=== PATIENT | male | born 1955 | race Caucasian/White ===

== ENCOUNTER → 2017-09-22 14:52 | Outpatient (CLI) | payer MEDICARE, SELFPAY ==
[2017-09-22 18:09] LABS: Absolute Lymphocyte Count 3.58 X10^3/ul (0.83-4.51); Absolute Neutrophil Count 5.3 X10^3/uL (2.0-7.7); Basophil# 0.04 X10^3/uL; Basophil% 0.4 % (0-1); Eosinophil# 0.37 X10^3/uL; Eosinophils% 3.5 % (0-5); Hematocrit 46.2 % (40-54); Hemoglobin 15.1 g/dl (13.0-16.5); Lymphocyte # 3.58 X10^3/ul (4.0); Lymphocyte % 33.6 % (19-41); Mean Corp Hgb Conc 32.7 g/gl (32-36); Mean Corpuscular Hgb 30.8 pg (27.0-32.0); Mean Corpuscular Volume 94.1 fL (80-94); Mean Platelet Vol. 10.4 fl (6.2-12.0); Monocyte# 1.26 X10^3/uL; Monocyte% 11.8 % (0-10); Neutrophil # 5.34 X10^3/uL (2.7-7.7); Neutrophil % 50.1 % (47-70); Platelet Count 277 K/mm3 (150-450); RBC Distribution Width CV 12.7 % (11.6-14.6); RBC Distribution Width SD 43.7 fl (35.1-43.9); Red Blood Count 4.91 M/mm3 (4.6-6.2); White Blood Count 10.7 K/mm3 (4.4-11.0)
[2017-09-22 18:15] LABS: ALB/GLOB Ratio 0.9 RATIO (0.9-2.4); AST(SGOT) 15 U/L (15-37); Alanine Aminotransfer ALT/SGPT 22 U/L (16-61); Albumin, Serum 3.8 g/dL (3.2-5.0); Alkaline Phosphatase 107 U/L (45-117); Anion Gap 9 (5-15); BUN 10 mg/dL (7-18); BUN/Creat Ratio 8.4 RATIO (10-20); Calcium,Total 8.6 mg/dL (8.5-10.1); Chloride 101 mmol/L (98-107); Creatinine, Serum 1.19 mg/dL (0.70-1.30); EST Glomerular Filtration Rate 66 mL/min (>60); Est Glom Filt Rate - Afr Amer 80 mL/min (>60); Globulin 4.2 g/dL (2.2-4.2); Glucose 204 mg/dL (74-106); Potassium 3.8 mmol/L (3.5-5.1); Sodium Level 135 mmol/L (136-145); Thyroid Stim Hormone (TSH) 1.08 uIU/mL (0.358-3.74)
[2017-09-22 18:20] LABS: POSITIVE COUNT NO; POSITIVE DIFFERENTIAL NO; POSITIVE MORPHOLOGY NO
== END ==
PROVIDERS: Family Provider Family Medicine Geriatric Medicine; PCP Family Medicine Geriatric Medicine; Visit Provider Family Medicine Geriatric Medicine
DX: I10 Essential (primary) hypertension (principal); E11.9 Type 2 diabetes mellitus without complications
CPT/HCPCS: 36415; 80053; 84443; 85025

== ENCOUNTER → 2018-03-09 13:28 | Outpatient (CLI) | payer MEDICARE, SELFPAY ==
[2018-03-09 16:30] LABS: Absolute Lymphocyte Count 3.81 X10^3/ul (0.83-4.51); Absolute Neutrophil Count 9.3 X10^3/uL (2.0-7.7); Basophil# 0.05 X10^3/uL; Basophil% 0.3 % (0-1); Eosinophil# 0.21 X10^3/uL; Eosinophils% 1.4 % (0-5); Hematocrit 43.9 % (40-54); Hemoglobin 14.7 g/dl (13.0-16.5); Lymphocyte # 3.81 X10^3/ul (4.0); Lymphocyte % 25.9 % (19-41); Mean Corp Hgb Conc 33.5 g/gl (32-36); Mean Corpuscular Hgb 31.5 pg (27.0-32.0); Mean Platelet Vol. 10.3 fl (6.2-12.0); Monocyte# 1.23 X10^3/uL; Monocyte% 8.4 % (0-10); Neutrophil # 9.33 X10^3/uL (2.7-7.7); Neutrophil % 63.5 % (47-70); Platelet Count 305 K/mm3 (150-450); RBC Distribution Width CV 12.6 % (11.6-14.6); RBC Distribution Width SD 42.5 fl (35.1-43.9); Red Blood Count 4.67 M/mm3 (4.6-6.2); White Blood Count 14.7 K/mm3 (4.4-11.0)
[2018-03-09 16:56] LABS: ALB/GLOB Ratio 0.9 RATIO (0.9-2.4); AST(SGOT) 16 U/L (15-37); Alanine Aminotransfer ALT/SGPT 25 U/L (16-61); Albumin, Serum 3.7 g/dL (3.2-5.0); Alkaline Phosphatase 108 U/L (45-117); Anion Gap 10 (5-15); BUN 11 mg/dL (7-18); BUN/Creat Ratio 8.5 RATIO (10-20); Calcium,Total 8.7 mg/dL (8.5-10.1); Chloride 100 mmol/L (98-107); Creatinine, Serum 1.29 mg/dL (0.70-1.30); EST Glomerular Filtration Rate 60 mL/min (>60); Est Glom Filt Rate - Afr Amer 73 mL/min (>60); Globulin 4.2 g/dL (2.2-4.2); Glucose 110 mg/dL (74-106); PSA,Total - Annual Screen 0.47 ng/mL (0.00-4.00); Potassium 3.9 mmol/L (3.5-5.1); Protein, Total 7.9 g/dL (6.4-8.2); Sodium Level 136 mmol/L (136-145); Thyroid Stim Hormone (TSH) 0.77 uIU/mL (0.358-3.74)
[2018-03-09 17:10] LABS: POSITIVE COUNT NO; POSITIVE DIFFERENTIAL NO; POSITIVE MORPHOLOGY NO
== END ==
PROVIDERS: Family Provider Family Medicine Geriatric Medicine; PCP Family Medicine Geriatric Medicine; Visit Provider Family Medicine Geriatric Medicine
DX: E11.9 Type 2 diabetes mellitus without complications (principal); Z12.5 Encounter for screening for malignant neoplasm of prostate
CPT/HCPCS: 36415; 80053; 84153; 84443; 85025; G0103

== ENCOUNTER → 2018-03-18 08:10 | Outpatient (CLI) | payer MEDICARE, SELFPAY ==
--- NOTE | 2018-03-18 09:40 | RAD_ITS ---
STUDY: X-RAY - LUMBOSACRAL SPINE REASON FOR EXAM: Male, 63 years old. Chronic low back pain. TECHNIQUE: 7 view(s) of the lumbosacral spine were obtained including flexion and extension images. COMPARISON: None FINDINGS: Normal lumbar lordosis. There is no substantial scoliosis. There is normal alignment of the vertebrae. Grossly normal flexion and extension with no subluxations. Normal vertebral bodies and endplates. Normal disc space heights. Normal bilateral sacral ala, sacroiliac joints, and visualized sacrum. There is atherosclerotic calcification of the abdominal aorta without a demonstrated aneurysm. RAD/L/S Spine Comp/w Bending Views IMPRESSION: Unremarkable for age. Electronically Signed: Tray Palmer MD at 19:44 EDT , Service support ,
== END ==
LOC: HPRAD 08:12 → MTRAD 08:32
PROVIDERS: Family Provider Family Medicine Geriatric Medicine; PCP Family Medicine Geriatric Medicine; Referring Provider Family Medicine Geriatric Medicine; Visit Provider Family Medicine Geriatric Medicine
DX: M54.16 Radiculopathy, lumbar region (principal)
CPT/HCPCS: 72114

== ENCOUNTER → 2018-07-16 14:15 | Outpatient (CLI) | payer MEDICARE, SELFPAY ==
[2018-07-16 16:25] LABS: Anion Gap 9 (5-15); BUN 12 mg/dL (7-18); BUN/Creat Ratio 10.1 RATIO (10-20); Calcium,Total 9.1 mg/dL (8.5-10.1); Chloride 103 mmol/L (98-107); Creatinine, Serum 1.19 mg/dL (0.70-1.30); EST Glomerular Filtration Rate 66 mL/min (>60); Est Glom Filt Rate - Afr Amer 80 mL/min (>60); Glucose 124 mg/dL (74-106); Sodium Level 136 mmol/L (136-145)
[2018-07-16 16:27] LABS: Absolute Lymphocyte Count 4.57 X10^3/ul (0.83-4.51); Absolute Neutrophil Count 8.4 X10^3/uL (2.0-7.7); Basophil# 0.06 X10^3/uL; Basophil% 0.4 % (0-1); Eosinophil# 0.27 X10^3/uL; Eosinophils% 1.8 % (0-5); Hematocrit 46.4 % (40-54); Hemoglobin 15.3 g/dl (13.0-16.5); Lymphocyte # 4.57 X10^3/ul (4.0); Lymphocyte % 31.3 % (19-41); Mean Corpuscular Volume 94.1 fL (80-94); Mean Platelet Vol. 10.6 fl (6.2-12.0); Monocyte# 1.24 X10^3/uL; Monocyte% 8.5 % (0-10); Neutrophil # 8.39 X10^3/uL (2.7-7.7); Neutrophil % 57.4 % (47-70); Platelet Count 298 K/mm3 (150-450); RBC Distribution Width CV 12.6 % (11.6-14.6); RBC Distribution Width SD 42.5 fl (35.1-43.9); Red Blood Count 4.93 M/mm3 (4.6-6.2); White Blood Count 14.6 K/mm3 (4.4-11.0)
[2018-07-16 16:32] LABS: POSITIVE COUNT NO; POSITIVE DIFFERENTIAL NO; POSITIVE MORPHOLOGY NO
== END ==
PROVIDERS: Family Provider Family Medicine Geriatric Medicine; PCP Family Medicine Geriatric Medicine; Visit Provider Family Medicine Geriatric Medicine
DX: Z01.818 Encounter for other preprocedural examination (principal)
CPT/HCPCS: 36415; 80048; 85025

== ENCOUNTER → 2018-07-24 06:32 | Outpatient (CLI) | payer MEDICARE, SELFPAY ==
--- NOTE | 2018-07-24 15:17 | STRESSREP_ITS ---
Stress Test Report Pharmacologic myocardial perfusion stress test. 63-year-old lady for preoperative evaluation. Stress protocol: Resting EKG demonstrates normal sinus rhythm with a rate of 74 bpm normal intervals are noted resting blood pressure 128/60 6 m of mercury. 0.4 mg of regadenoson was infused per usual protocol followed by rapid intravenous saline flush injection continuous EKG monitoring was performed. The maximum heart rate attained was 93 bpm which was 58% of maximum predicted heart rate the maximum workload was 1 metabolic equivalent. The patient maintained sinus rhythm throughout the recording. At rest there were no ST or T wave changes noted suggest abnormal flow reserve at peak infusion no ST or T wave changes were noted suggest abnormal flow reserve. Resting blood pressure 128/66 final blood pressure was the same. Myocardial perfusion protocol. 14.6 mCi of technetium 99m sestamibi was injected at rest. 0.4 mg of regadenoson was infused per usual protocol peak infusion 44.1 mCi of technetium 99m sestamibi was injected stress images were obtained stress and rest images were reconstructed and compared in the short ax is vertical long horizontal long axis. Gated images were also obtained Perfusion SPECT analysis: Review of the stress images demonstrate normal uptake of tracer noted in all areas of the myocardium except for the apex with mildly reduced perfusion. This appeared to be present on the stress and rest images to a similar extent. It does not appear to be suggestive of ischemia. Apical thinning is noted. Gated SPECT analysis: The gated ejection fraction is noted to be 78%. Conclusion: Normal pharmacologic myocardial perfusion stress test. Preserved ejection fraction
== END ==
LOC: CVS 06:32
PROVIDERS: Family Provider Family Medicine Geriatric Medicine; PCP Family Medicine Geriatric Medicine; Referring Provider Family Medicine Geriatric Medicine; Visit Provider Family Medicine Geriatric Medicine
DX: Z01.810 Encounter for preprocedural cardiovascular examination (principal); R94.31 Abnormal electrocardiogram [ECG] [EKG]
CPT/HCPCS: 78452; 93017; A9500; A4216; J2785

== ENCOUNTER → 2018-09-23 12:18 | Outpatient (CLI) | payer MEDICARE, SELFPAY ==
[2018-09-23 12:59] LABS: AST(SGOT) 16 U/L (15-37); Alanine Aminotransfer ALT/SGPT 22 U/L (16-61); Albumin, Serum 3.8 g/dL (3.2-5.0); Alkaline Phosphatase 102 U/L (45-117); Anion Gap 7 (5-15); BUN 14 mg/dL (7-18); BUN/Creat Ratio 11.7 RATIO (10-20); Calcium,Total 8.9 mg/dL (8.5-10.1); Chloride 102 mmol/L (98-107); EST Glomerular Filtration Rate 65 mL/min (>60); Est Glom Filt Rate - Afr Amer 79 mL/min (>60); Glucose 185 mg/dL (74-106); Potassium 3.9 mmol/L (3.5-5.1); Protein, Total 7.8 g/dL (6.4-8.2); Sodium Level 136 mmol/L (136-145); Thyroid Stim Hormone (TSH) 0.87 uIU/mL (0.358-3.74)
[2018-09-23 14:42] LABS: Absolute Lymphocyte Count 4.08 X10^3/ul (0.83-4.51); Absolute Neutrophil Count 9.1 X10^3/uL (2.0-7.7); Basophil# 0.06 X10^3/uL; Basophil% 0.4 % (0-1); Eosinophil# 0.23 X10^3/uL; Eosinophils% 1.6 % (0-5); Hematocrit 44.9 % (40-54); Hemoglobin 14.9 g/dl (13.0-16.5); Lymphocyte # 4.08 X10^3/ul (4.0); Lymphocyte % 27.9 % (19-41); Mean Corp Hgb Conc 33.2 g/gl (32-36); Mean Corpuscular Hgb 30.6 pg (27.0-32.0); Mean Corpuscular Volume 92.2 fL (80-94); Monocyte% 7.5 % (0-10); Neutrophil # 9.08 X10^3/uL (2.7-7.7); Neutrophil % 62.2 % (47-70); Platelet Count 302 K/mm3 (150-450); RBC Distribution Width CV 12.6 % (11.6-14.6); RBC Distribution Width SD 42.2 fl (35.1-43.9); Red Blood Count 4.87 M/mm3 (4.6-6.2); White Blood Count 14.6 K/mm3 (4.4-11.0)
[2018-09-23 14:45] LABS: POSITIVE COUNT NO; POSITIVE DIFFERENTIAL NO; POSITIVE MORPHOLOGY NO
== END ==
PROVIDERS: Family Provider Family Medicine Geriatric Medicine; PCP Family Medicine Geriatric Medicine; Visit Provider Family Medicine Geriatric Medicine
DX: E11.9 Type 2 diabetes mellitus without complications (principal); I10 Essential (primary) hypertension
CPT/HCPCS: 36415; 80053; 84443; 85025

== ENCOUNTER → 2018-12-23 08:45 | Outpatient (CLI) | payer MEDICARE, SELFPAY ==
[2018-12-23 11:57] LABS: Absolute Lymphocyte Count 3.08 X10^3/uL (0.83-4.51); Absolute Neutrophil Count 7.4 X10^3/uL (2.0-7.7); Basophil% 0.9 % (0-1); Eosinophil# 0.24 X10^3/uL; Eosinophils% 2.1 % (0-5); Hematocrit 48.1 % (40-54); Hemoglobin 15.9 g/dL (13.0-16.5); Lymphocyte # 3.08 X10^3/ul (4.0); Lymphocyte % 26.3 % (19-41); Mean Corp Hgb Conc 33.1 g/dL (32-36); Mean Corpuscular Hgb 30.9 pg (27.0-32.0); Mean Corpuscular Volume 93.4 fL (80-94); Monocyte# 0.75 X10^3/uL; Monocyte% 6.4 % (0-10); NRBC Flagged by Analyzer 0 % (0-5); Neutrophil % 63.2 % (47-70); Platelet Count 254 K/mm3 (150-450); RBC Distribution Width CV 11.9 % (11.6-14.6); RBC Distribution Width SD 41.1 fl (35.1-43.9); Red Blood Count 5.15 M/mm3 (4.6-6.2); White Blood Count 11.7 K/mm3 (4.4-11.0)
[2018-12-23 12:22] LABS: ALB/GLOB Ratio 0.9 RATIO (0.9-2.4); AST(SGOT) 28 U/L (15-37); Alanine Aminotransfer ALT/SGPT 44 U/L (16-61); Albumin, Serum 3.8 g/dL (3.2-5.0); Alkaline Phosphatase 111 U/L (45-117); Anion Gap 14 (5-15); BUN 19 mg/dL (7-18); BUN/Creat Ratio 12.3 RATIO (10-20); Chloride 94 mmol/L (98-107); Creatinine, Serum 1.54 mg/dL (0.70-1.30); EST Glomerular Filtration Rate 49 mL/min (>60); Est Glom Filt Rate - Afr Amer 59 mL/min (>60); Globulin 4.1 g/dL (2.2-4.2); Glucose 419 mg/dL (74-106); Potassium 4.2 mmol/L (3.5-5.1); Protein, Total 7.9 g/dL (6.4-8.2); Sodium Level 134 mmol/L (136-145); Thyroid Stim Hormone (TSH) 0.91 uIU/mL (0.358-3.74)
[2018-12-23 12:28] LABS: Vitamin D,25 Hydroxy 23.3 ng/mL (29.95-100.01)
== END ==
PROVIDERS: Family Provider Family Medicine Geriatric Medicine; PCP Family Medicine Geriatric Medicine; Visit Provider Family Medicine Geriatric Medicine
DX: E11.9 Type 2 diabetes mellitus without complications (principal); E55.9 Vitamin D deficiency, unspecified; I10 Essential (primary) hypertension
CPT/HCPCS: 36415; 80053; 82306; 84443; 85025

== ENCOUNTER → 2019-03-25 12:16 | Outpatient (CLI) | payer MEDICARE, SELFPAY ==
[2019-03-25 12:44] LABS: Absolute Lymphocyte Count 4.22 X10^3/uL (0.83-4.51); Absolute Neutrophil Count 8.4 X10^3/uL (2.0-7.7); Basophil% 0.7 % (0-1); Eosinophil# 0.32 X10^3/uL; Eosinophils% 2.2 % (0-5); Hematocrit 44.8 % (40-54); Hemoglobin 14.6 g/dL (13.0-16.5); Lymphocyte # 4.22 X10^3/ul (4.0); Lymphocyte % 29.4 % (19-41); Mean Corp Hgb Conc 32.6 g/dL (32-36); Mean Corpuscular Hgb 31.2 pg (27.0-32.0); Mean Corpuscular Volume 95.7 fL (80-94); Mean Platelet Vol. 10.2 fl (6.2-12.0); Monocyte% 8.4 % (0-10); NRBC Flagged by Analyzer 0 % (0-5); Neutrophil % 58.5 % (47-70); Platelet Count 303 K/mm3 (150-450); RBC Distribution Width CV 12.2 % (11.6-14.6); RBC Distribution Width SD 43.1 fl (35.1-43.9); Red Blood Count 4.68 M/mm3 (4.6-6.2); White Blood Count 14.4 K/mm3 (4.4-11.0)
[2019-03-25 13:08] LABS: ALB/GLOB Ratio 0.9 RATIO (0.9-2.4); AST(SGOT) 18 U/L (15-37); Alanine Aminotransfer ALT/SGPT 24 U/L (16-61); Albumin, Serum 3.6 g/dL (3.2-5.0); Alkaline Phosphatase 98 U/L (45-117); Anion Gap 8 (5-15); BUN 13 mg/dL (7-18); BUN/Creat Ratio 10.8 RATIO (10-20); Chloride 101 mmol/L (98-107); EST Glomerular Filtration Rate 65 mL/min (>60); Est Glom Filt Rate - Afr Amer 79 mL/min (>60); Globulin 4.2 g/dL (2.2-4.2); Glucose 161 mg/dL (74-106); PSA,Total - Annual Screen 0.42 ng/mL (0.00-4.00); Potassium 3.9 mmol/L (3.5-5.1); Protein, Total 7.8 g/dL (6.4-8.2); Sodium Level 134 mmol/L (136-145); Thyroid Stim Hormone (TSH) 0.99 uIU/mL (0.358-3.74)
== END ==
PROVIDERS: Family Provider Family Medicine Geriatric Medicine; PCP Family Medicine Geriatric Medicine; Visit Provider Family Medicine Geriatric Medicine
DX: E11.9 Type 2 diabetes mellitus without complications (principal); I10 Essential (primary) hypertension; Z12.5 Encounter for screening for malignant neoplasm of prostate
CPT/HCPCS: 36415; 80053; 84153; 84443; 85025; G0103

== ENCOUNTER → 2019-05-06 11:33 | Outpatient (CLI) | payer MEDICARE, SELFPAY ==
--- NOTE | 2019-05-06 11:36 | RAD_ITS ---
STUDY: X-RAY CHEST REASON FOR EXAM: Male, 64 years old. Cough TECHNIQUE: Frontal and lateral views of the chest. COMPARISON: 11/23/2015 FINDINGS: Bilateral axillary clips. The lungs are clear and expanded. Calcified pleural plaques. Normal size heart. Normal mediastinum and guzman. Normal visualized pulmonary arteries. Normal visualized aortic arch and descending thoracic aorta. Normal visualized thoracic spine. Remote rib trauma on the right. There is no demonstrated abnormality of the visualized soft tissue structures of the upper abdomen. RAD/Chest PA and Lateral IMPRESSION: No acute pulmonary findings. Electronically Signed: Rasta Orellana MD at 16:38 EST Tel , Service support ,
== END ==
LOC: RAD 11:35
PROVIDERS: Family Provider Family Medicine Geriatric Medicine; PCP Family Medicine Geriatric Medicine; Referring Provider Family Medicine Geriatric Medicine; Visit Provider Family Medicine Geriatric Medicine
DX: R06.89 Other abnormalities of breathing (principal); R68.83 Chills (without fever)
CPT/HCPCS: 71046; 87633

== ENCOUNTER → 2019-10-08 11:32 | Outpatient (CLI) | payer MEDICARE, SELFPAY ==
[2019-10-08 12:47] LABS: Absolute Lymphocyte Count 4.14 X10^3/uL (0.83-4.51); Absolute Neutrophil Count 7.9 X10^3/uL (2.0-7.7); Basophil# 0.08 X10^3/uL; Basophil% 0.6 % (0-1); Eosinophil# 0.36 X10^3/uL; Eosinophils% 2.6 % (0-5); Hematocrit 44.7 % (40-54); Hemoglobin 14.4 g/dL (13.0-16.5); Lymphocyte # 4.14 X10^3/ul (4.0); Lymphocyte % 30.2 % (19-41); Mean Corp Hgb Conc 32.2 g/dL (32-36); Mean Corpuscular Hgb 30.6 pg (27.0-32.0); Mean Corpuscular Volume 95.1 fL (80-94); Monocyte# 1.06 X10^3/uL; Monocyte% 7.7 % (0-10); NRBC Flagged by Analyzer 0 % (0-5); Neutrophil # 7.94 X10^3/uL (2.7-7.7); Neutrophil % 58.1 % (47-70); POSITIVE MORPHOLOGY YES; Platelet Count 281 K/mm3 (150-450); RBC Distribution Width CV 12.5 % (11.6-14.6); RBC Distribution Width SD 43.6 fl (35.1-43.9); White Blood Count 13.7 K/mm3 (4.4-11.0)
[2019-10-08 13:01] LABS: Differential Indicated SCAN CRITERIA MET
[2019-10-08 13:23] LABS: ALB/GLOB Ratio 0.8 RATIO (0.9-2.4); AST(SGOT) 15 U/L (15-37); Alanine Aminotransfer ALT/SGPT 23 U/L (16-61); Albumin, Serum 3.4 g/dL (3.2-5.0); Alkaline Phosphatase 106 U/L (45-117); Anion Gap 7 (5-15); BUN 11 mg/dL (7-18); BUN/Creat Ratio 8.3 RATIO (10-20); Calcium,Total 8.7 mg/dL (8.5-10.1); Chloride 103 mmol/L (98-107); Creatinine, Serum 1.33 mg/dL (0.70-1.30); EST Glomerular Filtration Rate 58 mL/min (>60); Est Glom Filt Rate - Afr Amer 70 mL/min (>60); Globulin 4.2 g/dL (2.2-4.2); Glucose 132 mg/dL (74-106); Potassium 3.8 mmol/L (3.5-5.1); Protein, Total 7.6 g/dL (6.4-8.2); Sodium Level 138 mmol/L (136-145); Thyroid Stim Hormone (TSH) 0.79 uIU/mL (0.358-3.74)
[2019-10-08 13:31] LABS: Differential Comment SCANNED; Reactive Lymphocyte 1+
[2019-10-11 11:43] LABS: Pathologist Review Reviewed
== END ==
PROVIDERS: PCP Family Medicine Geriatric Medicine; Visit Provider Family Medicine Geriatric Medicine
DX: E11.9 Type 2 diabetes mellitus without complications (principal); I10 Essential (primary) hypertension
CPT/HCPCS: 36415; 80053; 84443; 85025

== ENCOUNTER → 2020-05-17 11:11 | Outpatient (CLI) | payer MEDICARE, SELFPAY ==
[2020-05-17 12:48] LABS: Absolute Lymphocyte Count 4.16 X10^3/uL (0.83-4.51); Absolute Neutrophil Count 9.3 X10^3/uL (2.0-7.7); Basophil# 0.07 X10^3/uL; Basophil% 0.5 % (0-1); Hematocrit 46.7 % (40-54); Hemoglobin 14.7 g/dL (13.0-16.5); Lymphocyte # 4.16 X10^3/ul (4.0); Lymphocyte % 27.7 % (19-41); Mean Corp Hgb Conc 31.5 g/dL (32-36); Mean Corpuscular Hgb 29.8 pg (27.0-32.0); Mean Corpuscular Volume 94.5 fL (80-94); Mean Platelet Vol. 10.2 fl (6.2-12.0); Monocyte# 1.11 X10^3/uL; Monocyte% 7.4 % (0-10); NRBC Flagged by Analyzer 0 % (0-5); Neutrophil # 9.31 X10^3/uL (2.7-7.7); Neutrophil % 61.9 % (47-70); Platelet Count 295 K/mm3 (150-450); RBC Distribution Width CV 12.7 % (11.6-14.6); RBC Distribution Width SD 43.5 fl (35.1-43.9); Red Blood Count 4.94 M/mm3 (4.6-6.2)
[2020-05-17 13:05] LABS: ALB/GLOB Ratio 0.9 RATIO (0.9-2.4); AST(SGOT) 24 U/L (15-37); Alanine Aminotransfer ALT/SGPT 32 U/L (16-61); Albumin, Serum 3.6 g/dL (3.2-5.0); Alkaline Phosphatase 113 U/L (45-117); Anion Gap 9 (5-15); BUN 8 mg/dL (7-18); Calcium,Total 8.5 mg/dL (8.5-10.1); Chloride 99 mmol/L (98-107); Creatinine, Serum 1.34 mg/dL (0.70-1.30); EST Glomerular Filtration Rate 57 mL/min (>60); Est Glom Filt Rate - Afr Amer 69 mL/min (>60); Globulin 4.1 g/dL (2.2-4.2); Glucose 197 mg/dL (74-106); PSA,Total - Annual Screen 0.35 ng/mL (0.00-4.00); Potassium 3.6 mmol/L (3.5-5.1); Protein, Total 7.7 g/dL (6.4-8.2); Sodium Level 137 mmol/L (136-145); Thyroid Stim Hormone (TSH) 1.01 uIU/mL (0.358-3.74)
[2020-05-17 13:13] LABS: PTHIN 61.3 pg/mL (18.4-80.1)
== END ==
PROVIDERS: PCP Family Medicine Geriatric Medicine; Visit Provider Family Medicine Geriatric Medicine
DX: E11.65 Type 2 diabetes mellitus with hyperglycemia (principal); I10 Essential (primary) hypertension; F52.8 Other sexual dysfunction not due to a substance or known physiological condition; Z12.5 Encounter for screening for malignant neoplasm of prostate
CPT/HCPCS: 36415; 80053; 83970; 84153; 84403; 84443; 85025; G0103

== ENCOUNTER → 2021-03-16 11:20 | Outpatient (CLI) | payer MEDICARE, SELFPAY ==
[2021-03-16 12:44] LABS: Absolute Lymphocyte Count 3.57 X10^3/uL (0.83-4.51); Absolute Neutrophil Count 11.1 X10^3/uL (2.0-7.7); Basophil# 0.09 X10^3/uL; Basophil% 0.6 % (0-1); Eosinophil# 0.36 X10^3/uL; Eosinophils% 2.2 % (0-5); Hematocrit 43.6 % (40-54); Hemoglobin 13.9 g/dL (13.0-16.5); Lymphocyte # 3.57 X10^3/ul (0.83-4.51); Mean Corp Hgb Conc 31.9 g/dL (32-36); Mean Corpuscular Hgb 30.4 pg (27.0-32.0); Mean Corpuscular Volume 95.4 fL (80-94); Mean Platelet Vol. 10.2 fl (6.2-12.0); Monocyte# 0.99 X10^3/uL; Monocyte% 6.1 % (0-10); NRBC Flagged by Analyzer 0 % (0-5); Neutrophil # 11.09 X10^3/uL (2.7-7.7); Neutrophil % 68.2 % (47-70); Platelet Count 306 K/mm3 (150-450); RBC Distribution Width CV 12.5 % (11.6-14.6); Red Blood Count 4.57 M/mm3 (4.6-6.2); White Blood Count 16.2 K/mm3 (4.4-11.0)
[2021-03-16 12:59] LABS: Vitamin D,25 Hydroxy 31.6 ng/mL
[2021-03-16 13:06] LABS: ALB/GLOB Ratio 0.7 RATIO (0.9-2.4); AST(SGOT) 12 U/L (15-37); Alanine Aminotransfer ALT/SGPT 21 U/L (16-61); Albumin, Serum 3.2 g/dL (3.2-5.0); Alkaline Phosphatase 115 U/L (45-117); Anion Gap 5 (5-15); BUN 9 mg/dL (7-18); BUN/Creat Ratio 7.9 RATIO (10-20); Calcium,Total 8.3 mg/dL (8.5-10.1); Chloride 105 mmol/L (98-107); Creatinine, Serum 1.14 mg/dL (0.70-1.30); EST Glomerular Filtration Rate 69 mL/min (>60); Est Glom Filt Rate - Afr Amer 83 mL/min (>60); Globulin 4.3 g/dL (2.2-4.2); Glucose 126 mg/dL (74-106); Potassium 3.9 mmol/L (3.5-5.1); Protein, Total 7.5 g/dL (6.4-8.2); Sodium Level 138 mmol/L (136-145); Thyroid Stim Hormone (TSH) 0.58 uIU/mL (0.358-3.74)
== END ==
PROVIDERS: PCP Family Medicine Geriatric Medicine; Visit Provider Family Medicine Geriatric Medicine
DX: E11.9 Type 2 diabetes mellitus without complications (principal); E55.9 Vitamin D deficiency, unspecified; I10 Essential (primary) hypertension
CPT/HCPCS: 36415; 80053; 82306; 84443; 85025

== ENCOUNTER → 2021-03-19 08:43 | Outpatient (CLI) | payer MEDICARE, SELFPAY | PROVIDERS: PCP Family Medicine Geriatric Medicine; Visit Provider Family Medicine Geriatric Medicine | DX: E11.9 Type 2 diabetes mellitus without complications (principal) | CPT/HCPCS: 36415; 82533 ==

== ENCOUNTER → 2021-03-26 12:32 | Outpatient (CLI) | payer MEDICARE, SELFPAY ==
--- NOTE | 2021-03-26 12:40 | RAD_ITS ---
STUDY: X-RAY CHEST REASON FOR EXAM: Male, 66 years old. COUGH TECHNIQUE: PA and lateral views of the chest. COMPARISON: 05/06/2019. FINDINGS: The lungs are normally expanded with mild interstitial prominence through the lung bases, stable. Otherwise clear lung cobb. There is no demonstrated pleural abnormality. Normal size heart. Normal mediastinum and guzman. Normal visualized pulmonary arteries. Normal visualized aortic arch and descending thoracic aorta. There are diffuse degenerative changes of the visualized thoracic spine. Normal visualized ribs, clavicles, and shoulders. There is no demonstrated abnormality of the visualized soft tissue structures of the upper abdomen. RAD/Chest PA and Lateral IMPRESSION: No acute interval change. Electronically Signed: Carlyn Claros MD at 0:16 EDT , Service support ,
== END ==
LOC: RAD 12:36
PROVIDERS: PCP Family Medicine Geriatric Medicine; Referring Provider Family Medicine Geriatric Medicine; Visit Provider Family Medicine Geriatric Medicine
DX: R05.9 Cough, unspecified (principal)
CPT/HCPCS: 71046

== ENCOUNTER → 2021-04-04 08:32 | Outpatient (CLI) | payer MEDICARE, SELFPAY | PROVIDERS: PCP Family Medicine Geriatric Medicine; Referring Provider Family Medicine Geriatric Medicine; Visit Provider Family Medicine Geriatric Medicine | DX: R06.89 Other abnormalities of breathing (principal) | CPT/HCPCS: 87635; 87804; 87807; C9803; U0005; U0003 ==

== ENCOUNTER 2021-07-16 10:15 | Outpatient (CLI) | payer MEDICARE, SELFPAY ==
[2021-07-16 12:19] LABS: Absolute Lymphocyte Count 3.94 X10^3/uL (0.83-4.51); Absolute Neutrophil Count 8.3 X10^3/uL (2.0-7.7); Basophil% 0.7 % (0-1); Eosinophils% 2.2 % (0-5); Hematocrit 45.2 % (40-54); Hemoglobin 14.5 g/dL (13.0-16.5); Lymphocyte # 3.94 X10^3/ul (0.83-4.51); Lymphocyte % 28.6 % (19-41); Mean Corp Hgb Conc 32.1 g/dL (32-36); Mean Corpuscular Hgb 30.5 pg (27.0-32.0); Mean Corpuscular Volume 95.2 fL (80-94); Mean Platelet Vol. 9.9 fl (6.2-12.0); Monocyte# 1.03 X10^3/uL; Monocyte% 7.5 % (0-10); NRBC Flagged by Analyzer 0 % (0-5); Neutrophil % 60.1 % (47-70); Platelet Count 287 K/mm3 (150-450); RBC Distribution Width CV 12.7 % (11.6-14.6); RBC Distribution Width SD 44.5 fl (35.1-43.9); Red Blood Count 4.75 M/mm3 (4.6-6.2); White Blood Count 13.8 K/mm3 (4.4-11.0)
[2021-07-16 12:52] LABS: ALB/GLOB Ratio 0.8 RATIO (0.9-2.4); AST(SGOT) 16 U/L (15-37); Alanine Aminotransfer ALT/SGPT 22 U/L (16-61); Albumin, Serum 3.2 g/dL (3.2-5.0); Alkaline Phosphatase 100 U/L (45-117); Anion Gap 5 (5-15); BUN 10 mg/dL (7-18); Calcium,Total 8.1 mg/dL (8.5-10.1); Chloride 105 mmol/L (98-107); Creatinine, Serum 1.11 mg/dL (0.70-1.30); EST Glomerular Filtration Rate 71 mL/min (>60); Est Glom Filt Rate - Afr Amer 85 mL/min (>60); Glucose 116 mg/dL (74-106); PSA,Total - Annual Screen 0.37 ng/mL (0.00-4.00); Potassium 3.6 mmol/L (3.5-5.1); Protein, Total 7.2 g/dL (6.4-8.2); Sodium Level 139 mmol/L (136-145); Thyroid Stim Hormone (TSH) 0.68 uIU/mL (0.358-3.74)
[2021-07-16 12:53] LABS: Vitamin D,25 Hydroxy 26.5 ng/mL
== END 2021-07-16 23:59 | disposition home or self-care (01) ==
LOC: POLAB3 10:17
PROVIDERS: PCP Family Medicine Geriatric Medicine; Visit Provider Family Medicine Geriatric Medicine
DX: I10 Essential (primary) hypertension (principal); E55.9 Vitamin D deficiency, unspecified; Z12.5 Encounter for screening for malignant neoplasm of prostate; F52.8 Other sexual dysfunction not due to a substance or known physiological condition
CPT/HCPCS: 36415; 80053; 82306; 84153; 84403; 84443; 85025; G0103

== ENCOUNTER → 2022-01-14 | Outpatient (CLI) | payer MEDICARE, SELFPAY ==
[2022-01-14 12:41] LABS: Absolute Lymphocyte Count 4.34 X10^3/uL (0.83-4.51); Absolute Neutrophil Count 9.5 X10^3/uL (2.0-7.7); Basophil# 0.11 X10^3/uL; Basophil% 0.7 % (0-1); Eosinophil# 0.32 X10^3/uL; Eosinophils% 2.1 % (0-5); Hematocrit 46.5 % (40-54); Hemoglobin 15.2 g/dL (13.0-16.5); Lymphocyte # 4.34 X10^3/ul (0.83-4.51); Lymphocyte % 28.3 % (19-41); Mean Corp Hgb Conc 32.7 g/dL (32-36); Mean Corpuscular Hgb 31.5 pg (27.0-32.0); Mean Corpuscular Volume 96.5 fL (80-94); Mean Platelet Vol. 10.4 fl (6.2-12.0); Monocyte# 1.01 X10^3/uL; Monocyte% 6.6 % (0-10); NRBC Flagged by Analyzer 0 % (0-5); Neutrophil # 9.45 X10^3/uL (2.7-7.7); Neutrophil % 61.5 % (47-70); Platelet Count 272 K/mm3 (150-450); RBC Distribution Width CV 12.4 % (11.6-14.6); RBC Distribution Width SD 43.8 fl (35.1-43.9); Red Blood Count 4.82 M/mm3 (4.6-6.2); White Blood Count 15.4 K/mm3 (4.4-11.0)
[2022-01-14 12:59] LABS: Vitamin D,25 Hydroxy 32.3 ng/mL
[2022-01-14 13:12] LABS: ALB/GLOB Ratio 0.8 RATIO (0.9-2.4); AST(SGOT) 16 U/L (15-37); Alanine Aminotransfer ALT/SGPT 23 U/L (16-61); Albumin, Serum 3.4 g/dL (3.2-5.0); Alkaline Phosphatase 103 U/L (45-117); Anion Gap 10 (5-15); BUN 16 mg/dL (7-18); BUN/Creat Ratio 11.2 RATIO (10-20); Calcium,Total 8.5 mg/dL (8.5-10.1); Chloride 100 mmol/L (98-107); Creatinine, Serum 1.43 mg/dL (0.70-1.30); EST Glomerular Filtration Rate 53 mL/min (>60); Est Glom Filt Rate - Afr Amer 64 mL/min (>60); Globulin 4.2 g/dL (2.2-4.2); Glucose 191 mg/dL (74-106); Potassium 4.3 mmol/L (3.5-5.1); Protein, Total 7.6 g/dL (6.4-8.2); Sodium Level 135 mmol/L (136-145); Thyroid Stim Hormone (TSH) 0.97 uIU/mL (0.358-3.74)
== END | disposition home or self-care (01) ==
LOC: POLAB3 09:31
PROVIDERS: PCP Family Medicine Geriatric Medicine; Referring Provider Family Medicine Geriatric Medicine; Visit Provider Family Medicine Geriatric Medicine
DX: I10 Essential (primary) hypertension (principal); E11.9 Type 2 diabetes mellitus without complications; E55.9 Vitamin D deficiency, unspecified; F52.8 Other sexual dysfunction not due to a substance or known physiological condition
CPT/HCPCS: 36415; 80053; 82306; 84403; 84443; 85025

== ENCOUNTER → 2022-03-28 | Outpatient (CLI) | payer MEDICARE, SELFPAY ==
--- NOTE | 2022-03-28 11:05 | RAD_ITS ---
STUDY: X-RAY CHEST REASON FOR EXAM: Male, 67 years old. COUGH TECHNIQUE: PA and lateral views of the chest. COMPARISON: June 26, 2020 chest x-ray FINDINGS: The lung markings are stable. There are chronic appearing interstitial markings within the lung bases as well as bilateral pleural plaquing. There is postoperative change projected over the right upper chest and the left axilla and upper chest. There is no demonstrated pleural abnormality. Normal size heart. Normal mediastinum and guzman. Normal visualized pulmonary arteries. There is atherosclerotic calcification of the aortic arch with tortuosity. There are diffuse degenerative changes of the visualized thoracic spine. Normal visualized ribs, clavicles, and shoulders. There is no demonstrated abnormality of the visualized soft tissue structures of the upper abdomen. RAD/Chest PA and Lateral IMPRESSION: Stable fibrotic change within the lung bases. Bilateral calcific pleural plaquing of the hemidiaphragms is suggestive of prior asbestos exposure. Electronically Signed: Hawa Hunt MD at 2:13 EDT ,
== END | disposition home or self-care (01) ==
PROVIDERS: PCP Family Medicine Geriatric Medicine; Visit Provider Family Medicine Geriatric Medicine
DX: R68.83 Chills (without fever) (principal)
CPT/HCPCS: 71046; 87426; 87804; 87807; C9803

== ENCOUNTER 2022-03-30 22:12 | Inpatient (IN) | payer MEDICARE, SELFPAY ==
[2022-03-30 22:15] VITALS: BP 111/62; PULSE 112; RESP 18; TEMP 35.6; O2SAT 95; BMI 41.7
--- NOTE | 2022-03-30 22:30 | EKG12_ITS ---
Test Reason : SOB Blood Pressure : / mmHG Vent. Rate : 108 BPM Atrial Rate : 108 BPM P-R Int : 162 ms QRS Dur : 080 ms QT Int : 314 ms P-R-T Axes : 066 -36 060 degrees QTc Int : 420 ms Sinus tachycardia Left axis deviation Low voltage QRS Inferior infarct , age undetermined Abnormal ECG Confirmed by ASAEL DONG, JOHN ([id number]), film and video editor YANNICK RICE ([id number]) on 04/01/2022 12:54:47 PM Referred By: PAVITHRA Confirmed By:JOHN VYAS MD
--- NOTE | 2022-03-30 22:31 | EDS_ITS ---
HPI History of Present Illness Chief Complaint: Shortness of Breath Informant: patient Onset/Context/Timing Onset: Days (8-9 days) Context: Gradual Onset Narrative Narrative: Patient presents secondary to cough and shortness of breath has been ongoing for about the last 8 or 9 days. Patient was seen by his PCP on . Chest x- ray reportedly showed no pneumonia. COVID test was negative. Flu test was positive for influenza A. Patient states that he picked up his cough medicine but the Tamiflu that had been prescribed was never available at the pharmacy. In addition to this he has COPD and his nebulizer reportedly is not working. He does feel that he is wheezing more than normal. He was given several injections while at the doctor's office on including a steroid. His blood sugars have been running in the mid to high 200 range. On arrival he was complaining of bilateral facial paresthesias. His pulse ox was noted to be 75% on room air. Once he was placed on oxygen the facial paresthesias resolved. states that he has had some twitching in both arms today. He has had this occasionally in the past when he becomes ill. [facility] Medical History (Updated 03/30/22 @ 23:[address] Tamika Echeverria MD) Bilateral pulmonary embolism COPD (chronic obstructive pulmonary disease) Depression Diabetes History of DVT of lower extremity Hypertension Sleep apnea Stiff-man syndrome Home Medications Quinapril Hcl [Accupril] 40 mg PO DAILY 12/24/13 [History Last Taken Unknown] albuterol sulfate 90 mcg/actuation aerosol inhaler (Proventil HFA) 6.7 g IH Q4H PRN PRN SHORTNESS OF BREATH 12/24/13 [History Last Taken Unknown] atorvastatin 40 mg tablet 40 mg PO QHS 12/24/13 [History Last Taken Unknown] esomeprazole magnesium 40 mg capsule,delayed release (Nexium) 40 mg PO DAILY 12/24/13 [History Last Taken Unknown] fluticasone 250 mcg-salmeterol 50 mcg/dose blistr powdr for inhalation (Advair Diskus) 1 puff inhalation BID 12/24/13 [History Last Taken Unknown] lidocaine 5 % topical patch 1 patch topical DAILY 12/24/13 [History Last Taken Unknown] ipratropium 0.5 mg-albuterol 3 mg (2.5 mg base)/3 mL nebulization soln 3 ml inhalation Q6H PRN ##1 12/26/13 [Rx Last Taken Unknown] albuterol sulfate 2.5 mg/3 mL (0.083 %) solution for nebulization 2.5 mg (3 mL) inhalation Q2H PRN PRN SHORTNESS OF BREATH ##100 02/05/14 [Rx Last Taken Unknown] tiotropium bromide 18 mcg capsule with inhalation device (Spiriva with HandiHaler) 1 puff inhalation DAILY ##1 02/05/14 [Rx Last Taken Unknown] hydrocodone 7.5 mg-acetaminophen 325 mg tablet 1 ea PO Q6H PRN PRN Pain 10/12/14 [History Last Taken Unknown] rivaroxaban 15 mg tablet (Xarelto) 15 mg PO BID ##42 01/09/15 [Rx Last Taken Unknown] dulaglutide 0.75 mg/0.5 mL subcutaneous pen injector (Trulicity) 0.75 mg subcut QWEEK 03/30/22 [History Last Taken Unknown] insulin NPH isoph U-100 human 100 unit/mL (3 mL) subcutaneous pen 20 unit subcut BID 03/30/22 [History Last Taken Unknown] linagliptin 5 mg tablet (Tradjenta) 5 mg PO DAILY 03/30/22 [History Last Taken Unknown] morphine 15 mg immediate release tablet 15 mg PO BID PRN Pain, Severe 03/30/22 [History Last Taken Unknown] trazodone 50 mg tablet 50 mg PO QHS 03/30/22 [History Last Taken Unknown] Allergy/AdvReac Type Severity Reaction Status Date / Time cilostazol [From Pletal] Allergy Other Verified 03/30/22 22:14 etodolac [From Lodine] Allergy Hives Verified 03/30/22 22:14 nabumetone [From Relafen] Allergy Hives Verified 03/30/22 22:14 naproxen sodium [From Aleve] Allergy Hives Verified 03/30/22 22:14 Penicillins Allergy Hives Verified 03/30/22 22:14 Social History Smoking Status: Current every day smoker tobacco type: cigarettes ROS ROS ED Constitutional Constitutional ED: Denies chills or fever(s) Eyes Eyes: Denies change in vision or discharge from eye(s) ENT ENT ED: Reports other Details: Congestion ; Denies discharge from eye(s), rhinorrhea or sore throat Cardiovascular Cardiovascular: Denies chest pain or palpitations Respiratory/Chest Respiratory/Chest: Reports cough and dyspnea Gastrointestinal Gastrointestinal: Denies abdominal pain, nausea or vomiting Genitourinary Genitourinary ED: Denies dysuria Musculoskeletal Musculoskeletal: Denies back pain or extremity pain Integumentary Denies Abrasions or rash Neurologic Neurologic: Reports paresthesias, weakness and other Details: Bilateral arm twitching ; Denies headache(s) Allergic/Immunologic Allergic/Immunologic ED: Denies lip swelling or urticaria EXAM Physical Exam Const Vital Signs: 03/30/22 22:15 03/30/22 22:39 03/30/22 23:03 Temperature 96.1 F L Temperature Source Temporal Pulse Rate 112 H 111 H Respiratory Rate 18 16 Respiratory Effort Respiratory Pattern Normal Blood Pressure 111/62 Blood Pressure Mean 78 Pulse Ox 95 92 Oxygen Delivery Method Nasal Cannula Oxygen Flow Rate (L/min) 3 3.5 03/30/22 23:05 Temperature Temperature Source Pulse Rate Respiratory Rate Respiratory Effort Labored Respiratory Pattern Blood Pressure Blood Pressure Mean Pulse Ox Oxygen Delivery Method Nasal Cannula Oxygen Flow Rate (L/min) 3.5 Positive well nourished and well developed General Appearance ED: well developed HEENT Reports normocephalic and head/scalp atraumatic Eyes PERRL and EOMs intact bilaterally Neck supple Chest Wall inspection of chest normal and palpation of chest normal Resp normal respiratory effort Resp Narrative: Mild rales bilaterally. Cardio regular rhythm Rate: tachycardic GI normal to inspection, nondistended, normoactive bowel sounds Palpation: soft Extremity normal to inspection Neuro oriented x3 and no sensory deficits noted Neuro Narrative: Intermittent stiffening spasms noted in both arms. Sensorium / Orientation: alert Motor Exam: strength 5/5 throughout Psych mental status grossly normal Skin no rashes or lesions noted MDM MDM MDM Narrative Medical decision making narrative: Sepsis work-up initiated. Patient is currently on 3 to 3-1/2 L nasal cannula. He does not normally wear home oxygen. Lab Data Attestation: I reviewed the patient's lab results. Labs: Laboratory Results - last 24 hr 03/30/22 03/30/22 03/30/22 22:40 22:40 22:40 WBC 12.4 H RBC 4.60 Hgb 14.1 Hct 45.3 MCV 98.5 H MCH 30.7 MCHC 31.1 L RDW Std Deviation 49.1 H RDW Coeff of Vincent 13.5 Plt Count 247 MPV 10.1 Immature Gran % (Auto) 1.000 H Neut % (Auto) 63.0 Lymph % (Auto) 27.4 [place] % (Auto) 7.8 Eos % (Auto) 0.4 Baso % (Auto) 0.4 Absolute Neuts (auto) 7.8 H Absolute Lymphs (auto) 3.39 Nucleated RBC % 0 PT 16.4 H INR 1.4 APTT 30.9 Sodium 138 Potassium 4.3 Chloride 102 Carbon Dioxide 27.0 Anion Gap 9 BUN 18 Creatinine 1.44 H Estim Creat Clear Calc 53.74 Est GFR (MDRD) Af Amer 63 Est GFR (MDRD) Non-Af 52 L BUN/Creatinine Ratio 12.5 Glucose 310 H Calcium 8.3 L Total Bilirubin 0.50 AST 27 ALT 22 Alkaline Phosphatase 88 Total Protein 7.1 Albumin 3.3 Globulin 3.8 Albumin/Globulin Ratio 0.9 Radiography Chest X-Ray - ED: 1 View, Read by ED Physician, Chronic Changes and No Infiltrates Diagnostic Testing: Clinical Impression(s) from Imaging Studies Chest X-Ray 03/30/22 22:51 IMPRESSION: Calcified pleural plaque without acute cardiopulmonary disease. No major interval change. Electronically Signed: Ramirez JonesDO at 23:21 EDT Reading Location ID and State: [address] [place] [address] Tel [phone], Service support , EKG Initial EKG: Attestation: I personally reviewed and interpreted this EKG as follows: Interpretation: Sinus Tachycardia (Sinus tach at 108. No acute ischemia.) Treatment and Re-Evaluation Narrative: Patient is given a DuoNeb treatment. CBC reveals white count of 12.4. Patient was recently given IM steroids. Chemistry studies reveal a BUN of 18 and creatinine 1.44. This is at or only slightly above his baseline. Glucose is 310. LFTs are unremarkable. On repeat evaluation patient still sounds wet with moist cough. He will be given a dose of Mucinex and Solu-Medrol. I will go ahead and give him a dose of doxycycline given his underlying COPD. I do feel that his current illness is secondary to influenza A infection with flare of COPD. I will speak with hospitalist regarding admission. Discharge Plan Triage Chief Complaint: Shortness of Breath ED Provider: Tamika Echeverria Dx/Rx/DC Orders Clinical Impression: Influenza A, COPD exacerbation, Hypoxia Prescriptions: No Action atorvastatin 40 MG tablet 40 mg PO QHS Label Comments: cholesterol lowering fluticasone propion-salmeterol [Advair Diskus] 1 PUFF inhaler 1 puff inhalation BID Label Comments: for breathing problems/copd esomeprazole magnesium [Nexium] 40 MG capsule 40 mg PO DAILY Label Comments: for acid reflux lidocaine 1 PATCH patch 1 patch topical DAILY Label Comments: pain patch- ON 12 HOURS, OFF 12 HOURS albuterol sulfate [Proventil HFA] 6.7 GM HFA aerosol inhaler 6.7 g IH Q4H PRN PRN (Reason: SHORTNESS OF BREATH) Label Comments: for breathing/shortness of breath Quinapril Hcl [Accupril] 40 MG tablet 40 mg PO DAILY Label Comments: for blood pressure ipratropium-albuterol 3 ML solution for nebulization 3 ml inhalation Q6H PRN Qty: 1 0RF Label Comments: for copd/shortness of breath albuterol sulfate 2.5 MG/3 ML solution for nebulization 2.5 mg inhalation Q2H PRN PRN (Reason: SHORTNESS OF BREATH ) Qty: 100 0RF Label Comments: breathing Spiriva with HandiHaler 1 PUFF inhaler 1 puff inhalation DAILY Qty: 1 2RF Label Comments: breathing hydrocodone-acetaminophen 1 EACH tablet 1 ea PO Q6H PRN PRN (Reason: Pain) Xarelto 15 MG tablet 15 mg PO BID Qty: 42 0RF Humulin N Pen 100 unit/mL (3 mL) Insulin Pen 20 unit SUBCUT BID Trulicity 0.75 mg/0.5 mL Pen Injector 0.75 mg SUBCUT QWEEK morphine 15 mg Tablet 15 mg PO BID PRN (Reason: Pain, Severe) trazodone 50 mg Tablet 50 mg PO QHS Tradjenta 5 mg Tablet 5 mg PO DAILY Primary Care Provider: Giancarlo Boyer Chi Referrals: Giancarlo Boyer Chi, MD [Primary Care Provider] - Disposition Disposition: Acute Care [facility]
[2022-03-30 22:39] VITALS: PULSE 111; RESP 16
[2022-03-30] MEDS: Ipratropium/Albuterol Sulfate 3 ML AMPUL.NEB INHALATION (22:39)
[2022-03-30 22:50] LABS: Absolute Lymphocyte Count 3.39 X10^3/uL (0.83-4.51); Absolute Neutrophil Count 7.8 X10^3/uL (2.0-7.7); Basophil# 0.05 X10^3/uL; Basophil% 0.4 % (0-1); Eosinophil# 0.05 X10^3/uL; Eosinophils% 0.4 % (0-5); Hematocrit 45.3 % (40-54); Hemoglobin 14.1 g/dL (13.0-16.5); Lymphocyte # 3.39 X10^3/ul (0.83-4.51); Lymphocyte % 27.4 % (19-41); Mean Corp Hgb Conc 31.1 g/dL (32-36); Mean Corpuscular Hgb 30.7 pg (27.0-32.0); Mean Corpuscular Volume 98.5 fL (80-94); Mean Platelet Vol. 10.1 fl (6.2-12.0); Monocyte# 0.96 X10^3/uL; Monocyte% 7.8 % (0-10); NRBC Flagged by Analyzer 0 % (0-5); Platelet Count 247 K/mm3 (150-450); RBC Distribution Width CV 13.5 % (11.6-14.6); RBC Distribution Width SD 49.1 fl (35.1-43.9); White Blood Count 12.4 K/mm3 (4.4-11.0)
--- NOTE | 2022-03-30 22:51 | RAD_ITS ---
STUDY: X-RAY CHEST REASON FOR EXAM: Male, 67 years old. Cough. Shortness of breath for one week. Patient reports hyperglycemia with tremors and facial numbness beginning at 1500 hours. Patient was 75% on room air. Positive for influenza. TECHNIQUE: Single AP portable view of the chest. COMPARISON: March 28, 2022. FINDINGS: The lungs are clear and expanded. There is calcified pleural plaque along both diaphragmatic margins. Normal size heart. Normal mediastinum and guzman. Normal visualized pulmonary arteries. Normal visualized aortic arch and descending thoracic aorta. There are diffuse degenerative changes of the visualized thoracic spine. There is degenerative osteoarthritis of the bilateral shoulders. There is no demonstrated abnormality of the visualized soft tissue structures of the upper abdomen. RAD/Chest 1 View (Portable) IMPRESSION: Calcified pleural plaque without acute cardiopulmonary disease. No major interval change. Electronically Signed: Ramirez Jones DO at 23:21 EDT ,
[2022-03-30 23:03] VITALS: O2SAT 92
[2022-03-30 23:03] LABS: International Normalized Ratio 1.4; Partial Thromboplast Time 30.9 Seconds (24.1-36.2); Prothrombin Time (Protime)PT. 16.4 SECONDS (11.7-14.9)
[2022-03-30 23:05] VITALS: O2SAT 92
[2022-03-30 23:14] VITALS: BP 117/68; PULSE 105; RESP 16; O2SAT 94
[2022-03-30 23:18] LABS: ALB/GLOB Ratio 0.9 RATIO (0.9-2.4); AST(SGOT) 27 U/L (15-37); Alanine Aminotransfer ALT/SGPT 22 U/L (16-61); Albumin, Serum 3.3 g/dL (3.2-5.0); Alkaline Phosphatase 88 U/L (45-117); Anion Gap 9 (5-15); BUN 18 mg/dL (7-18); BUN/Creat Ratio 12.5 RATIO (10-20); Calcium,Total 8.3 mg/dL (8.5-10.1); Chloride 102 mmol/L (98-107); Creatinine, Serum 1.44 mg/dL (0.70-1.30); EST Glomerular Filtration Rate 52 mL/min (>60); Est Glom Filt Rate - Afr Amer 63 mL/min (>60); Estimated Creatinine Clearance 53.74 ml/min; Globulin 3.8 g/dL (2.2-4.2); Glucose 310 mg/dL (74-106); Potassium 4.3 mmol/L (3.5-5.1); Protein, Total 7.1 g/dL (6.4-8.2); Sodium Level 138 mmol/L (136-145)
[2022-03-30 23:32] LABS: Lactic Acid 2.5 mmol/L (0.4-1.9)
--- NOTE | 2022-03-30 23:44 | PCM.HP.STD ---
[facility] - General General Date of Admission: 03/30/22 Date of Service: 03/30/22 Chief Complaint: Shortness of breath HPI Narrative RUDDY SUTHERLAND, is a 67 M who presented to the emergency department at [facility] on 03/31/2022 with worsening shortness of breath. Patient reported that approximately 8 to 9 days ago he developed shortness of breath admit associated with some general malaise, dry cough, headache, nausea and myalgias. He denies any fever or chills, vomiting, diarrhea with those indicate he feels rundown and has generalized weakness. He has COPD at baseline and is supposed to be on 4 L [id number] per his however the patient only wears his oxygen at night. He was evidently seen by his primary care physician on and patient and report that his chest x-ray was unremarkable and his COVID test was negative however his flu test was positive for influenza A. He was given cough medicine and prescribed Tamiflu however it was never initiated because there was not any available at the pharmacy. He reports that his nebulizer treatments that he typically uses were not available as his nebulizer is not currently working and that he feels more wheezy than he typically does at baseline. He was given IM steroid in the office on as well. Upon arrival he was also complaining of bilateral facial paresthesias that resolved with placement of supplemental oxygen. His oxygen saturation on arrival to triage on room air was 75%. He has had some twitching in his upper extremities which she has had previously when he is ill. Vital signs on arrival demonstrated a temperature of 97.4, heart rate 74, blood pressure 117/68, respiratory rate of 17, and pulse ox was 75% on room air. He was placed on 6 L nasal cannula and his oxygen saturation improved to 93%. At the time of my evaluation he had been weaned to 5 L. As reported above his indicates he is supposed to be on 4 L [id number] however he is not compliant with this at baseline. His CBC shows a mild leukocytosis with a white count of 12.4 with no left shift. Coags are overall unremarkable. History panel shows stable CKD. His blood glucose was 310 and his lactate was 2.5. I suspect this is from his hypoxia on presentation. His liver enzymes are normal and his chest x-ray shows calcific pleural plaques without any acute, cardiopulmonary disease and no interval change. EKG shows normal sinus rhythm without any ST-T wave changes consistent with acute ischemia. In the emergency department he was given Mucinex, doxycycline, DuoNeb, and methylprednisolone and request for admission was made. [facility] Medical History (Reviewed 03/31/22 @ 01:[address] Annie Smith, DO) Bilateral pulmonary embolism Chronic pain COPD (chronic obstructive pulmonary disease) Depression Diabetes GERD (gastroesophageal reflux disease) History of DVT of lower extremity Hyperlipidemia Hypertension Morbid obesity Sleep apnea Stage 3a chronic kidney disease (CKD) Stiff-man syndrome Home Medications Quinapril Hcl [Accupril] 40 mg PO DAILY 12/24/13 [History Last Taken Unknown] albuterol sulfate 90 mcg/actuation aerosol inhaler (Proventil HFA) 6.7 g IH Q4H PRN PRN SHORTNESS OF BREATH 12/24/13 [History Last Taken Unknown] atorvastatin 40 mg tablet 40 mg PO QHS 12/24/13 [History Last Taken Unknown] esomeprazole magnesium 40 mg capsule,delayed release (Nexium) 40 mg PO DAILY 12/24/13 [History Last Taken Unknown] fluticasone 250 mcg-salmeterol 50 mcg/dose blistr powdr for inhalation (Advair Diskus) 1 puff inhalation BID 12/24/13 [History Last Taken Unknown] lidocaine 5 % topical patch 1 patch topical DAILY 12/24/13 [History Last Taken Unknown] ipratropium 0.5 mg-albuterol 3 mg (2.5 mg base)/3 mL nebulization soln 3 ml inhalation Q6H PRN ##1 12/26/13 [Rx Last Taken Unknown] albuterol sulfate 2.5 mg/3 mL (0.083 %) solution for nebulization 2.5 mg (3 mL) inhalation Q2H PRN PRN SHORTNESS OF BREATH ##100 02/05/14 [Rx Last Taken Unknown] tiotropium bromide 18 mcg capsule with inhalation device (Spiriva with HandiHaler) 1 puff inhalation DAILY ##1 02/05/14 [Rx Last Taken Unknown] hydrocodone 7.5 mg-acetaminophen 325 mg tablet 1 ea PO Q6H PRN PRN Pain 10/12/14 [History Last Taken Unknown] rivaroxaban 15 mg tablet (Xarelto) 15 mg PO BID ##42 01/09/15 [Rx Last Taken Unknown] dulaglutide 0.75 mg/0.5 mL subcutaneous pen injector (Trulicity) 0.75 mg subcut QWEEK 03/30/22 [History Last Taken Unknown] insulin NPH isoph U-100 human 100 unit/mL (3 mL) subcutaneous pen 20 unit subcut BID 03/30/22 [History Last Taken Unknown] linagliptin 5 mg tablet (Tradjenta) 5 mg PO DAILY 03/30/22 [History Last Taken Unknown] morphine 15 mg immediate release tablet 15 mg PO BID PRN Pain, Severe 03/30/22 [History Last Taken Unknown] trazodone 50 mg tablet 50 mg PO QHS 03/30/22 [History Last Taken Unknown] Allergy/AdvReac Type Severity Reaction Status Date / Time cilostazol [From Pletal] Allergy Other Verified 03/30/22 22:14 etodolac [From Lodine] Allergy Hives Verified 03/30/22 22:14 nabumetone [From Relafen] Allergy Hives Verified 03/30/22 22:14 naproxen sodium [From Aleve] Allergy Hives Verified 03/30/22 22:14 Penicillins Allergy Hives Verified 03/30/22 22:14 Family History (Updated 03/31/22 @ 01:[address] Annie Smith DO) Other COPD (chronic obstructive pulmonary disease) Hypertension no surgical history Social History (Updated 03/31/22 @ 01:[address] Annie Smith DO) household members: spouse housing: house Smoking Status: Former smoker how long ago did patient quit smoking: Quit 7 years ago alcohol intake: never substance use type: does not use ROS Constitutional Constitutional: Reports fatigue, malaise and weakness; Denies anorexia, change in weight, chills, fever(s), night sweats or other Eyes Eyes: Denies blurry vision, change in eye color, change in vision, discharge from eye(s), double vision, erythema, eye pain, loss of vision or other ENT HEENT: Reports headache(s); Denies abnormal hearing, dysphagia, ear pain, epistaxis, hearing loss, nasal congestion, nasal discharge, post nasal drip, sinus pressure, sore throat or other Cardiovascular Cardiovascular: Reports dyspnea on exertion; Denies chest pain, claudication, edema, lightheadedness, orthopnea, palpitations, paroxysmal nocturnal dyspnea, rapid heart rate, syncope or other Respiratory/Chest Respiratory/Chest: Reports cough, dyspnea, shortness of breath at rest, shortness of breath with exertion and wheezing; Denies excessive phlegm production, hemoptysis, productive cough or other Gastrointestinal Gastrointestinal: Reports nausea; Denies abdominal pain, coffee ground emesis, constipation, diarrhea, dyspepsia, hematemesis, hematochezia, loose stools, melena, vomiting or other Genitourinary Genitourinary: Denies burning urination, difficulty urinating, dysuria, hematuria, nocturia, urinary frequency, urinary hesitancy, urinary incontinence, urinary urgency or other Musculoskeletal Musculoskeletal: Reports back pain, joint pain and myalgias; Denies arthralgias, joint stiffness, joint swelling, neck pain or other Neurologic Neurologic: Reports paresthesias; Denies abnormal gait, abnormal speech, confusion, disequilibrium, dizziness, focal weakness, headache(s), numbness, seizure-like activity, seizures, syncope, tingling, tremor(s) or other Psychiatric Psychiatric: Reports depression; Denies anxiety, homicidal ideation, suicidal ideation or other Endocrine Endocrinology: Denies change in body appearance, cold intolerance, excessive sweating, heat intolerance, polydipsia, polyuria or other Hematologic/Lymphatic Hematologic/Lymphatic: Denies anemia, easy bleeding, easy bruising, lymphadenopathy or other Allergic/Immunologic Allergic/Immunologic: Denies rhinitis, hives, eczemia, asthma or other Vital Signs Vital Signs Vital Signs: 03/30/22 22:15 03/30/22 22:39 03/30/22 23:03 Temperature 96.1 F L Temperature Source Temporal Pulse Rate 112 H 111 H Respiratory Rate 18 16 Respiratory Effort Respiratory Pattern Normal Blood Pressure 111/62 Blood Pressure Mean 78 Pulse Ox 95 92 Oxygen Delivery Method Nasal Cannula Oxygen Flow Rate (L/min) 3 3.5 03/30/22 23:05 Temperature Temperature Source Pulse Rate Respiratory Rate Respiratory Effort Labored Respiratory Pattern Blood Pressure Blood Pressure Mean Pulse Ox Oxygen Delivery Method Nasal Cannula Oxygen Flow Rate (L/min) 3.5 Weight Weight: 135.624 kg Body Mass Index (BMI) 41.7 Physical Exam Const Constitutional Narrative: Morbidly obese upper middle-aged white male who appears much older than stated age, sitting up in bed, at bedside, patient appears ill but nontoxic General Appearance: cooperative HEENT normocephalic, head/scalp atraumatic and moist oral mucous membranes HEENT Narrative: Mallampati 4, no thrush, dentition is poor, moderate hearing loss Eyes PERRL, EOMs intact bilaterally and conjunctivae normal Eyes Narrative: No scleral icterus Neck no lymphadenopathy, supple, no JVD and no carotid bruits Neck Narrative: Neck is short and thick, trachea is midline, no thyroid enlargement Resp normal respiratory effort, no retractions and no use of accessory muscles Resp Narrative: Markedly diminished with scattered end expiratory wheeze, no tachypnea Auscultation: wheezes; Negative for crackles or rhonchi Cardio regular rate, regular rhythm, S1 normal heart sound, S2 normal heart sound, no murmurs, no rub, no gallops, no clicks and no JVD GI normal to inspection, nondistended, normoactive bowel sounds, soft to palpation and non-tender Extremity Extremity Narrative: Bilateral lower extremity chronic stasis changes, skin is dry, no cyanosis or clubbing Skin no rashes or lesions noted, no wounds, skin turgor normal, no jaundice, no petechiae and no mottling Skin Narrative: Dry skin Neuro oriented x3, CN's II-XII intact bilaterally, moves all extremities and no focal motor deficits Neuro Narrative: 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 Result Diagrams: 03/30/22 22:40 03/30/22 22:40 Labs: Laboratory Results - last 24 hr 03/30/22 22:40: WBC 12.4 H, RBC 4.60, Hgb 14.1, Hct 45.3, MCV 98.5 H, MCH 30.7, MCHC 31.1 L, RDW Std Deviation 49.1 H, RDW Coeff of Vincent 13.5, Plt Count 247, MPV 10.1, Immature Gran % (Auto) 1.000 H, Neut % (Auto) 63.0, Lymph % (Auto) 27.4, Craig % (Auto) 7.8, Eos % (Auto) 0.4, Baso % (Auto) 0.4, Absolute Neuts (auto) 7.8 H, Absolute Lymphs (auto) 3.39, Nucleated RBC % 0 03/30/22 22:40: PT 16.4 H, INR 1.4, APTT 30.9 03/30/22 22:40: Sodium 138, Potassium 4.3, Chloride 102, Carbon Dioxide 27.0, Anion Gap 9, BUN 18, Creatinine 1.44 H, Estim Creat Clear Calc 53.74, Est GFR (MDRD) Af Amer 63, Est GFR (MDRD) Non-Af 52 L, BUN/Creatinine Ratio 12.5, Glucose 310 H, Calcium 8.3 L, Total Bilirubin 0.50, AST 27, ALT 22, Alkaline Phosphatase 88, Total Protein 7.1, Albumin 3.3, Globulin 3.8, Albumin/Globulin Ratio 0.9 03/30/22 22:40: Lactic Acid 2.5 H* Radiology Impression Chest X-Ray 03/30/22 22:51 IMPRESSION: Calcified pleural plaque without acute cardiopulmonary disease. No major interval change. Electronically Signed: Ramirez Jones DO at 23:21 EDT Reading Location ID and State: [address] [place] [address] Tel [phone], Service support , Assessment & Plan Assessment/Plan (1) Influenza A: (2) COPD exacerbation: (3) Hypoxia: (4) Lactic acidosis: (5) Hyperglycemia: (6) Leukocytosis: PLAN: Plan Acute hypoxia secondary to influenza A -Sats were 75% on presentation at room on room air however the patient did not have significant tachypnea, tachycardia or elevated blood pressure which would give him the diagnosis of acute hypoxic respiratory failure -Requiring supplemental oxygen [id number] at 4 L - reports he is to be on 4 L at baseline however he only wears this at night with CPAP -Wean O2 as able -Patient has had 9 days of symptoms and therefore out of the window for Tamiflu use -Solu-Medrol 40 every 8 -Aggressive pulmonary toilet -Incentive spirometry -Pep therapy with Acapella -Droplet precautions -Blood cultures are pending -We will try to obtain sputum culture with induction if able however cough has been predominantly dry per patient report -Patient does sound somewhat congested and will give Lasix 40 mg IV push x1 dose -Patient does follow with Dr. Bryant at baseline Influenza A infection -See above Lactic acidosis -Suspect related to hypoxia -Should trend down with initiation of supplemental oxygen -Cycle per protocol -Highly doubt sepsis Hyperglycemia with a history of DM-2 -Likely related to metabolic stressors-been continue home NPH -SSI high-dose -Accu-Cheks -Hold home Tradjenta-hold home Trulicity -May need to uptitrate NPH during hospital course with steroid dosing and acute infection Mild leukocytosis -Doubt bacterial infection -Hold antibiotics -Like related to viral influenza infection/stress response -Repeat CBC in a.m. -May increase with steroid use History of bilateral PE/DVT lower extremity -Continue home Xarelto COPD -Hold inhalers -Pulmonary toilet as above -Restart inhalers at discharge GERD -Continue home PPI Hyperlipidemia -Continue home atorvastatin Chronic pain -Continue home [place] Continue home lidocaine patch -Continue home morphine Hypertension -Continue home JOSE inhibitor Depression -Continue trazodone STEPHANE -CPAP at at bedtime History of stiff man syndrome -No acute issues DVT prophylaxis -Full anticoagulated with Xarelto CODE STATUS -Full code Charges/Coding Visit Charges Inpatient E&M: 98193 Init Hosp L3
[2022-03-31] VITALS (19 sets, daily range): BP systolic 108–157; BP diastolic 57–90; PULSE 52–109; RESP 17–20; TEMP 36.3–37; O2SAT 92–98; BMI 43.8
[2022-03-31] MEDS: MethylPREDNISolone 125 MG/2 ML Vial IV (00:09)
[2022-03-31] MEDS: Doxycycline 100 MG CAPSULE PO (00:09)
[2022-03-31] MEDS: guaiFENesin 1,200 MG Tablet 1200 MG PO ×3 (00:09→23:36)
--- NOTE | 2022-03-31 01:21 | CPS ---
Pt. was asked if he'd like to wear CPAP provided by the [facility], but he politely refused. He states that he doesn't wear one at night routinely.
[2022-03-31 01:35] LABS: Bedside Glucose 278 mg/dL (74-106)
[2022-03-31] MEDS: Furosemide 40 MG/4 ML Vial IV (01:41)
[2022-03-31] MEDS: Insulin Lispro 100 UNIT/ML INSULN.PEN 15 UNIT SC (01:45)
[2022-03-31 02:00] LABS: Color, Urine Yellow (Yellow); Glucose, Dipstick 1000 mg/dl (Normal); Ketone-Dipstick Negative (Negative); Leukocyte Esterase-Dipstick 100 /ul (Negative); Mucous, Urine 0 SEEN /hpf (<or=2+); Nitrite-Dipstick Negative (Negative); Occult Blood-Urine Negative /ul (Negative); Protein-Dipstick Negative (Negative); Red Blood Cells-Urine 0 SEEN /hpf (0-5); Specific Gravity, Urine 1.015 (1.002-1.030); Urine Bilirubin Dipstick Negative (Negative); Urine Clarity Clear (Clear); Urine Urobilinogen Normal (Normal)
[2022-03-31 02:06] LABS: Bacteria RARE /hpf (None Seen); Squamous Epithelial Cells - UA 0-5 SEEN /hpf (0-5); White Blood Cells 10-25 SEEN /hpf (0-5)
[2022-03-31 02:45] LABS: Reflex Lactate? Y
[2022-03-31 03:23] LABS: Absolute Lymphocyte Count 1.91 X10^3/uL (0.83-4.51); Absolute Neutrophil Count 8.7 X10^3/uL (2.0-7.7); Basophil# 0.02 X10^3/uL; Basophil% 0.2 % (0-1); Eosinophil# 0.01 X10^3/uL; Eosinophils% 0.1 % (0-5); Hematocrit 45.5 % (40-54); Hemoglobin 13.7 g/dL (13.0-16.5); Lymphocyte # 1.91 X10^3/ul (0.83-4.51); Lymphocyte % 17.4 % (19-41); Mean Corp Hgb Conc 30.1 g/dL (32-36); Mean Corpuscular Hgb 29.8 pg (27.0-32.0); Mean Corpuscular Volume 99.1 fL (80-94); Mean Platelet Vol. 9.7 fl (6.2-12.0); Monocyte# 0.22 X10^3/uL; NRBC Flagged by Analyzer 0 % (0-5); Neutrophil # 8.69 X10^3/uL (2.7-7.7); Platelet Count 224 K/mm3 (150-450); RBC Distribution Width CV 13.6 % (11.6-14.6); RBC Distribution Width SD 49.7 fl (35.1-43.9); Red Blood Count 4.59 M/mm3 (4.6-6.2)
[2022-03-31 03:42] LABS: ALB/GLOB Ratio 0.7 RATIO (0.9-2.4); AST(SGOT) 21 U/L (15-37); Alanine Aminotransfer ALT/SGPT 20 U/L (16-61); Albumin, Serum 3.2 g/dL (3.2-5.0); Alkaline Phosphatase 88 U/L (45-117); Anion Gap 5 (5-15); BUN 21 mg/dL (7-18); BUN/Creat Ratio 14.6 RATIO (10-20); Calcium,Total 8.3 mg/dL (8.5-10.1); Chloride 98 mmol/L (98-107); Creatinine, Serum 1.44 mg/dL (0.70-1.30); EST Glomerular Filtration Rate 52 mL/min (>60); Est Glom Filt Rate - Afr Amer 63 mL/min (>60); Estimated Creatinine Clearance 50.46 ml/min; Globulin 4.4 g/dL (2.2-4.2); Glucose 256 mg/dL (74-106); Magnesium 2.3 mg/dL (1.6-2.6); Phosphorus 4.9 mg/dL (2.5-4.9); Potassium 4.5 mmol/L (3.5-5.1); Protein, Total 7.6 g/dL (6.4-8.2); Sodium Level 136 mmol/L (136-145)
[2022-03-31 03:46] LABS: Lactic Acid 1.2 mmol/L (0.4-1.9)
[2022-03-31] MEDS: Insulin Lispro 100 UNIT/ML INSULN.PEN SC ×3 (09:19→18:16)
[2022-03-31] MEDS: Insulin NPH Human 100 UNITS/ML PEN 20 UNITS SC ×2 (09:20→18:17)
[2022-03-31] MEDS: Lidocaine 5% Patch 1 PATCH TOPICAL (09:23)
[2022-03-31] MEDS: Glucerna Shake 120 ML LIQUID PO (09:23)
[2022-03-31] MEDS: Lisinopril 40 MG Tablet PO (09:24)
[2022-03-31] MEDS: Pantoprazole Sodium 40 MG Tablet PO (09:24)
[2022-03-31] MEDS: Rivaroxaban 15 MG Tablet PO (09:25)
[2022-03-31 10:01] LABS: Bedside Glucose 230 mg/dL (74-106)
--- NOTE | 2022-03-31 12:48 | PN.HOSP_ITS ---
Subjective Subjective Patient seen and examined. He feels his shortness of breath is improving. He actually tells me he does not know why he is here and his made him come in. He denies any wheezing, fever or chills, nausea, vomiting or diarrhea. Review of systems otherwise negative. Objective Data Objective Data Vital Signs: Vital Signs Temp Pulse Resp BP Pulse Ox O2 Del Method O2 Flow Rate 98 F 79 18 137/90 H 95 Nasal Cannula 6 03/31/22 09:50 03/31/22 12:02 03/31/22 10:30 03/31/22 09:50 03/31/22 09:50 03/31/22 10:30 03/31/22 10:30 FiO2 95 03/31/22 10:30 Oxygen Flow Rate (L/min) 6 Oxygen Delivery Method Nasal Cannula Weight: 296 lb 11.875 oz Body Mass Index (BMI) 43.8 Intake & Output: Intake and Output for Last 24 Hours 03/29/22 03/30/22 03/31/22 23:59 23:59 22:59 Intake Total 400 / 400 Output Total 1025 / 1025 Balance -625 / -625 Lab / Micro Data Result Diagrams: 03/31/22 03:10 03/31/22 03:10 Labs: Laboratory Results - last 24 hr 03/30/22 22:40: WBC 12.4 H, RBC 4.60, Hgb 14.1, Hct 45.3, MCV 98.5 H, MCH 30.7, MCHC 31.1 L, RDW Std Deviation 49.1 H, RDW Coeff of Vincent 13.5, Plt Count 247, MPV 10.1, Immature Gran % (Auto) 1.000 H, Neut % (Auto) 63.0, Lymph % (Auto) 27.4, [place] % (Auto) 7.8, Eos % (Auto) 0.4, Baso % (Auto) 0.4, Absolute Neuts (auto) 7.8 H, Absolute Lymphs (auto) 3.39, Nucleated RBC % 0 03/30/22 22:40: PT 16.4 H, INR 1.4, APTT 30.9 03/30/22 22:40: Sodium 138, Potassium 4.3, Chloride 102, Carbon Dioxide 27.0, Anion Gap 9, BUN 18, Creatinine 1.44 H, Estim Creat Clear Calc 53.74, Est GFR (MDRD) Af Amer 63, Est GFR (MDRD) Non-Af 52 L, BUN/Creatinine Ratio 12.5, Glucose 310 H, Calcium 8.3 L, Total Bilirubin 0.50, AST 27, ALT 22, Alkaline Phosphatase 88, Total Protein 7.1, Albumin 3.3, Globulin 3.8, Albumin/Globulin Ratio 0.9 03/30/22 22:40: Lactic Acid 2.5 H* 03/31/22 01:15 EST: POC Glucose 278 H 03/31/22 01:40 EST: Urine Color Yellow, Urine Clarity Clear, Urine pH 6.0, Ur Specific [place] 1.015, Urine Protein Negative, Urine Glucose (UA) 1000 H, Urine Ketones Negative, Urine Occult Blood Negative, Urine Nitrite Negative, Urine Bilirubin Negative, Urine Urobilinogen Normal, Ur Leukocyte Esterase 100 H, Urine RBC 0 SEEN, Urine WBC 10-25 SEEN, Ur Squamous Epith Cells 0-5 SEEN, Urine Bacteria RARE, Urine Mucus 0 SEEN 03/31/22 03:10: WBC 11.0, RBC 4.59 L, Hgb 13.7, Hct 45.5, MCV 99.1 H, MCH 29.8, MCHC 30.1 L, RDW Std Deviation 49.7 H, RDW Coeff of Vincent 13.6, Plt Count 224, MPV 9.7, Immature Gran % (Auto) 1.300 H, Neut % (Auto) 79.0 H, Lymph % (Auto) 17.4 L , [place] % (Auto) 2.0, Eos % (Auto) 0.1, Baso % (Auto) 0.2, Absolute Neuts (auto) 8.7 H, Absolute Lymphs (auto) 1.91, Nucleated RBC % 0 03/31/22 03:10: Sodium 136, Potassium 4.5, Chloride 98, Carbon Dioxide 33.0 H, Anion Gap 5, BUN 21 H, Creatinine 1.44 H, Estim Creat Clear Calc 50.46, Est GFR (MDRD) Af Amer 63, Est GFR (MDRD) Non-Af 52 L, BUN/Creatinine Ratio 14.6, Glucose 256 H, Calcium 8.3 L, Phosphorus 4.9, Magnesium 2.3, Total Bilirubin 0.50, AST 21, ALT 20, Alkaline Phosphatase 88, Total Protein 7.6, Albumin 3.2, Globulin 4.4 H, Albumin/Globulin Ratio 0.7 L 03/31/22 03:10: Lactic Acid 1.2 03/31/22 09:18: POC Glucose 230 H Radiography Diagnostic Testing: Radiology Impression Chest X-Ray 03/30/22 22:51 IMPRESSION: Calcified pleural plaque without acute cardiopulmonary disease. No major interval change. Electronically Signed: Ramirez Jones DO at 23:21 EDT Reading Location ID and State: [facility] / [place] Tel [phone], Service support , Physical Exam Const alert, oriented x3 and no apparent distress Constitutional Narrative: obese HEENT head/scalp atraumatic, moist oral mucous membranes and oropharynx normal Head and Scalp: normocephalic Mouth: oral and palatal mucosa normal Eyes PERRL, EOMs intact bilaterally and conjunctivae normal Neck no lymphadenopathy and supple Resp Resp Narrative: bilateral rhonchi and wheezing, few crackles. On 6L of oxygen. Cardio regular rate, regular rhythm, S1 normal heart sound, S2 normal heart sound and no murmurs GI normal to inspection, nondistended, normoactive bowel sounds, soft to palpation, non-tender and non-distended Extremity normal to inspection, full ROM and no clubbing, cyanosis or edema Neuro oriented x3, CN's II-XII intact bilaterally, moves all extremities and no focal motor deficits Sensorium / Orientation: awake and alert Motor Exam: strength 5/5 throughout Psych affect normal Assessment & Plan Assessment/Plan (1) Influenza A: (2) COPD exacerbation: (3) Hypoxia: PLAN: Plan #HYpoxia due to influenza infection * Patient has chronic respiratory failure and is usually on 4 L of oxygen at home. He is now on 6 L. * Tested positive for flu about 2 days ago and out of the window for Tamiflu. * On IV Solu-Medrol. Breathing treatments of bronchodilators. Aggressive pulmonary toileting. * Sputum cultures ordered and pending. * #LActic acidosis: was likely due to hypoxia. Improved. Will monitor #Type 2 diabetes mellitus * was hyperglycemic on admission. * on NPH insulin. ISS. 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 On IV solumedrol #GERD: on PPI #Hypertension: on lisinopril #Chronic pain: on norco, morphine and lidocaine patch #Depression: on trazodone. #STEPHANE: on CPAP qhs #History of stiffman syndrome: stable DVT prophylaxis: on xarelto Charges/Coding Visit Charges Inpatient E&M: 70579 Subs Hosp L3
[2022-03-31] MEDS: morphine SR 15 MG Tablet PO ×2 (13:20→23:25)
[2022-03-31] MEDS: 0.9% Saline Lock 10 ML Syringe IV ×2 (13:24→23:38)
[2022-03-31 13:40] LABS: Bedside Glucose 304 mg/dL (74-106)
[2022-03-31 18:40] LABS: Bedside Glucose 297 mg/dL (74-106)
[2022-03-31] MEDS: Atorvastatin Calcium 40 MG Tablet PO (23:37)
[2022-03-31] MEDS: traZODone 50 MG Tablet PO (23:37)
--- NOTE | 2022-03-31 23:53 | NURSING ---
No insulin due, pt checked his blood sugar using his tap device, bg was 189.
[2022-04-01] VITALS (16 sets, daily range): BP systolic 146–155; BP diastolic 59–80; PULSE 41–90; RESP 12–20; TEMP 36.6–36.7; O2SAT 92–96
--- NOTE | 2022-04-01 00:08 | PHA.PHARE_ITS ---
Consult Pharmacy has been consulted to manage selected antiobiotic: Vancomycin Type of Consult: New start Labs: Sodium 136 mmol/L (136-145) 03/31/22 03:10 Potassium 4.5 mmol/L (3.5-5.1) 03/31/22 03:10 Chloride 98 mmol/L (98-107) 03/31/22 03:10 Carbon Dioxide 33.0 mmol/L (21.0-32.0) H 03/31/22 03:10 Anion Gap 5 (5-15) 03/31/22 03:10 BUN 21 mg/dL (7-18) H 03/31/22 03:10 Creatinine 1.44 mg/dL (0.70-1.30) H 03/31/22 03:10 Est GFR (MDRD) Af Amer 63 mL/min (>60) 03/31/22 03:10 Est GFR (MDRD) Non-Af 52 mL/min (>60) L 03/31/22 03:10 BUN/Creatinine Ratio 14.6 RATIO (10-20) 03/31/22 03:10 Glucose 256 mg/dL (74-106) H 03/31/22 03:10 Microbiology: Microbiology 03/30/22 22:40 Blood Culture (Wb) - Anticubital Left Blood Culture - Preliminary Weight used for dosin.6 kg Estimated Creatinine Clearance: 68.5 Goal Trough: 15-20 mcg/mL Pharmacy Plan for Drug Dosing: Pharmacy Service will continue to monitor and adjust dosing as required. Medications Vancomycin HCl 2,000 mg/ (Sodium Chloride) 540 mls @ 250 mls/hr IV X1 ONE Stop: 04/01/22 00:39 Last Admin: 03/31/22 23:35 Dose: 250 mls/hr Vancomycin HCl 1,500 mg/ (Sodium Chloride) 530 mls @ 250 mls/hr IV Q12H [facility] Follow-Up Labs: Trough Vancomycin Labs to be done on [date and time ordered]: 04/02 @ 1100
--- NOTE | 2022-04-01 04:13 | NURSING ---
Patient's heart rate and spo2 keeps dropping while he is sleeping, Notified hospitalist, she discussed this with him, He refused a cpap on admission. He was woken up and explained what is happening while he sleeps and he does not want a cpap. He was told to let us know if the changes his mind.
[2022-04-01] MEDS: 0.9% Saline Lock 10 ML Syringe IV ×2 (05:25→14:12)
[2022-04-01 06:01] LABS: Absolute Lymphocyte Count 2.76 X10^3/uL (0.83-4.51); Absolute Neutrophil Count 11.5 X10^3/uL (2.0-7.7); Basophil# 0.03 X10^3/uL; Basophil% 0.2 % (0-1); Hematocrit 43.9 % (40-54); Hemoglobin 13.7 g/dL (13.0-16.5); Lymphocyte # 2.76 X10^3/ul (0.83-4.51); Lymphocyte % 18.4 % (19-41); Mean Corp Hgb Conc 31.2 g/dL (32-36); Mean Corpuscular Hgb 30.1 pg (27.0-32.0); Mean Corpuscular Volume 96.5 fL (80-94); Monocyte# 0.56 X10^3/uL; Monocyte% 3.7 % (0-10); NRBC Flagged by Analyzer 0 % (0-5); Neutrophil # 11.52 X10^3/uL (2.7-7.7); Neutrophil % 76.8 % (47-70); Platelet Count 224 K/mm3 (150-450); RBC Distribution Width SD 46.4 fl (35.1-43.9); Red Blood Count 4.55 M/mm3 (4.6-6.2)
[2022-04-01 06:31] LABS: Anion Gap 7 (5-15); BUN 32 mg/dL (7-18); BUN/Creat Ratio 33.2 RATIO (10-20); Calcium,Total 8.5 mg/dL (8.5-10.1); Chloride 99 mmol/L (98-107); Creatinine, Serum 0.96 mg/dL (0.70-1.30); EST Glomerular Filtration Rate 83 mL/min (>60); Est Glom Filt Rate - Afr Amer 100 mL/min (>60); Estimated Creatinine Clearance 75.69 ml/min; Glucose 181 mg/dL (74-106); Potassium 4.3 mmol/L (3.5-5.1); Sodium Level 139 mmol/L (136-145)
[2022-04-01] MEDS: Insulin Lispro 100 UNIT/ML INSULN.PEN SC ×3 (07:41→16:48)
[2022-04-01] MEDS: Insulin NPH Human 100 UNITS/ML PEN 20 UNITS SC ×2 (07:42→16:51)
[2022-04-01 08:25] LABS: Bedside Glucose 179 mg/dL (74-106)
--- NOTE | 2022-04-01 10:30 | PN.HOSP_ITS ---
Subjective Subjective Patient seen and examined. He required BIPAP overnight due to shortness of breath. He says he does feel better today. his oxygen requirements are up to 6.5L today. Objective Data Objective Data Vital Signs: Vital Signs Temp Pulse Resp BP Pulse Ox O2 Del Method O2 Flow Rate 97.8 F 88 18 154/80 H 92 Nasal Cannula 6.5 04/01/22 07:50 04/01/22 08:26 04/01/22 09:15 04/01/22 07:50 04/01/22 09:15 04/01/22 09:15 04/01/22 09:15 FiO2 50 04/01/22 08:26 Oxygen Flow Rate (L/min) 6.5 Oxygen Delivery Method Nasal Cannula Weight: 296 lb 11.875 oz Body Mass Index (BMI) 43.8 Intake & Output: Intake and Output for Last 24 Hours 03/31/22 03/31/22 04/01/22 00:59 23:59 23:59 Intake Total 540 / 540 Output Total 550 / 550 Balance - Lab / Micro Data Result Diagrams: 04/01/22 05:21 04/01/22 05:21 Labs: Laboratory Results - last 24 hr 03/31/22 01:40 EST: Urine Color Yellow, Urine Clarity Clear, Urine pH 6.0, Ur Specific [place] 1.015, Urine Protein Negative, Urine Glucose (UA) 1000 H, Urine Ketones Negative, Urine Occult Blood Negative, Urine Nitrite Negative, Urine Bilirubin Negative, Urine Urobilinogen Normal, Ur Leukocyte Esterase 100 H, Urine RBC 0 SEEN, Urine WBC 10-25 SEEN, Ur Squamous Epith Cells 0-5 SEEN, Urine Bacteria RARE, Urine Mucus 0 SEEN 03/31/22 12:25: POC Glucose 304 H 03/31/22 18:09: POC Glucose 297 H 04/01/22 05:21: WBC 15.0 H, RBC 4.55 L, Hgb 13.7, Hct 43.9, MCV 96.5 H, MCH 30.1, MCHC 31.2 L, RDW Std Deviation 46.4 H, RDW Coeff of Vincent 13.0, Plt Count 224, MPV 10.0, Immature Gran % (Auto) 0.900, Neut % (Auto) 76.8 H, Lymph % (Au to) 18.4 L, [place] % (Auto) 3.7, Eos % (Auto) 0.0, Baso % (Auto) 0.2, Absolute Neuts (auto) 11.5 H, Absolute Lymphs (auto) 2.76, Nucleated RBC % 0 04/01/22 05:21: Sodium 139, Potassium 4.3, Chloride 99, Carbon Dioxide 33.0 H, Anion Gap 7, BUN 32 H, Creatinine 0.96, Estim Creat Clear Calc 75.69, Est GFR (MDRD) Af Amer 100, Est GFR (MDRD) Non-Af 83, BUN/Creatinine Ratio 33.2 H, Glucose 181 H, Calcium 8.5 04/01/22 07:35: POC Glucose 179 H Micro: Microbiology 03/31/22 01:40 EST Urine, Clean Catch Urine Culture - Final Gram negative timothy 03/30/22 22:40 Blood Culture (Wb) - Anticubital Left Blood Culture - Preliminary Coag Negative Staph Physical Exam Const alert, oriented x3 and no apparent distress Constitutional Narrative: obese General Appearance: cooperative HEENT normocephalic, head/scalp atraumatic, moist oral mucous membranes and oropharynx normal Head and Scalp: normocephalic Mouth: oral and palatal mucosa normal Eyes PERRL, EOMs intact bilaterally and conjunctivae normal Neck no lymphadenopathy, supple, no JVD and no carotid bruits Resp normal respiratory effort, no retractions and no use of accessory muscles Resp Narrative: bilateral rhonchi and wheezing has improved. On 6.5L of oxygen. Auscultation: Negative for crackles or rhonchi Cardio regular rate, regular rhythm, S1 normal heart sound, S2 normal heart sound, no murmurs, no rub, no gallops, no clicks and no JVD GI normal to inspection, nondistended, normoactive bowel sounds, soft to palpation, non-tender and non-distended Extremity normal to inspection, full ROM and no clubbing, cyanosis or edema Extremity Narrative: Bilateral lower extremity chronic stasis changes, skin is dry, no cyanosis or clubbing Skin no rashes or lesions noted, no wounds, skin turgor normal, no jaundice, no petechiae and no mottling Neuro oriented x3, CN's II-XII intact bilaterally, moves all extremities and no focal motor deficits Sensorium / Orientation: awake and alert Speech: speech normal Motor Exam: strength 5/5 throughout Psych affect normal Assessment & Plan Assessment/Plan (1) Influenza A: (2) COPD exacerbation: (3) Hypoxia: PLAN: Plan #Acute on chronic hypoxic respiratory failure due to influenza infection * Patient has chronic respiratory failure and is usually on 4 L of oxygen at home. He is now on 6.5 L. * Tested positive for flu and was out of the window for Tamiflu. * On IV Solu-Medrol. Breathing treatments of bronchodilators. Aggressive pulmonary toileting. * Sputum cultures ordered and pending. * blood culture growing coagulase negative Staph * #LActic acidosis: was likely due to hypoxia. Improved. Will monitor #Type 2 diabetes mellitus * was hyperglycemic on admission. * on NPH insulin. ISS. 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 On IV solumedrol #GERD: on PPI #Hypertension: on lisinopril #Bacteriuria * urine culture growing gram negative rods ([id number]) * . Asymptomatic. * await speciation. * #Chronic pain: on norco, morphine and lidocaine patch #Depression: on trazodone. #STEPHANE: on CPAP qhs #History of stiffman syndrome: stable DVT prophylaxis: on xarelto Charges/Coding Visit Charges Inpatient E&M: 10660 Subs Hosp L2
[2022-04-01] MEDS: morphine SR 15 MG Tablet PO ×2 (11:06→22:35)
[2022-04-01] MEDS: Glucerna Shake 120 ML LIQUID PO ×3 (11:07→18:28)
[2022-04-01] MEDS: Lidocaine 5% Patch 1 PATCH TOPICAL (11:08)
[2022-04-01] MEDS: guaiFENesin 1,200 MG Tablet 1200 MG PO ×2 (11:08→22:35)
[2022-04-01] MEDS: Pantoprazole Sodium 40 MG Tablet PO (11:09)
[2022-04-01] MEDS: Lisinopril 40 MG Tablet PO (11:09)
[2022-04-01] MEDS: Rivaroxaban 15 MG Tablet PO ×2 (11:09→22:35)
[2022-04-01 11:40] LABS: Bedside Glucose 366 mg/dL (74-106)
--- NOTE | 2022-04-01 13:50 | CASEMGMT ---
CHAKA ENRIQUEZ Assessment: Face to Face with pt for initial transition planning/care coordination assessment. CHAKA ENRIQUEZ introduced self and role at [facility], pt voices understanding and consents to assessment. Pt is A/O x4 and answers all questions appropriately at this time. Pt lying in bed with oxygen on in no distress. Care providers, pharmacy, and demographics verified/updated. Admitting Dx: acute hypoxic resp failure PCP:Merlin Specialists:Manny pulcandace; Jamil cardio Preferred Pharmacy: [facility] Insurance: [facility] Prescription Benefit: yes LW/HPOA: Pt has a LW/DPOA on file at [facility]. DPOA is his Stefania Phelps. LNOK: Stefania Phelps, ; Nichole Phelps, dil Living Arrangements: Pt lives with in a single story house with a ramp to enter. Pt reports he is I in ADL's and denies concerns at home. Transportation: Pt drives self and denies concerns with transportation. DME/HHC/SNF: Pt reports he has oxygen through [facility] at 4L at , will call to confirm. Pt does not have a portable tank. Pt does have a pox at home. Pt has Zoe 2 and states he checks his blood sugars 5-10x/day. Pt denies hx of HHC or SNF stays. Pt states no concerns with going home at time of dc. Pt has no interest in any [facility] for disease education or therapy, declines need for outpt therapy. Discussed palliative care with patient and he is not interested in this service either. Pt states no further concerns/needs. CM to follow. Advised pt to ask CM if any further question/concerns/needs arise, voices understanding. Pt Goal: Home Plan: Home, follow for change in oxygen orders.
--- NOTE | 2022-04-01 14:08 | CASEMGMT ---
Tc to Garret. Per Garret, Pt is on 3L oxygen at night.
--- NOTE | 2022-04-01 14:41 | CASEMGMT ---
Pt screened with [facility] Palliative Care Screening Tool, pt met criteria but is not interested in the service.
[2022-04-01 17:16] LABS: Bedside Glucose 329 mg/dL (74-106)
[2022-04-01] MEDS: traZODone 50 MG Tablet PO (22:35)
[2022-04-01] MEDS: Atorvastatin Calcium 40 MG Tablet PO (22:35)
[2022-04-01 23:10] LABS: Bedside Glucose 246 mg/dL (74-106)
[2022-04-02] VITALS (12 sets, daily range): BP systolic 130–156; BP diastolic 65–69; PULSE 46–78; RESP 18; TEMP 36.6–37.2; O2SAT 86–97
--- NOTE | 2022-04-02 02:20 | CPS ---
Pt refused BIPAP
[2022-04-02 06:10] LABS: Absolute Lymphocyte Count 2.97 X10^3/uL (0.83-4.51); Absolute Neutrophil Count 13.6 X10^3/uL (2.0-7.7); Basophil# 0.04 X10^3/uL; Basophil% 0.2 % (0-1); Hematocrit 43.8 % (40-54); Hemoglobin 13.7 g/dL (13.0-16.5); Lymphocyte # 2.97 X10^3/ul (0.83-4.51); Mean Corp Hgb Conc 31.3 g/dL (32-36); Mean Corpuscular Hgb 29.9 pg (27.0-32.0); Mean Corpuscular Volume 95.6 fL (80-94); Mean Platelet Vol. 10.3 fl (6.2-12.0); Monocyte# 0.68 X10^3/uL; Monocyte% 3.9 % (0-10); NRBC Flagged by Analyzer 0 % (0-5); Neutrophil # 13.56 X10^3/uL (2.7-7.7); Neutrophil % 77.6 % (47-70); Platelet Count 212 K/mm3 (150-450); RBC Distribution Width CV 12.7 % (11.6-14.6); RBC Distribution Width SD 44.6 fl (35.1-43.9); Red Blood Count 4.58 M/mm3 (4.6-6.2); White Blood Count 17.5 K/mm3 (4.4-11.0)
[2022-04-02 07:07] LABS: Anion Gap 4 (5-15); BUN 27 mg/dL (7-18); BUN/Creat Ratio 37.6 RATIO (10-20); Calcium,Total 7.9 mg/dL (8.5-10.1); Chloride 103 mmol/L (98-107); Creatinine, Serum 0.72 mg/dL (0.70-1.30); EST Glomerular Filtration Rate 116 mL/min (>60); Est Glom Filt Rate - Afr Amer 141 mL/min (>60); Estimated Creatinine Clearance 72.66 ml/min; Glucose 222 mg/dL (74-106); Potassium 5.6 mmol/L (3.5-5.1); Sodium Level 139 mmol/L (136-145)
[2022-04-02] MEDS: Insulin Lispro 100 UNIT/ML INSULN.PEN SC ×2 (08:11→12:10)
[2022-04-02] MEDS: Insulin NPH Human 100 UNITS/ML PEN 20 UNITS SC (08:12)
[2022-04-02] MEDS: Sodium Polystyrene Sulfonate 15 GM/60 ML UDC 30 GM PO (08:13)
[2022-04-02] MEDS: Glucerna Shake 120 ML LIQUID PO (10:04)
[2022-04-02] MEDS: Lidocaine 5% Patch 1 PATCH TOPICAL (10:04)
[2022-04-02] MEDS: morphine SR 15 MG Tablet PO (10:04)
[2022-04-02] MEDS: Rivaroxaban 15 MG Tablet PO (10:05)
[2022-04-02] MEDS: guaiFENesin 1,200 MG Tablet 1200 MG PO (10:07)
[2022-04-02] MEDS: Pantoprazole Sodium 40 MG Tablet PO (10:07)
--- NOTE | 2022-04-02 10:25 | CON.PCM.ID_ITS ---
Assessment & Plan Assessment/Plan (1) Influenza A: PLAN: Much improved, back on baseline 4L o2. Single bcx with CoNS consistent with contamination. Ucx with only 1-10k GNR. No need for abx, ok for home today. Will follow as needed, thank you, d/w Dr. Redding (2) COPD exacerbation: HPI Consult Data Date of Consult: 04/02/22 HPI Narrative Reason for Consultation: (+) bcx HPI Narrative: RUDDY SUTHERLAND, is a 67 M with copd, on 4L home O2, presented 03/30 with about a week of cough, SOB, aches, headache, nausea. No sputum. Saw PCP, covid neg but flu (+). Never picked up tamiflu from pharmacy. Sx worsened, came to ED, found to be hypoxic. Given dose of doxy, iv steroids. Now feeling much better. IV vanc started due to single (+) bcx. Denies any dysuria or urinary changes. Full ROS performed and neg except as noted above. COUNT INCLUDES [facility] Medical History Bilateral pulmonary embolism Chronic pain COPD (chronic obstructive pulmonary disease) Depression Diabetes GERD (gastroesophageal reflux disease) History of DVT of lower extremity Hyperlipidemia Hypertension Morbid obesity Sleep apnea Stage 3a chronic kidney disease (CKD) Stiff-man syndrome Home Medications Quinapril Hcl [Accupril] 40 mg PO DAILY Check with primary doctor 12/24/13 [History Last Taken 03/30/22 08:00] albuterol sulfate 90 mcg/actuation aerosol inhaler (Proventil HFA) 6.7 g IH Q4H PRN PRN SHORTNESS OF BREATH 12/24/13 [History Last Taken Unknown] atorvastatin 40 mg tablet 40 mg PO QHS Check with primary doctor 12/24/13 [His tory Last Taken 03/30/22 22:00] esomeprazole magnesium 40 mg capsule,delayed release (Nexium) 40 mg PO DAILY Check with primary doctor 12/24/13 [History Last Taken 03/30/22 08:00] fluticasone 250 mcg-salmeterol 50 mcg/dose blistr powdr for inhalation (Advair Diskus) 1 puff inhalation BID Check with primary doctor 12/24/13 [History Last Taken 03/30/22 22:00] lidocaine 5 % topical patch 1 patch topical DAILY Check with primary doctor 12/24/13 [History Last Taken 03/30/22 10:00] ipratropium 0.5 mg-albuterol 3 mg (2.5 mg base)/3 mL nebulization soln 3 ml inhalation Q6H PRN ##1 12/26/13 [Rx Last Taken Unknown] albuterol sulfate 2.5 mg/3 mL (0.083 %) solution for nebulization 2.5 mg (3 mL) inhalation Q2H PRN PRN SHORTNESS OF BREATH ##100 02/05/14 [Rx Last Taken Unknown] tiotropium bromide 18 mcg capsule with inhalation device (Spiriva with HandiHaler) 1 puff inhalation DAILY ##1 02/05/14 [Rx Last Taken 03/30/22 08:00] hydrocodone 7.5 mg-acetaminophen 325 mg tablet 1 ea PO Q6H PRN PRN Pain 10/12/14 [History Last Taken Unknown] dulaglutide 0.75 mg/0.5 mL subcutaneous pen injector (Trulicity) 0.75 mg subcut QWEEK Check with primary doctor 03/30/22 [History Last Taken Unknown] insulin NPH isoph U-100 human 100 unit/mL (3 mL) subcutaneous pen 20 unit subcut BID Check with primary doctor 03/30/22 [History Last Taken 03/30/22 22:00] linagliptin 5 mg tablet (Tradjenta) 5 mg PO DAILY Check with primary doctor 03/30/22 [History Last Taken 03/30/22 08:00] morphine 15 mg immediate release tablet 15 mg PO BID pain 03/30/22 [History Last Taken 03/30/22 22:00] trazodone 50 mg tablet 50 mg PO QHS Check with primary doctor 03/30/22 [History Last Taken 03/30/22 22:00] rivaroxaban 15 mg tablet 15 mg PO DAILY Check with primary doctor 03/31/22 [History Last Taken 03/30/22 08:00] Allergy/AdvReac Type Severity Reaction Status Date / Time cilostazol [From Pletal] Allergy Other Verified 03/31/22 01:23 EDT etodolac [From Lodine] Allergy Hives Verified 03/31/22 01:23 EDT nabumetone [From Relafen] Allergy Hives Verified 03/31/22 01:23 EDT naproxen sodium [From Aleve] Allergy Hives Verified 03/31/22 01:23 EDT Penicillins Allergy Hives Verified 03/31/22 01:23 EDT Family History (Updated 03/31/22 @ 01:[address] Annie Smith DO) Other COPD (chronic obstructive pulmonary disease) Hypertension Surgical History no surgical history Social History (Updated 03/31/22 @ 01:[address] Annie Smith DO) household members: spouse housing: house Smoking Status: Former smoker how long ago did patient quit smoking: Quit 7 years ago alcohol intake: never substance use type: does not use Physical Exam Const alert, oriented x3 and no apparent distress General Appearance: cooperative HEENT normocephalic and head/scalp atraumatic Eyes PERRL and EOMs intact bilaterally Neck supple and No nodes Resp normal air movement Auscultation: wheezes Cardio regular rate and regular rhythm GI soft to palpation, non-tender and non-distended Extremity General Extremity: edema Skin no rashes or lesions noted Neuro CN's II-XII intact bilaterally Lab / Micro Data Attestation: I reviewed the patient's lab results. Result Diagrams: 04/02/22 05:42 04/02/22 05:42 Labs: Laboratory Results - last 24 hr 04/01/22 11:12: POC Glucose 366 H 04/01/22 16:47: POC Glucose 329 H 04/01/22 22:50: POC Glucose 246 H 04/02/22 05:42: WBC 17.5 H, RBC 4.58 L, Hgb 13.7, Hct 43.8, MCV 95.6 H, MCH 29.9, MCHC 31.3 L, RDW Std Deviation 44.6 H, RDW Coeff of Vincent 12.7, Plt Count 212, MPV 10.3, Immature Gran % (Auto) 1.300 H, Neut % (Auto) 77.6 H, Lymph % (Auto) 17.0 L, [place] % (Auto) 3.9, Eos % (Auto) 0.0, Baso % (Auto) 0.2, Absolute Neuts (auto) 13.6 H, Absolute Lymphs (auto) 2.97, Nucleated RBC % 0 04/02/22 05:42: Sodium 139, Potassium 5.6 H, Chloride 103, Carbon Dioxide 32.0, Anion Gap 4 L, BUN 27 H, Creatinine 0.72, Estim Creat Clear Calc 72.66, Est GFR (MDRD) Af Amer 141, Est GFR (MDRD) Non-Af 116, BUN/Creatinine Ratio 37.6 H, Glucose 222 H, Calcium 7.9 L Micro: Microbiology 03/30/22 22:40 Blood Culture (Wb) - Anticubital Left Blood Culture - Preliminary Coag Negative Staph 03/30/22 22:40 Blood Culture (Wb) - Anticubital Right Blood Culture - Preliminary 04/01/22 14:48 Sputum, Expectorated/Coughed Gram Stain - Final 03/31/22 01:40 EST Urine, Clean Catch Urine Culture - Final Gram negative timothy
[2022-04-02 12:40] LABS: Bedside Glucose 318 mg/dL (74-106)
[2022-04-02 12:40] LABS: Bedside Glucose 231 mg/dL (74-106)
[2022-04-02 13:12] LABS: Potassium 4.2 mmol/L (3.5-5.1)
--- NOTE | 2022-04-02 13:38 | DS.PCM_ITS ---
Providers Date of Admission: 03/30/22 Date of Discharge: 04/02/22 Primary Care Physician: Dr. Giancarlo Boyer MD Consultations 04/02/22 10:31 Consult: Infectious Disease Routine Consulting Provider: Victor Manuel Bryan Reason for Consult: bacteremia EMERGENT Consult: No Notified: Yes Date Notified: 04/02/22 Time Notified: 10:31 Method of Notification: Verbal Reason For Visit: ACUTE HYPOXIC RESPIRATORY FAILURE SECONDARY TO Diagnosis Discharge Diagnosis (1) Influenza A: Status: Acute Code(s): J10.1 - Influenza due to other identified influenza virus with other respiratory manifestations (2) COPD exacerbation: Status: Chronic Code(s): J44.1 - Chronic obstructive pulmonary disease with (acute) exacerbation (3) Hypoxia: Status: Acute Code(s): R09.02 - Hypoxemia Plan #Acute on chronic hypoxic respiratory failure due to influenza infection * Patient has chronic respiratory failure and is usually on 4 L of oxygen at home. He is now on 6.5 L. * Tested positive for flu and was out of the window for Tamiflu. * On IV Solu-Medrol. Breathing treatments of bronchodilators. Aggressive pulmonary toileting. * Sputum cultures ordered and pending. * blood culture growing coagulase negative Staph * #LActic acidosis: was likely due to hypoxia. Improved. Will monitor #Type 2 diabetes mellitus * was hyperglycemic on admission. * on NPH insulin. ISS. 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 On IV solumedrol #GERD: on PPI #Hypertension: on lisinopril #Bacteriuria * urine culture growing gram negative rods ([id number]) * . Asymptomatic. * await speciation. * #Chronic pain: on norco, morphine and lidocaine patch #Depression: on trazodone. #STEPHANE: on CPAP qhs #History of stiffman syndrome: stable DVT prophylaxis: on xarelto Medications at Discharge Home Medications Quinapril Hcl [Accupril] 40 mg PO DAILY Check with primary doctor 12/24/13 albuterol sulfate 90 mcg/actuation aerosol inhaler (Proventil HFA) 6.7 g IH Q4H PRN PRN SHORTNESS OF BREATH 12/24/13 atorvastatin 40 mg tablet 40 mg PO QHS Check with primary doctor 12/24/13 esomeprazole magnesium 40 mg capsule,delayed release (Nexium) 40 mg PO DAILY Check with primary doctor 12/24/13 fluticasone 250 mcg-salmeterol 50 mcg/dose blistr powdr for inhalation (Advair Diskus) 1 puff inhalation BID Check with primary doctor 12/24/13 lidocaine 5 % topical patch 1 patch topical DAILY Check with primary doctor 12/24/13 ipratropium 0.5 mg-albuterol 3 mg (2.5 mg base)/3 mL nebulization soln 3 ml inhalation Q6H PRN ##1 12/26/13 albuterol sulfate 2.5 mg/3 mL (0.083 %) solution for nebulization 2.5 mg (3 mL) inhalation Q2H PRN PRN SHORTNESS OF BREATH ##100 02/05/14 tiotropium bromide 18 mcg capsule with inhalation device (Spiriva with HandiHaler) 1 puff inhalation DAILY ##1 02/05/14 hydrocodone 7.5 mg-acetaminophen 325 mg tablet 1 ea PO Q6H PRN PRN Pain 10/12/14 dulaglutide 0.75 mg/0.5 mL subcutaneous pen injector (Trulicity) 0.75 mg subcut QWEEK Check with primary doctor 03/30/22 insulin NPH isoph U-100 human 100 unit/mL (3 mL) subcutaneous pen 20 unit subcut BID Check with primary doctor 03/30/22 linagliptin 5 mg tablet (Tradjenta) 5 mg PO DAILY Check with primary doctor 03/30/22 morphine 15 mg immediate release tablet 15 mg PO BID pain 03/30/22 trazodone 50 mg tablet 50 mg PO QHS Check with primary doctor 03/30/22 rivaroxaban 15 mg tablet 15 mg PO DAILY Check with primary doctor 03/31/22 methylprednisolone 4 mg tablets in a dose pack (Medrol (Kris)) 4 mg PO DAILY #21 tabs 04/02/22 Hospital Course Operations None Procedures None Summary of Care Provided Minutes Spent on Discharge: 45 Hospital Course: Patient is a 67 y/o male with a PMH as outlined who was was admitted via the ED on 03/30/2022 with a complaint of shortness of breath which started about 8 to 9 days prior to admission with generalized malaise and cough as well as headache and myalgia and nausea. Patient was on 4 L of oxygen at home [id number] though he was usually only wearing it at night. He had been seen by his primary care doctor a few days prior to admission and tested positive for flu. He was prescribed Tamiflu but did not started as it was apparently not available at the pharmacy. He was given IM steroids and has PCPs office but his symptoms persisted so he came into the ED. He was saturating at 75% on room air at the time he came in. He was admitted and managed for acute on chronic hypoxic respiratory failure due to COPD exacerbation and influenza. He was out of the w indow for Tamiflu. He was therefore started on IV Solu-Medrol and breathing treatments of bronchodilators. His shortness of breath gradually improved and he felt better. Blood cultures have been obtained at time of admission and blood cultures came back positive for coagulase-negative staph in 1 out of 2 samples. ID reviewed patient and didnt think he needed any antibiotics. Patient remained stable and shortness of breath improved. He was counseled to be compliant with his oxygen at home. He remained stable and was discharged home on 04/02/2022. Plan of care was discussed with his daughter in law Varela who concurred with the plan of care. He remained stable and was discharged home on 04/02/2022. HE was discharged on medrol dose pack. 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 Patient seen and examined prior to discharge. He felt much better today and had no active complaints. Review of systems was otherwise negative. Labs and vitals reviewed. Home med reviewed and reconciled. Physical Exam Const alert, oriented x3 and no apparent distress Constitutional Narrative: obese General Appearance: cooperative and comfortable Orientation / Consciousness: awake Exam Limitations: no limitations HEENT normocephalic, head/scalp atraumatic, moist oral mucous membranes and oropharynx normal Mouth: oral and palatal mucosa normal Eyes PERRL, EOMs intact bilaterally and conjunctivae normal Neck no lymphadenopathy, supple, no JVD and no carotid bruits Resp normal respiratory effort, no retractions and no use of accessory muscles Resp Narrative: bilateral rhonchi and wheezing has improved. On 2L of oxygen. Auscultation: wheezes; Negative for crackles or rhonchi Cardio regular rate, regular rhythm, S1 normal heart sound, S2 normal heart sound, no murmurs, no rub, no gallops, no clicks and no JVD GI normal to inspection, nondistended, normoactive bowel sounds, soft to palpation, non-tender and non-distended Extremity normal to inspection, full ROM and no clubbing, cyanosis or edema Skin no rashes or lesions noted, no wounds, skin turgor normal, no jaundice, no petechiae and no mottling Skin Narrative: Dry skin Neuro oriented x3, CN's II-XII intact bilaterally, moves all extremities and no focal motor deficits Sensorium / Orientation: awake and alert Speech: speech normal Motor Exam: strength 5/5 throughout Psych affect normal Weight / BMI Weight Weight: 296 lb 11.875 oz Body Mass Index (BMI) 43.8 ABG / Lab / Microbiology Data Result Diagrams: 04/02/22 05:42 04/02/22 12:50 Laboratory: Laboratory Results - last 24 hr 04/01/22 16:47: POC Glucose 329 H 04/01/22 22:50: POC Glucose 246 H 04/02/22 05:42: WBC 17.5 H, RBC 4.58 L, Hgb 13.7, Hct 43.8, MCV 95.6 H, MCH 29.9, MCHC 31.3 L, RDW Std Deviation 44.6 H, RDW Coeff of Vincent 12.7, Plt Count 212, MPV 10.3, Immature Gran % (Auto) 1.300 H, Neut % (Auto) 77.6 H, Lymph % (Auto) 17.0 L, Starr % (Auto) 3.9, Eos % (Auto) 0.0, Baso % (Auto) 0.2, Absolute Neuts (auto) 13.6 H, Absolute Lymphs (auto) 2.97, Nucleated RBC % 0 04/02/22 05:42: Sodium 139, Potassium 5.6 H, Chloride 103, Carbon Dioxide 32.0, Anion Gap 4 L, BUN 27 H, Creatinine 0.72, Estim Creat Clear Calc 72.66, Est GFR (MDRD) Af Amer 141, Est GFR (MDRD) Non-Af 116, BUN/Creatinine Ratio 37.6 H, Glucose 222 H, Calcium 7.9 L 04/02/22 08:09: POC Glucose 231 H 04/02/22 12:08: POC Glucose 318 H 04/02/22 12:50: Potassium 4.2 Microbiology: Microbiology 04/01/22 14:48 Sputum, Expectorated/Coughed Gram Stain - Final 04/01/22 14:48 Sputum, Expectorated/Coughed Respiratory Culture - Preliminary Appears to be normal respiratory roby. Further studies to follow. 03/30/22 22:40 Blood Culture (Wb) - Anticubital Right Bacteria Detection (PCR) - Final Coag Negative Staph 03/30/22 22:40 Blood Culture (Wb) - Anticubital Right Blood Culture - Preliminary 03/30/22 22:40 Blood Culture (Wb) - Anticubital Left Blood Culture - Preliminary Coag Negative Staph 03/31/22 01:40 EST Urine, Clean Catch Urine Culture - Final Gram negative timothy D/C Instructions Discharge Diet: Low fat / Low cholesterol Weight Bearing Status: Weight bearing as tolerated Call your doctor if you observe: Fever of 101 or Higher, Shortness of breath, Dizziness, Swelling in the ankles, Chest pain and Increased palpitations (irregular heartbeat) Meaningful Use Info Meaningful Use Diagnoses (Choose all that apply): None applicable Discharge Plan Admission Admit Date/Time: 03/30/22 23:35 Primary Reason for Your Visit: acute COPD exacerbation, influenza infection Attending Provider: Amberly Redding Primary Care Provider: Giancarlo Boyer Chi Consulting Providers: Annie Smith ; Victor Manuel Bryan Instructions Patient Instructions: COPD: Coping with Fatigue, COPD Quit Smoking, ED Influenza (Adult) Discharge Orders/Prescriptions Prescriptions: New methylprednisolone [Medrol (Kris)] 4 mg tablets,dose pack 4 mg PO DAILY Qty: 21 0RF Continued atorvastatin 40 MG tablet 40 mg PO QHS Label Comments: cholesterol lowering fluticasone propion-salmeterol [Advair Diskus] 1 PUFF inhaler 1 puff inhalation BID Label Comments: for breathing problems/copd esomeprazole magnesium [Nexium] 40 MG capsule 40 mg PO DAILY Label Comments: for acid reflux lidocaine 1 PATCH patch 1 patch topical DAILY Label Comments: pain patch- ON 12 HOURS, OFF 12 HOURS albuterol sulfate [Proventil HFA] 6.7 GM HFA aerosol inhaler 6.7 g IH Q4H PRN PRN (Reason: SHORTNESS OF BREATH) Label Comments: for breathing/shortness of breath Quinapril Hcl [Accupril] 40 MG tablet 40 mg PO DAILY Label Comments: for blood pressure ipratropium-albuterol 3 ML solution for nebulization 3 ml inhalation Q6H PRN Qty: 1 0RF Label Comments: for copd/shortness of breath albuterol sulfate 2.5 MG/3 ML solution for nebulization 2.5 mg inhalation Q2H PRN PRN (Reason: SHORTNESS OF BREATH ) Qty: 100 0RF Label Comments: breathing Spiriva with HandiHaler 1 PUFF inhaler 1 puff inhalation DAILY Qty: 1 2RF Label Comments: breathing hydrocodone-acetaminophen 1 EACH tablet 1 ea PO Q6H PRN PRN (Reason: Pain) insulin NPH isoph U-100 human 100 unit/mL (3 mL) Insulin Pen 20 unit SUBCUT BID Trulicity 0.75 mg/0.5 mL Pen Injector 0.75 mg SUBCUT QWEEK morphine 15 mg Tablet 15 mg PO BID Rx Instructions: Extended release trazodone 50 mg Tablet 50 mg PO QHS Tradjenta 5 mg Tablet 5 mg PO DAILY rivaroxaban 15 mg Tablet 15 mg PO DAILY Rx Instructions: must administer with evening meal Referrals / Follow Up: Dimitri Bryant MD [Med Staff - Active Staff] - Within 2 Weeks Giancarlo Boyer Chi, MD [Primary Care Provider] - Within 2 Weeks Disposition Disposition (needs filled in before D/C Order can be placed): Home, Self Care Charges/Coding Visit Charges Inpatient E&M: 48078 Disch Hosp
--- NOTE | 2022-04-02 14:06 | SLEEP ---
Worked with patient at bedside on BIPAP mask tolerance. Feels claustrophobic and panics with Full Face Mask. Was able to comfortably fit patient with Nasal N30 Small mask which he wore for 30 minutes on 18/14 cm with 4 lpm supplemental oxygen nasal cannula. Tolerated so well he fell asleep with BIPAP & O2 on sitting upright in chair. Verbalized that he felt he could tolerate that mask and was agreeable to BIPAP set up and compliance at home. I will follow up with patient's providers for outpatient DME set up coordination. May benefit from outpatient retitration study as I witnessed the patient have apnea with BIPAP + O2 on with desaturation to 89% while upright. Patient states that he is going to follow up with [facility] as directed within the next two weeks.
--- NOTE | 2022-04-02 14:22 | CASEMGMT ---
Addendum entered by Kae Blue 04/02/22 14:46: Provided pt with [facility] pamphlet as well as dil office phone number. Pt denies furthe needs and is aware that a portable tank will be brought to his room for dc. Pt nurse updated as well. Addendum entered by Kae Blue 04/02/22 14:37: TC to [facility], spoke with [employer] who is aware pt needs portable tank for dc. She states this will be delivered. She is also aware of updated rx sent via [employer]. Original Note: Received tc from rafael Varela who states that pt declined palliative care and is requesting further information on this. Explained palliative services, will provide phone number on dc instructions. She states currently pt does not want any healthcare providers in the home but this may change. Aware pt may benefit from HHC as well but pt declined. She is aware this can be ordered after pt is dc'd should pt change his mind. RN CM into pt room, discussed palliative care services and HHC again. Pt states he does not want anyone in his home. Discussed oxygen testing with patient and that portable tank will be delivered to room for dc. Pt verbalizes understanding. Faxed referral to [facility] via [employer].
[2022-04-02] MEDS: 0.9% Saline Lock 10 ML Syringe IV (14:48)
--- NOTE | 2022-04-02 15:19 | PHA.DC.MC ---
Pharmacy Service has performed discharge medication reconciliation and counseling for this patient. 1. MEDROL DOSE PACK The patient's discharge medication list was reviewed for discrepancies and discrepancies were resolved. Home Medications Quinapril Hcl [Accupril] 40 mg PO DAILY Check with primary doctor 12/24/13 albuterol sulfate 90 mcg/actuation aerosol inhaler (Proventil HFA) 6.7 g IH Q4H PRN PRN SHORTNESS OF BREATH 12/24/13 atorvastatin 40 mg tablet 40 mg PO QHS Check with primary doctor 12/24/13 esomeprazole magnesium 40 mg capsule,delayed release (Nexium) 40 mg PO DAILY Check with primary doctor 12/24/13 fluticasone 250 mcg-salmeterol 50 mcg/dose blistr powdr for inhalation (Advair Diskus) 1 puff inhalation BID Check with primary doctor 12/24/13 lidocaine 5 % topical patch 1 patch topical DAILY Check with primary doctor 12/24/13 ipratropium 0.5 mg-albuterol 3 mg (2.5 mg base)/3 mL nebulization soln 3 ml inhalation Q6H PRN ##1 12/26/13 albuterol sulfate 2.5 mg/3 mL (0.083 %) solution for nebulization 2.5 mg (3 mL) inhalation Q2H PRN PRN SHORTNESS OF BREATH ##100 02/05/14 tiotropium bromide 18 mcg capsule with inhalation device (Spiriva with HandiHaler) 1 puff inhalation DAILY ##1 02/05/14 hydrocodone 7.5 mg-acetaminophen 325 mg tablet 1 ea PO Q6H PRN PRN Pain 10/12/14 dulaglutide 0.75 mg/0.5 mL subcutaneous pen injector (Trulicity) 0.75 mg subcut QWEEK Check with primary doctor 03/30/22 insulin NPH isoph U-100 human 100 unit/mL (3 mL) subcutaneous pen 20 unit subcut BID Check with primary doctor 03/30/22 linagliptin 5 mg tablet (Tradjenta) 5 mg PO DAILY Check with primary doctor 03/30/22 morphine 15 mg immediate release tablet 15 mg PO BID pain 03/30/22 trazodone 50 mg tablet 50 mg PO QHS Check with primary doctor 03/30/22 rivaroxaban 15 mg tablet 15 mg PO DAILY Check with primary doctor 03/31/22 methylprednisolone 4 mg tablets in a dose pack (Medrol (Kris)) 4 mg PO DAILY #21 tabs 04/02/22 The patient was counseled on the following discharge medications and changes in medications for homegoing were reviewed. The Reason for Use, instructions for use, and potential side effects were reviewed for all new medications. The patient's questions regarding all of their medications were answered. The patient was able to verbally demonstrate an understanding of their discharge medications. Patient counseled by pharmacy technician per diemDonita.
== END 2022-04-02 17:25 | disposition home or self-care (01) | DRG 193 ==
LOC: ED 23:27 → MS3 23:49
PROVIDERS: Admitting Provider Internal Medicine; Emergency Provider Emergency Medicine; PCP Family Medicine Geriatric Medicine; Visit Provider Student in an Organized Health Care Education/Training Program
DX: J10.1 Influenza due to other identified influenza virus with other respiratory manifestations (principal); J96.21 Acute and chronic respiratory failure with hypoxia; E87.20 Acidosis, unspecified; J44.1 Chronic obstructive pulmonary disease with (acute) exacerbation; J44.0 Chronic obstructive pulmonary disease with (acute) lower respiratory infection; E11.22 Type 2 diabetes mellitus with diabetic chronic kidney disease; N18.31 Chronic kidney disease, stage 3a; E11.65 Type 2 diabetes mellitus with hyperglycemia; E78.5 Hyperlipidemia, unspecified; G47.33 Obstructive sleep apnea (adult) (pediatric); K21.9 Gastro-esophageal reflux disease without esophagitis; I12.9 Hypertensive chronic kidney disease with stage 1 through stage 4 chronic kidney disease, or unspecified chronic kidney disease; Z20.822 Contact with and (suspected) exposure to COVID-19; G89.29 Other chronic pain; Z79.51 Long term (current) use of inhaled steroids; Z87.891 Personal history of nicotine dependence; Z79.84 Long term (current) use of oral hypoglycemic drugs; Z79.01 Long term (current) use of anticoagulants; R82.71 Bacteriuria; Z86.718 Personal history of other venous thrombosis and embolism; F32.A Depression, unspecified
CPT/HCPCS: 36415; 71045; 71046; 80048; 80053; 81001; 82962; 83605; 83735; 84100; 84132; 85025; 85610; 85730; 87040; 87070; 87077; 87086; 87088; 87149; 87186; 87205; 87426; 87804; 87807; 93005; 94002; 94640; 94667; 94668; 94762; 97802; 99251; 99285; 99406; C9803; J7040; A4216; G0463; J1940

== ENCOUNTER → 2022-05-01 | Outpatient (CLI) | payer MEDICARE, SELFPAY | END | disposition home or self-care (01) | LOC: SL 12:57 | PROVIDERS: PCP Family Medicine Geriatric Medicine; Visit Provider Nurse Practitioner Acute Care | DX: G47.33 Obstructive sleep apnea (adult) (pediatric) (principal) ==

== ENCOUNTER → 2022-06-10 | Outpatient (CLI) | payer MEDICARE, SELFPAY ==
--- NOTE | 2022-06-10 07:17 | CT_ITS ---
EXAM: CT CHEST, LUNG CANCER SCREENING WITHOUT INTRAVENOUS CONTRAST CLINICAL INDICATION: Screening TECHNIQUE: Helically acquired images were obtained of the chest without intravenous contrast using low dose (LDCT) lung cancer screening protocol. This CT exam was performed using one or more of the following dose reduction techniques: automated exposure control, adjustment of the mA and/or kV according to patient size, and/or use of iterative reconstruction technique. This report was created using [employer] report generation technology. COMPARISON: CT Lung Cancer Screening dated 06/07/2015 and 02/28/2015 FINDINGS: LUNGS AND PLEURAL SPACES: Calcific pleural plaquing again noted along the hemidiaphragm bilaterally. Central bronchi are normal. No pneumothorax. No evidence of a lung mass or nodule is stable linear scarring within the right upper lobe. HEART: b0 ul0 i Moderate coronary artery calcification.i0 ul0 b Heart size is normal. No pericardial effusion. MEDIASTINUM: Normal. No mediastinal or hilar adenopathy. Esophagus is unremarkable. No hiatal hernia. THYROID: Normal. No thyroid lesions. BONES/JOINTS: Normal. No suspicious lytic or blastic abnormality. VASCULATURE: See above. LYMPH NODES: Normal. No enlarged lymph nodes. CT/Low Dose CT Lung Screening IMPRESSION: 1. No acute cardiopulmonary abnormality. 2. No evidence of lung mass or pulmonary nodule. 3. ACR Lung CT Screening Reporting T Data System (Lung-RADS) score: 1 - Recommend continued annual screening with low-dose CT (LDCT) in 12 months. Electronically Signed: Ronald Lindsay MD at 8:07 EST Reading Location ID and State: [address] [place] [address] Tel , Service support ,
--- NOTE | 2022-06-10 10:16 | PFTCOMP ---
COMPLETE PULMONARY FUNCTION TEST INTERPRETATION Brief HPI: Patient is a 67-year-old male, currently under the care of myself, who presents to [facility] for complete pulmonary function tests secondary to diagnosis of COPD. Respiratory therapist reports good effort and reproducible results. Interpretation: Forced expiration spirometry shows a moderately severe large airways obstructive ventilatory defect with an FEV1 of 55% predicted. There is no significant bronchodilator response by strict ATS criteria. Spirograms are of good quality and plateau slowly, indicating slowly emptying areas of the lungs. The respiratory flow volume loop shows decreased expiratory flow rates at all lung volumes consistent with airway obstruction. Lung volumes by body plethysmography show a normal total lung capacity at 6.04 L, 95% predicted. FRC and RV are elevated out of proportion. Lung volume measurements are consistent with air-trapping. Diffusion capacity by carbon monoxide is normal at 102% predicted. The airway resistance is normal. Compared to previous pulmonary function tests from 02/23/2015, there is been a significant reduction in FVC and FEV1 by 30% and 22% respectively. Impression: Irreversible moderately severe large airways obstructive ventilatory defect resulting in air trapping and worsening compared to 2015.
== END | disposition home or self-care (01) ==
PROVIDERS: PCP Internal Medicine; Visit Provider Internal Medicine Critical Care Medicine
DX: Z12.2 Encounter for screening for malignant neoplasm of respiratory organs (principal); J44.9 Chronic obstructive pulmonary disease, unspecified; F17.210 Nicotine dependence, cigarettes, uncomplicated
CPT/HCPCS: 71271; 94060; 94726; 94729

== ENCOUNTER → 2022-06-13 | Outpatient (CLI) | payer MEDICARE, SELFPAY ==
[2022-06-13 11:35] VITALS: PULSE 111; PULSE 123; PULSE 127; PULSE 130; PULSE 131; PULSE 137; PULSE 89; PULSE 99; O2SAT 91; O2SAT 92; O2SAT 93; O2SAT 95
--- NOTE | 2022-06-14 05:51 | WT_ITS ---
PSN 6 Minute Walk Test 6 Minute Walk Test 6 Minute Walk Test: 6 Minute Walk Test PSN:6-Minute Walk Test Start: 06/13/22 11:35 Freq: Status: Active Protocol: [id number] Document 06/13/22 11:35 [facility] (Rec: 06/13/22 11:38 [facility] [id number]) 6 Minute Walk Test Date Performed 06/13/22 Time Performed 11:15 Height 5 ft 9 in Weight: 136.531 kg Weight in Pounds 301.[address]: Dr Bryant Assistive device used: None Pre-test Oxygen Delivery Method Room Air Pulse Ox (%) 91 Pulse Rate (60-100 beats/min) 89 Dyspnea Hernandez Scale (0-10) 0 Exertion Hernandez Scale (6-20) 6 1st minute Oxygen Delivery Method Room Air Pulse Ox (%) 91 Pulse Rate (60-100 beats/min) 111 H 2nd minute Oxygen Delivery Method Room Air Pulse Ox (%) 91 Pulse Rate (60-100 beats/min) 123 H 3rd minute Oxygen Delivery Method Room Air Pulse Ox (%) 93 Pulse Rate (60-100 beats/min) 127 H 4th minute Oxygen Delivery Method Room Air Pulse Ox (%) 92 Pulse Rate (60-100 beats/min) 130 H 5th minute Oxygen Delivery Method Room Air Pulse Ox (%) 93 Pulse Rate (60-100 beats/min) 131 H 6th minute Oxygen Delivery Method Room Air Pulse Ox (%) 93 Pulse Rate (60-100 beats/min) 137 H Dyspnea Hernandez Scale (0-10) 3 Exertion Hernandez Scale (6-20) 16 Reported Symptoms Increased Work of Breathing Post-test Oxygen Delivery Method Room Air Pulse Ox (%) 95 Pulse Rate (60-100 beats/min) 99 Full Laps Walked 12 Partial Lap, Number of Tiles Walked 14 Total Distance Walked (ft) 722 Interpretation Interpretation: The patient was noted to have a decreased baseline saturation of 91%, but saturations improved with ambulation. Patient did have significant tachycardia with a peak heart rate of 137 bpm. In total, the patient traveled 722 feet over the course of 6 minutes on room air with no assistive devices or breaks. These findings are consistent with a cardiovascular limitation to exercise tolerance. Recommendations Recommendations: No supplemental oxygen is indicated at this time. However, patient will need to be followed closely given level of baseline desaturation.
== END | disposition home or self-care (01) ==
LOC: PSN 10:58
PROVIDERS: PCP Internal Medicine; Referring Provider Internal Medicine Critical Care Medicine; Visit Provider Internal Medicine Critical Care Medicine
DX: J44.9 Chronic obstructive pulmonary disease, unspecified (principal)
CPT/HCPCS: 94060; 94618; 94726; 94729

== ENCOUNTER → 2022-07-01 | Outpatient (CLI) | payer MEDICARE, SELFPAY | END | disposition home or self-care (01) | LOC: SL 20:03 | PROVIDERS: PCP Internal Medicine; Referring Provider Nurse Practitioner Acute Care; Visit Provider Nurse Practitioner Acute Care | DX: G47.33 Obstructive sleep apnea (adult) (pediatric) (principal) | CPT/HCPCS: 95811 ==

== ENCOUNTER → 2022-09-12 | Outpatient (CLI) | payer MEDICARE, SELFPAY ==
[2022-09-12 11:36] LABS: PSA,Total - Annual Screen 0.46 ng/mL (0.00-4.00)
== END | disposition home or self-care (01) ==
LOC: LAB 10:46
PROVIDERS: PCP Internal Medicine; Referring Provider Urology; Visit Provider Urology
DX: Z12.5 Encounter for screening for malignant neoplasm of prostate (principal)
CPT/HCPCS: 36415; 84153; G0103

== ENCOUNTER 2022-09-27 09:24 | Day surgery (SDC) | payer MEDICARE, SELFPAY ==
[2022-09-26 07:39] VITALS: BMI 45.0
[2022-09-27 09:37] LABS: Absolute Lymphocyte Count 4.39 X10^3/uL (0.83-4.51); Absolute Neutrophil Count 10.5 X10^3/uL (2.0-7.7); Basophil# 0.09 X10^3/uL; Basophil% 0.6 % (0-1); Eosinophil# 0.17 X10^3/uL; Hemoglobin 14.2 g/dL (13.0-16.5); Lymphocyte # 4.39 X10^3/ul (0.83-4.51); Lymphocyte % 27.1 % (19-41); Mean Corp Hgb Conc 31.6 g/dL (32-36); Mean Corpuscular Hgb 30.2 pg (27.0-32.0); Mean Corpuscular Volume 95.7 fL (80-94); Mean Platelet Vol. 9.4 fl (6.2-12.0); Monocyte# 0.97 X10^3/uL; NRBC Flagged by Analyzer 0 % (0-5); Neutrophil # 10.45 X10^3/uL (2.7-7.7); Neutrophil % 64.4 % (47-70); Platelet Count 262 K/mm3 (150-450); RBC Distribution Width SD 45.9 fl (35.1-43.9); White Blood Count 16.2 K/mm3 (4.4-11.0)
[2022-09-27 10:02] LABS: Anion Gap 11 (5-15); BUN 13 mg/dL (7-18); Calcium,Total 8.7 mg/dL (8.5-10.1); Chloride 103 mmol/L (98-107); Creatinine, Serum 1.45 mg/dL (0.70-1.30); EST Glomerular Filtration Rate 52 mL/min (>60); Est Glom Filt Rate - Afr Amer 63 mL/min (>60); Estimated Creatinine Clearance 50.11 ml/min; Glucose 140 mg/dL (74-106); Potassium 3.4 mmol/L (3.5-5.1); Sodium Level 141 mmol/L (136-145); Thyroid Stim Hormone (TSH) 0.75 uIU/mL (0.358-3.74)
[2022-09-27 11:01] LABS: Bedside Glucose 127 mg/dL (74-106)
[2022-09-27 12:40] LABS: Blood Gas Specimen Type VEN; VBG BASE EXCESS -2 mmol/L (-1.0-3.5); VBG Bicarbonate 23 mmol/L (22-26); VBG PO2 44 mmHg (25-40); VBG SO2 78 % (50-70); VBG TCO2 25 mmol/L (23-33); VBG pCO2 39.9 mmHg (41-51); VBG pH 7.37 (7.32-7.42)
[2022-09-27 12:45] LABS: Base Excess 2 mmol/L (-2 to +2); Bicarbonate 27.2 mmol/L (22-26); Blood Gas Specimen Type ART; PO2 68 mmHG (75-100); SO2 93 % (95-99); Total Carbon Dioxide 29 mmol/L; pCO2 46.3 mmHg (35-45); pH 7.38 (7.35-7.45)
--- NOTE | 2022-09-27 12:53 | CL.D_ITS ---
Patient Name: RUDDY SUTHERLAND Study Date: 09/27/2022 Performing: Art Negron MD Ht: 69 inches 175.26 cm : 1955 Wt: 305.01 lbs 138.35 kg Age: 67 Gender: male BSA: 2.47 PROCEDURE(S) PERFORMED [id number])RHC/LHC/COR/LV CLINICAL PROFILE AND INDICATIONS Indications: Suspected CAD Heart Failure: None Stress/Imaging Stress/Image Study Performed: No CAD Presentations: Symptom unlikely to be ischemic. CONCLUSIONS Normal coronary arteries Normal LV size, wall motion,and systolic function Mildly elevated right heart pressures RECOMMENDATIONS Medical therapy Stable for bariatric surgery DESCRIPTION OF PROCEDURE The patient arrived to the procedure lab. The risks and benefits of the procedure as well as a full description of our services here and current unavailability of surgical backup were fully explained to the patient and/or their significant other prior to the catheterization. The Timeout was completed, verifying the correct patient and procedure. The patient's procedural site was prepped and draped in the usual fashion. Local anesthetic was given subcutaneously to right radial region with Lidocaine 2%. Local anesthetic was given subcutaneously to right groin region with Lidocaine 2%. Using a modified Seldinger technique, arterial access was obtained via the right radial artery, a 6Fr sheath was inserted. Venous access was obtained via the right femoral vein, a 7Fr sheath was inserted. Right Coronary Artery selective angiography was then performed in multiple views using a 5 Fr. 4.0 [place] catheter. Left Coronary Artery selective angiography was performed in multiple views using a 5 Fr. 4.0 [place] catheter. Left Ventriculography was performed in BEAULIEU projection using a 5 Fr. Pigtail catheter. LV to AO pullback pressures were then recorded. A 7Fr thermal dilution catheter was inserted and right heart pressures were recorded, it was then advanced to PA position for cardiac outputs. Thermal dilution cardiac outputs were then recorded. O2 saturations were then obtained. The Thermal dilution catheter was then removed.The arterial sheath was pulled and a TR Band was applied for hemostasis CORONARY ANGIOGRAPHY DOMINANCE: Right Dominant LEFT HEART ASSESSMENT Left Ventricular Ejection Fraction: by LV Gram 60 % Normal Left Ventricular systolic function RIGHT HEART ASSESSMENT Thermal CO: 7.09 Thermal CI: 2.87 [place] CO: 11.35 [place] CI: 4.59 PW: 21 PA: 43/22 30 RV: 45/14 25 RA: 20 Right Heart pressures - elevated LEFT MAIN: No significant disease noted LEFT ANTERIOR DESCENDING ARTERY: Mild luminal irregularities CIRCUMFLEX ARTERY: Mild luminal irregularities RIGHT CORONARY ARTERY: No significant disease noted COMPLICATIONS No Complications PROCEDURE MEDICATIONS Versed 1 mg IV Fentanyl 50 mcg IV Versed 1 mg IV Aspirin (325mg) 1 Tabs PO @ 09/27/2022 10:41:51 Heparin given IA 09/27/2022 12:15:58 Potassium Chloride 40 mEq PO 09/27/2022 11:19:44 Verapamil 2.5mg, Ntg 200mcgs, 2000 units of Heparin given IA 09/27/2022 12:15:58 SUMMARY OF HEMODYNAMIC DATA Time AIR REST ECG 10:38:22 AO 109/14 (54) SA 12:16:21 LV 105/11, 16 12:24:00 LV 102/11, 17 12:24:21 LV 114/13, 25 12:25:17 LV 114/12, 23 12:25:25 LVp 112/10, 24 12:25:28 RA (20) SV 12:28:47 RV 45/14, 25 12:29:52 PW (21) PV 12:30:42 PA 43/22 (30) PA 12:31:02 RA (19) 12:35:41 Type SV CO (l/m) CI (l/m/ HR Time AIR REST Thermal 118.20 7.09 2.87 60 10:38:22 [place] 189.10 11.35 4.59 60 10:38:22 Label % O2 Pres/Loc Time AIR REST AO 93 PV 12:47:02 PA 69 PA 12:47:10 RA 78 SV 12:47:17 Signed By Art Negron MD On 09/27/2022 12:52:42 Signed By Art Negron MD On 09/27/2022 12:52:23 Art Negron MD
[2022-09-27 16:01] LABS: Blood Gas Specimen Type VEN; VBG BASE EXCESS 3 mmol/L (-1.0-3.5); VBG Bicarbonate 28 mmol/L (22-26); VBG PO2 37 mmHg (25-40); VBG SO2 69 % (50-70); VBG TCO2 29 mmol/L (23-33); VBG pCO2 47.2 mmHg (41-51); VBG pH 7.38 (7.32-7.42)
== END 2022-09-27 15:00 | disposition home or self-care (01) ==
PROVIDERS: PCP Internal Medicine; Referring Provider Internal Medicine Cardiovascular Disease; Visit Provider Internal Medicine Cardiovascular Disease
DX: R06.00 Dyspnea, unspecified (principal); J44.9 Chronic obstructive pulmonary disease, unspecified; R06.02 Shortness of breath; I10 Essential (primary) hypertension; Z87.891 Personal history of nicotine dependence; E78.5 Hyperlipidemia, unspecified; G47.33 Obstructive sleep apnea (adult) (pediatric); Z86.718 Personal history of other venous thrombosis and embolism; Z82.49 Family history of ischemic heart disease and other diseases of the circulatory system; R60.9 Edema, unspecified; R00.0 Tachycardia, unspecified; I35.0 Nonrheumatic aortic (valve) stenosis
CPT/HCPCS: 36415; 80048; 82803; 82962; 84443; 85025; 93306; 93460; 99152; 99153; J7040; Q9957; Q9967; A4216; C1751; C1769; C1894; C8929

== ENCOUNTER → 2022-09-27 | Outpatient (CLI) | payer MEDICARE, SELFPAY ==
--- NOTE | 2022-09-27 09:34 | ECHOCS_ITS ---
Reason For Study: STEPHANE Procedure This was a 2D Doppler, Color Flow transthoracic echocardiogram. The study was technically difficult. Contrast injection was performed. Exam performed in department. Left Ventricle Normal LV size. Left ventricular systolic function is normal. The estimated ejection fraction is 60 %. No regional wall motion abnormalities noted. Right Ventricle Normal RV size. Normal systolic function. Atria Normal left atrium. Normal right atrium. Mitral Valve Normal mitral valve. Tricuspid Valve Normal tricuspid valve. Mild (1+) tricuspid valve insufficiency. Pulmonary artery systolic pressure is 39 mmHg. Pulmonic Valve Normal pulmonic valve. Great Vessels Normal aortic root. The pulmonary artery is normal size. Normal inferior vena cava. Pericardium/Pleural No pericardial effusion. Medication 22 gauge I.V. with prn adaptor inserted into left arm. Diluted definity 6.5ml given slow IV push to enhance endocardial definition. MMode/2D Measurements & Calculations Ao root diam: 3.4 cm LAV(MOD-sp4): 37.1 ml LVAd ap4: 35.0 cm2 LVLd ap4: 9.3 cm EDV(MOD-sp4): 106.5 ml EDV(sp4-el): 112.1 ml LVAs ap4: 19.0 cm2 LVLs ap4: 7.7 cm ESV(MOD-sp4): 37.4 ml ESV(sp4-el): 39.7 ml EF(MOD-sp4): 64.9 % EF(sp4-el): 64.6 % SV(MOD-sp4): 69.1 ml SV(sp4-el): 72.5 ml LA A4 area: 15.6 cm2 LA dimension(2D): 4.3 cm RA A4 area: 15.2 cm2 Time Measurements MV dec time: 0.24 sec Doppler Measurements & Calculations MV E max steven: 80.8 cm/sec Lat Peak E' Steven: 10.5 cm/sec Med Peak E' Steven: 8.9 cm/sec MV A max steven: 74.4 cm/sec E/E' lat: 7.7 E/E' med: 9.0 MV E/A: 1.1 MV V2 max: 106.8 cm/sec MV dec slope: 342.9 cm/sec2 Ao V2 max: 147.9 cm/sec MV max P.6 mmHg Ao max P.8 mmHg MV V2 mean: 70.6 cm/sec Ao V2 mean: 100.5 cm/sec MV mean P.2 mmHg Ao mean P.7 mmHg MV V2 VTI: 40.2 cm Ao V2 VTI: 30.7 cm AV (velocity ratio): 0.87 LV V1 max: 115.9 cm/sec PA V2 max: 129.8 cm/sec TR max steven: 279.0 cm/sec LV V1 max P.4 mmHg PA V2 mean: 82.1 cm/sec TR max P.1 mmHg LV V1 mean P.1 mmHg LV V1 mean: 80.8 cm/sec LV V1 VTI: 26.8 cm ECHO/Echo Complete W/ Contrast Interpretation Summary Normal LV size. Left ventricular systolic function is normal. The estimated ejection fraction is 60 %. Pulmonary artery systolic pressure is 39 mmHg. Contrast injection was performed. Ordering Physician: Art Negron Referring Physician: Art Negron Performed By: Reva Woods RCS
== END | disposition home or self-care (01) ==
PROVIDERS: PCP Internal Medicine; Referring Provider Internal Medicine Cardiovascular Disease; Visit Provider Internal Medicine Cardiovascular Disease
DX: G47.33 Obstructive sleep apnea (adult) (pediatric) (principal)
CPT/HCPCS: 93306; Q9957; A4216; C8929

== ENCOUNTER → 2022-10-10 | Outpatient (CLI) | payer MEDICARE, SELFPAY ==
[2022-10-10 12:10] LABS: Absolute Lymphocyte Count 3.76 X10^3/uL (0.83-4.51); Absolute Neutrophil Count 8.4 X10^3/uL (2.0-7.7); Basophil# 0.09 X10^3/uL; Basophil% 0.7 % (0-1); Eosinophil# 0.32 X10^3/uL; Eosinophils% 2.3 % (0-5); Hematocrit 44.8 % (40-54); Hemoglobin 13.8 g/dL (13.0-16.5); Lymphocyte # 3.76 X10^3/ul (0.83-4.51); Lymphocyte % 27.4 % (19-41); Mean Corp Hgb Conc 30.8 g/dL (32-36); Mean Corpuscular Hgb 30.1 pg (27.0-32.0); Mean Corpuscular Volume 97.8 fL (80-94); Mean Platelet Vol. 10.7 fl (6.2-12.0); Monocyte# 0.91 X10^3/uL; Monocyte% 6.6 % (0-10); NRBC Flagged by Analyzer 0 % (0-5); Neutrophil # 8.43 X10^3/uL (2.7-7.7); Neutrophil % 61.5 % (47-70); Platelet Count 209 K/mm3 (150-450); RBC Distribution Width CV 12.9 % (11.6-14.6); RBC Distribution Width SD 46.1 fl (35.1-43.9); Red Blood Count 4.58 M/mm3 (4.6-6.2); White Blood Count 13.7 K/mm3 (4.4-11.0)
[2022-10-10 13:15] LABS: AST(SGOT) 15 U/L (15-37); Alanine Aminotransfer ALT/SGPT 16 U/L (16-61); Albumin, Serum 3.3 g/dL (3.2-5.0); Alkaline Phosphatase 99 U/L (45-117); Anion Gap 9 (5-15); BUN 14 mg/dL (7-18); BUN/Creat Ratio 10.3 RATIO (10-20); Calcium,Total 8.4 mg/dL (8.5-10.1); Chloride 107 mmol/L (98-107); Cholesterol 107 mg/dL (200); Creatinine, Serum 1.36 mg/dL (0.70-1.30); EST Glomerular Filtration Rate 56 mL/min (>60); Est Glom Filt Rate - Afr Amer 67 mL/min (>60); Globulin 3.2 g/dL (2.2-4.2); Glucose 124 mg/dL (74-106); High Density Lipoprotein 28 mg/dL; Potassium 4.1 mmol/L (3.5-5.1); Protein, Total 6.5 g/dL (6.4-8.2); Sodium Level 143 mmol/L (136-145); Triglycerides 129 mg/dL; Very Low Density Lipoprotein 26 mg/dL (5-40)
== END | disposition home or self-care (01) ==
LOC: BIMLAB 10:25
PROVIDERS: PCP Internal Medicine; Referring Provider Internal Medicine; Visit Provider Internal Medicine
DX: G47.33 Obstructive sleep apnea (adult) (pediatric) (principal); E11.9 Type 2 diabetes mellitus without complications; I10 Essential (primary) hypertension
CPT/HCPCS: 36415; 80053; 80061; 85025

== ENCOUNTER 2023-04-07 02:50 | Emergency (ER) | payer MEDICARE, SELFPAY ==
[2023-04-07 02:50] VITALS: BP 176/80; PULSE 114; RESP 16; TEMP 36.2; O2SAT 93; BMI 43.4
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
--- NOTE | 2023-04-07 03:24 | CT_ITS ---
EXAM: CT HEAD WITHOUT INTRAVENOUS CONTRAST CLINICAL INDICATION: Head injury TECHNIQUE: Multiple axial images were obtained of the head without intravenous contrast. This CT exam was performed using one or more of the following dose reduction techniques: automated exposure control, adjustment of the mA and/or kV according to patient size, and/or use of iterative reconstruction technique. RADIATION DOSE: Total DLP: 863.60 mGy-cm. COMPARISON: Previous cranial CT of 10/19/2013. FINDINGS: BRAIN AND EXTRA-AXIAL SPACES: Very mild age-related atrophy again noted with prominence of the cortical sulci, sylvian fissures and ventricles. Mild patchy chronic small vessel ischemic changes are again noted within the deep white matter tracts. There is a stable lobulated focus of encephalomalacia within the right parietal lobe, extending through the cortex into the subcortical white matter. No intra- or extra-axial hemorrhage. No intracranial mass or mass effect. Posterior fossa structures are unremarkable. Basal cisterns are patent. BONES/JOINTS: Unremarkable. No discrete lytic or blastic abnormalities. No linear or depressed skull fracture. SOFT TISSUES: Unremarkable. No scalp hematoma. VASCULATURE: Atherosclerotic vascular calcification is present. The middle cerebral arteries are not hyperdense. SINUSES: Unremarkable as visualized. Clear. MASTOID AIR CELLS: Unremarkable. Clear. ORBITS: Previous cataract surgery. CT/Brain/Head without Contrast IMPRESSION: No significant interval change. No skull fracture or acute intracranial hemorrhage. Electronically Signed: Gómez Mccann MD at 4:05 EST ,
--- NOTE | 2023-04-07 03:25 | RAD_ITS ---
EXAM: XR CHEST, 2 VIEWS CLINICAL INDICATION: Trauma TECHNIQUE: Frontal and lateral views of the chest. COMPARISON: Previous chest radiographs of 03/30/2022 and 03/28/2022. FINDINGS: LUNGS AND PLEURAL SPACES: Calcified pleural plaques are again noted along both hemidiaphragms. Chronic noncalcified pleural thickening along the lateral aspect of both lungs. Lungs are mildly hyperinflated with flattening of the hemidiaphragms due to pulmonary emphysema. No consolidation or edema. No pneumothorax. No effusion. HEART: Normal heart size. Pruning of the peripheral pulmonary vascular markings due to pulmonary emphysema. MEDIASTINUM: Calcific aortic knob. No mediastinal widening. Trachea is midline. BONES/JOINTS: Mildly accentuated thoracic kyphosis. Midthoracic degenerative spurring. Old fracture of the lateral right 10th rib. No displaced sternal fracture identified on the lateral view of the chest. SOFT TISSUES: Surgical clips projected over the left axilla and over both lung apices. RAD/Chest PA and Lateral IMPRESSION: No significant interval change or acute process. Chronic findings as noted above including calcified pleural plaques, suggesting previous asbestos exposure Electronically Signed: Gómez Mccann MD at 3:56 EST ,
[2023-04-07 03:41] LABS: Absolute Lymphocyte Count 4.15 X10^3/uL (0.83-4.51); Absolute Neutrophil Count 9.5 X10^3/uL (2.0-7.7); Basophil% 0.7 % (0-1); Eosinophil# 0.13 X10^3/uL; Eosinophils% 0.9 % (0-5); Hematocrit 41.4 % (40-54); Hemoglobin 12.8 g/dL (13.0-16.5); Lymphocyte # 4.15 X10^3/ul (0.83-4.51); Lymphocyte % 27.9 % (19-41); Mean Corp Hgb Conc 30.9 g/dL (32-36); Mean Corpuscular Hgb 30.3 pg (27.0-32.0); Mean Corpuscular Volume 97.9 fL (80-94); Mean Platelet Vol. 9.2 fl (6.2-12.0); Monocyte# 0.97 X10^3/uL; Monocyte% 6.5 % (0-10); NRBC Flagged by Analyzer 0 % (0-5); Neutrophil # 9.45 X10^3/uL (2.7-7.7); Neutrophil % 63.3 % (47-70); Platelet Count 273 K/mm3 (150-450); RBC Distribution Width CV 14.3 % (11.6-14.6); RBC Distribution Width SD 51.5 fl (35.1-43.9); Red Blood Count 4.23 M/mm3 (4.6-6.2); White Blood Count 14.9 K/mm3 (4.4-11.0)
[2023-04-07 03:59] LABS: Anion Gap 5 (5-15); BUN 9 mg/dL (7-18); Calcium,Total 8.4 mg/dL (8.5-10.1); Chloride 104 mmol/L (98-107); Creatinine, Serum 1.12 mg/dL (0.70-1.30); EST Glomerular Filtration Rate 70 mL/min (>60); Est Glom Filt Rate - Afr Amer 84 mL/min (>60); Glucose 98 mg/dL (74-106); Potassium 4.2 mmol/L (3.5-5.1); Sodium Level 140 mmol/L (136-145)
[2023-04-07] MEDS: HYDROcodone Bitartrate/Apap 5/325 Tablet PO (04:29)
[2023-04-07 04:30] VITALS: BP 126/78; PULSE 93; RESP 20; O2SAT 92
== END 2023-04-07 04:36 | disposition home or self-care (01) ==
LOC: ED 03:11
PROVIDERS: Emergency Provider Emergency Medicine; PCP Internal Medicine; Visit Provider Emergency Medicine
DX: S20.20XA Contusion of thorax, unspecified, initial encounter (principal); J44.9 Chronic obstructive pulmonary disease, unspecified; E11.22 Type 2 diabetes mellitus with diabetic chronic kidney disease; Z79.4 Long term (current) use of insulin; N18.31 Chronic kidney disease, stage 3a; Z87.891 Personal history of nicotine dependence; V49.49XA Driver injured in collision with other motor vehicles in traffic accident, initial encounter; W22.11XA Striking against or struck by driver side automobile airbag, initial encounter; Y92.488 Other paved roadways as the place of occurrence of the external cause; E78.5 Hyperlipidemia, unspecified; Z85.828 Personal history of other malignant neoplasm of skin; Z86.73 Personal history of transient ischemic attack (TIA), and cerebral infarction without residual deficits; I12.9 Hypertensive chronic kidney disease with stage 1 through stage 4 chronic kidney disease, or unspecified chronic kidney disease; Z79.899 Other long term (current) drug therapy; K21.9 Gastro-esophageal reflux disease without esophagitis; Z79.01 Long term (current) use of anticoagulants; Z86.718 Personal history of other venous thrombosis and embolism; Z79.85 Long-term (current) use of injectable non-insulin antidiabetic drugs
CPT/HCPCS: 70450; 71046; 80048; 85025; 99282; A4216

== ENCOUNTER 2023-07-09 12:45 | Inpatient (IN) | payer MEDICARE, SELFPAY ==
[2023-07-09 13:27] VITALS: BP 155/59; PULSE 72; RESP 16; TEMP 36.5; O2SAT 94
--- NOTE | 2023-07-09 15:04 | WOUNDNOTE ---
wound photo: left foot
--- NOTE | 2023-07-09 15:07 | WOUNDNOTE ---
wound photo: left foot
[2023-07-09] MEDS: Tamsulosin HCl 0.4 MG Capsule 0.400000000000000022 MG PO (17:02)
[2023-07-09] MEDS: Rivaroxaban 15 MG Tablet PO (17:02)
[2023-07-09] MEDS: Insulin U-500 UNITS/ML PEN 55 UNITS SC (17:03)
[2023-07-09 17:25] LABS: Bedside Glucose 178 mg/dL (74-106)
--- NOTE | 2023-07-09 20:26 | HP.PCM_ITS ---
[facility] - General General Date of Admission: 07/09/23 Date of Service: 07/09/23 Chief Complaint: Here for rehabilitation, wound care, intravenous antibiotics. HPI Narrative RUDDY SUTHERLAND, is a 68 Male who presents with followin07/01/2023 Admit to [facility]. Patient is diabetic, 2 weeks prior, noted left foot drainage. Left great toe swollen for 2 weeks, very little pain. No fever or chills. His dog bit his left great toe. He presented to [place] [facility]. Left foot swollen to ankle, red streaks spreading thru left leg. WBC 24,000. IV ATB's started and admitted to hospital. Hospitalized for left great toe diabetic gangrene, cellulitis left viktor, osteomyelitis left great toe. IV ATB's continued, Podiatry consulted. Dr. Abraham recommended left great toe amputation. 07/02/2023 Dr. Abraham performed left hallux amputation with wound VAC application. IV ATB's continued. 07/05/2023 Increasing left foot pain. Pain medications adjusted with good results. Continue IV ATB's, add Lantus at nighttime for improved glucose control. Stop IV fluids, Stop Clindamycin. 07/06/2023 Increased pain in bilateral lower extremities due to diabetic polyneuropathy. Gabapentin 300mg twice daily added. 07/07/2023 Dr. Abraham performed incision and drainage right foot for open wound with abscess right foot. 07/09/2023 Admit to TCU with debility, here for rehabilitation, wound care, IV antibiotics. [facility] Medical History (Updated 07/09/23 @ 20:[address] Giancarlo Boyer MD) Allergies Arthritis Asthma Back problem Bilateral pulmonary embolism Bleeding disorder Bronchitis Carpal tunnel syndrome Cataracts, bilateral Chronic pain COPD (chronic obstructive pulmonary disease) Depression Diabetes Emphysema lung Essential hypertension Gastrointestinal problem GERD (gastroesophageal reflux disease) History of DVT of lower extremity Hx of blood clots Hyperlipidemia Hypoxia Leukocytosis Morbid obesity Neuropathy Pneumonia Skin cancer Sleep apnea Smokes with greater than 40 pack year history Stage 3a chronic kidney disease (CKD) Stiff-man syndrome Stroke Thoracic outlet syndrome UTI (urinary tract infection) Vascular disease Vision problems Home Medications lidocaine 5 % topical patch 1 patch topical DAILY Check with primary doctor 12/24/13 [History Last Taken 03/30/22 10:00] ipratropium 0.5 mg-albuterol 3 mg (2.5 mg base)/3 mL nebulization soln 3 ml inhalation Q6H PRN ##1 12/26/13 [Rx Last Taken Unknown] albuterol sulfate 2.5 mg/3 mL (0.083 %) solution for nebulization 2.5 mg (3 mL) inhalation Q2H PRN PRN SHORTNESS OF BREATH ##100 02/05/14 [Rx Last Taken Unknown] hydrocodone 7.5 mg-acetaminophen 325 mg tablet 1 ea PO Q4H PRN Pain 10/12/14 [History Last Taken Unknown] morphine 15 mg immediate release tablet 15 mg PO BID pain 03/30/22 [History Last Taken 03/30/22 22:00] amitriptyline 50 mg tablet 50 mg PO QHS 06/11/22 [History Last Taken Unknown] oxybutynin chloride 10 mg tablet,extended release 24 hr 10 mg PO DAILY 06/11/22 [History Last Taken Unknown] zonisamide 100 mg capsule 200 mg PO DAILY 06/11/22 [History Last Taken Unknown] triamcinolone acetonide 0.1 % topical cream 1 applic topical BID 07/26/22 [History Last Taken Unknown] furosemide 40 mg tablet 40 mg PO DAILY 08/08/22 [History Last Taken Unknown] umeclidinium 62.5 mcg-vilanterol 25 mcg/actuation powdr for inhalation (Anoro Ellipta) 1 inh inhalation DAILY #3 ea 08/12/22 [Rx Last Taken Unknown] trazodone 150 mg tablet 300 mg PO DAILY 09/12/22 [History Last Taken Unknown] empagliflozin 25 mg tablet (Jardiance) 25 mg PO DAILY Diabetes #90 tabs 02/06/23 [Rx Last Taken Unknown] insulin regular hum U-500 conc 500 unit/mL(3 mL) subcut pen See Rx Instructions subcut BID Diabetes #40 mL 02/17/23 [Rx Last Taken Unknown] saxagliptin 2.5 mg tablet (Onglyza) 2.5 mg PO DAILY #90 tabs 04/01/23 [Rx Last Taken Unknown] pen needle, diabetic 32 gauge x 5/32 (BD Ultra-Fine Ava Pen Needle) 1 ea miscellaneous .3 times daily #100 ea 04/02/23 [Rx Last Taken Unknown] rivaroxaban 15 mg tablet 15 mg PO DAILY Blood Thinner #90 tabs 05/12/23 [Rx Last Taken Unknown] tirzepatide 7.5 mg/0.5 mL subcutaneous pen injector (Mounjaro) 7.5 mg (0.5 mL) subcut QWEEK Diabetes #2 mL 06/10/23 [Rx Last Taken Unknown] benazepril 40 mg tablet 40 mg PO DAILY BP #90 tabs 06/16/23 [Rx Last Taken Unknown] atorvastatin 40 mg tablet 80 mg (2 x 40 mg) PO QHS Check with primary doctor #90 tabs 06/18/23 [Rx Last Taken Unknown] omeprazole 40 mg capsule,delayed release 40 mg PO DAILY GERD #90 caps 07/07/23 [Rx Last Taken Unknown] ertapenem 1 gram intravenous solution 1 g IV DAILY Antibiotic 07/09/23 [History Last Taken Unknown] levofloxacin 500 mg tablet 500 mg PO DAILY Antibiotic 07/09/23 [History Last Taken Unknown] tamsulosin 0.4 mg capsule 0.4 mg PO Q24H Urinary Retention 07/09/23 [History Last Taken Unknown] Allergy/AdvReac Type Severity Reaction Status Date / Time cilostazol [From Pletal] Allergy Other Verified 02/06/23 10:24 etodolac [From Lodine] Allergy Hives Verified 02/06/23 10:24 nabumetone [From Relafen] Allergy Hives Verified 02/06/23 10:24 naproxen sodium [From Aleve] Allergy Hives Verified 02/06/23 10:24 Penicillins Allergy Hives Verified 02/06/23 10:24 Family History Brother Alcoholism Diabetes Father Alcoholism Hypertension Mother Arthritis Diabetes Hypertension Breast cancer Grandfather Colon cancer Grandfather Prostate cancer Other COPD (chronic obstructive pulmonary disease) Surgical History (Updated 07/09/23 @ 20:[address] 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 Smoking Status: Former smoker quit date: 07/25/15 pack-years: 80 Electronic Cigarette Use: not used how long ago did patient quit smoking: Quit 7 years ago alcohol intake: never substance use type: does not use do you feel safe at home: Yes ROS Constitutional Constitutional: Denies chills, fever(s) or weight gain ENT HEENT: Denies headache(s), nasal congestion or nasal discharge Cardiovascular Cardiovascular: Denies chest pain or palpitations Respiratory/Chest Respiratory/Chest: Denies cough, excessive phlegm production or shortness of breath with exertion Gastrointestinal Gastrointestinal: Denies abdominal pain, nausea or vomiting Genitourinary Genitourinary: Denies dysuria Musculoskeletal Musculoskeletal: Denies joint pain or joint swelling Integumentary Integumentary: Denies rash or wounds Neurologic Neurologic: Denies focal weakness, numbness or tingling Psychiatric Psychiatric: Denies anxiety, auditory hallucinations, depression, homicidal coby ation or suicidal ideation Vital Signs Vital Signs Vital Signs: 07/09/23 13:27 07/09/23 15:31 Temperature 97.7 F L Temperature Source Oral Pulse Rate 72 Pulse Rhythm Regular Pulse Strength Weak (1+) Respiratory Rate 16 Respiratory Effort Normal Non-Labored Respiratory Depth Normal Respiratory Pattern Normal Blood Pressure 155/59 H Blood Pressure Mean 91 Blood Pressure Source Monitor Blood Pressure Position Semi-Fowlers Blood Pressure Location Left Arm Pulse Ox 94 Oxygen Delivery Method Nasal Cannula Nasal Cannula Oxygen Flow Rate (L/min) 3 3 Physical Exam Const alert General Appearance: cooperative HEENT normocephalic Eyes PERRL and EOMs intact bilaterally Neck supple, no JVD and no carotid bruits Resp normal respiratory effort, normal air movement and clear to auscultation bilaterally Cardio regular rate and regular rhythm GI normal to inspection, nondistended, normoactive bowel sounds, non-tender and non-distended Extremity normal capillary refill Extremity Narrative: Right upper extremity PICC. Bilateral lower extremities dressed. General Extremity: Negative for edema Skin no rashes or lesions noted General Skin Exam: no breakdown Psych affect normal Appearance: appropriate Results Lab / Micro Data Labs: Laboratory Results - last 24 hr 07/09/23 17:01: POC Glucose 178 H Assessment & Plan Assessment/Plan (1) Debility: (2) Osteomyelitis of great toe of left foot: (3) Cellulitis of left foot: (4) Status post amputation of left great toe: (5) Diabetic foot ulcers: (6) Essential hypertension: (7) Hyperlipidemia: (8) GERD (gastroesophageal reflux disease): QUALIFIERS: Esophagitis presence: without esophagitis Qualified Code(s): K21.9 - Gastro-esophageal reflux disease without esophagitis (9) COPD (chronic obstructive pulmonary disease): QUALIFIERS: COPD type: unspecified COPD Qualified Code(s): J44.9 - Chronic obstructive pulmonary disease, unspecified (10) Sleep apnea: QUALIFIERS: Sleep apnea type: obstructive Qualified Code(s): G47.33 - Obstructive sleep apnea (adult) (pediatric) (11) Bilateral pulmonary embolism: PLAN: Plan 68 year old male with below past medical history hospitalized for osteomyelitis left hallux, s/p left hallux amputation 07/02/[address] Abraham, complicated by cellulitis left foot, diabetic polyneuropathy, admitted to TCU with debility, here for rehabilitation, strengthening, wound care, intravenous antibiotics, prior to discharge home with . * Debility - PT/OT. * Pain - MS contin 15mg bid, [place] 5/325mg 1 tab q4 prn pain (6-10). * Bowel - senna/colace 1 tablet bid, Magnesium citrate 300ml daily prn. * Adult immunization - Administer pneumonia vaccine, covid vaccine, flu vaccine as appropriate. * DVT prophylaxis - on Xarelto. * Hyperlipidemia - Atorvastatin 80mg daily. * Diabetes Mellitus II - Jardiance 25mg daily, Humulin R U-500 65 units am, 55 units pm, Mounjaro 7.5mg per week. * Osteomyelitis left hallux s/p left hallux amputation - Ertapenem 1gm iv q24, Levaquin 500mg daily thru 07/24/2023, consult Dr. Abraham for expert care. * Hypertension - Lisinopril 40mg daily. * Skin irritation - Calmoseptine topical bid. * Tinea Corporis - Nystatin powder topical bid. * GERD - Pantoprazole 40mg daily. * Recurrent blood clots - Xarelto 15mg daily. * BPH - Tamsulosin 0.4mg daily.
[2023-07-09 21:22] VITALS: O2SAT 98
[2023-07-09] MEDS: Senna/Docusate Sodium 1 Tablet PO (21:30)
[2023-07-09] MEDS: Nystatin Powder 15gm Bottle 1 APPLIC TOPICAL (21:30)
[2023-07-09] MEDS: Atorvastatin Calcium 80 MG Tablet PO (21:30)
[2023-07-09] MEDS: Menthol/Lanolin/Calamine/Znox 113 GM Tube 1 APPLIC TOPICAL (21:30)
[2023-07-09] MEDS: morphine SR 15 MG Tablet PO (21:30)
[2023-07-09] MEDS: 0.9% Saline Lock 10 ML Syringe IV ×2 (21:31→22:43)
[2023-07-09 22:18] VITALS: O2SAT 96
[2023-07-09 23:12] LABS: Bedside Glucose 85 mg/dL (74-106)
[2023-07-09 23:12] LABS: Bedside Glucose 70 mg/dL (74-106)
[2023-07-10] MEDS: Nystatin Powder 15gm Bottle 1 APPLIC TOPICAL ×3 (06:10→20:19)
[2023-07-10 06:14] LABS: Absolute Lymphocyte Count 4.11 X10^3/uL (0.83-4.51); Basophil# 0.08 X10^3/uL; Basophil% 0.6 % (0-1); Eosinophil# 0.32 X10^3/uL; Eosinophils% 2.3 % (0-5); Hematocrit 32.6 % (40-54); Hemoglobin 10.1 g/dL (13.0-16.5); Lymphocyte # 4.11 X10^3/ul (0.83-4.51); Lymphocyte % 29.2 % (19-41); Mean Corpuscular Hgb 29.4 pg (27.0-32.0); Mean Corpuscular Volume 94.8 fL (80-94); Mean Platelet Vol. 9.3 fl (6.2-12.0); Monocyte# 1.05 X10^3/uL; Monocyte% 7.5 % (0-10); NRBC Flagged by Analyzer 0 % (0-5); Neutrophil # 8.04 X10^3/uL (2.7-7.7); Neutrophil % 56.9 % (47-70); Platelet Count 212 K/mm3 (150-450); RBC Distribution Width SD 45.1 fl (35.1-43.9); Red Blood Count 3.44 M/mm3 (4.6-6.2); White Blood Count 14.1 K/mm3 (4.4-11.0)
[2023-07-10 06:31] VITALS: O2SAT 95
[2023-07-10 06:36] LABS: Anion Gap 3 (5-15); BUN 5 mg/dL (7-18); BUN/Creat Ratio 7.5 RATIO (10-20); Calcium,Total 7.9 mg/dL (8.5-10.1); Chloride 100 mmol/L (98-107); Creatinine, Serum 0.67 mg/dL (0.70-1.30); EST Glomerular Filtration Rate 127 mL/min (>60); Est Glom Filt Rate - Afr Amer 153 mL/min (>60); Glucose 135 mg/dL (74-106); Potassium 3.4 mmol/L (3.5-5.1); Sodium Level 141 mmol/L (136-145)
[2023-07-10 06:44] LABS: Bedside Glucose 139 mg/dL (74-106)
[2023-07-10] MEDS: Insulin U-500 UNITS/ML PEN 65 UNITS SC (08:21)
[2023-07-10] MEDS: morphine SR 15 MG Tablet PO ×2 (09:00→20:19)
[2023-07-10] MEDS: levoFLOXacin 500 MG Tablet PO (09:01)
[2023-07-10] MEDS: Pantoprazole Sodium 40 MG Tablet PO (09:01)
[2023-07-10] MEDS: Empagliflozin 25 MG Tablet PO (09:01)
[2023-07-10] MEDS: Lisinopril 40 MG Tablet PO (09:01)
[2023-07-10] MEDS: Ertapenem Sod 1 GM in 0.9% Normal Saline (50mL MB+) 50 ML IV (09:01)
[2023-07-10] MEDS: Senna/Docusate Sodium 1 Tablet PO (09:03)
[2023-07-10] MEDS: Potassium Chloride Oral Tablet 20 MEQ 40 MEQ PO (09:04)
[2023-07-10] MEDS: Tuberculin,Purif.prot.deriv. 50 TU/ML Vial 0.100000000000000006 ML ID (09:05)
[2023-07-10] MEDS: 0.9% Normal Saline (250mL Bag) 250 ML 100 ML IV (09:10)
[2023-07-10] MEDS: 0.9% Saline Lock 10 ML Syringe IV ×2 (09:11→20:21)
[2023-07-10] MEDS: Menthol/Lanolin/Calamine/Znox 113 GM Tube 1 APPLIC TOPICAL ×2 (09:19→20:19)
[2023-07-10 11:41] LABS: Bedside Glucose 88 mg/dL (74-106)
--- NOTE | 2023-07-10 13:04 | WOUNDNOTE ---
In to remove the JOSE wrap to assess the left foot. wound VAC dressing in place. good seal noted at 125mmHg low continuous suction. still some mild redness noted to the dorsal foot. slightly improved. plan to change the wound VAC dressing tomorrow am. daughter in law would like to be present for VAC change. reapplied the JOSE wrap.
[2023-07-10 14:43] VITALS: BP 154/53; PULSE 66; RESP 18; TEMP 36.6; O2SAT 94
[2023-07-10 15:02] VITALS: BMI 40.9
--- NOTE | 2023-07-10 15:32 | PCM.PN.DRR ---
TCU RX Drug Regimen Review Subjective/Objective Subjective/Objective: Subjective: 68 year old male with below past medical history hospitalized for osteomyelitis left hallux, s/p left hallux amputation 07/02/[address] Abraham, complicated by cellulitis left foot, diabetic polyneuropathy, admitted to TCU with debility, here for rehabilitation, strengthening, wound care, intravenous antibiotics, prior to discharge home with . Objective: Allergies cilostazol [From Pletal] Allergy (Verified 02/06/23 10:24) Other headaches etodolac [From Lodine] Allergy (Verified 02/06/23 10:24) Hives causes breathing trouble as well nabumetone [From Relafen] Allergy (Verified 02/06/23 10:24) Hives naproxen sodium [From Aleve] Allergy (Verified 02/06/23 10:24) Hives causes breathing trouble as well Penicillins Allergy (Verified 02/06/23 10:24) Hives Current Medications Generic Name Dose Route Start Last Admin Trade Name Freq PRN Reason Stop Dose Admin Hydrocodone Bitart/Acetaminophen 1 tablet 07/09/23 17:25 Hydrocodone Bitartrate/Apap 5/325 Tablet PO Q4H PRN PRN Pain Score 6-10 Atorvastatin Calcium 80 mg 07/09/23 22:00 07/09/23 21:30 Atorvastatin Calcium 80 Mg Tablet PO 80 mg QHS BUFFY Administration Calamine/Phenol 1 applic 07/09/23 22:00 07/10/23 09:19 Menthol/Lanolin/Calamine/Znox 113 Gm Tube TOPICAL 1 applic BID BUFFY Administration Protocol Empagliflozin 25 mg 07/10/23 10:00 07/10/23 09:01 Empagliflozin 25 Mg Tablet PO 25 mg DAILY BUFFY Administration Heparin Sodium (Beef Lung) 50 units 07/09/23 13:39 Heparin Pf Lock 10 Units/Ml 50 Units/5 Ml Syringe IV UD PRN PICC Line Heparin Flush Ertapenem 1 gm/ Sodium 60 mls @ 100 mls/hr 07/10/23 10:00 07/10/23 11:00 Chloride IV 07/24/23 23:59 Infused Q24 BUFFY Infusion Sodium Chloride 250 mls @ 15 mls/hr 07/09/23 13:38 07/10/23 11:00 IV 0 mls/hr .[id number] PRN Infusion Saline Flush Insulin Human Regular 65 units 07/10/23 07:00 07/10/23 08:21 Insulin U-500 Units/Ml Pen SC 65 u DAILY@0700 [facility] Administration Insulin Human Regular 55 units 07/09/23 16:00 07/09/23 17:03 Insulin U-500 Units/Ml Pen SC 55 u DAILY@1600 [facility] Administration Levofloxacin 500 mg 07/10/23 10:00 07/10/23 09:01 Levofloxacin 500 Mg Tablet PO 07/24/23 10:01 500 mg DAILY [facility] Administration Lisinopril 40 mg 07/10/23 10:00 07/10/23 09:01 Lisinopril 40 Mg Tablet PO 40 mg DAILY [facility] Administration Magnesium Citrate 300 ml 07/09/23 20:52 Magnesium Citrate 300 Ml PO DAILY PRN Constipation Morphine Sulfate 15 mg 07/10/23 20:00 Morphine Sr 15 Mg Tablet PO 08,1999 [facility] Non-Formulary Medication 7.5 mg 07/09/23 13:15 Tirzepatide [Mounjaro] OR QWEEK [facility] Nystatin 1 applic 07/09/23 22:00 07/10/23 06:10 Nystatin Powder 15gm Bottle TOPICAL 1 applic TID [facility] Administration Protocol Pantoprazole Sodium 40 mg 07/10/23 10:00 07/10/23 09:01 Pantoprazole Sodium 40 Mg Tablet PO 40 mg DAILY [facility] Administration Potassium Chloride 20 meq 07/11/23 08:00 Potassium Chloride Oral Tablet 20 Meq PO DAILYCM [facility] Rivaroxaban 15 mg 07/09/23 17:00 07/09/23 17:02 Rivaroxaban 15 Mg Tablet PO 15 mg DINNER [facility] Administration Senna/Docusate Sodium 1 tablet 07/09/23 22:00 07/10/23 09:03 Senna/Docusate Sodium 1 Tablet PO 1 tablet BID [facility] Administration Sodium Chloride 10 - 40 ml 07/09/23 13:38 07/10/23 09:11 0.9% Saline Lock 10 Ml Syringe IV 20 ml UD PRN Administration SALINE FLUSH Sodium Chloride 10 - 40 ml 07/09/23 13:39 0.9 % Nacl (Sterile) Posiflush 10 Ml IV UD PRN Port access or dressing change Sodium Chloride 10 - 40 ml 07/09/23 13:39 0.9% Saline Lock 10 Ml Syringe IV UD PRN Open End PICC Flush Tamsulosin HCl 0.4 mg 07/09/23 17:30 07/09/23 17:02 Tamsulosin Hcl 0.4 Mg Capsule PO 0.4 mg DAILY@1730 BUFFY Administration Tuberculin PPD 0.1 ml 07/17/23 10:00 Tuberculin,Purif.Prot.Deriv. 50 Tu/Ml Vial ID 07/17/23 10:01 X1 ONE Problem List (Updated 07/09/23 @ 20:[address] Giancarlo Boyer MD) Bilateral pulmonary embolism (Acute) Diabetic foot ulcers (Acute) Status post amputation of left great toe (Acute) Cellulitis of left foot (Acute) Osteomyelitis of great toe of left foot (Acute) Debility (Acute) Essential hypertension (Chronic) Hyperlipidemia (Chronic) GERD (gastroesophageal reflux disease) (Chronic) Sleep apnea (Chronic) COPD (chronic obstructive pulmonary disease) (Chronic) Vital Signs Temp Pulse Resp BP Pulse Ox O2 Del Method O2 Flow Rate 97.8 F 66 18 154/53 H 94 Room Air 2 07/10/23 14:43 07/10/23 14:43 07/10/23 14:43 07/10/23 14:43 07/10/23 14:43 07/10/23 14:43 07/10/23 11:52 Oxygen Flow Rate (L/min) 2 Oxygen Delivery Method Room Air Weight: 125.827 kg Body Mass Index (BMI) 40.9 Sodium 141 mmol/L (136-145) 07/10/23 05:42 Potassium 3.4 mmol/L (3.5-5.1) L 07/10/23 05:42 Chloride 100 mmol/L (98-107) 07/10/23 05:42 Carbon Dioxide 38.0 mmol/L (21.0-32.0) H 07/10/23 05:42 Anion Gap 3 (5-15) L 07/10/23 05:42 BUN 5 mg/dL (7-18) L 07/10/23 05:42 Creatinine 0.67 mg/dL (0.70-1.30) L 07/10/23 05:42 Est GFR (MDRD) Af Amer 153 mL/min (>60) 07/10/23 05:42 Est GFR (MDRD) Non-Af 127 mL/min (>60) 07/10/23 05:42 BUN/Creatinine Ratio 7.5 RATIO (10-20) L 07/10/23 05:42 Glucose 135 mg/dL (74-106) H 07/10/23 05:42 Assessment/Plan: 1. Pain: MS contin 15mg bid, [place] 5/325mg 1 tab q4 prn pain (6-10).?Please continue to monitor for increased/decreased S/S pain, falls/fractures (BEERs medication), and PRN usage, constipation and respiratory depression. Resident no documented doses of prn medication.? 2. Hyperlipidemia: atorvastatin 80mg daily. Most Recent Lipids Panel (10/10/22) LDL at goal (53), HDL 28, TG 129. Monitor for s/s muscle pain or weakness.? 3. Type 2 Diabetes Mellitus: Jardiance 25mg daily, Humulin R U-500 65 units am, 55 units pm, Mounjaro 7.5mg per week. Monitor for N/V/D/Upset stomach, changes in appetite, changes in weight. Monitor for s/s Hypoglycemia episodes, symptoms of hyperglycemia. Monitor for signs of infection. Monitor A1c (most recent in clinic on 02/06/23: 5.2%) and POC glucose (most recent 07/10/23: 139 AM, 88 Noon) 4. Osteomyelitis left hallux s/p left hallux amputation - Ertapenem 1gm iv q24, Levaquin 500mg daily thru 07/24/2023, consult Dr. Abraham for expert care.?Please continue to monitor for S/S of infection, diarrhea and renal function. Monitor for resolution of abscess, continued drainage.?? 5. Recurrent Blood Clots: Xarelto 15mg daily. Monitor for S/S of bleeding/VTE, unusual bruising, renal function, hemoglobin (last 10.1g/dL) 6. BPH: Tamsulosin 0.4mg daily. Continue to monitor for dizziness, headache, hypotension (last BP 154/53) and medication effectiveness. 7. GERD: pantoprazole 40mg PO daily. Continue to monitor for S/S of acid reflux, diarrhea (BEERs medication), constipation and magnesium (last WNL 03/31/22). 8. Tinea Corporis- Nystatin Powder 1 application BID. Monitor for resolution of tinea corporis. 9. Skin irritation - Calmoseptine topical bid. Monitor for resolution of skin irritation 10. Hypertension: lisinopril 40mg PO daily. Electrolytes 07/09/23. K 3.4 (low), SCr 0.67. Most recent BP 154/53 on 07/10/22 and 155/59 on 07/09/23, overall DBP well controlled, but SBP elevated above goal < 130. Monitor for dizziness, electrolytes (K), renal function and dry, un resolving cough. 11. Hyperkalemia: KDUR 20MEQ daily with food (start 07/11/23 8:00.) Continue to monitor K.?? 12. Bowel: senna/docusate 1 tablet PO BID and magnesium citrate 300mL PO daily PRN constipation. Monitor for bowel movement, constipation/diarrhea, prn medication use. Last bowel movement 07/09/23 (did not receive dose of senna/docusate due to diarrhea). No documented use of PRN medications at this time. Assessment/Plan for indications treated with psychotropic medications: - The patient is not currently on any psychotropic medications at time of medication list review. Medical chart and medication regimen reviewed. The following medication irregularities or issues were identified: 1. Hypertension: lisinopril 40mg PO daily. Electrolytes 07/09/23. K 3.4 (low), SCr 0.67. Most recent BP 154/53 on 07/10/22 and 155/59 on 07/09/23, overall DBP well controlled, but SBP elevated above goal < 130. Please continue to monitor and consider increasing BP medication if SBP remains elevated. 2. Protonix: Please consider obtaining a Vitamin B12 and magnesium levels. last documented B12 level was from 2013 and magnesium level from 2021. Date Date of Note:: 07/10/23
--- NOTE | 2023-07-10 15:56 | CASEMGMT ---
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 Patient admitted with [employer] MDR. Verified/ updated contacts. Patient's HCPOA is his , Stefania and daughter in law Nichole. Patient alert and oriented to person and place, patient unaware of day/ time. Patient's rehabilitation goals are to discharge to home with spouse. Patient denies any needs at this time. 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
[2023-07-10] MEDS: HYDROcodone Bitartrate/Apap 5/325 Tablet PO (16:13)
[2023-07-10 16:41] LABS: Bedside Glucose 101 mg/dL (74-106)
[2023-07-10] MEDS: Rivaroxaban 15 MG Tablet PO (17:33)
[2023-07-10] MEDS: Insulin U-500 UNITS/ML PEN 55 UNITS SC (17:33)
[2023-07-10] MEDS: Tamsulosin HCl 0.4 MG Capsule 0.400000000000000022 MG PO (17:34)
[2023-07-10] MEDS: Atorvastatin Calcium 80 MG Tablet PO (20:20)
[2023-07-10 21:01] VITALS: PULSE 62; O2SAT 95
[2023-07-10 22:04] LABS: Bedside Glucose 62 mg/dL (74-106)
[2023-07-10] MEDS: Glucagon 1 MG/ML Syringe IM (22:49)
[2023-07-10 23:41] LABS: Bedside Glucose 63 mg/dL (74-106)
[2023-07-10 23:41] LABS: Bedside Glucose 128 mg/dL (74-106)
[2023-07-11] MEDS: Nystatin Powder 15gm Bottle 1 APPLIC TOPICAL ×3 (06:05→21:39)
[2023-07-11 06:06] LABS: Hematocrit 35.6 % (40-54); Hemoglobin 10.8 g/dL (13.0-16.5)
[2023-07-11 06:12] LABS: Bedside Glucose 100 mg/dL (74-106)
[2023-07-11 06:32] LABS: Anion Gap 2 (5-15); BUN 7 mg/dL (7-18); BUN/Creat Ratio 9.2 RATIO (10-20); Calcium,Total 8.5 mg/dL (8.5-10.1); Chloride 98 mmol/L (98-107); Creatinine, Serum 0.76 mg/dL (0.70-1.30); EST Glomerular Filtration Rate 109 mL/min (>60); Est Glom Filt Rate - Afr Amer 132 mL/min (>60); Estimated Creatinine Clearance 117.55 ml/min; Glucose 105 mg/dL (74-106); Potassium 3.7 mmol/L (3.5-5.1); Sodium Level 138 mmol/L (136-145)
--- NOTE | 2023-07-11 06:47 | PCM.CONS.GEN ---
Assessment & Plan Assessment/Plan (1) Diabetic foot ulcers: (2) Status post amputation of left great toe: PLAN: Continue with wound VAC with Rani Biggs RN. I have spoken with Rani Biggs and she states there will be a Friday, Friday, Friday wound VAC changes scheduled. I will contact her when I will be on my way over to see the patient's wound most likely on Wednesdays. Will then remove the wound VAC to evaluate the wound next week before it has been changed on Friday. This was discussed in detail with the patient. He was also encouraged to focus on the physical therapy aspect and getting stronger. We will know more upon visualization of the wound next week. Podiatry will continue to follow. 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 Hallux was amputated and incision and drainage was performed twice. Patient states that he is annoyed because they are constantly taking blood from him and he just would like to go home. [facility] Medical History (Updated 07/11/23 @ 06:[address] Nichole Abraham, MILI) Allergies Arthritis Asthma Back problem Bilateral pulmonary embolism Bleeding disorder Bronchitis Carpal tunnel syndrome Cataracts, bilateral Chronic pain COPD (chronic obstructive pulmonary disease) Depression Diabetes Emphysema lung Essential hypertension Gastrointestinal problem GERD (gastroesophageal reflux disease) History of DVT of lower extremity Hx of blood clots Hyperlipidemia Hypoxia Leukocytosis Morbid obesity Neuropathy Pneumonia Skin cancer Sleep apnea Smokes with greater than 40 pack year history Stage 3a chronic kidney disease (CKD) Stiff-man syndrome Stroke Thoracic outlet syndrome UTI (urinary tract infection) Vascular disease Vision problems Home Medications lidocaine 5 % topical patch 1 patch topical DAILY Check with primary doctor 12/24/13 [History Last Taken 03/30/22 10:00] ipratropium 0.5 mg-albuterol 3 mg (2.5 mg base)/3 mL nebulization soln 3 ml inhalation Q6H PRN ##1 12/26/13 [Rx Last Taken Unknown] albuterol sulfate 2.5 mg/3 mL (0.083 %) solution for nebulization 2.5 mg (3 mL) inhalation Q2H PRN PRN SHORTNESS OF BREATH ##100 02/05/14 [Rx Last Taken Unknown] hydrocodone 7.5 mg-acetaminophen 325 mg tablet 1 ea PO Q4H PRN Pain 10/12/14 [History Last Taken Unknown] morphine 15 mg immediate release tablet 15 mg PO BID pain 03/30/22 [History Last Taken 03/30/22 22:00] amitriptyline 50 mg tablet 50 mg PO QHS 06/11/22 [History Last Taken Unknown] oxybutynin chloride 10 mg tablet,extended release 24 hr 10 mg PO DAILY 06/11/22 [History Last Taken Unknown] zonisamide 100 mg capsule 200 mg PO DAILY 06/11/22 [History Last Taken Unknown] triamcinolone acetonide 0.1 % topical cream 1 applic topical BID 07/26/22 [History Last Taken Unknown] furosemide 40 mg tablet 40 mg PO DAILY 08/08/22 [History Last Taken Unknown] umeclidinium 62.5 mcg-vilanterol 25 mcg/actuation powdr for inhalation (Anoro Ellipta) 1 inh inhalation DAILY #3 ea 08/12/22 [Rx Last Taken Unknown] trazodone 150 mg tablet 300 mg PO DAILY 09/12/22 [History Last Taken Unknown] empagliflozin 25 mg tablet (Jardiance) 25 mg PO DAILY Diabetes #90 tabs 02/06/23 [Rx Last Taken Unknown] insulin regular hum U-500 conc 500 unit/mL(3 mL) subcut pen See Rx Instructions subcut BID Diabetes #40 mL 02/17/23 [Rx Last Taken Unknown] saxagliptin 2.5 mg tablet (Onglyza) 2.5 mg PO DAILY #90 tabs 04/01/23 [Rx Last Taken Unknown] pen needle, diabetic 32 gauge x 5/32 (BD Ultra-Fine Ava Pen Needle) 1 ea miscellaneous .3 times daily #100 ea 04/02/23 [Rx Last Taken Unknown] rivaroxaban 15 mg tablet 15 mg PO DAILY Blood Thinner #90 tabs 05/12/23 [Rx Last Taken Unknown] tirzepatide 7.5 mg/0.5 mL subcutaneous pen injector (Mounjaro) 7.5 mg (0.5 mL) subcut QWEEK Diabetes #2 mL 06/10/23 [Rx Last Taken Unknown] benazepril 40 mg tablet 40 mg PO DAILY BP #90 tabs 06/16/23 [Rx Last Taken Unknown] atorvastatin 40 mg tablet 80 mg (2 x 40 mg) PO QHS Check with primary doctor #90 tabs 06/18/23 [Rx Last Taken Unknown] omeprazole 40 mg capsule,delayed release 40 mg PO DAILY GERD #90 caps 07/07/23 [Rx Last Taken Unknown] ertapenem 1 gram intravenous solution 1 g IV DAILY Antibiotic 07/09/23 [History Last Taken Unknown] levofloxacin 500 mg tablet 500 mg PO DAILY Antibiotic 07/09/23 [History Last Taken Unknown] tamsulosin 0.4 mg capsule 0.4 mg PO Q24H Urinary Retention 07/09/23 [History Last Taken Unknown] Allergy/AdvReac Type Severity Reaction Status Date / Time cilostazol [From Pletal] Allergy Other Verified 02/06/23 10:24 etodolac [From Lodine] Allergy Hives Verified 02/06/23 10:24 nabumetone [From Relafen] Allergy Hives Verified 02/06/23 10:24 naproxen sodium [From Aleve] Allergy Hives Verified 02/06/23 10:24 Penicillins Allergy Hives Verified 02/06/23 10:24 Family History Brother Alcoholism Diabetes Father Alcoholism Hypertension Mother Arthritis Diabetes Hypertension Breast cancer Grandfather Colon cancer Grandfather Prostate cancer Other COPD (chronic obstructive pulmonary disease) Surgical History (Updated 07/09/23 @ 20:[address] 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 Const alert, oriented x3, no apparent distress and well nourished Orientation / Consciousness: awake Extremity Peripheral Pulses: Yes dorsalis pedis pulses present Skin Wounds: amputation Wound Narrative: Left foot had wound VAC in place with appropriate seal. There appears to be no sign of preulcerative lesions or pressure wounds especially to bilateral heels. No signs of leakage within the wound VAC. It was not removed today. Patient states he was told the wound VAC nurse will be in at approximately 9:00 this morning. Lab / Micro Data 07/11/23 05:46 07/11/23 05:46 Labs: Laboratory Results - last 24 hr 07/10/23 11:22: POC Glucose 88 07/10/23 16:23: POC Glucose 101 07/10/23 21:16: POC Glucose 62 L 07/10/23 22:18: POC Glucose 63 L 07/10/23 23:10: POC Glucose 128 H 07/11/23 05:35: POC Glucose 100 07/11/23 05:46: Hgb 10.8 L, Hct 35.6 L, Sodium 138, Potassium 3.7, Chloride 98, Carbon Dioxide 38.0 H, Anion Gap 2 L, BUN 7, Creatinine 0.76, Estim Creat Clear Calc 117.55, Est GFR (MDRD) Af Amer 132, Est GFR (MDRD) Non-Af 109, BUN/Creatinine Ratio 9.2 L, Glucose 105, Calcium 8.5
[2023-07-11] MEDS: Potassium Chloride Oral Tablet 20 MEQ PO (07:49)
[2023-07-11] MEDS: morphine SR 15 MG Tablet PO ×2 (07:49→21:36)
[2023-07-11] MEDS: Empagliflozin 25 MG Tablet PO (07:50)
[2023-07-11] MEDS: Pantoprazole Sodium 40 MG Tablet PO (07:50)
[2023-07-11] MEDS: levoFLOXacin 500 MG Tablet PO (07:50)
[2023-07-11] MEDS: Lisinopril 40 MG Tablet PO (07:51)
[2023-07-11] MEDS: Menthol/Lanolin/Calamine/Znox 113 GM Tube 1 APPLIC TOPICAL ×2 (07:51→21:39)
--- NOTE | 2023-07-11 08:40 | RAD_ITS ---
STUDY: X-RAY - ABDOMEN/PELVIS REASON FOR EXAM: Male, 68 years old. Appetite loss. TECHNIQUE: Single AP view of the abdomen / pelvis. COMPARISON: None. FINDINGS: Calcified right pleural plaque. There is an unremarkable bowel gas pattern. The visualized liver, spleen and kidneys are grossly normal in size and morphology. Normal soft tissue structures. There are diffuse degenerative changes of the visualized lumbar spine. RAD/Abdomen Single View IMPRESSION: Nonspecific bowel gas pattern. Electronically Signed: Arben Vergara MD at 12:35 EST ,
--- NOTE | 2023-07-11 10:02 | NURSING ---
Information Specialist Note; Activity Asset: Glory Cm is independent in his choice of daily activities such as tv, reading and visiting w/family and friends. He has stated at this time he prefers to do his own thing in his room and family will bring him what he needs when they visits. He will read the paper if we have extra. Staff will remind him of weekly activities and respect his right to say no.
[2023-07-11] MEDS: 0.9% Normal Saline (250mL Bag) 250 ML 100 ML IV (10:28)
[2023-07-11] MEDS: Ertapenem Sod 1 GM in 0.9% Normal Saline (50mL MB+) 50 ML IV (10:29)
[2023-07-11] MEDS: 0.9% Saline Lock 10 ML Syringe IV (10:29)
--- NOTE | 2023-07-11 11:01 | WOUNDNOTE ---
wound photo: left foot
--- NOTE | 2023-07-11 11:01 | WOUNDNOTE ---
wound photo: left foot
--- NOTE | 2023-07-11 11:45 | NURSING ---
Patient refused AM insulin this AM due to being low during night and poor appetite at breakfast. BS WNL this AM.
[2023-07-11 11:53] LABS: Bedside Glucose 170 mg/dL (74-106)
[2023-07-11 13:12] VITALS: O2SAT 93
--- NOTE | 2023-07-11 14:35 | NS ---
MST score = 7
--- NOTE | 2023-07-11 15:56 | NURSING ---
KUB complete today for poor appetite and came back with no acute issues. DIL brought in [facility] and it is labeled in fridg. To administer on Friday.
[2023-07-11 16:00] VITALS: BP 156/70; PULSE 73; RESP 18; TEMP 36.2
[2023-07-11] MEDS: HYDROcodone Bitartrate/Apap 5/325 Tablet PO (16:20)
[2023-07-11 17:31] LABS: Bedside Glucose 169 mg/dL (74-106)
[2023-07-11] MEDS: Tamsulosin HCl 0.4 MG Capsule 0.400000000000000022 MG PO (17:36)
[2023-07-11] MEDS: Rivaroxaban 15 MG Tablet PO (17:36)
[2023-07-11] MEDS: Insulin U-500 UNITS/ML PEN 35 UNITS SC (17:37)
[2023-07-11] MEDS: Atorvastatin Calcium 80 MG Tablet PO (21:37)
[2023-07-11 21:59] LABS: Bedside Glucose 127 mg/dL (74-106)
[2023-07-12 06:17] LABS: Bedside Glucose 128 mg/dL (74-106)
[2023-07-12] MEDS: Insulin U-500 UNITS/ML PEN 45 UNITS SC (08:22)
[2023-07-12] MEDS: Empagliflozin 25 MG Tablet PO (08:23)
[2023-07-12] MEDS: morphine SR 15 MG Tablet PO ×2 (08:23→21:03)
[2023-07-12] MEDS: Potassium Chloride Oral Tablet 20 MEQ PO (08:23)
[2023-07-12] MEDS: levoFLOXacin 500 MG Tablet PO (08:23)
[2023-07-12] MEDS: Pantoprazole Sodium 40 MG Tablet PO (08:23)
[2023-07-12] MEDS: Lisinopril 40 MG Tablet PO (08:23)
[2023-07-12 08:40] VITALS: BP 156/62; PULSE 79
[2023-07-12] MEDS: 0.9% Normal Saline (250mL Bag) 250 ML 15 ML IV (11:12)
[2023-07-12] MEDS: Ertapenem Sod 1 GM in 0.9% Normal Saline (50mL MB+) 50 ML IV (11:12)
[2023-07-12] MEDS: 0.9% Saline Lock 10 ML Syringe IV ×2 (11:17→21:07)
[2023-07-12] MEDS: Menthol/Lanolin/Calamine/Znox 113 GM Tube 1 APPLIC TOPICAL ×2 (11:21→21:05)
[2023-07-12 12:03] LABS: Bedside Glucose 111 mg/dL (74-106)
[2023-07-12] MEDS: SimETHICONE 80 MG Chewable Tablet PO ×2 (12:36→17:39)
--- NOTE | 2023-07-12 13:52 | NURSING ---
Pt c/o of gas and diarrhea. Also, requesting to resume his Trazodone 300mg at bedtime for sleep. Dr. Boyer updated N.O. received for Simethicone 160mg TID AC. Also, received order for 300mg Trazodone QHS. Orders read back.
[2023-07-12 15:31] VITALS: BP 140/53; PULSE 72; RESP 16; TEMP 36.4; O2SAT 94
[2023-07-12 16:42] LABS: Bedside Glucose 155 mg/dL (74-106)
[2023-07-12 17:00] VITALS: O2SAT 94
[2023-07-12] MEDS: Nystatin Powder 15gm Bottle 1 APPLIC TOPICAL ×2 (17:39→21:06)
[2023-07-12] MEDS: Insulin U-500 UNITS/ML PEN 35 UNITS SC (17:40)
[2023-07-12] MEDS: Tamsulosin HCl 0.4 MG Capsule 0.400000000000000022 MG PO (17:52)
[2023-07-12] MEDS: Rivaroxaban 15 MG Tablet PO (17:52)
[2023-07-12] MEDS: traZODone 100 MG Tablet 300 MG PO (21:03)
[2023-07-12] MEDS: Atorvastatin Calcium 80 MG Tablet PO (21:04)
[2023-07-12 21:38] LABS: Bedside Glucose 128 mg/dL (74-106)
[2023-07-13] MEDS: SimETHICONE 80 MG Chewable Tablet PO ×3 (06:57→17:47)
[2023-07-13] MEDS: Nystatin Powder 15gm Bottle 1 APPLIC TOPICAL ×2 (06:57→17:51)
[2023-07-13 07:07] LABS: Bedside Glucose 129 mg/dL (74-106)
[2023-07-13] MEDS: Menthol/Lanolin/Calamine/Znox 113 GM Tube 1 APPLIC TOPICAL ×2 (08:31→20:02)
[2023-07-13] MEDS: Potassium Chloride Oral Tablet 20 MEQ PO (08:31)
[2023-07-13] MEDS: Insulin U-500 UNITS/ML PEN 45 UNITS SC (08:31)
[2023-07-13] MEDS: morphine SR 15 MG Tablet PO ×2 (08:31→20:01)
[2023-07-13] MEDS: Pantoprazole Sodium 40 MG Tablet PO (08:32)
[2023-07-13] MEDS: Empagliflozin 25 MG Tablet PO (08:32)
[2023-07-13] MEDS: Lisinopril 40 MG Tablet PO (08:32)
[2023-07-13] MEDS: levoFLOXacin 500 MG Tablet PO (08:32)
--- NOTE | 2023-07-13 08:42 | NURSING ---
Pt sitting up in bed watching T.V. with O2 removed. SpO2 78% on RA Pulse 127. Oxygen reapplied and pt educated on importance of keeping o2 on. Rechecked SpO2 96% 2L NC HR 117. Humidification added for comfort. Pt denied SOB.
[2023-07-13 08:44] VITALS: BP 111/61; PULSE 117
[2023-07-13] MEDS: Ertapenem Sod 1 GM in 0.9% Normal Saline (50mL MB+) 50 ML IV (11:09)
[2023-07-13] MEDS: 0.9% Normal Saline (250mL Bag) 250 ML 15 ML IV (11:09)
[2023-07-13] MEDS: 0.9% Saline Lock 10 ML Syringe IV (11:09)
[2023-07-13] MEDS: TIRZEPATIDE 7.5 MG/0.5 ML PEN.INJCTR SQ (11:15)
[2023-07-13 11:45] LABS: Bedside Glucose 142 mg/dL (74-106)
[2023-07-13 15:35] VITALS: BP 127/55; PULSE 69; RESP 16; TEMP 36.6; O2SAT 92
[2023-07-13 16:43] LABS: Bedside Glucose 112 mg/dL (74-106)
[2023-07-13] MEDS: HYDROcodone Bitartrate/Apap 5/325 Tablet PO ×2 (17:46→22:50)
[2023-07-13] MEDS: Tamsulosin HCl 0.4 MG Capsule 0.400000000000000022 MG PO (17:47)
[2023-07-13] MEDS: Rivaroxaban 15 MG Tablet PO (17:47)
[2023-07-13] MEDS: Insulin U-500 UNITS/ML PEN 35 UNITS SC (17:48)
[2023-07-13] MEDS: traZODone 100 MG Tablet 300 MG PO (20:00)
[2023-07-13] MEDS: Atorvastatin Calcium 80 MG Tablet PO (20:01)
[2023-07-13] MEDS: Miconazole Nitrate Cream 1 APPLIC TOPICAL (20:03)
[2023-07-13 21:47] LABS: Bedside Glucose 79 mg/dL (74-106)
[2023-07-14] MEDS: SimETHICONE 80 MG Chewable Tablet PO ×3 (06:25→16:25)
[2023-07-14 06:41] LABS: Bedside Glucose 107 mg/dL (74-106)
[2023-07-14] MEDS: morphine SR 15 MG Tablet PO ×2 (08:24→21:24)
[2023-07-14] MEDS: Pantoprazole Sodium 40 MG Tablet PO (08:24)
[2023-07-14] MEDS: levoFLOXacin 500 MG Tablet PO (08:25)
[2023-07-14] MEDS: Potassium Chloride Oral Tablet 20 MEQ PO (08:25)
[2023-07-14] MEDS: Empagliflozin 25 MG Tablet PO (08:25)
[2023-07-14] MEDS: 0.9% Saline Lock 10 ML Syringe IV ×3 (10:01→21:27)
[2023-07-14] MEDS: Ertapenem Sod 1 GM in 0.9% Normal Saline (50mL MB+) 50 ML IV (10:03)
[2023-07-14] MEDS: Clotrimazole/Betamethasone 1 Tube 1 APPLIC TOPICAL ×2 (10:04→21:26)
[2023-07-14] MEDS: 0.9% Normal Saline (250mL Bag) 250 ML 15 ML IV (10:05)
[2023-07-14] MEDS: Lisinopril 40 MG Tablet PO (10:05)
--- NOTE | 2023-07-14 11:32 | NURSING ---
offered covid vaccine, VIS provided. Patient refuses at this time.
[2023-07-14 12:00] VITALS: BP 131/55; PULSE 75; RESP 16; TEMP 36.6; O2SAT 96
[2023-07-14 12:15] LABS: Bedside Glucose 112 mg/dL (74-106)
--- NOTE | 2023-07-14 14:02 | WOUNDNOTE ---
wound photo: left foot
--- NOTE | 2023-07-14 14:03 | WOUNDNOTE ---
wound photo: left foot
--- NOTE | 2023-07-14 16:02 | CASEMGMT ---
Social Work Received request for pt to speak with this worker about DC. SW met with pt and listened to pts request. Pt was disgruntled and stated he wanted to DC home on Friday. SONYA noted pt has IV ATB until , wound vac and is a x2 assist for SPT; at this time, IDT is not recommending pt DC home. Recommending continued therapy and medical care. Pt argued with this worker about his needs and stated therapy is not of importance or needed. SW explained therapy is a major component of pt's skilled stay and inquired about pt being independent prior. Pt confirmed. SW noted again pt is x2 assist. Pt stated he will be discharging home with his son and RONALD. SW reiterated it is not IDTs recommendation for DC in the coming days; noted Dr. Abraham will be visiting pt this Friday as well and POC mtg held same day, which all disciplines will provide their updates and recommendations. SW offered to have DC conversation at that time with pt and family, however, explained AMA rights. Pt stated well it sounds like you people already have your mind made up . SONYA calmly stated this worker will not engage in an argument with pt and will speak with pt at POC mtg unless pt chooses to DC AMA prior, and excused self from pt's room. -- SONYA received phone call from RONALD with questions on DC plans and provide updates on pt's prior LOF. RONALD stated pt and were living in a hoarder-like home. Pt's has medical issues, is currently unwell, and unable to physically assist pt at DC; d/t home conditions that son and DIL just became aware of at time of pt's hospitalization, is temporarily living with son and DIL. DIL stated pt cannot live with them and cannot return home to that condition. SONYA educated to APS referral, if DIL feels inclined to call for assistance with and/or this worker will likely place referral if pt DCs home. RONALD expressed understanding of pt being disgruntled, but will likely only threaten DC or leaving AMA, but will not act upon that unless family provides the okay and transportation. RONALD has been the only family member to educate pt to his needs and receive agreement to SNF stay. RONALD is aware pt will need longer term care in a SNF at this DC and pt will need [facility] to pay for SNF. DIL shared financial information and pt should meet eligibility requirements. SW offered to speak with pt on agreement to [facility] application and start that process at the [facility], and provide SNF list in [facility] that are INN with pt's insurance with quality and resource data via [employer]. Dtr agreeable and appreciative. DIL inquired about therapy participation. SONYA noted from 07/12 and 07/14, pt has refused active participation. SW educated to [facility] insurance with NRD 07/18 and continued stay is not guaranteed with each review nor likely to approved continued stay with pt refusing. DIL expressed understanding and will also converse with pt, but noted to have a different approach than, 'if pt refuses therapy, he will get a DC', as that is pt's goal, but that if pt continues to refuse, he will need LTP. SW agreed to approach and will update staff. RONALD appreciative of information. SW will continue to follow for DC planning. Monica Jarrett, EARLY INTERVENTIONIST TRIM DIE MAKER
[2023-07-14] MEDS: Tamsulosin HCl 0.4 MG Capsule 0.400000000000000022 MG PO (16:25)
[2023-07-14] MEDS: Rivaroxaban 15 MG Tablet PO (16:25)
[2023-07-14 17:28] LABS: Bedside Glucose 124 mg/dL (74-106)
[2023-07-14] MEDS: Insulin U-500 UNITS/ML PEN 30 UNITS SC (17:50)
[2023-07-14] MEDS: traZODone 100 MG Tablet 300 MG PO (21:23)
[2023-07-14] MEDS: Atorvastatin Calcium 80 MG Tablet PO (21:24)
[2023-07-14] MEDS: Pramipexole Di-HCl 0.125 MG Tablet PO (21:24)
[2023-07-14] MEDS: Menthol/Lanolin/Calamine/Znox 113 GM Tube 1 APPLIC TOPICAL (21:27)
[2023-07-14 21:39] LABS: Bedside Glucose 105 mg/dL (74-106)
[2023-07-15 06:05] LABS: Bedside Glucose 94 mg/dL (74-106)
[2023-07-15 08:10] VITALS: BP 95/57; PULSE 118; RESP 16; TEMP 35.8; O2SAT 92
[2023-07-15] MEDS: SimETHICONE 80 MG Chewable Tablet PO ×3 (08:33→17:22)
[2023-07-15] MEDS: Insulin U-500 UNITS/ML PEN 35 UNITS SC (08:33)
[2023-07-15] MEDS: Pantoprazole Sodium 40 MG Tablet PO (08:33)
[2023-07-15] MEDS: levoFLOXacin 500 MG Tablet PO (08:33)
[2023-07-15] MEDS: Menthol/Lanolin/Calamine/Znox 113 GM Tube 1 APPLIC TOPICAL ×2 (08:34→20:29)
[2023-07-15] MEDS: Potassium Chloride Oral Tablet 20 MEQ PO (08:34)
[2023-07-15] MEDS: Lisinopril 40 MG Tablet PO (08:34)
[2023-07-15] MEDS: Empagliflozin 25 MG Tablet PO (08:34)
[2023-07-15] MEDS: Clotrimazole/Betamethasone 1 Tube 1 APPLIC TOPICAL ×2 (08:35→20:30)
[2023-07-15] MEDS: morphine SR 15 MG Tablet PO ×2 (08:42→20:29)
[2023-07-15] MEDS: Ertapenem Sod 1 GM in 0.9% Normal Saline (50mL MB+) 50 ML IV (10:07)
[2023-07-15] MEDS: 0.9% Normal Saline (250mL Bag) 250 ML 15 ML IV (10:07)
[2023-07-15] MEDS: 0.9% Saline Lock 10 ML Syringe IV ×2 (10:08→20:42)
[2023-07-15 11:15] LABS: Bedside Glucose 94 mg/dL (74-106)
[2023-07-15] MEDS: Gabapentin 100 MG Capsule PO ×2 (12:11→17:25)
--- NOTE | 2023-07-15 12:55 | CASEMGMT ---
Social Work BIMS () and PHQ-9 (12/19) completed for MDS assessment. SW explored positive responses. Pt stated he takes Trazodone at home to assist with sleep, and it is not being given at his preferred time, thus trouble with falling asleep. SW offered to f/u with . Pt reports to feeling tired and having little energy d/t not being able to sleep as well. Written communication left for DC. Monica Jarrett, HOP GROWER PRODUCTION LINE OPERATOR
[2023-07-15 13:23] VITALS: BMI 39.1
[2023-07-15 17:03] LABS: Bedside Glucose 96 mg/dL (74-106)
[2023-07-15] MEDS: Tamsulosin HCl 0.4 MG Capsule 0.400000000000000022 MG PO (17:21)
[2023-07-15] MEDS: Insulin U-500 UNITS/ML PEN 25 UNITS SC (17:22)
[2023-07-15] MEDS: Rivaroxaban 15 MG Tablet PO (17:22)
[2023-07-15] MEDS: Ciprofloxacin 0.3% 2.5ml Bottle 2 DRP EACH EYE (18:59)
[2023-07-15] MEDS: Atorvastatin Calcium 80 MG Tablet PO (20:30)
[2023-07-15] MEDS: Pramipexole Di-HCl 0.125 MG Tablet PO (20:30)
[2023-07-15 21:28] LABS: Bedside Glucose 116 mg/dL (74-106)
[2023-07-16] MEDS: Ciprofloxacin 0.3% 2.5ml Bottle 2 DRP EACH EYE ×6 (01:45→20:01)
[2023-07-16 06:07] LABS: Bedside Glucose 114 mg/dL (74-106)
[2023-07-16] MEDS: Potassium Chloride Oral Tablet 20 MEQ PO (08:54)
[2023-07-16] MEDS: Empagliflozin 25 MG Tablet PO (08:54)
[2023-07-16] MEDS: morphine SR 15 MG Tablet PO ×2 (08:54→20:02)
[2023-07-16] MEDS: Pantoprazole Sodium 40 MG Tablet PO (08:54)
[2023-07-16] MEDS: Gabapentin 100 MG Capsule PO ×3 (08:54→17:31)
[2023-07-16] MEDS: levoFLOXacin 500 MG Tablet PO (08:54)
[2023-07-16] MEDS: SimETHICONE 80 MG Chewable Tablet PO ×3 (08:55→17:31)
[2023-07-16] MEDS: Menthol/Lanolin/Calamine/Znox 113 GM Tube 1 APPLIC TOPICAL ×2 (08:57→20:09)
[2023-07-16] MEDS: Clotrimazole/Betamethasone 1 Tube 1 APPLIC TOPICAL ×2 (08:58→20:02)
[2023-07-16] MEDS: Insulin U-500 UNITS/ML PEN 20 UNITS SC (09:03)
--- NOTE | 2023-07-16 09:14 | NURSING ---
Web[employer] Commerce Developer Note; MDS for 07/16/2023 Complete
[2023-07-16] MEDS: 0.9% Saline Lock 10 ML Syringe IV ×2 (10:01→20:01)
[2023-07-16] MEDS: 0.9% Normal Saline (250mL Bag) 250 ML 15 ML IV (10:01)
[2023-07-16] MEDS: Ertapenem Sod 1 GM in 0.9% Normal Saline (50mL MB+) 50 ML IV (10:12)
[2023-07-16] MEDS: Lisinopril 40 MG Tablet PO (10:28)
[2023-07-16 10:29] VITALS: BP 118/50; PULSE 81
[2023-07-16 10:58] VITALS: PULSE 117; O2SAT 96
[2023-07-16 11:16] VITALS: BP 112/51; PULSE 77; RESP 18; TEMP 37.3; O2SAT 94
[2023-07-16 11:19] LABS: Bedside Glucose 153 mg/dL (74-106)
--- NOTE | 2023-07-16 12:29 | PCM.PROGNOTE ---
Subjective Subjective Patient was resting comfortably today with feet on the floor as he was seated at the side of his bed eating lunch. He states that he is really not been having any pain at all and he is sorry that he has been grouchy to the staff recently because he is concerned about the cost of his healthcare and what it would mean for his home. He states he would like to get home soon as possible but the staff talked him into just doing 9 more days. He thinks that he can stay for 9 more days. Objective Data Objective Data Vital Signs: Vital Signs Temp Pulse Resp BP Pulse Ox O2 Del Method O2 Flow Rate 99.2 F H 77 18 112/51 L 94 Nasal Cannula 2 07/16/23 11:16 07/16/23 11:16 07/16/23 11:16 07/16/23 11:16 07/16/23 11:16 07/16/23 11:16 07/16/23 11:16 Oxygen Flow Rate (L/min) 2 Oxygen Delivery Method Nasal Cannula Weight: 120.111 kg Body Mass Index (BMI) 39.1 Intake & Output: Intake and Output for Last 24 Hours 07/14/23 07/15/23 07/16/23 23:59 23:59 23:59 Intake Total 640 / 640 966.5 / 966.5 549 / 549 Balance 640 / 640 966.5 / 966.5 549 / 549 Lab / Micro Data 07/11/23 05:46 07/11/23 05:46 Labs: Laboratory Results - last 24 hr 07/15/23 16:45: POC Glucose 96 07/15/23 21:09: POC Glucose 116 H 07/16/23 05:46: POC Glucose 114 H 07/16/23 10:46: POC Glucose 153 H Physical Exam Const alert, oriented x3 and no apparent distress Skin Wounds: amputation no odor and open Wound Narrative: The wound VAC was in place without any signs of leakage. The wound VAC was turned off and removed. I had spoken with Rani Biggs RN, and she will reapply the wound VAC this afternoon. The wound is granular with exception of very small aspect at the distal medial portion of the wound where there is just a small amount of necrotic tissue. Granular tissue is noticed. The wound has greatly improved in size since postoperatively. The first metatarsal head is still exposed. There is no sign of purulence or abscess proximally both plantarly and dorsally. Cellulitis has completely resolved. No malodor. It does not appear that there is a significant amount of tissue that would allow the patient to have the wound healed primarily but secondarily with wound VAC he is doing very well. Assessment & Plan Assessment/Plan (1) Status post amputation of left great toe: PLAN: The wound was evaluated. Continue with wound VAC and IV antibiotics. Podiatry will continue to follow will follow next week on Friday to evaluate the wound before the wound VAC change. The patient was encouraged to continue with plan of care. He is at risk for limb loss and he does understand that. We do understand that it can be a stressful time but he really should try to focus on the positives which would include that his A1c has greatly improved and that he is also showing improvement in the foot. The wound was dressed with the ABD pads and Kerlix as well as the Riki wrap and the wound VAC will be reapplied later this afternoon. It is not likely that the wound will be 100% healed when he is ready for discharge but we want to try to get as much healing as we can as the patient's is disabled and likely he will have to care for her when he returns home. The patient acknowledges that today. Podiatry will continue to follow. (2) Diabetic foot ulcers: (3) Cellulitis of left foot: (4) Diabetes: QUALIFIERS: Diabetes mellitus type: type 2 Diabetes mellitus complication status: with skin complications
--- NOTE | 2023-07-16 14:34 | CASEMGMT ---
Social Work IDT met with patient and DIL and spouse via conference call for care plan meeting. Discussed patient's progress in PT/OT/SN. Educated to [facility] insurance with NRD 07/18 and continued stay is not guaranteed with each review. Pt is on IV ATB through and has wound vac. Discussed improvement with pt's participation in therapy. Currently, pt is x2 assist and recently refusing therapy. Discussed nursing needs as well. Encouraged pt to participate in therapy with goals to return home. Also noted, pts house must be in good condition d/t infection prevention and accessibility. Pt agreed and stated he has someone helping clean and replace carpet, etc. SW broached topic of having an alternative DC plan if pt cannot return home from TCU, with that option being transfer to a SNF. Pt expressed understanding and agreed, if needed. SW discussed applying for [facility] with pt. Pt agreed and for DIL to assist. SW provided printed list of SNFs with quality and resource data via [employer] to dtr to review and select choices. Dtr agreed to assist with N[facility]ILLE application. Pt has therapy scheduled after this meeting and is agreeable to participate. Pt did acknowledge previous run in with this worker and apologized for his behavior. SONYA thanked pt and will continue to assist with DC planning. SONYA sent referral via secure email to [facility]. ALLEY Neves
--- NOTE | 2023-07-16 15:29 | CHAPLAIN ---
Type of Pastoral Visit _x__ Initial Visit ___ Follow-up Visit ___ On-call Visit ___ General Patient Visit ___ Spiritual Assessment ___ Family Conference ___ Bereavement ___ Rapid Response ___ Code Blue ___ Other (describe below) Pastoral Care Referral From _x__ Patient ___ Family ___ Nurse ___ Physician ___ Airport Tower Controller ___ Post Framer ___ Other (describe below) Sacrament/Intervention _x__ Active listening ___ Anointing ___ Episcopal ___ Bereavement ___ Communion ___ Debbi exploration ___ _x__ Life review ___ Prayer ___ Reconciliation ___ Sacrament of Sick _x__ Supportive presence ___ Wedding ___ Other (describe below) Pastoral Comments patient is watching TV in bed and is slow to respond to offer of support and visit; began asking open ended questions about home, life, experience in physical issue; pt opens up more and talks through his experience; pt declines spiritual care but states that the visit is appreciated;
[2023-07-16 16:26] LABS: Bedside Glucose 140 mg/dL (74-106)
[2023-07-16] MEDS: Insulin U-500 UNITS/ML PEN 10 UNITS SC (17:30)
[2023-07-16] MEDS: traZODone 100 MG Tablet 300 MG PO (17:31)
[2023-07-16] MEDS: Tamsulosin HCl 0.4 MG Capsule 0.400000000000000022 MG PO (17:31)
[2023-07-16] MEDS: Rivaroxaban 15 MG Tablet PO (17:31)
[2023-07-16] MEDS: BMX LIQUID 180 ML 15 ML PO (18:39)
[2023-07-16] MEDS: Alteplase 2 MG/2 ML Vial IV (18:41)
[2023-07-16] MEDS: Pramipexole Di-HCl 0.125 MG Tablet PO (20:02)
[2023-07-16] MEDS: Atorvastatin Calcium 80 MG Tablet PO (20:02)
[2023-07-16 21:44] LABS: Bedside Glucose 126 mg/dL (74-106)
[2023-07-17] MEDS: Ciprofloxacin 0.3% 2.5ml Bottle 2 DRP EACH EYE ×5 (05:05→20:00)
[2023-07-17 05:58] LABS: Absolute Lymphocyte Count 4.03 X10^3/uL (0.83-4.51); Absolute Neutrophil Count 8.3 X10^3/uL (2.0-7.7); Basophil# 0.08 X10^3/uL; Basophil% 0.6 % (0-1); Eosinophil# 0.14 X10^3/uL; Hematocrit 35.7 % (40-54); Hemoglobin 10.5 g/dL (13.0-16.5); Lymphocyte # 4.03 X10^3/ul (0.83-4.51); Lymphocyte % 29.4 % (19-41); Mean Corp Hgb Conc 29.4 g/dL (32-36); Mean Corpuscular Hgb 28.7 pg (27.0-32.0); Mean Corpuscular Volume 97.5 fL (80-94); Mean Platelet Vol. 9.5 fl (6.2-12.0); Monocyte# 0.97 X10^3/uL; Monocyte% 7.1 % (0-10); NRBC Flagged by Analyzer 0 % (0-5); Neutrophil # 8.28 X10^3/uL (2.7-7.7); Neutrophil % 60.3 % (47-70); POSITIVE MORPHOLOGY YES; Platelet Count 297 K/mm3 (150-450); RBC Distribution Width CV 13.5 % (11.6-14.6); Red Blood Count 3.66 M/mm3 (4.6-6.2); White Blood Count 13.7 K/mm3 (4.4-11.0)
[2023-07-17 06:18] LABS: Bedside Glucose 125 mg/dL (74-106)
[2023-07-17 06:24] LABS: Differential Indicated SCAN CRITERIA MET
[2023-07-17 06:34] LABS: Atypical Lymphocyte 2+ %
[2023-07-17 06:42] LABS: Anion Gap 2 (5-15); BUN 18 mg/dL (7-18); BUN/Creat Ratio 12.5 RATIO (10-20); Calcium,Total 8.5 mg/dL (8.5-10.1); Chloride 102 mmol/L (98-107); Creatinine, Serum 1.44 mg/dL (0.70-1.30); EST Glomerular Filtration Rate 52 mL/min (>60); Est Glom Filt Rate - Afr Amer 63 mL/min (>60); Glucose 126 mg/dL (74-106); Potassium 4.8 mmol/L (3.5-5.1); Sodium Level 139 mmol/L (136-145)
[2023-07-17 06:45] VITALS: RESP 17
[2023-07-17] MEDS: SimETHICONE 80 MG Chewable Tablet PO ×3 (07:51→18:29)
[2023-07-17] MEDS: Insulin U-500 UNITS/ML PEN 20 UNITS SC (07:51)
[2023-07-17] MEDS: morphine SR 15 MG Tablet PO ×2 (07:51→20:01)
[2023-07-17] MEDS: Juven (unflavored) Packet 1 PACKET PO (07:51)
[2023-07-17] MEDS: Gabapentin 100 MG Capsule PO ×3 (07:51→17:33)
[2023-07-17] MEDS: Potassium Chloride Oral Tablet 20 MEQ PO (07:52)
[2023-07-17] MEDS: BMX LIQUID 180 ML 15 ML PO ×2 (07:53→17:00)
[2023-07-17] MEDS: Pantoprazole Sodium 40 MG Tablet PO (09:49)
[2023-07-17] MEDS: levoFLOXacin 500 MG Tablet PO (09:49)
[2023-07-17] MEDS: Empagliflozin 25 MG Tablet PO (09:50)
[2023-07-17] MEDS: Tuberculin,Purif.prot.deriv. 50 TU/ML Vial 0.100000000000000006 ML ID (09:50)
[2023-07-17] MEDS: 0.9% Saline Lock 10 ML Syringe IV ×2 (09:54→20:01)
[2023-07-17] MEDS: Ertapenem Sod 1 GM in 0.9% Normal Saline (50mL MB+) 50 ML IV (09:54)
[2023-07-17] MEDS: Lisinopril 40 MG Tablet PO (11:30)
[2023-07-17] MEDS: Menthol/Lanolin/Calamine/Znox 113 GM Tube 1 APPLIC TOPICAL ×2 (11:30→20:01)
[2023-07-17] MEDS: Clotrimazole/Betamethasone 1 Tube 1 APPLIC TOPICAL ×2 (11:30→20:02)
[2023-07-17 11:38] VITALS: BP 102/61; PULSE 85; RESP 18; TEMP 37.3; O2SAT 93
[2023-07-17 11:52] LABS: Bedside Glucose 125 mg/dL (74-106)
[2023-07-17 17:18] LABS: Bedside Glucose 167 mg/dL (74-106)
[2023-07-17] MEDS: traZODone 100 MG Tablet 300 MG PO (17:33)
[2023-07-17] MEDS: Insulin U-500 UNITS/ML PEN 10 UNITS SC (17:33)
[2023-07-17] MEDS: Rivaroxaban 15 MG Tablet PO (17:33)
[2023-07-17] MEDS: Tamsulosin HCl 0.4 MG Capsule 0.400000000000000022 MG PO (17:34)
[2023-07-17] MEDS: Pramipexole Di-HCl 0.125 MG Tablet PO (20:01)
[2023-07-17] MEDS: Atorvastatin Calcium 80 MG Tablet PO (20:01)
[2023-07-17 21:56] LABS: Bedside Glucose 127 mg/dL (74-106)
[2023-07-18] MEDS: HYDROcodone Bitartrate/Apap 5/325 Tablet PO (04:06)
[2023-07-18] MEDS: Ciprofloxacin 0.3% 2.5ml Bottle 2 DRP EACH EYE ×4 (05:05→20:47)
--- NOTE | 2023-07-18 05:34 | NURSING ---
Addendum entered by Isi Vasquez 07/18/23 05:53: CAREY Bowman offered to patient and was given. Patient still c/o left foot pain. This nurse removed dressing to left foot to relieve pressure and elevated foot on pillow. Patient stated it felt better being elevated. Wound nurse, Rani, will be in today to change dressing. Patient denies any other assistance. Call light in patient's reach. Original Note: Patient's wound vac alarm went off. This nurse and another RN observed the left foot and the wound vac suction piece was from patient's dressing and lying next to patient on the bed. The black foam dressing, drape, and JOSE wrap all intact. Attempts were made by this nurse and another RN to reattach wound vac suction to dressing. Suction secured with drape and wrapped foot with JOSE wrap. Patient c/o pain to left foot. This nurse asked patient what had happened and if he had hit his foot. Patient denies hitting foot stating, I'm not sure, I was sleeping pretty good but felt like I was tangled in the tubing.
[2023-07-18 06:40] LABS: Bedside Glucose 118 mg/dL (74-106)
[2023-07-18 06:58] VITALS: O2SAT 93
[2023-07-18] MEDS: morphine SR 15 MG Tablet PO ×2 (08:39→20:46)
[2023-07-18] MEDS: Gabapentin 100 MG Capsule PO ×3 (08:39→16:48)
[2023-07-18] MEDS: SimETHICONE 80 MG Chewable Tablet PO ×3 (08:40→16:37)
[2023-07-18] MEDS: Potassium Chloride Oral Tablet 20 MEQ PO (08:40)
[2023-07-18] MEDS: Juven (unflavored) Packet 1 PACKET PO ×2 (08:40→16:37)
[2023-07-18] MEDS: Menthol/Lanolin/Calamine/Znox 113 GM Tube 1 APPLIC TOPICAL ×2 (08:41→20:46)
[2023-07-18] MEDS: Insulin U-500 UNITS/ML PEN 20 UNITS SC (08:43)
[2023-07-18] MEDS: Ertapenem Sod 1 GM in 0.9% Normal Saline (50mL MB+) 50 ML IV (10:24)
[2023-07-18] MEDS: Lisinopril 40 MG Tablet PO (10:25)
[2023-07-18] MEDS: Pantoprazole Sodium 40 MG Tablet PO (10:25)
[2023-07-18] MEDS: levoFLOXacin 500 MG Tablet PO (10:26)
[2023-07-18] MEDS: Clotrimazole/Betamethasone 1 Tube 1 APPLIC TOPICAL ×2 (11:25→20:47)
[2023-07-18] MEDS: Empagliflozin 25 MG Tablet PO (11:26)
[2023-07-18 11:41] LABS: Bedside Glucose 151 mg/dL (74-106)
[2023-07-18 16:00] VITALS: BP 108/58; PULSE 71; RESP 16; TEMP 36.7; O2SAT 96
[2023-07-18] MEDS: Rivaroxaban 15 MG Tablet PO (16:37)
[2023-07-18] MEDS: Tamsulosin HCl 0.4 MG Capsule 0.400000000000000022 MG PO (16:37)
[2023-07-18] MEDS: traZODone 100 MG Tablet 300 MG PO (16:37)
[2023-07-18] MEDS: Insulin U-500 UNITS/ML PEN 10 UNITS SC (16:39)
[2023-07-18 16:43] LABS: Bedside Glucose 159 mg/dL (74-106)
[2023-07-18 16:48] VITALS: O2SAT 95
--- NOTE | 2023-07-18 18:23 | NURSING ---
Wound Vac changed to Left foot today since Rani was off
[2023-07-18] MEDS: Atorvastatin Calcium 80 MG Tablet PO (20:46)
[2023-07-18] MEDS: Pramipexole Di-HCl 0.125 MG Tablet PO (20:46)
[2023-07-18 20:55] VITALS: PULSE 64; RESP 16; O2SAT 99
[2023-07-18 21:39] LABS: Bedside Glucose 133 mg/dL (74-106)
[2023-07-19] MEDS: Ciprofloxacin 0.3% 2.5ml Bottle 2 DRP EACH EYE ×5 (05:42→20:19)
[2023-07-19 06:27] LABS: Bedside Glucose 138 mg/dL (74-106)
[2023-07-19 08:23] VITALS: BP 99/61; PULSE 79; RESP 17; TEMP 36.7; O2SAT 92
[2023-07-19] MEDS: morphine SR 15 MG Tablet PO ×2 (08:35→20:19)
[2023-07-19] MEDS: SimETHICONE 80 MG Chewable Tablet PO ×3 (08:35→17:54)
[2023-07-19] MEDS: Juven (unflavored) Packet 1 PACKET PO ×2 (08:35→17:54)
[2023-07-19] MEDS: Potassium Chloride Oral Tablet 20 MEQ PO (08:35)
[2023-07-19] MEDS: Gabapentin 100 MG Capsule PO ×3 (08:35→17:54)
[2023-07-19] MEDS: levoFLOXacin 500 MG Tablet PO (08:36)
[2023-07-19] MEDS: Empagliflozin 25 MG Tablet PO (08:36)
[2023-07-19] MEDS: Clotrimazole/Betamethasone 1 Tube 1 APPLIC TOPICAL ×2 (08:36→20:18)
[2023-07-19] MEDS: Lisinopril 40 MG Tablet PO (08:37)
[2023-07-19] MEDS: Pantoprazole Sodium 40 MG Tablet PO (08:37)
[2023-07-19] MEDS: Insulin U-500 UNITS/ML PEN 20 UNITS SC (08:41)
[2023-07-19 09:04] VITALS: O2SAT 93
[2023-07-19] MEDS: 0.9% Saline Lock 10 ML Syringe IV ×2 (10:26→20:20)
[2023-07-19] MEDS: Ertapenem Sod 1 GM in 0.9% Normal Saline (50mL MB+) 50 ML IV (10:26)
[2023-07-19] MEDS: 0.9% Normal Saline (250mL Bag) 250 ML 15 ML IV (10:27)
[2023-07-19 11:18] LABS: Bedside Glucose 174 mg/dL (74-106)
[2023-07-19] MEDS: HYDROcodone Bitartrate/Apap 5/325 Tablet PO (15:59)
[2023-07-19 16:30] LABS: Bedside Glucose 144 mg/dL (74-106)
[2023-07-19] MEDS: Insulin U-500 UNITS/ML PEN 10 UNITS SC (17:53)
[2023-07-19] MEDS: traZODone 100 MG Tablet 300 MG PO (17:53)
[2023-07-19] MEDS: Rivaroxaban 15 MG Tablet PO (17:54)
[2023-07-19] MEDS: Tamsulosin HCl 0.4 MG Capsule 0.400000000000000022 MG PO (17:54)
[2023-07-19] MEDS: Atorvastatin Calcium 80 MG Tablet PO (20:18)
[2023-07-19] MEDS: Pramipexole Di-HCl 0.125 MG Tablet PO (20:18)
[2023-07-19] MEDS: Menthol/Lanolin/Calamine/Znox 113 GM Tube 1 APPLIC TOPICAL (20:20)
[2023-07-19 21:45] LABS: Bedside Glucose 196 mg/dL (74-106)
[2023-07-20 06:17] LABS: Bedside Glucose 119 mg/dL (74-106)
[2023-07-20] MEDS: Ciprofloxacin 0.3% 2.5ml Bottle 2 DRP EACH EYE ×5 (06:17→20:17)
[2023-07-20 07:10] VITALS: O2SAT 93
[2023-07-20 08:27] VITALS: BP 97/50; PULSE 85; RESP 17; TEMP 36.3; O2SAT 93
[2023-07-20] MEDS: Insulin U-500 UNITS/ML PEN 20 UNITS SC (08:36)
[2023-07-20] MEDS: Menthol/Lanolin/Calamine/Znox 113 GM Tube 1 APPLIC TOPICAL ×2 (08:37→20:17)
[2023-07-20] MEDS: Potassium Chloride Oral Tablet 20 MEQ PO (08:37)
[2023-07-20] MEDS: SimETHICONE 80 MG Chewable Tablet PO ×2 (08:37→13:23)
[2023-07-20] MEDS: levoFLOXacin 500 MG Tablet PO (08:38)
[2023-07-20] MEDS: Empagliflozin 25 MG Tablet PO (08:38)
[2023-07-20] MEDS: Clotrimazole/Betamethasone 1 Tube 1 APPLIC TOPICAL ×2 (08:38→20:17)
[2023-07-20] MEDS: TIRZEPATIDE 7.5 MG/0.5 ML PEN.INJCTR SQ (08:39)
[2023-07-20] MEDS: Pantoprazole Sodium 40 MG Tablet PO (08:40)
[2023-07-20] MEDS: Gabapentin 100 MG Capsule PO ×3 (08:42→18:04)
[2023-07-20] MEDS: morphine SR 15 MG Tablet PO ×2 (08:42→20:17)
[2023-07-20] MEDS: Ertapenem Sod 1 GM in 0.9% Normal Saline (50mL MB+) 50 ML IV (10:41)
[2023-07-20] MEDS: 0.9% Saline Lock 10 ML Syringe IV ×2 (10:41→20:19)
[2023-07-20 10:45] VITALS: BP 104/52
[2023-07-20] MEDS: Lisinopril 40 MG Tablet PO (10:46)
[2023-07-20 11:13] LABS: Bedside Glucose 162 mg/dL (74-106)
[2023-07-20] MEDS: HYDROcodone Bitartrate/Apap 5/325 Tablet PO ×2 (16:57→23:33)
[2023-07-20 17:01] LABS: Bedside Glucose 133 mg/dL (74-106)
[2023-07-20] MEDS: traZODone 100 MG Tablet 300 MG PO (18:03)
[2023-07-20] MEDS: Tamsulosin HCl 0.4 MG Capsule 0.400000000000000022 MG PO (18:04)
[2023-07-20] MEDS: Rivaroxaban 15 MG Tablet PO (18:04)
--- NOTE | 2023-07-20 18:20 | NURSING ---
Patient did not eat dinner and refused evening insulin.
[2023-07-20] MEDS: Pramipexole Di-HCl 0.125 MG Tablet PO (20:17)
[2023-07-20] MEDS: Atorvastatin Calcium 80 MG Tablet PO (20:17)
--- NOTE | 2023-07-20 21:15 | NURSING ---
Telephone order received per Dr. Boyer and read back to change order for Cipro eye drops to every 4 hours WA- stop date of 07/24 as per previous order.
[2023-07-20 21:37] LABS: Bedside Glucose 148 mg/dL (74-106)
[2023-07-21] MEDS: Ciprofloxacin 0.3% 2.5ml Bottle 2 DRP EACH EYE ×5 (05:51→20:14)
[2023-07-21 06:10] LABS: Bedside Glucose 125 mg/dL (74-106)
[2023-07-21] MEDS: Insulin U-500 UNITS/ML PEN 20 UNITS SC (07:52)
[2023-07-21] MEDS: Gabapentin 100 MG Capsule PO ×3 (07:52→17:48)
[2023-07-21] MEDS: morphine SR 15 MG Tablet PO ×2 (07:53→20:13)
[2023-07-21] MEDS: Potassium Chloride Oral Tablet 20 MEQ PO (07:53)
[2023-07-21] MEDS: SimETHICONE 80 MG Chewable Tablet PO ×3 (07:55→17:49)
[2023-07-21] MEDS: Pantoprazole Sodium 40 MG Tablet PO (07:57)
[2023-07-21] MEDS: Empagliflozin 25 MG Tablet PO (07:57)
[2023-07-21] MEDS: levoFLOXacin 500 MG Tablet PO (07:57)
[2023-07-21] MEDS: Lisinopril 40 MG Tablet PO (07:57)
[2023-07-21] MEDS: Clotrimazole/Betamethasone 1 Tube 1 APPLIC TOPICAL ×2 (08:01→20:15)
[2023-07-21] MEDS: Menthol/Lanolin/Calamine/Znox 113 GM Tube 1 APPLIC TOPICAL ×2 (08:01→20:14)
--- NOTE | 2023-07-21 09:13 | CASEMGMT ---
Addendum entered by Monica Jarrett 07/23/23 09:30: Received choices from dtr on 07/22: [facility], [facility] Galav[facility], [facility]. [facility] Insurance [facility] . Original Note: Social Work SW received follow up from Rema at [facility] that pt has received a Medicaid pending number: [id number]. SONYA sent secure email to follow up with DIL on SNF choices. Awaiting outcome from insurance update. SONYA will continue to follow. Monica Jarrett, ALLEY IVYW
[2023-07-21] MEDS: 0.9% Saline Lock 10 ML Syringe IV ×2 (10:08→20:13)
[2023-07-21] MEDS: Ertapenem Sod 1 GM in 0.9% Normal Saline (50mL MB+) 50 ML IV (10:08)
[2023-07-21] MEDS: 0.9% Normal Saline (250mL Bag) 250 ML 100 ML IV (10:08)
[2023-07-21 11:21] LABS: Bedside Glucose 134 mg/dL (74-106)
--- NOTE | 2023-07-21 11:33 | WOUNDNOTE ---
wound photo: left foot
--- NOTE | 2023-07-21 11:34 | WOUNDNOTE ---
wound photo: left foot
[2023-07-21 13:32] VITALS: BP 106/57; PULSE 77; RESP 18; TEMP 36.2; O2SAT 93
[2023-07-21 16:59] VITALS: O2SAT 93
[2023-07-21 17:41] LABS: Bedside Glucose 142 mg/dL (74-106)
[2023-07-21] MEDS: traZODone 100 MG Tablet 300 MG PO (17:46)
[2023-07-21] MEDS: Insulin U-500 UNITS/ML PEN 10 UNITS SC (17:46)
[2023-07-21] MEDS: Rivaroxaban 15 MG Tablet PO (17:47)
[2023-07-21] MEDS: Tamsulosin HCl 0.4 MG Capsule 0.400000000000000022 MG PO (17:47)
[2023-07-21] MEDS: Atorvastatin Calcium 80 MG Tablet PO (20:14)
[2023-07-21] MEDS: Pramipexole Di-HCl 0.125 MG Tablet PO (20:15)
[2023-07-21 21:32] LABS: Bedside Glucose 121 mg/dL (74-106)
[2023-07-22 03:00] VITALS: BP 65/33; PULSE 88; RESP 18; TEMP 36.9; O2SAT 79
[2023-07-22 03:15] VITALS: BP 60/30; PULSE 91; O2SAT 85
--- NOTE | 2023-07-22 03:24 | NURSING ---
Patient developed new onset of strong/deep cough early this morning. Patient in no distress, alert and oriented x3. Patient denies SOB and chest pain. Lung sounds extremely diminished. O2 saturation 79% on 2L oxygen via NC. Temp 98.4 orally. BP 65/33 in left arm semi fowlers and 60/30 in LFA semi fowlers. Manual BP attempted by two nurses, unable to auscultate at this time. HR 91. RR 18. This nurse increased patient's oxygen to 4L, oxygen saturation jumped between 79-89%. Consulted Dr. Boyer via telephone, per Dr. Boyer order to send patient to ED for evaluation. Telephone-order read back.
--- NOTE | 2023-07-22 07:47 | MDS.RN ---
Information for the mds was obtained from review of the clinical record, interview of resident, staff, and direct observation of resident's care.
--- NOTE | 2023-07-22 09:43 | NURSING ---
updated that patient is in ED for low BP and low SPO2 for testing. denies any questions at this time. Transferred her call down to ED to talk to patient if able.
[2023-07-22] MEDS: 0.9% Normal Saline (250mL Bag) 250 ML 15 ML IV (11:31)
[2023-07-22] MEDS: Ertapenem Sod 1 GM in 0.9% Normal Saline (50mL MB+) 50 ML IV (11:34)
[2023-07-22] MEDS: Insulin U-500 UNITS/ML PEN 20 UNITS SC (11:39)
[2023-07-22] MEDS: Potassium Chloride Oral Tablet 20 MEQ PO (11:41)
[2023-07-22 11:42] LABS: Bedside Glucose 123 mg/dL (74-106)
[2023-07-22] MEDS: Pantoprazole Sodium 40 MG Tablet PO (11:43)
[2023-07-22] MEDS: Empagliflozin 25 MG Tablet PO (11:43)
[2023-07-22] MEDS: morphine SR 15 MG Tablet PO ×2 (11:50→20:30)
[2023-07-22 12:18] VITALS: BP 107/48; PULSE 77
--- NOTE | 2023-07-22 12:22 | NURSING ---
Patient returned from the ER around 1115. Per report, he received 3L IV fluids. No new orders.
[2023-07-22] MEDS: 0.9% Normal Saline (1000mL) 1,000 ML 75 ML IV (12:33)
[2023-07-22] MEDS: Ciprofloxacin 0.3% 2.5ml Bottle 2 DRP EACH EYE ×4 (12:36→20:31)
--- NOTE | 2023-07-22 12:43 | NURSING ---
updated that patient has returned to TCU for ED and new order for IV fluids. reports patient had let her know this already and denies further questions at this time.
[2023-07-22] MEDS: Clotrimazole/Betamethasone 1 Tube 1 APPLIC TOPICAL ×2 (12:57→20:32)
[2023-07-22] MEDS: levoFLOXacin 500 MG Tablet PO (12:57)
[2023-07-22] MEDS: Gabapentin 100 MG Capsule PO ×2 (13:02→18:15)
[2023-07-22] MEDS: SimETHICONE 80 MG Chewable Tablet PO ×2 (13:03→18:09)
[2023-07-22 14:17] VITALS: PULSE 72; RESP 16; TEMP 35.9; O2SAT 95
[2023-07-22 16:50] LABS: Bedside Glucose 164 mg/dL (74-106)
[2023-07-22] MEDS: Insulin U-500 UNITS/ML PEN 10 UNITS SC (18:07)
[2023-07-22] MEDS: traZODone 100 MG Tablet 300 MG PO (18:08)
[2023-07-22] MEDS: Tamsulosin HCl 0.4 MG Capsule 0.400000000000000022 MG PO (18:08)
[2023-07-22] MEDS: Rivaroxaban 15 MG Tablet PO (18:08)
[2023-07-22] MEDS: Atorvastatin Calcium 80 MG Tablet PO (20:32)
[2023-07-22] MEDS: Menthol/Lanolin/Calamine/Znox 113 GM Tube 1 APPLIC TOPICAL (20:32)
[2023-07-22] MEDS: Pramipexole Di-HCl 0.125 MG Tablet PO (20:33)
[2023-07-22 21:25] LABS: Bedside Glucose 124 mg/dL (74-106)
[2023-07-22 23:50] VITALS: RESP 17; O2SAT 96
[2023-07-23] MEDS: 0.9% Normal Saline (1000mL) 1,000 ML 75 ML IV (01:22)
[2023-07-23] MEDS: Ciprofloxacin 0.3% 2.5ml Bottle 2 DRP EACH EYE ×5 (05:23→20:54)
[2023-07-23 05:49] VITALS: PULSE 79; RESP 18; O2SAT 94
[2023-07-23 05:58] LABS: Absolute Lymphocyte Count 3.27 X10^3/uL (0.83-4.51); Absolute Neutrophil Count 9.1 X10^3/uL (2.0-7.7); Basophil# 0.08 X10^3/uL; Basophil% 0.6 % (0-1); Eosinophil# 0.39 X10^3/uL; Eosinophils% 2.8 % (0-5); Hematocrit 32.8 % (40-54); Hemoglobin 10.1 g/dL (13.0-16.5); Lymphocyte # 3.27 X10^3/ul (0.83-4.51); Lymphocyte % 23.3 % (19-41); Mean Corp Hgb Conc 30.8 g/dL (32-36); Mean Corpuscular Hgb 29.7 pg (27.0-32.0); Mean Corpuscular Volume 96.5 fL (80-94); Mean Platelet Vol. 9.7 fl (6.2-12.0); Monocyte# 1.09 X10^3/uL; Monocyte% 7.8 % (0-10); NRBC Flagged by Analyzer 0 % (0-5); Neutrophil # 9.13 X10^3/uL (2.7-7.7); Platelet Count 262 K/mm3 (150-450); RBC Distribution Width CV 13.4 % (11.6-14.6); RBC Distribution Width SD 47.9 fl (35.1-43.9)
[2023-07-23 06:26] LABS: Anion Gap -2 (5-15); BUN 15 mg/dL (7-18); BUN/Creat Ratio 13.2 RATIO (10-20); Calcium,Total 8.5 mg/dL (8.5-10.1); Chloride 108 mmol/L (98-107); Creatinine, Serum 1.14 mg/dL (0.70-1.30); EST Glomerular Filtration Rate 68 mL/min (>60); Est Glom Filt Rate - Afr Amer 82 mL/min (>60); Estimated Creatinine Clearance 80.46 ml/min; Glucose 123 mg/dL (74-106); Potassium 5.2 mmol/L (3.5-5.1); Sodium Level 142 mmol/L (136-145)
[2023-07-23] MEDS: Gabapentin 100 MG Capsule PO ×3 (08:10→17:22)
[2023-07-23] MEDS: morphine SR 15 MG Tablet PO ×2 (08:10→20:52)
[2023-07-23] MEDS: Sodium Polystyrene Sulfonate 15 GM/60 ML UDC 30 GM PO (08:10)
[2023-07-23] MEDS: 0.9% Saline Lock 10 ML Syringe IV ×3 (08:12→20:57)
[2023-07-23] MEDS: Insulin U-500 UNITS/ML PEN 20 UNITS SC (08:12)
[2023-07-23] MEDS: SimETHICONE 80 MG Chewable Tablet PO ×3 (08:13→17:22)
[2023-07-23] MEDS: Menthol/Lanolin/Calamine/Znox 113 GM Tube 1 APPLIC TOPICAL ×2 (08:13→20:53)
[2023-07-23 08:20] VITALS: BP 92/41; PULSE 97; RESP 20; TEMP 36.4; O2SAT 93
[2023-07-23] MEDS: Empagliflozin 25 MG Tablet PO (09:43)
[2023-07-23] MEDS: Lisinopril 40 MG Tablet PO (09:43)
[2023-07-23] MEDS: Pantoprazole Sodium 40 MG Tablet PO (09:43)
[2023-07-23] MEDS: Clotrimazole/Betamethasone 1 Tube 1 APPLIC TOPICAL (09:43)
[2023-07-23] MEDS: levoFLOXacin 500 MG Tablet PO (09:43)
[2023-07-23 09:45] LABS: Bedside Glucose 110 mg/dL (74-106)
[2023-07-23 09:48] VITALS: BP 117/55; PULSE 75; RESP 16; O2SAT 92
[2023-07-23] MEDS: Ertapenem Sod 1 GM in 0.9% Normal Saline (50mL MB+) 50 ML IV (10:19)
[2023-07-23 12:13] LABS: Bedside Glucose 151 mg/dL (74-106)
--- NOTE | 2023-07-23 12:36 | PN_ITS ---
Subjective Subjective Patient was resting comfortably in his bed. He thinks that he may be able to go home tomorrow but he states he was not really told for sure. He is looking forward to getting home. Objective Data Objective Data The dressing was clean, dry, intact to the right foot. The wound VAC was attached and without leaks. Vital Signs: Vital Signs Temp Pulse Resp BP Pulse Ox O2 Del Method O2 Flow Rate 97.6 F L 75 16 117/55 L 92 Nasal Cannula 3 07/23/23 08:20 07/23/23 09:48 07/23/23 09:48 07/23/23 09:48 07/23/23 09:48 07/23/23 09:48 07/23/23 09:48 FiO2 93 07/21/23 09:41 Oxygen Flow Rate (L/min) 3 Oxygen Delivery Method Nasal Cannula Weight: 120.111 kg Body Mass Index (BMI) 39.1 Intake & Output: Intake and Output for Last 24 Hours 07/21/23 07/22/23 07/23/23 23:59 23:59 23:59 Intake Total 1345 / 1345 420 / 420 2402.50 / 2402.50 Balance 1345 / 1345 420 / 420 2402.50 / 2402.50 Lab / Micro Data 07/23/23 05:45 07/23/23 05:45 Labs: Laboratory Results - last 24 hr 07/22/23 16:28: POC Glucose 164 H 07/22/23 21:02: POC Glucose 124 H 07/23/23 05:43: POC Glucose 110 H 07/23/23 05:45: WBC 14.0 H, RBC 3.40 L, Hgb 10.1 L, Hct 32.8 L, MCV 96.5 H, MCH 29.7, MCHC 30.8 L, RDW Std Deviation 47.9 H, RDW Coeff of Vincent 13.4, Plt Count 262, MPV 9.7, Immature Gran % (Auto) 0.500, Neut % (Auto) 65.0, Lymph % (Auto) 23.3, [place] % (Auto) 7.8, Eos % (Auto) 2.8, Baso % (Auto) 0.6, Absolute Neuts (auto) 9.1 H, Absolute Lymphs (auto) 3.27, Nucleated RBC % 0, Sodium 142, Potassium 5.2 H, Chloride 108 H, Carbon Dioxide 36.0 H, Anion Gap -2 L, BUN 15, Creatinine 1.14, Estim Creat Clear Calc 80.46, Est GFR (MDRD) Af Amer 82, Est GFR (MDRD) Non-Af 68, BUN/Creatinine Ratio 13.2, Glucose 123 H, Calcium 8.5 07/23/23 11:07: POC Glucose 151 H Physical Exam Const alert, oriented x3 and no apparent distress Skin Wound Narrative: The left foot wound has greatly improved since last week. There is still head of the left first metatarsal visible but the cartilage remains intact. Granular tissue is also beginning to cover over the cartilage. There is no significant probing or tunneling in the dorsal aspect. Granular tissue is seen and there is some minimal amount of fibrous tissue on the dorsal medial aspect. No purulence. No cellulitis. And swelling is absent. Assessment & Plan Assessment/Plan (1) Osteomyelitis of great toe of left foot: PLAN: Continue with wound VAC until hopeful discharge tomorrow. It would be for the patient's benefit to have him placed in an extended care facility at least until the exposed bone is covered over with granular tissue. His is not able to care for him and he is unable to do that for himself as well. His sister lives over an hour away from him. Patient is at risk for limb loss but at this point great improvement is seen. The wound VAC was removed today and will be reapplied from the wound nurse. Podiatry will continue to follow as needed. (2) Diabetic foot ulcers:
--- NOTE | 2023-07-23 12:53 | NURSING ---
dr Abraham in to assess foot at this time.
[2023-07-23 16:27] LABS: Bedside Glucose 159 mg/dL (74-106)
[2023-07-23] MEDS: Tamsulosin HCl 0.4 MG Capsule 0.400000000000000022 MG PO (17:22)
[2023-07-23] MEDS: traZODone 100 MG Tablet 300 MG PO (17:22)
[2023-07-23] MEDS: Insulin U-500 UNITS/ML PEN 10 UNITS SC (17:22)
[2023-07-23] MEDS: Rivaroxaban 15 MG Tablet PO (17:22)
[2023-07-23] MEDS: Atorvastatin Calcium 80 MG Tablet PO (20:55)
[2023-07-23] MEDS: Pramipexole Di-HCl 0.125 MG Tablet PO (20:56)
--- NOTE | 2023-07-23 21:08 | NURSING ---
A&Ox3, patient requests ice cream and regular coca-cola for HS snack, patient educated on carb controlled diet, encouraged diet soda and alternative snack to promote normal blood glucose levels and carb control diet. Patient states you might think that would be better for me, but it's not, I'm not drinking anything diet and I want my ice cream . Snack provided as requested, despite education. Denies further requests .call light in reach.
[2023-07-23 21:23] LABS: Bedside Glucose 117 mg/dL (74-106)
[2023-07-24 06:14] LABS: Bedside Glucose 113 mg/dL (74-106)
[2023-07-24] MEDS: Ciprofloxacin 0.3% 2.5ml Bottle 2 DRP EACH EYE ×5 (06:48→20:24)
[2023-07-24 06:55] LABS: Anion Gap 0 (5-15); BUN 12 mg/dL (7-18); BUN/Creat Ratio 12.9 RATIO (10-20); Calcium,Total 8.5 mg/dL (8.5-10.1); Chloride 104 mmol/L (98-107); Creatinine, Serum 0.93 mg/dL (0.70-1.30); EST Glomerular Filtration Rate 86 mL/min (>60); Est Glom Filt Rate - Afr Amer 104 mL/min (>60); Estimated Creatinine Clearance 98.62 ml/min; Glucose 113 mg/dL (74-106); Potassium 4.4 mmol/L (3.5-5.1); Sodium Level 142 mmol/L (136-145)
[2023-07-24] MEDS: SimETHICONE 80 MG Chewable Tablet PO ×3 (09:57→18:11)
[2023-07-24] MEDS: levoFLOXacin 500 MG Tablet PO (09:58)
[2023-07-24] MEDS: Empagliflozin 25 MG Tablet PO (09:58)
[2023-07-24] MEDS: Lisinopril 40 MG Tablet PO (09:58)
[2023-07-24] MEDS: Pantoprazole Sodium 40 MG Tablet PO (09:58)
[2023-07-24] MEDS: Clotrimazole/Betamethasone 1 Tube 1 APPLIC TOPICAL ×2 (09:59→20:25)
[2023-07-24] MEDS: 0.9% Normal Saline (250mL Bag) 250 ML 100 ML IV (10:02)
[2023-07-24] MEDS: Gabapentin 100 MG Capsule PO ×3 (10:03→18:10)
[2023-07-24] MEDS: 0.9% Saline Lock 10 ML Syringe IV (10:03)
[2023-07-24] MEDS: Ertapenem Sod 1 GM in 0.9% Normal Saline (50mL MB+) 50 ML IV (10:03)
[2023-07-24] MEDS: morphine SR 15 MG Tablet PO ×2 (10:03→20:24)
[2023-07-24] MEDS: Insulin U-500 UNITS/ML PEN 20 UNITS SC (10:13)
[2023-07-24] MEDS: Menthol/Lanolin/Calamine/Znox 113 GM Tube 1 APPLIC TOPICAL ×2 (10:17→20:24)
[2023-07-24 11:27] LABS: Bedside Glucose 161 mg/dL (74-106)
[2023-07-24 11:36] VITALS: BMI 38.7
[2023-07-24 12:15] VITALS: O2SAT 93
[2023-07-24 13:10] VITALS: BP 110/59; PULSE 82; RESP 18; TEMP 35.8; O2SAT 99
[2023-07-24 17:24] LABS: Bedside Glucose 136 mg/dL (74-106)
[2023-07-24] MEDS: Insulin U-500 UNITS/ML PEN 10 UNITS SC (18:09)
[2023-07-24] MEDS: Rivaroxaban 15 MG Tablet PO (18:10)
[2023-07-24] MEDS: traZODone 100 MG Tablet 300 MG PO (18:10)
[2023-07-24] MEDS: Tamsulosin HCl 0.4 MG Capsule 0.400000000000000022 MG PO (18:10)
[2023-07-24] MEDS: Pramipexole Di-HCl 0.125 MG Tablet PO (20:19)
[2023-07-24] MEDS: Atorvastatin Calcium 80 MG Tablet PO (20:24)
[2023-07-24 21:33] LABS: Bedside Glucose 158 mg/dL (74-106)
[2023-07-25] MEDS: Ciprofloxacin 0.3% 2.5ml Bottle 2 DRP EACH EYE ×5 (06:03→20:59)
[2023-07-25 06:27] LABS: Anion Gap 4 (5-15); BUN 14 mg/dL (7-18); BUN/Creat Ratio 12.1 RATIO (10-20); Calcium,Total 8.7 mg/dL (8.5-10.1); Chloride 99 mmol/L (98-107); Creatinine, Serum 1.16 mg/dL (0.70-1.30); EST Glomerular Filtration Rate 67 mL/min (>60); Est Glom Filt Rate - Afr Amer 81 mL/min (>60); Estimated Creatinine Clearance 78.65 ml/min; Glucose 144 mg/dL (74-106); Potassium 4.3 mmol/L (3.5-5.1); Sodium Level 138 mmol/L (136-145)
[2023-07-25 06:47] LABS: Bedside Glucose 147 mg/dL (74-106)
[2023-07-25 08:07] VITALS: BP 108/53; PULSE 91; RESP 17; TEMP 36.1; O2SAT 96
[2023-07-25] MEDS: Gabapentin 100 MG Capsule PO ×3 (08:14→18:18)
[2023-07-25] MEDS: Insulin U-500 UNITS/ML PEN 20 UNITS SC (08:14)
[2023-07-25] MEDS: morphine SR 15 MG Tablet PO ×2 (08:14→20:58)
[2023-07-25] MEDS: Lisinopril 40 MG Tablet PO (08:15)
[2023-07-25] MEDS: Menthol/Lanolin/Calamine/Znox 113 GM Tube 1 APPLIC TOPICAL ×2 (08:15→20:58)
[2023-07-25] MEDS: Clotrimazole/Betamethasone 1 Tube 1 APPLIC TOPICAL ×2 (08:15→20:58)
[2023-07-25] MEDS: Empagliflozin 25 MG Tablet PO (08:15)
[2023-07-25] MEDS: SimETHICONE 80 MG Chewable Tablet PO ×3 (08:15→18:19)
[2023-07-25] MEDS: Pantoprazole Sodium 40 MG Tablet PO (08:15)
[2023-07-25 11:07] LABS: Bedside Glucose 179 mg/dL (74-106)
--- NOTE | 2023-07-25 13:20 | NURSING ---
Patient c/o difficulties sleeping at night. Patient takes frequent naps during the day. Updated Dr. Boyer on patient's request for a sleep aid. Dr. Boyer recommends patient to take no naps. Discussed with patient with verbal understanding.
[2023-07-25 17:04] LABS: Bedside Glucose 180 mg/dL (74-106)
[2023-07-25] MEDS: Insulin U-500 UNITS/ML PEN 10 UNITS SC (18:17)
[2023-07-25] MEDS: traZODone 100 MG Tablet 300 MG PO (18:18)
[2023-07-25] MEDS: Rivaroxaban 15 MG Tablet PO (18:18)
[2023-07-25] MEDS: Tamsulosin HCl 0.4 MG Capsule 0.400000000000000022 MG PO (18:18)
[2023-07-25] MEDS: Atorvastatin Calcium 80 MG Tablet PO (21:00)
[2023-07-25] MEDS: Pramipexole Di-HCl 0.125 MG Tablet PO (21:00)
[2023-07-25] MEDS: 0.9% Saline Lock 10 ML Syringe IV (21:06)
[2023-07-25 21:50] LABS: Bedside Glucose 148 mg/dL (74-106)
[2023-07-26 06:05] LABS: Bedside Glucose 126 mg/dL (74-106)
[2023-07-26] MEDS: morphine SR 15 MG Tablet PO ×2 (07:52→20:03)
[2023-07-26] MEDS: Gabapentin 100 MG Capsule PO ×3 (07:53→17:20)
[2023-07-26] MEDS: Insulin U-500 UNITS/ML PEN 20 UNITS SC (07:54)
[2023-07-26] MEDS: Pantoprazole Sodium 40 MG Tablet PO (07:54)
[2023-07-26] MEDS: SimETHICONE 80 MG Chewable Tablet PO ×3 (07:54→17:20)
[2023-07-26] MEDS: Clotrimazole/Betamethasone 1 Tube 1 APPLIC TOPICAL ×2 (07:55→20:03)
[2023-07-26] MEDS: Menthol/Lanolin/Calamine/Znox 113 GM Tube 1 APPLIC TOPICAL ×2 (07:55→20:03)
[2023-07-26] MEDS: Empagliflozin 25 MG Tablet PO (07:55)
[2023-07-26 07:59] VITALS: BP 85/34; PULSE 78; RESP 18; TEMP 36.8; O2SAT 95
[2023-07-26 10:18] VITALS: BP 118/52; PULSE 78
[2023-07-26] MEDS: Lisinopril 40 MG Tablet PO (10:19)
[2023-07-26] MEDS: 0.9% Saline Lock 10 ML Syringe IV ×2 (10:21→20:03)
[2023-07-26 12:22] LABS: Bedside Glucose 144 mg/dL (74-106)
[2023-07-26] MEDS: traZODone 100 MG Tablet 300 MG PO (17:20)
[2023-07-26] MEDS: Tamsulosin HCl 0.4 MG Capsule 0.400000000000000022 MG PO (17:20)
[2023-07-26] MEDS: Rivaroxaban 15 MG Tablet PO (17:20)
[2023-07-26] MEDS: Insulin U-500 UNITS/ML PEN 10 UNITS SC (17:21)
[2023-07-26 17:32] LABS: Bedside Glucose 178 mg/dL (74-106)
[2023-07-26 19:00] VITALS: PULSE 79; RESP 18
[2023-07-26] MEDS: Pramipexole Di-HCl 0.125 MG Tablet PO (20:04)
[2023-07-26] MEDS: Atorvastatin Calcium 80 MG Tablet PO (20:05)
[2023-07-26 21:40] LABS: Bedside Glucose 157 mg/dL (74-106)
[2023-07-27 06:05] LABS: Bedside Glucose 145 mg/dL (74-106)
[2023-07-27 06:24] VITALS: PULSE 78; RESP 17; O2SAT 96
[2023-07-27] MEDS: morphine SR 15 MG Tablet PO ×2 (08:18→20:01)
[2023-07-27] MEDS: Empagliflozin 25 MG Tablet PO (08:18)
[2023-07-27] MEDS: Pantoprazole Sodium 40 MG Tablet PO (08:18)
[2023-07-27] MEDS: Insulin U-500 UNITS/ML PEN 20 UNITS SC (08:18)
[2023-07-27] MEDS: Gabapentin 100 MG Capsule PO ×3 (08:18→17:04)
[2023-07-27] MEDS: SimETHICONE 80 MG Chewable Tablet PO ×3 (08:18→17:05)
[2023-07-27] MEDS: Menthol/Lanolin/Calamine/Znox 113 GM Tube 1 APPLIC TOPICAL ×2 (08:19→19:57)
[2023-07-27] MEDS: Clotrimazole/Betamethasone 1 Tube 1 APPLIC TOPICAL ×2 (08:19→19:57)
[2023-07-27] MEDS: Lisinopril 40 MG Tablet PO (08:24)
[2023-07-27 08:26] VITALS: BP 111/55; PULSE 85; RESP 18; TEMP 36.4; O2SAT 96
[2023-07-27] MEDS: 0.9% Saline Lock 10 ML Syringe IV ×2 (08:32→19:56)
[2023-07-27 08:53] VITALS: O2SAT 91
--- NOTE | 2023-07-27 09:59 | NURSING ---
Family to bring in [facility] today for verification by pharmacy and administration. pt alert and oriented, coughing noted at times with breakfast this AM. speech to evaluate
--- NOTE | 2023-07-27 11:44 | NURSING ---
Encouraged pt to get up in chair for lunch d/t swallowing difficulty, pt declined at this time. states he sat up in recliner chair too long yesterday and was uncomfortable. encouraged pt to sit up for supper later and he is agreeable.
[2023-07-27 12:03] LABS: Bedside Glucose 215 mg/dL (74-106)
[2023-07-27] MEDS: TIRZEPATIDE 7.5 MG/0.5 ML PEN.INJCTR SQ (12:20)
[2023-07-27 16:33] LABS: Bedside Glucose 200 mg/dL (74-106)
[2023-07-27] MEDS: Tamsulosin HCl 0.4 MG Capsule 0.400000000000000022 MG PO (17:04)
[2023-07-27] MEDS: Insulin U-500 UNITS/ML PEN 10 UNITS SC (17:05)
[2023-07-27] MEDS: traZODone 100 MG Tablet 300 MG PO (17:05)
[2023-07-27] MEDS: Rivaroxaban 15 MG Tablet PO (17:05)
[2023-07-27] MEDS: Atorvastatin Calcium 80 MG Tablet PO (20:01)
[2023-07-27] MEDS: Pramipexole Di-HCl 0.125 MG Tablet PO (20:01)
[2023-07-27 21:37] LABS: Bedside Glucose 138 mg/dL (74-106)
[2023-07-28 06:09] LABS: Bedside Glucose 145 mg/dL (74-106)
[2023-07-28] MEDS: Gabapentin 100 MG Capsule PO ×3 (08:34→17:28)
[2023-07-28] MEDS: Insulin U-500 UNITS/ML PEN 20 UNITS SC (08:34)
[2023-07-28] MEDS: morphine SR 15 MG Tablet PO ×2 (08:34→21:34)
[2023-07-28] MEDS: Empagliflozin 25 MG Tablet PO (08:35)
[2023-07-28] MEDS: SimETHICONE 80 MG Chewable Tablet PO ×3 (08:35→17:25)
[2023-07-28] MEDS: Clotrimazole/Betamethasone 1 Tube 1 APPLIC TOPICAL (08:35)
[2023-07-28] MEDS: Menthol/Lanolin/Calamine/Znox 113 GM Tube 1 APPLIC TOPICAL ×2 (08:35→21:34)
[2023-07-28] MEDS: Lisinopril 40 MG Tablet PO (08:35)
[2023-07-28] MEDS: Pantoprazole Sodium 40 MG Tablet PO (08:35)
[2023-07-28 08:40] VITALS: BP 124/53; PULSE 79
[2023-07-28 11:42] LABS: Bedside Glucose 140 mg/dL (74-106)
--- NOTE | 2023-07-28 13:58 | WOUNDNOTE ---
wound photo: left foot
--- NOTE | 2023-07-28 13:59 | WOUNDNOTE ---
wound photo: left foot
[2023-07-28 15:31] VITALS: BP 123/63; PULSE 74; RESP 16; TEMP 36.1; O2SAT 97
[2023-07-28 15:59] VITALS: O2SAT 93
[2023-07-28 16:36] LABS: Bedside Glucose 136 mg/dL (74-106)
[2023-07-28] MEDS: Tamsulosin HCl 0.4 MG Capsule 0.400000000000000022 MG PO (17:24)
[2023-07-28] MEDS: Rivaroxaban 15 MG Tablet PO (17:24)
[2023-07-28] MEDS: traZODone 100 MG Tablet 300 MG PO (17:25)
[2023-07-28] MEDS: HYDROcodone Bitartrate/Apap 5/325 Tablet PO (17:30)
[2023-07-28] MEDS: Insulin U-500 UNITS/ML PEN 10 UNITS SC (17:31)
[2023-07-28] MEDS: 0.9% Saline Lock 10 ML Syringe IV (17:34)
[2023-07-28 21:35] LABS: Bedside Glucose 175 mg/dL (74-106)
[2023-07-28] MEDS: Atorvastatin Calcium 80 MG Tablet PO (21:35)
[2023-07-28] MEDS: Pramipexole Di-HCl 0.125 MG Tablet PO (21:35)
[2023-07-28 22:00] VITALS: PULSE 59; RESP 16; O2SAT 96
[2023-07-29 06:51] LABS: Bedside Glucose 162 mg/dL (74-106)
--- NOTE | 2023-07-29 07:49 | RAD_ITS ---
HISTORY: Constipation. TECHNIQUE: XR Abdomen 1 View. COMPARISON: 07/11/2023. FINDINGS: BOWEL GAS PATTERN: No dilated bowel loops identified. Moderate stool throughout the colon. FREE AIR: Not assessed on supine view. CALCIFICATIONS: Calcified diaphragmatic pleural plaques again seen. BONES: Mild degenerative change. SOFT TISSUES: Probable hepatomegaly RAD/Abdomen Single View IMPRESSION: Moderate stool in the colon. Electronically Signed: Chaya Godinez MD at 10:03 EST ,
[2023-07-29] MEDS: Pantoprazole Sodium 40 MG Tablet PO (08:13)
[2023-07-29] MEDS: Empagliflozin 25 MG Tablet PO (08:13)
[2023-07-29] MEDS: SimETHICONE 80 MG Chewable Tablet PO ×3 (08:13→17:52)
[2023-07-29] MEDS: Insulin U-500 UNITS/ML PEN 20 UNITS SC (08:13)
[2023-07-29] MEDS: Lisinopril 40 MG Tablet PO (08:14)
[2023-07-29] MEDS: Gabapentin 100 MG Capsule PO ×3 (08:18→17:51)
[2023-07-29] MEDS: morphine SR 15 MG Tablet PO ×2 (08:18→19:56)
[2023-07-29] MEDS: Menthol/Lanolin/Calamine/Znox 113 GM Tube 1 APPLIC TOPICAL ×2 (08:20→19:57)
[2023-07-29] MEDS: Clotrimazole/Betamethasone 1 Tube 1 APPLIC TOPICAL ×2 (08:20→19:56)
[2023-07-29 09:17] VITALS: O2SAT 92
[2023-07-29 11:00] VITALS: BMI 39.0
--- NOTE | 2023-07-29 11:20 | NURSING ---
KUB ordered today for no bM in 5 days. Results showed moderate stool. Patient reports he refuses to take anything for a BM and that it is normal for him to go several days without a BM.
[2023-07-29 11:59] LABS: Bedside Glucose 195 mg/dL (74-106)
[2023-07-29 16:00] VITALS: PULSE 78; RESP 14; TEMP 36.9; O2SAT 92
[2023-07-29 17:29] LABS: Bedside Glucose 220 mg/dL (74-106)
[2023-07-29] MEDS: Insulin U-500 UNITS/ML PEN 10 UNITS SC (17:51)
[2023-07-29] MEDS: traZODone 100 MG Tablet 300 MG PO (17:52)
[2023-07-29] MEDS: Rivaroxaban 15 MG Tablet PO (17:52)
[2023-07-29] MEDS: Tamsulosin HCl 0.4 MG Capsule 0.400000000000000022 MG PO (17:52)
[2023-07-29] MEDS: Pramipexole Di-HCl 0.125 MG Tablet PO (19:56)
[2023-07-29] MEDS: Atorvastatin Calcium 80 MG Tablet PO (19:56)
[2023-07-29 21:49] LABS: Bedside Glucose 215 mg/dL (74-106)
[2023-07-30 06:33] LABS: Bedside Glucose 155 mg/dL (74-106)
[2023-07-30 07:06] VITALS: O2SAT 98
[2023-07-30] MEDS: Empagliflozin 25 MG Tablet PO (08:08)
[2023-07-30] MEDS: Clotrimazole/Betamethasone 1 Tube 1 APPLIC TOPICAL ×2 (08:08→20:05)
[2023-07-30] MEDS: Menthol/Lanolin/Calamine/Znox 113 GM Tube 1 APPLIC TOPICAL ×2 (08:08→20:04)
[2023-07-30] MEDS: SimETHICONE 80 MG Chewable Tablet PO ×3 (08:08→17:34)
[2023-07-30] MEDS: Gabapentin 100 MG Capsule PO ×3 (08:08→17:34)
[2023-07-30] MEDS: morphine SR 15 MG Tablet PO ×2 (08:08→20:03)
[2023-07-30] MEDS: Insulin U-500 UNITS/ML PEN 20 UNITS SC (08:08)
[2023-07-30] MEDS: Lisinopril 40 MG Tablet PO (08:08)
[2023-07-30] MEDS: Pantoprazole Sodium 40 MG Tablet PO (08:09)
[2023-07-30 08:13] VITALS: BP 106/54; PULSE 91
[2023-07-30] MEDS: Electrolyte Solution/Peg's 4000 ML 1000 ML PO (09:56)
[2023-07-30] MEDS: HYDROcodone Bitartrate/Apap 5/325 Tablet PO (11:54)
--- NOTE | 2023-07-30 13:09 | CASEMGMT ---
Addendum entered by Monica Jarrett 07/31/23 10:37: SW scheduled w/c transport with O2 through [facility] for 1100 on 08/01. PASRR completed. DC paperwork sent to [facility]. Original Note: Social Work Insurance issued LCD 07/31, DC 08/01. SW spoke with pt to update and explained IDT and DIL are recommending continued therapy and medical care best achieved at a [facility]. Pt is agreeable to a short term stay. SW updated DIL via email and DIL agreeable. Updated [facility] and they can still accept under Medicaid pending. Email sent to update Rema at [facility]. SW to schedule w/c transport and complete PASRR. Plan: DC 08/01 to [facility], intermediate, MCDP, part B therapies Monica Jarrett, ALLEY IVYW
[2023-07-30 13:45] LABS: Bedside Glucose 235 mg/dL (74-106)
--- NOTE | 2023-07-30 15:02 | WOUNDNOTE ---
wound photo: left foot
--- NOTE | 2023-07-30 15:03 | WOUNDNOTE ---
wound photo: left foot
[2023-07-30 16:00] VITALS: BP 103/56; PULSE 76; RESP 18; TEMP 36.8; O2SAT 2
[2023-07-30 16:40] LABS: Bedside Glucose 250 mg/dL (74-106)
[2023-07-30] MEDS: Rivaroxaban 15 MG Tablet PO (17:34)
[2023-07-30] MEDS: Insulin U-500 UNITS/ML PEN 10 UNITS SC (17:34)
[2023-07-30] MEDS: Tamsulosin HCl 0.4 MG Capsule 0.400000000000000022 MG PO (17:34)
[2023-07-30] MEDS: traZODone 100 MG Tablet 300 MG PO (17:34)
--- NOTE | 2023-07-30 19:50 | DS.PCM_ITS ---
Providers Date of Admission: 07/09/23 Primary Care Physician: Dr. Jesenia Andujar MD Consultations 07/09/23 13:33 Consult: Onc/Wound/clerk telegraph service Routine Comment: 07/09/23 20:52 Consult: Podiatry Routine Consulting Provider: Nichloe Abraham Reason for Consult: Left hallux osteomyelitis, s/p left hallux amputation. EMERGENT Consult: No MD Notified: No Date Notified: 07/09/23 Time Notified: 20:53 Method of Consult:: In-Person 07/10/23 11:22 Consult: Podiatry Routine Consulting Provider: Nichole Abraham Reason for Consult: Osteomyelitis of left hellix. Amputation of left Hellix. EMERGENT Consult: No MD Notified: Yes Date Notified: 07/10/23 Time Notified: 11:22 Method of Notification: Verbal Reason For Visit: GANGRENE Diagnosis Discharge Diagnosis (1) Osteomyelitis of great toe of left foot: Status: Acute Code(s): M86.9 - Osteomyelitis, unspecified (2) Diabetic foot ulcers: Status: Acute Code(s): E11.621 - Type 2 diabetes mellitus with foot ulcer; L97.509 - Non-pressure chronic ulcer of other part of unspecified foot with unspecified severity Plan 68 year old male with below past medical history hospitalized for osteomyelitis left hallux, s/p left hallux amputation 07/02/[address] Abraham, complicated by cellulitis left foot, diabetic polyneuropathy, admitted to TCU with debility, here for rehabilitation, strengthening, wound care, intravenous antibiotics, prior to discharge home with . * Debility - PT/OT. * Pain - MS contin 15mg bid, Minetto 5/325mg 1 tab q4 prn pain (6-10). * Bowel - senna/colace 1 tablet bid, Magnesium citrate 300ml daily prn. * Adult immunization - Administer pneumonia vaccine, covid vaccine, flu vaccine as appropriate. * DVT prophylaxis - on Xarelto. * Hyperlipidemia - Atorvastatin 80mg daily. * Diabetes Mellitus II - Jardiance 25mg daily, Humulin R U-500 65 units am, 55 units pm, Mounjaro 7.5mg per week. * Osteomyelitis left hallux s/p left hallux amputation - Ertapenem 1gm iv q24, Levaquin 500mg daily thru 07/24/2023, consult Dr. Abraham for expert care. * Hypertension - Lisinopril 40mg daily. * Skin irritation - Calmoseptine topical bid. * Tinea Corporis - Nystatin powder topical bid. * GERD - Pantoprazole 40mg daily. * Recurrent blood clots - Xarelto 15mg daily. * BPH - Tamsulosin 0.4mg daily. Medications at Discharge Home Medications lidocaine 5 % topical patch 1 patch topical DAILY Check with primary doctor 12/24/13 ipratropium 0.5 mg-albuterol 3 mg (2.5 mg base)/3 mL nebulization soln 3 ml inhalation Q6H PRN ##1 12/26/13 albuterol sulfate 2.5 mg/3 mL (0.083 %) solution for nebulization 2.5 mg (3 mL) inhalation Q2H PRN PRN SHORTNESS OF BREATH ##100 02/05/14 hydrocodone 7.5 mg-acetaminophen 325 mg tablet 1 ea PO Q4H PRN Pain 10/12/14 morphine 15 mg immediate release tablet 15 mg PO BID pain 03/30/22 amitriptyline 50 mg tablet 50 mg PO QHS 06/11/22 oxybutynin chloride 10 mg tablet,extended release 24 hr 10 mg PO DAILY 06/11/22 zonisamide 100 mg capsule 200 mg PO DAILY 06/11/22 triamcinolone acetonide 0.1 % topical cream 1 applic topical BID 07/26/22 furosemide 40 mg tablet 40 mg PO DAILY 08/08/22 umeclidinium 62.5 mcg-vilanterol 25 mcg/actuation powdr for inhalation (Anoro Ellipta) 1 inh inhalation DAILY #3 ea 08/12/22 trazodone 150 mg tablet 300 mg PO DAILY 09/12/22 empagliflozin 25 mg tablet (Jardiance) 25 mg PO DAILY Diabetes #90 tabs 02/06/23 saxagliptin 2.5 mg tablet (Onglyza) 2.5 mg PO DAILY #90 tabs 04/01/23 pen needle, diabetic 32 gauge x 5/32 (BD Ultra-Fine Ava Pen Needle) 1 ea miscellaneous .3 times daily #100 ea 04/02/23 rivaroxaban 15 mg tablet 15 mg PO DAILY Blood Thinner #90 tabs 05/12/23 benazepril 40 mg tablet 40 mg PO DAILY BP #90 tabs 06/16/23 atorvastatin 40 mg tablet 80 mg (2 x 40 mg) PO QHS Check with primary doctor #90 tabs 06/18/23 omeprazole 40 mg capsule,delayed release 40 mg PO DAILY GERD #90 caps 07/07/23 ertapenem 1 gram intravenous solution 1 g IV DAILY Antibiotic 07/09/23 levofloxacin 500 mg tablet 500 mg PO DAILY Antibiotic 07/09/23 tamsulosin 0.4 mg capsule 0.4 mg PO Q24H Urinary Retention 07/09/23 arginine 7 gram-glutamine 7 gram-calcium HMB 1.5 gram oral powder pack (Alin) 1 ea PO BIDCM 07/22/23 ciprofloxacin HCl 0.3 % eye drops 2 drp EACH EYE Q4H 07/22/23 gabapentin 100 mg capsule 100 mg PO TIDCM 07/22/23 insulin regular hum U-500 conc 500 unit/mL(3 mL) subcut pen See Rx Instructions subcut BID Diabetes 07/22/23 lisinopril 40 mg tablet 40 mg PO DAILY 07/22/23 potassium chloride 20 mEq tablet,extended release (K-Tab) 20 meq PO DAILY 07/22/23 pramipexole 0.125 mg tablet 0.125 mg PO QHS 07/22/23 simethicone 80 mg chewable tablet (Gas Relief (simethicone)) 80 mg PO .TIDPC 07/22/23 tirzepatide 7.5 mg/0.5 mL subcutaneous pen injector (Mounjaro) 7.5 mg subcut PRATHER Diabetes 07/22/23 Hospital Course Operations - (Left hallux amputation.) Procedures None Summary of Care Provided Minutes Spent on Discharge: 36 Hospital Course: 68 year old male with below past medical history hospitalized for osteomyelitis left hallux, s/p left hallux amputation 07/02/[address] Abraham, complicated by cellulitis left foot, diabetic polyneuropathy, admitted to TCU with debility, here for rehabilitation, strengthening, wound care, intravenous antibiotics, prior to discharge home with . Discharge 08/02/2023 to [facility], intermediate, Medicaid Pending, part B therapies. Physical Exam Const alert General Appearance: cooperative HEENT normocephalic Eyes PERRL and EOMs intact bilaterally Neck supple, no JVD and no carotid bruits Resp normal respiratory effort, normal air movement and clear to auscultation bilaterally Cardio regular rate and regular rhythm GI normal to inspection, nondistended, normoactive bowel sounds, non-tender and non-distended Extremity normal capillary refill Extremity Narrative: Left great toe amputation. General Extremity: Negative for edema Skin no rashes or lesions noted General Skin Exam: no breakdown Psych affect normal Appearance: appropriate Weight / BMI Weight Weight: 120.021 kg Body Mass Index (BMI) 39.0 ABG / Lab / Microbiology Data 07/23/23 05:45 07/25/23 05:26 Laboratory: Laboratory Results - last 24 hr 07/29/23 21:23: POC Glucose 215 H 07/30/23 06:11: POC Glucose 155 H 07/30/23 11:08: POC Glucose 235 H 07/30/23 16:21: POC Glucose 250 H D/C Instructions Discharge Diet: No restrictions Discharge Activity: Return to Normal Activity, May Shower and Use Walker Weight Bearing Status: No weight bearing (Left lower extremity.) Call your doctor if you observe: Fever of 101 or Higher, Inability to urinate, Inability to have a bowel movement, Shortness of breath, Dizziness, Fainting spells, Swelling in the ankles, Chest pain and Uncontrolled pain Additional Instructions: Discharge 08/02/2023 to [facility], Medicaid Pending, part B therapies. Meaningful Use Info Meaningful Use Diagnoses (Choose all that apply): None applicable Discharge Plan Admission Admit Date/Time: 07/09/23 12:45 Primary Reason for Your Visit: Debility. Attending Provider: Giancarlo Boyer Chi Primary Care Provider: Jesenia Andujar Consulting Providers: Nichole Abraham Instructions Additional Instructions / Restrictions: Discharge 08/02/2023 to [facility], [facility], Medicaid Pending, part B therapies. Discharge Orders/Prescriptions Prescriptions: No Action triamcinolone acetonide 0.1 % cream 1 applic topical BID amitriptyline 50 mg tablet 50 mg PO QHS zonisamide 100 mg capsule 200 mg PO DAILY Rx Instructions: x2 oxybutynin chloride 10 mg tablet extended release 24hr 10 mg PO DAILY trazodone 150 mg tablet 300 mg PO DAILY Jardiance 25 mg tablet 25 mg PO DAILY Qty: 90 1RF lidocaine 1 PATCH patch 1 patch topical DAILY Patient Comments: pain patch- ON 12 HOURS, OFF 12 HOURS ipratropium-albuterol 3 ML solution for nebulization 3 ml inhalation Q6H PRN Qty: 1 0RF Patient Comments: for copd/shortness of breath albuterol sulfate 2.5 MG/3 ML solution for nebulization 2.5 mg inhalation Q2H PRN PRN (Reason: SHORTNESS OF BREATH ) Qty: 100 0RF Patient Comments: breathing hydrocodone-acetaminophen 1 EACH tablet 1 ea PO Q4H PRN (Reason: Pain) morphine 15 mg Tablet 15 mg PO BID Rx Instructions: Extended release tamsulosin 0.4 mg capsule 0.4 mg PO Q24H Rx Instructions: TAKE 1 CAPSULE BY MOUTH EVERY EVENING levofloxacin 500 mg tablet 500 mg PO DAILY ertapenem 1 gram recon soln 1 g IV DAILY potassium chloride [K-Tab] 20 mEq tablet extended release 20 meq PO DAILY pramipexole 0.125 mg tablet 0.125 mg PO QHS simethicone [Gas Relief (simethicone)] 80 mg tablet,chewable 80 mg PO .TIDPC Rx Instructions: after meals gabapentin 100 mg capsule 100 mg PO TIDCM lisinopril 40 mg tablet 40 mg PO DAILY ciprofloxacin HCl 0.3 % drops 2 drp EACH EYE Q4H Alin 7-7-1.5 gram powder in packet 1 ea PO BIDCM insulin regular hum U-500 conc 500 unit/mL (3 mL) insulin pen See Rx Instructions subcut BID Rx Instructions: subcutaneously twice a day; 20 units in am, 10 units in pm Mounjaro 7.5 mg/0.5 mL pen injector 7.5 mg subcut PRATHER furosemide 40 mg tablet 40 mg PO DAILY Patient Comments: TAKE 1 TABLET BY MOUTH EVERY DAY Anoro Ellipta 62.5-25 mcg/actuation blister with device 1 inh inhalation DAILY Qty: 3 3RF saxagliptin [Onglyza] 2.5 mg tablet 2.5 mg PO DAILY Qty: 90 0RF pen needle, diabetic [BD Ultra-Fine Ava Pen Needle] 32 gauge x 5/32 needle 1 ea miscellaneous .3 times daily Qty: 100 5RF rivaroxaban 15 mg tablet 15 mg PO DAILY Qty: 90 1RF Rx Instructions: must administer with evening meal benazepril 40 mg tablet 40 mg PO DAILY Qty: 90 1RF atorvastatin 40 mg tablet 80 mg PO QHS Qty: 90 0RF omeprazole 40 mg capsule,delayed release(DR/EC) 40 mg PO DAILY Qty: 90 0RF Referrals / Follow Up: Jesenia Andujar MD [Primary Care Provider] - Disposition Disposition (needs filled in before D/C Order can be placed): NonSkilled NH/Intermed Care
--- NOTE | 2023-07-30 19:50 | PCM.DC.SUM ---
Providers Date of Admission: 07/09/23 Primary Care Physician: Dr. Jesenia Andujar MD Consultations 07/09/23 13:33 Consult: Onc/Wound/elementary assistant principal Routine Comment: 07/09/23 20:52 Consult: Podiatry Routine Consulting Provider: Nichole Abraham Reason for Consult: Left hallux osteomyelitis, s/p left hallux amputation. EMERGENT Consult: No MD Notified: No Date Notified: 07/09/23 Time Notified: 20:53 Method of Consult:: In-Person 07/10/23 11:22 Consult: Podiatry Routine Consulting Provider: Nichole Abraham Reason for Consult: Osteomyelitis of left hellix. Amputation of left Hellix. EMERGENT Consult: No MD Notified: Yes Date Notified: 07/10/23 Time Notified: 11:22 Method of Notification: Verbal Reason For Visit: GANGRENE Diagnosis Discharge Diagnosis (1) Osteomyelitis of great toe of left foot: Status: Acute Code(s): M86.9 - Osteomyelitis, unspecified (2) Diabetic foot ulcers: Status: Acute Code(s): E11.621 - Type 2 diabetes mellitus with foot ulcer; L97.509 - Non-pressure chronic ulcer of other part of unspecified foot with unspecified severity Plan 68 year old male with below past medical history hospitalized for osteomyelitis left hallux, s/p left hallux amputation 07/02/[address] Abraham, complicated by cellulitis left foot, diabetic polyneuropathy, admitted to TCU with debility, here for rehabilitation, strengthening, wound care, intravenous antibiotics, prior to discharge home with . Debility - PT/OT. Pain - MS contin 15mg bid, Cooter 5/325mg 1 tab q4 prn pain (6-10). Bowel - senna/colace 1 tablet bid, Magnesium citrate 300ml daily prn. Adult immunization - Administer pneumonia vaccine, covid vaccine, flu vaccine as appropriate. DVT prophylaxis - on Xarelto. Hyperlipidemia - Atorvastatin 80mg daily. Diabetes Mellitus II - Jardiance 25mg daily, Humulin R U-500 65 units am, 55 units pm, Mounjaro 7.5mg per week. Osteomyelitis left hallux s/p left hallux amputation - Ertapenem 1gm iv q24, Levaquin 500mg daily thru 07/24/2023, consult Dr. Abraham for expert care. Hypertension - Lisinopril 40mg daily. Skin irritation - Calmoseptine topical bid. Tinea Corporis - Nystatin powder topical bid. GERD - Pantoprazole 40mg daily. Recurrent blood clots - Xarelto 15mg daily. BPH - Tamsulosin 0.4mg daily. Medications at Discharge Home Medications empagliflozin 25 mg tablet (Jardiance) 25 mg PO DAILY Diabetes #90 tabs 02/06/23 rivaroxaban 15 mg tablet 15 mg PO DAILY Blood Thinner #90 tabs 05/12/23 benazepril 40 mg tablet 40 mg PO DAILY BP #90 tabs 06/16/23 atorvastatin 40 mg tablet 80 mg (2 x 40 mg) PO QHS Check with primary doctor #90 tabs 06/18/23 omeprazole 40 mg capsule,delayed release 40 mg PO DAILY GERD #90 caps 07/07/23 tamsulosin 0.4 mg capsule 0.4 mg PO Q24H Urinary Retention 07/09/23 clotrimazole-betamethasone 1 %-0.05 % topical cream 1 applic topical BID #0 grams 07/30/23 gabapentin 100 mg capsule 100 mg PO TIDCM #0 caps 07/30/23 hydrocodone-acetaminophen 5-325mg 5mg-325mg 1 tab PO Q4H PRN PRN Pain Score 6-10 3 days #18 tabs 07/30/23 insulin regular hum U-500 conc 500 unit/mL(3 mL) subcut pen (Humulin R U-500 (Conc) Insulin Kwikpen) 10 unit (0.02 mL) subcut DAILY@1600 #0 mL 07/30/23 insulin regular hum U-500 conc 500 unit/mL(3 mL) subcut pen (Humulin R U-500 (Conc) Insulin Kwikpen) 20 unit (0.04 mL) subcut DAILY@0700 #0 mL 07/30/23 morphine 15 mg tablet,extended release 15 mg PO 0800,1999 3 days #6 tabs 07/30/23 pramipexole 0.125 mg tablet 0.125 mg PO QHS #0 tabs 07/30/23 tirzepatide 7.5 mg/0.5 mL subcutaneous pen injector (Sarah) 7.5 mg (0.5 mL) SQ Prather@1000 #0 mL 07/30/23 Hospital Course Operations - (Left hallux amputation.) Procedures None Summary of Care Provided Minutes Spent on Discharge: 36 Hospital Course: 68 year old male with below past medical history hospitalized for osteomyelitis left hallux, s/p left hallux amputation 07/02/[address] Abraham, complicated by cellulitis left foot, diabetic polyneuropathy, admitted to TCU with debility, here for rehabilitation, strengthening, wound care, intravenous antibiotics, prior to discharge home with . Discharge 08/02/2023 to [facility], intermediate, Medicaid Pending, part B therapies. Physical Exam Const alert General Appearance: cooperative HEENT normocephalic Eyes PERRL and EOMs intact bilaterally Neck supple, no JVD and no carotid bruits Resp normal respiratory effort, normal air movement and clear to auscultation bilaterally Cardio regular rate and regular rhythm GI normal to inspection, nondistended, normoactive bowel sounds, non-tender and non-distended Extremity normal capillary refill Extremity Narrative: Left great toe amputation. General Extremity: Negative for edema Skin no rashes or lesions noted General Skin Exam: no breakdown Psych affect normal Appearance: appropriate Weight / BMI Weight Weight: 120.021 kg Body Mass Index (BMI) 39.0 ABG / Lab / Microbiology Data 07/23/23 05:45 07/25/23 05:26 Laboratory: Laboratory Results - last 24 hr 07/29/23 21:23: POC Glucose 215 H 07/30/23 06:11: POC Glucose 155 H 07/30/23 11:08: POC Glucose 235 H 07/30/23 16:21: POC Glucose 250 H D/C Instructions Discharge Diet: No restrictions Discharge Activity: Return to Normal Activity, May Shower and Use Walker Weight Bearing Status: No weight bearing (Left lower extremity.) Call your doctor if you observe: Fever of 101 or Higher, Inability to urinate, Inability to have a bowel movement, Shortness of breath, Dizziness, Fainting spells, Swelling in the ankles, Chest pain and Uncontrolled pain Additional Instructions: Discharge 08/02/2023 to [facility], intermediate, Medicaid Pending, part B therapies. Meaningful Use Info Meaningful Use Diagnoses (Choose all that apply): None applicable Discharge Plan Admission Admit Date/Time: 07/09/23 12:45 Primary Reason for Your Visit: Debility. Attending Provider: Giancarlo Boyer Chi Primary Care Provider: Jesenia Andujar Consulting Providers: Nichole Abraham Instructions Additional Instructions / Restrictions: Discharge 08/02/2023 to [facility], [facility], Medicaid Pending, part B therapies. Discharge Orders/Prescriptions Prescriptions: New hydrocodone-acetaminophen 5-325 mg Tablet 1 tab PO Q4H PRN PRN (Reason: Pain Score 6-10) 3 Days Qty: 18 0RF clotrimazole-betamethasone 1-0.05 % Cream 1 applic topical BID Qty: 0 0RF Protocol: *Topical Application Instructions APPLICATION INSTRUCTIONS: Apply to abdominal fold groin and bilateral buttock. pramipexole 0.125 mg Tablet 0.125 mg PO QHS Qty: 0 0RF morphine 15 mg Tablet Extended Release 15 mg PO 0800,2000 3 Days Qty: 6 0RF gabapentin 100 mg Capsule 100 mg PO TIDCM Qty: 0 0RF Humulin R U-500 (Conc) Kwikpen 500 unit/mL (3 mL) Insulin Pen 10 unit subcut DAILY@1600 Qty: 0 0RF Humulin R U-500 (Conc) Kwikpen 500 unit/mL (3 mL) Insulin Pen 20 unit subcut DAILY@0700 Qty: 0 0RF Mounjaro 7.5 mg/0.5 mL Pen Injector 7.5 mg SQ Prather@1000 Qty: 0 0RF Continued Jardiance 25 mg tablet 25 mg PO DAILY Qty: 90 1RF tamsulosin 0.4 mg capsule 0.4 mg PO Q24H Rx Instructions: TAKE 1 CAPSULE BY MOUTH EVERY EVENING rivaroxaban 15 mg tablet 15 mg PO DAILY Qty: 90 1RF Rx Instructions: must administer with evening meal benazepril 40 mg tablet 40 mg PO DAILY Qty: 90 1RF atorvastatin 40 mg tablet 80 mg PO QHS Qty: 90 0RF omeprazole 40 mg capsule,delayed release(DR/EC) 40 mg PO DAILY Qty: 90 0RF Discontinued triamcinolone acetonide 0.1 % cream 1 applic topical BID amitriptyline 50 mg tablet 50 mg PO QHS zonisamide 100 mg capsule 200 mg PO DAILY Rx Instructions: x2 oxybutynin chloride 10 mg tablet extended release 24hr 10 mg PO DAILY trazodone 150 mg tablet 300 mg PO DAILY lidocaine 1 PATCH patch 1 patch topical DAILY Patient Comments: pain patch- ON 12 HOURS, OFF 12 HOURS ipratropium-albuterol 3 ML solution for nebulization 3 ml inhalation Q6H PRN Qty: 1 0RF Patient Comments: for copd/shortness of breath albuterol sulfate 2.5 MG/3 ML solution for nebulization 2.5 mg inhalation Q2H PRN PRN (Reason: SHORTNESS OF BREATH ) Qty: 100 0RF Patient Comments: breathing hydrocodone-acetaminophen 1 EACH tablet 1 ea PO Q4H PRN (Reason: Pain) morphine 15 mg Tablet 15 mg PO BID Rx Instructions: Extended release levofloxacin 500 mg tablet 500 mg PO DAILY ertapenem 1 gram recon soln 1 g IV DAILY potassium chloride [K-Tab] 20 mEq tablet extended release 20 meq PO DAILY pramipexole 0.125 mg tablet 0.125 mg PO QHS simethicone [Gas Relief (simethicone)] 80 mg tablet,chewable 80 mg PO .TIDPC Rx Instructions: after meals gabapentin 100 mg capsule 100 mg PO TIDCM lisinopril 40 mg tablet 40 mg PO DAILY ciprofloxacin HCl 0.3 % drops 2 drp EACH EYE Q4H Alin 7-7-1.5 gram powder in packet 1 ea PO BIDCM insulin regular hum U-500 conc 500 unit/mL (3 mL) insulin pen See Rx Instructions subcut BID Rx Instructions: subcutaneously twice a day; 20 units in am, 10 units in pm Mounjaro 7.5 mg/0.5 mL pen injector 7.5 mg subcut PRATHER furosemide 40 mg tablet 40 mg PO DAILY Patient Comments: TAKE 1 TABLET BY MOUTH EVERY DAY Anoro Ellipta 62.5-25 mcg/actuation blister with device 1 inh inhalation DAILY Qty: 3 3RF saxagliptin [Onglyza] 2.5 mg tablet 2.5 mg PO DAILY Qty: 90 0RF pen needle, diabetic [BD Ultra-Fine Ava Pen Needle] 32 gauge x 5/32 needle 1 ea miscellaneous .3 times daily Qty: 100 5RF Referrals / Follow Up: Jesenia Andujar MD [Primary Care Provider] - Disposition Disposition (needs filled in before D/C Order can be placed): NonSkilled NH/Intermed Care
--- NOTE | 2023-07-30 19:58 | TREXTCAR_ITS ---
Diet Diet Order/Speech Therapy: 07/10/23 08:16 Diet: Carbohydrate Controlled Food consistency:: Soft & Bite Sized Liquid Consistency:: Regular/Thin Type of Dietary Supplement:: Glucerna Shake Is pt able to select menu?: Yes Diet Comments: 4 oz louise glucerna shake tid;OK for reg.soda if within CHO limit Routine Orders/Code Status Code Status: Full Code Wound(s) left foot: Wound Type: Neuropathic/Diabetic Foot Ulcer Dressing Change: KCI wound VAC Therapies Weight Bearing: Non weight bearing Extremity Affected:: Left Lower Physical Therapy: Eval and Treat Occupational Therapy: Eval and Treat Problem/Diagnosis (1) Osteomyelitis of great toe of left foot: Status: Acute Code(s): M86.9 - Osteomyelitis, unspecified (2) Diabetic foot ulcers: Status: Acute Code(s): E11.621 - Type 2 diabetes mellitus with foot ulcer; L97.509 - Non-pressure chronic ulcer of other part of unspecified foot with unspecified severity Plan 68 year old male with below past medical history hospitalized for osteomyelitis left hallux, s/p left hallux amputation 07/02/[address] Abraham, complicated by cellulitis left foot, diabetic polyneuropathy, admitted to TCU with debility, here for rehabilitation, strengthening, wound care, intravenous antibiotics, prior to discharge home with . * Debility - PT/OT. * Pain - MS contin 15mg bid, [place] 5/325mg 1 tab q4 prn pain (6-10). * Bowel - senna/colace 1 tablet bid, Magnesium citrate 300ml daily prn. * Adult immunization - Administer pneumonia vaccine, covid vaccine, flu vaccine as appropriate. * DVT prophylaxis - on Xarelto. * Hyperlipidemia - Atorvastatin 80mg daily. * Diabetes Mellitus II - Jardiance 25mg daily, Humulin R U-500 65 units am, 55 units pm, Mounjaro 7.5mg per week. * Osteomyelitis left hallux s/p left hallux amputation - Ertapenem 1gm iv q24, Levaquin 500mg daily thru 07/24/2023, consult Dr. Abraham for expert care. * Hypertension - Lisinopril 40mg daily. * Skin irritation - Calmoseptine topical bid. * Tinea Corporis - Nystatin powder topical bid. * GERD - Pantoprazole 40mg daily. * Recurrent blood clots - Xarelto 15mg daily. * BPH - Tamsulosin 0.4mg daily. Allergies/Procedures Done in Hospital Allergies cilostazol [From Pletal] Allergy (Verified 02/06/23 10:24) Other headaches etodolac [From Lodine] Allergy (Verified 02/06/23 10:24) Hives causes breathing trouble as well nabumetone [From Relafen] Allergy (Verified 02/06/23 10:24) Hives naproxen sodium [From Aleve] Allergy (Verified 02/06/23 10:24) Hives causes breathing trouble as well Penicillins Allergy (Verified 02/06/23 10:24) Hives Procedures: None Type of Care/Length of Stay Estimated LOS: Convalescent Care Less Than 30 days Type of Care Needed: Intermediate Rehab Potential: Fair Prognosis: Good Additional Orders/Day of Discharge Day of Discharge: 08/02/23 Dietary and Speech Recommendations Dietitian Recommendations/Changes: Continue CHO controlled diet - consistency per BENEFITS CONSULTING ANALYST Continue 4 oz chocolate glucerna shake w/ meals tid Discharge Plan Admission Admit Date/Time: 07/09/23 12:45 Primary Reason for Your Visit: Debility. Attending Provider: Giancarlo Boyer Chi Primary Care Provider: Jesenia Andujar Consulting Providers: Nichole Abraham Instructions Additional Instructions / Restrictions: Discharge 08/02/2023 to [facility], intermediate, Medicaid Pending, part B therapies. Discharge Orders/Prescriptions Prescriptions: New hydrocodone-acetaminophen 5-325 mg Tablet 1 tab PO Q4H PRN PRN (Reason: Pain Score 6-10) 3 Days Qty: 18 0RF clotrimazole-betamethasone 1-0.05 % Cream 1 applic topical BID Qty: 0 0RF Protocol: *Topical Application Instructions APPLICATION INSTRUCTIONS: Apply to abdominal fold groin and bilateral buttock. pramipexole 0.125 mg Tablet 0.125 mg PO QHS Qty: 0 0RF morphine 15 mg Tablet Extended Release 15 mg PO 0800,2000 3 Days Qty: 6 0RF gabapentin 100 mg Capsule 100 mg PO TIDCM Qty: 0 0RF Humulin R U-500 (Conc) Kwikpen 500 unit/mL (3 mL) Insulin Pen 10 unit subcut DAILY@1600 Qty: 0 0RF Humulin R U-500 (Conc) Kwikpen 500 unit/mL (3 mL) Insulin Pen 20 unit subcut DAILY@0700 Qty: 0 0RF Mounjaro 7.5 mg/0.5 mL Pen Injector 7.5 mg SQ Prather@1000 Qty: 0 0RF Continued Jardiance 25 mg tablet 25 mg PO DAILY Qty: 90 1RF tamsulosin 0.4 mg capsule 0.4 mg PO Q24H Rx Instructions: TAKE 1 CAPSULE BY MOUTH EVERY EVENING rivaroxaban 15 mg tablet 15 mg PO DAILY Qty: 90 1RF Rx Instructions: must administer with evening meal benazepril 40 mg tablet 40 mg PO DAILY Qty: 90 1RF atorvastatin 40 mg tablet 80 mg PO QHS Qty: 90 0RF omeprazole 40 mg capsule,delayed release(DR/EC) 40 mg PO DAILY Qty: 90 0RF Discontinued triamcinolone acetonide 0.1 % cream 1 applic topical BID amitriptyline 50 mg tablet 50 mg PO QHS zonisamide 100 mg capsule 200 mg PO DAILY Rx Instructions: x2 oxybutynin chloride 10 mg tablet extended release 24hr 10 mg PO DAILY trazodone 150 mg tablet 300 mg PO DAILY lidocaine 1 PATCH patch 1 patch topical DAILY Patient Comments: pain patch- ON 12 HOURS, OFF 12 HOURS ipratropium-albuterol 3 ML solution for nebulization 3 ml inhalation Q6H PRN Qty: 1 0RF Patient Comments: for copd/shortness of breath albuterol sulfate 2.5 MG/3 ML solution for nebulization 2.5 mg inhalation Q2H PRN PRN (Reason: SHORTNESS OF BREATH ) Qty: 100 0RF Patient Comments: breathing hydrocodone-acetaminophen 1 EACH tablet 1 ea PO Q4H PRN (Reason: Pain) morphine 15 mg Tablet 15 mg PO BID Rx Instructions: Extended release levofloxacin 500 mg tablet 500 mg PO DAILY ertapenem 1 gram recon soln 1 g IV DAILY potassium chloride [K-Tab] 20 mEq tablet extended release 20 meq PO DAILY pramipexole 0.125 mg tablet 0.125 mg PO QHS simethicone [Gas Relief (simethicone)] 80 mg tablet,chewable 80 mg PO .TIDPC Rx Instructions: after meals gabapentin 100 mg capsule 100 mg PO TIDCM lisinopril 40 mg tablet 40 mg PO DAILY ciprofloxacin HCl 0.3 % drops 2 drp EACH EYE Q4H Alin 7-7-1.5 gram powder in packet 1 ea PO BIDCM insulin regular hum U-500 conc 500 unit/mL (3 mL) insulin pen See Rx Instructions subcut BID Rx Instructions: subcutaneously twice a day; 20 units in am, 10 units in pm Mounjaro 7.5 mg/0.5 mL pen injector 7.5 mg subcut PRATHER furosemide 40 mg tablet 40 mg PO DAILY Patient Comments: TAKE 1 TABLET BY MOUTH EVERY DAY Anoro Ellipta 62.5-25 mcg/actuation blister with device 1 inh inhalation DAILY Qty: 3 3RF saxagliptin [Onglyza] 2.5 mg tablet 2.5 mg PO DAILY Qty: 90 0RF pen needle, diabetic [BD Ultra-Fine Ava Pen Needle] 32 gauge x 5/32 needle 1 ea miscellaneous .3 times daily Qty: 100 5RF Referrals / Follow Up: Jesenia Andujar MD [Primary Care Provider] - Disposition Disposition (needs filled in before D/C Order can be placed): NonSkilled NH/Intermed Care
[2023-07-30] MEDS: Atorvastatin Calcium 80 MG Tablet PO (20:04)
[2023-07-30] MEDS: Pramipexole Di-HCl 0.125 MG Tablet PO (20:04)
[2023-07-30 21:56] LABS: Bedside Glucose 210 mg/dL (74-106)
[2023-07-31 06:14] LABS: Bedside Glucose 215 mg/dL (74-106)
[2023-07-31] MEDS: Empagliflozin 25 MG Tablet PO (08:08)
[2023-07-31] MEDS: Gabapentin 100 MG Capsule PO ×3 (08:08→17:41)
[2023-07-31] MEDS: Insulin U-500 UNITS/ML PEN 20 UNITS SC (08:08)
[2023-07-31] MEDS: Pantoprazole Sodium 40 MG Tablet PO (08:09)
[2023-07-31] MEDS: morphine SR 15 MG Tablet PO ×2 (08:09→22:03)
[2023-07-31] MEDS: Menthol/Lanolin/Calamine/Znox 113 GM Tube 1 APPLIC TOPICAL ×2 (08:09→22:05)
[2023-07-31] MEDS: SimETHICONE 80 MG Chewable Tablet PO ×3 (08:09→17:41)
[2023-07-31] MEDS: Lisinopril 40 MG Tablet PO (08:09)
[2023-07-31] MEDS: Clotrimazole/Betamethasone 1 Tube 1 APPLIC TOPICAL ×2 (08:09→22:04)
[2023-07-31 08:10] VITALS: O2SAT 96
[2023-07-31 08:12] VITALS: BP 129/64; PULSE 99; RESP 18; TEMP 36.2; O2SAT 91
--- NOTE | 2023-07-31 08:18 | NURSING ---
pt refused stool softeners this AM, reports passing gas and feels like he will go today. Educated pt on importance of staying regular to prevent constipation. pt verbalized understanding but continues to refuse senna-s at this time. pt stated dr Boyer and I had a round lastnight
[2023-07-31 11:03] LABS: Bedside Glucose 192 mg/dL (74-106)
[2023-07-31 16:15] LABS: Bedside Glucose 236 mg/dL (74-106)
[2023-07-31] MEDS: Tamsulosin HCl 0.4 MG Capsule 0.400000000000000022 MG PO (17:41)
[2023-07-31] MEDS: Rivaroxaban 15 MG Tablet PO (17:41)
[2023-07-31] MEDS: Insulin U-500 UNITS/ML PEN 10 UNITS SC (17:41)
[2023-07-31] MEDS: traZODone 100 MG Tablet 300 MG PO (17:41)
[2023-07-31] MEDS: Senna/Docusate Sodium 1 Tablet 2 TABLET PO (17:43)
[2023-07-31 18:06] VITALS: O2SAT 93
[2023-07-31] MEDS: Pramipexole Di-HCl 0.125 MG Tablet PO (22:03)
[2023-07-31] MEDS: Atorvastatin Calcium 80 MG Tablet PO (22:03)
[2023-07-31 22:14] LABS: Bedside Glucose 282 mg/dL (74-106)
[2023-07-31 22:30] VITALS: PULSE 67; RESP 16
[2023-08-01 06:45] LABS: Bedside Glucose 159 mg/dL (74-106)
[2023-08-01 08:07] VITALS: O2SAT 94
[2023-08-01 09:52] VITALS: BP 118/42; PULSE 74; RESP 18; TEMP 36.1; O2SAT 97
[2023-08-01] MEDS: Lisinopril 40 MG Tablet PO (09:58)
[2023-08-01] MEDS: SimETHICONE 80 MG Chewable Tablet PO ×3 (09:58→17:40)
[2023-08-01] MEDS: morphine SR 15 MG Tablet PO ×2 (09:58→21:13)
[2023-08-01] MEDS: Empagliflozin 25 MG Tablet PO (09:58)
[2023-08-01] MEDS: Gabapentin 100 MG Capsule PO ×3 (09:58→17:42)
[2023-08-01] MEDS: Pantoprazole Sodium 40 MG Tablet PO (09:58)
[2023-08-01] MEDS: Menthol/Lanolin/Calamine/Znox 113 GM Tube 1 APPLIC TOPICAL ×2 (09:59→21:13)
[2023-08-01] MEDS: Clotrimazole/Betamethasone 1 Tube 1 APPLIC TOPICAL (09:59)
[2023-08-01] MEDS: Insulin U-500 UNITS/ML PEN 20 UNITS SC (09:59)
[2023-08-01 11:19] LABS: Bedside Glucose 292 mg/dL (74-106)
--- NOTE | 2023-08-01 13:18 | WOUNDNOTE ---
Pt is being discharged to the snf tomorrow am. this nurse will leave the wound VAC dressing in place and the nurse will remove the dressing prior to discharge tomorrow. the snf will reapply the VAC once the patient gets to the snf. CHAKA Snyder aware of plan and will pass on to the next shift. Pt very appreciative of the care.
--- NOTE | 2023-08-01 16:09 | CASEMGMT ---
Social Work BIMS () and PHQ-2 () completed for MDS assessment. Monica Jarrett MSW PRINCIPAL ADMINISTRATIVE CLERK
[2023-08-01 17:08] LABS: Bedside Glucose 299 mg/dL (74-106)
[2023-08-01] MEDS: traZODone 100 MG Tablet 300 MG PO (17:39)
[2023-08-01] MEDS: Insulin U-500 UNITS/ML PEN 10 UNITS SC (17:40)
[2023-08-01] MEDS: Tamsulosin HCl 0.4 MG Capsule 0.400000000000000022 MG PO (17:40)
[2023-08-01] MEDS: Rivaroxaban 15 MG Tablet PO (17:40)
[2023-08-01 18:27] VITALS: PULSE 74; RESP 16; O2SAT 97
[2023-08-01] MEDS: Pramipexole Di-HCl 0.125 MG Tablet PO (21:14)
[2023-08-01] MEDS: Atorvastatin Calcium 80 MG Tablet PO (21:14)
[2023-08-01] MEDS: Senna/Docusate Sodium 1 Tablet 2 TABLET PO (21:15)
[2023-08-01 21:26] LABS: Bedside Glucose 273 mg/dL (74-106)
[2023-08-02 06:55] LABS: Bedside Glucose 180 mg/dL (74-106)
[2023-08-02 07:00] VITALS: PULSE 68; RESP 18; O2SAT 96
[2023-08-02] MEDS: Insulin U-500 UNITS/ML PEN 20 UNITS SC (08:18)
[2023-08-02] MEDS: Gabapentin 100 MG Capsule PO (08:19)
[2023-08-02] MEDS: Empagliflozin 25 MG Tablet PO (08:19)
[2023-08-02] MEDS: Pantoprazole Sodium 40 MG Tablet PO (08:19)
[2023-08-02] MEDS: Menthol/Lanolin/Calamine/Znox 113 GM Tube 1 APPLIC TOPICAL (08:19)
[2023-08-02] MEDS: morphine SR 15 MG Tablet PO (08:19)
[2023-08-02] MEDS: SimETHICONE 80 MG Chewable Tablet PO (08:19)
[2023-08-02] MEDS: Lisinopril 40 MG Tablet PO (08:19)
[2023-08-02] MEDS: Clotrimazole/Betamethasone 1 Tube 1 APPLIC TOPICAL (08:20)
[2023-08-02 08:25] VITALS: BP 123/59; PULSE 91
[2023-08-02 08:54] VITALS: O2SAT 96
== END 2023-08-02 12:35 | disposition intermediate care facility (04) | DRG 560 ==
PROVIDERS: Admitting Provider Family Medicine Geriatric Medicine; PCP Internal Medicine; Visit Provider Family Medicine Geriatric Medicine
DX: Z47.81 Encounter for orthopedic aftercare following surgical amputation (principal); E11.52 Type 2 diabetes mellitus with diabetic peripheral angiopathy with gangrene; L03.116 Cellulitis of left lower limb; M86.8X7 Other osteomyelitis, ankle and foot; L97.529 Non-pressure chronic ulcer of other part of left foot with unspecified severity; E11.22 Type 2 diabetes mellitus with diabetic chronic kidney disease; B35.4 Tinea corporis; J43.9 Emphysema, unspecified; N18.31 Chronic kidney disease, stage 3a; E11.42 Type 2 diabetes mellitus with diabetic polyneuropathy; E11.59 Type 2 diabetes mellitus with other circulatory complications; E11.621 Type 2 diabetes mellitus with foot ulcer; E11.69 Type 2 diabetes mellitus with other specified complication; Z89.422 Acquired absence of other left toe(s); Z79.4 Long term (current) use of insulin; I12.9 Hypertensive chronic kidney disease with stage 1 through stage 4 chronic kidney disease, or unspecified chronic kidney disease; G25.81 Restless legs syndrome; E78.5 Hyperlipidemia, unspecified; G47.33 Obstructive sleep apnea (adult) (pediatric); K21.9 Gastro-esophageal reflux disease without esophagitis; H10.9 Unspecified conjunctivitis; Z87.891 Personal history of nicotine dependence; Z79.84 Long term (current) use of oral hypoglycemic drugs; Z86.718 Personal history of other venous thrombosis and embolism; N40.0 Benign prostatic hyperplasia without lower urinary tract symptoms; Z86.711 Personal history of pulmonary embolism; Z79.899 Other long term (current) drug therapy; G47.00 Insomnia, unspecified
CPT/HCPCS: 36415; 74018; 80048; 82962; 85014; 85018; 85025; 92526; 92610; 97110; 97162; 97166; 97530; 97535; 97542; 97802; 99406; J2997; J7030; J7050; A4216; J1610

== ENCOUNTER 2023-07-22 03:16 | Emergency (ER) | payer MEDICARE, SELFPAY ==
[2023-07-22] VITALS (75 sets, daily range): BP systolic 69–134; BP diastolic 34–112; PULSE 71–95; RESP 13–21; TEMP 36.1–36.9; O2SAT 91–100; BMI 40.8
--- NOTE | 2023-07-22 03:23 | EKG12_ITS ---
Test Reason : Blood Pressure : / mmHG Vent. Rate : 091 BPM Atrial Rate : 091 BPM P-R Int : 186 ms QRS Dur : 102 ms QT Int : 352 ms P-R-T Axes : 067 -37 061 degrees QTc Int : 432 ms Normal sinus rhythm Left axis deviation Incomplete right bundle branch block Abnormal ECG Confirmed by BING DONG, ZECHARIAH ([id number]), city editor LUCAS REESE ([id number]) on 07/28/2023 10:08:45 AM Referred By: Confirmed By:BETTY SMART MD
--- NOTE | 2023-07-22 03:23 | RAD_ITS ---
EXAM: XR CHEST, 1 VIEW CLINICAL INDICATION: sob, cough TECHNIQUE: Frontal view of the chest. COMPARISON: April 07, 2023 chest x-ray. FINDINGS: LUNGS AND PLEURAL SPACES: Calcified pleural plaque at the left hemidiaphragm. Degenerative changes at the acromioclavicular joints and spine. No pneumothorax. No effusion. HEART: Unremarkable. Cardiac silhouette not enlarged. MEDIASTINUM: Central airways and mediastinal contour are unremarkable. BONES/JOINTS: Unremarkable. No acute fracture. SOFT TISSUES: Unremarkable. TUBES, LINES AND DEVICES: Right PICC. Tip is located at the cavoatrial junction. RAD/Chest 1 View (Portable) IMPRESSION: No acute disease. Electronically Signed: Lukas Jordan MD at 4:51 EST ,
--- NOTE | 2023-07-22 03:30 | EX.ED.DYSGE1 ---
HPI History of Present Illness Chief Complaint: Hypotension Informant: patient Narrative Narrative: Patient is a 68-year-old male with history of PE, COPD (2 L oxygen baseline), diabetes, peripheral neuropathy and diabetic foot wounds on the left foot presenting from TCU for hypotension and increased O2 demands. Per nursing report patient was normal and then about an hour prior to arrival to start coughing a lot. His blood pressure was (60/32) and he is needing 4+ liters of oxygen. Stretcher to the ER for further evaluation. Patient states he is tired but is 3 in the morning. He has no complaints and states he feels fine. Denies feeling short of breath, chest pain, nausea, vomiting, black or blood in his stool or any other complaints at this time. Is on Xarelto for his history of PE. [facility] Medical History Allergies Arthritis Asthma Back problem Bilateral pulmonary embolism Bleeding disorder Bronchitis Carpal tunnel syndrome Cataracts, bilateral Chronic pain COPD (chronic obstructive pulmonary disease) Depression Diabetes Emphysema lung Essential hypertension Gastrointestinal problem GERD (gastroesophageal reflux disease) History of DVT of lower extremity Hx of blood clots Hyperlipidemia Hypoxia Leukocytosis Morbid obesity Neuropathy Pneumonia Skin cancer Sleep apnea Smokes with greater than 40 pack year history Stage 3a chronic kidney disease (CKD) Stiff-man syndrome Stroke Thoracic outlet syndrome UTI (urinary tract infection) Vascular disease Vision problems Home Medications lidocaine 5 % topical patch 1 patch topical DAILY Check with primary doctor 12/24/13 [History Last Taken 03/30/22 10:00] ipratropium 0.5 mg-albuterol 3 mg (2.5 mg base)/3 mL nebulization soln 3 ml inhalation Q6H PRN ##1 12/26/13 [Rx Last Taken Unknown] albuterol sulfate 2.5 mg/3 mL (0.083 %) solution for nebulization 2.5 mg (3 mL) inhalation Q2H PRN PRN SHORTNESS OF BREATH ##100 02/05/14 [Rx Last Taken Unknown] hydrocodone 7.5 mg-acetaminophen 325 mg tablet 1 ea PO Q4H PRN Pain 10/12/14 [History Last Taken Unknown] morphine 15 mg immediate release tablet 15 mg PO BID pain 03/30/22 [History Last Taken 03/30/22 22:00] amitriptyline 50 mg tablet 50 mg PO QHS 06/11/22 [History Last Taken Unknown] oxybutynin chloride 10 mg tablet,extended release 24 hr 10 mg PO DAILY 06/11/22 [History Last Taken Unknown] zonisamide 100 mg capsule 200 mg PO DAILY 06/11/22 [History Last Taken Unknown] triamcinolone acetonide 0.1 % topical cream 1 applic topical BID 07/26/22 [History Last Taken Unknown] furosemide 40 mg tablet 40 mg PO DAILY 08/08/22 [History Last Taken Unknown] umeclidinium 62.5 mcg-vilanterol 25 mcg/actuation powdr for inhalation (Anoro Ellipta) 1 inh inhalation DAILY #3 ea 08/12/22 [Rx Last Taken Unknown] trazodone 150 mg tablet 300 mg PO DAILY 09/12/22 [History Last Taken Unknown] empagliflozin 25 mg tablet (Jardiance) 25 mg PO DAILY Diabetes #90 tabs 02/06/23 [Rx Last Taken Unknown] saxagliptin 2.5 mg tablet (Onglyza) 2.5 mg PO DAILY #90 tabs 04/01/23 [Rx Last Taken Unknown] pen needle, diabetic 32 gauge x 5/32 (BD Ultra-Fine Ava Pen Needle) 1 ea miscellaneous .3 times daily #100 ea 04/02/23 [Rx Last Taken Unknown] rivaroxaban 15 mg tablet 15 mg PO DAILY Blood Thinner #90 tabs 05/12/23 [Rx Last Taken Unknown] benazepril 40 mg tablet 40 mg PO DAILY BP #90 tabs 06/16/23 [Rx Last Taken Unknown] atorvastatin 40 mg tablet 80 mg (2 x 40 mg) PO QHS Check with primary doctor #90 tabs 06/18/23 [Rx Last Taken Unknown] omeprazole 40 mg capsule,delayed release 40 mg PO DAILY GERD #90 caps 07/07/23 [Rx Last Taken Unknown] ertapenem 1 gram intravenous solution 1 g IV DAILY Antibiotic 07/09/23 [History Last Taken Unknown] levofloxacin 500 mg tablet 500 mg PO DAILY Antibiotic 07/09/23 [History Last Taken Unknown] tamsulosin 0.4 mg capsule 0.4 mg PO Q24H Urinary Retention 07/09/23 [History Last Taken Unknown] arginine 7 gram-glutamine 7 gram-calcium HMB 1.5 gram oral powder pack (Alin) 1 ea PO BIDCM 07/22/23 [History Last Taken Unknown] ciprofloxacin HCl 0.3 % eye drops 2 drp EACH EYE Q4H 07/22/23 [History Last Taken Unknown] gabapentin 100 mg capsule 100 mg PO TIDCM 07/22/23 [History Last Taken Unknown] insulin regular hum U-500 conc 500 unit/mL(3 mL) subcut pen See Rx Instructions subcut BID Diabetes 07/22/23 [History Last Taken Unknown] lisinopril 40 mg tablet 40 mg PO DAILY 07/22/23 [History Last Taken Unknown] potassium chloride 20 mEq tablet,extended release (K-Tab) 20 meq PO DAILY 07/22/23 [History Last Taken Unknown] pramipexole 0.125 mg tablet 0.125 mg PO QHS 07/22/23 [History Last Taken Unknown] simethicone 80 mg chewable tablet (Gas Relief (simethicone)) 80 mg PO .TIDPC 07/22/23 [History Last Taken Unknown] tirzepatide 7.5 mg/0.5 mL subcutaneous pen injector (Mounjaro) 7.5 mg subcut PRATHER Diabetes 07/22/23 [History Last Taken Unknown] Allergy/AdvReac Type Severity Reaction Status Date / Time cilostazol [From Pletal] Allergy Other Verified 02/06/23 10:24 etodolac [From Lodine] Allergy Hives Verified 02/06/23 10:24 nabumetone [From Relafen] Allergy Hives Verified 02/06/23 10:24 naproxen sodium [From Aleve] Allergy Hives Verified 02/06/23 10:24 Penicillins Allergy Hives Verified 02/06/23 10:24 Family History Brother Alcoholism Diabetes Father Alcoholism Hypertension Mother Arthritis Diabetes Hypertension Breast cancer Grandfather Colon cancer Grandfather Prostate cancer Other COPD (chronic obstructive pulmonary disease) Surgical History History of surgical procedure History of surgical procedure S/P TURP Status post surgical removal of malignant neoplasm of skin Social History household members: spouse housing: house current occupational status: retired 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 Smoking Status: Former smoker quit date: 07/25/15 pack-years: 80 Electronic Cigarette Use: not used how long ago did patient quit smoking: Quit 7 years ago alcohol intake: never substance use type: does not use do you feel safe at home: Yes ROS ROS ED Constitutional Constitutional ED: Denies chills or fever(s) Cardiovascular Cardiovascular: Denies chest pain Respiratory/Chest Respiratory/Chest: Reports cough; Denies dyspnea or sputum Gastrointestinal Gastrointestinal: Denies abdominal pain, nausea or vomiting Musculoskeletal Musculoskeletal: Denies arthralgias or myalgias Integumentary Denies rash Neurologic Neurologic: Reports weakness; Denies headache(s) Psychiatric Psychiatric: Denies anxiety Hematologic/Lymphatic Hematologic/Lymphatic: Reports easy bleeding and easy bruising EXAM Physical Exam Const Vital Signs: 07/22/23 03:21 07/22/23 03:24 07/22/23 03:22 Temperature 98.5 F Temperature Source Temporal Pulse Rate 93 Respiratory Rate 21 H Respiratory Effort Normal Respiratory Pattern Normal Blood Pressure 80/50 L Blood Pressure Mean 60 Pulse Ox 93 Oxygen Delivery Method Nasal Cannula Nasal Cannula Oxygen Flow Rate (L/min) 5 5 07/22/23 03:46 07/22/23 04:23 07/22/23 04:55 Temperature 98 F Temperature Source Temporal Pulse Rate 95 92 Respiratory Rate 16 Respiratory Effort Respiratory Pattern Blood Pressure 93/76 82/43 L 84/44 L Blood Pressure Mean 81 56 57 Pulse Ox 92 Oxygen Delivery Method Nasal Cannula Nasal Cannula Oxyhood Oxygen Flow Rate (L/min) 5 5 07/22/23 03:32 07/22/23 05:00 07/22/23 06:00 Temperature Temperature Source Pulse Rate 92 86 76 Respiratory Rate 20 H 18 18 Respiratory Effort Respiratory Pattern Blood Pressure 88/46 L 88/47 L Blood Pressure Mean 60 60 Pulse Ox 93 93 Oxygen Delivery Method Nasal Cannula Nasal Cannula Oxygen Flow Rate (L/min) 5 5 07/22/23 06:47 07/22/23 07:00 Temperature Temperature Source Pulse Rate 78 77 Respiratory Rate 19 H 16 Respiratory Effort Respiratory Pattern Blood Pressure 96/45 L 112/60 Blood Pressure Mean 62 77 Pulse Ox 92 91 Oxygen Delivery Method Nasal Cannula Nasal Cannula Oxygen Flow Rate (L/min) 5 3 Positive well nourished and well developed General Appearance ED: well developed and NAD HEENT Reports dry mucous membranes Mouth ED: Yes dry mucous membranes Mouth: dry mucous membranes Eyes PERRL Neck supple Chest Wall inspection of chest normal and palpation of chest normal Resp normal respiratory effort Auscultation: wheezes and diminished lung sounds Cardio regular rate, regular rhythm and no murmurs GI normal to inspection, nondistended, normoactive bowel sounds and non-tender Extremity Extremity Narrative: Wound VAC in place over the left foot where great toe would be. PICC line in place in the right upper extremity General Extremety ED: Negative for edema General Extremity: Negative for edema Neuro oriented x3 Neuro Narrative: No focal deficits appreciated Sensorium / Orientation: alert Motor Exam: general weakness Psych mental status grossly normal Skin no rashes or lesions noted MDM MDM MDM Narrative Medical decision making narrative: Patient is evaluated for increased O2 demands and hypotension in TCU. Chart view shows that patient's blood pressure over the last few days has been soft (high 90s to 110's systolic) however this evening it was 65/33 and 60/30 in the TCU.In addition patient was 79% on 2 L and then 85% on 4 L. Cardiorespiratory and septic workup is initiated. Patient is given a liter of IV fluid. He is wheezing on my exam and is given a DuoNeb. Differential includes pneumothorax (less likely as he has bilateral breath sounds), pneumonia, influenza, ACS, CHF exacerbation, bacteremia. Patient is found to have a mild leukocytosis of 13.1. Hemoglobin is stable at 10.4. Leukocytosis actually mildly downtrending. Does not have an acute left shift. Lactate is normal at 0.7. BMP shows a chronic appearing hypercapnia with a bicarb of 37, he does have an elevation of his creatinine of 1.63 which is uptrending from 5 days ago but significantly above his baseline from 10 days ago of 0.67 and 0.76 respectively. Suspect patient is volume depleted. Is high since he troponin is normal at 27 I do not suspect ACS as a cause of his symptoms. He is anticoagulated so low suspicion for pulmonary emboli. Urinalysis is pending at this time I do not have an obvious source of infection to explain his hypotension suspect this is more volume depletion. Given his significant volume depletion and LOULOU I did consider admission to the hospital. Case was discussed with admitting physician, Dr. Coello who felt that his hypotension had resolved with fluid resuscitation and patient can be discharged back to the TCU and did not require admission at this time. I then spoke to TCU physician, Dr. Boyer, who accepted the patient back to the TCU. Urinalysis is pending however patient is not having any urinary symptoms and can be followed up regardless for urine results and treated if needed in the TCU. Will be discharged back to TCU. Patient agreeable. Patient is asymptomatic in the ER and has improvement of blood pressure with 2 L of IV fluid. Patient reportedly had a coughing fit prior to arrival which required increased O2 demands. Is given a DuoNeb in the emergency room. Is able to be weaned down and to his baseline oxygen of 3 L. Is negative for COVID, flu and RSV. Lab Data Attestation: I reviewed the patient's lab results. Labs: Laboratory Results - last 24 hr 07/22/23 03:28 WBC 13.1 H RBC 3.61 L Hgb 10.4 L Hct 34.7 L MCV 96.1 H MCH 28.8 MCHC 30.0 L RDW Std Deviation 47.8 H RDW Coeff of Vincent 13.5 Plt Count 306 MPV 9.8 Immature Gran % (Auto) 0.700 Neut % (Auto) 58.3 Lymph % (Auto) 30.6 [place] % (Auto) 7.1 Eos % (Auto) 2.5 Baso % (Auto) 0.8 Absolute Neuts (auto) 7.6 Absolute Lymphs (auto) 3.99 Nucleated RBC % 0 PT 19.2 H INR 1.6 APTT 38.0 H Sodium 139 Potassium 4.8 Chloride 101 Carbon Dioxide 37.0 H Anion Gap 1 L BUN 23 H Creatinine 1.63 H Estim Creat Clear Calc 57.56 Est GFR (MDRD) Af Amer 55 L Est GFR (MDRD) Non-Af 45 L BUN/Creatinine Ratio 14.1 Glucose 129 H Lactic Acid 0.7 Calcium 8.6 Total Bilirubin 0.50 AST 17 ALT 17 Alkaline Phosphatase 94 Troponin I High Sens 27 Total Protein 6.3 L Albumin 2.6 L Globulin 3.7 Albumin/Globulin Ratio 0.7 L Radiography Chest X-Ray - ED: 1 View, Read by ED Physician, Read by Radiologist and No Acute Disease Diagnostic Testing: Clinical Impression(s) from Imaging Studies Chest X-Ray 07/22/23 03:23 IMPRESSION: No acute disease. Electronically Signed: Lukas Jordan MD at 4:51 EST , Rhythm Strip Rhythm Strip: Sinus Rhythm Rate: 91 Ectopy: None EKG Initial EKG: Attestation: I personally reviewed and interpreted this EKG as follows: Interpretation: Sinus Rhythm Comments: Normal sinus rhythm at a rate of 91 bpm left axis deviation Incomplete right bundle adwoa block Normal ST segments Compared to prior EKG patient now has an incomplete right bundle adwoa block no other acute changes Discharge Plan Triage Chief Complaint: Hypotension ED Provider: Lisa Bañuelos Dx/Rx/DC Orders Clinical Impression: LOULOU (acute kidney injury), Acute hypotension, Acute dehydration Instructions: ED Dehydration (Adult) Prescriptions: No Action triamcinolone acetonide 0.1 % cream 1 applic topical BID amitriptyline 50 mg tablet 50 mg PO QHS zonisamide 100 mg capsule 200 mg PO DAILY Rx Instructions: x2 oxybutynin chloride 10 mg tablet extended release 24hr 10 mg PO DAILY trazodone 150 mg tablet 300 mg PO DAILY Jardiance 25 mg tablet 25 mg PO DAILY Qty: 90 1RF lidocaine 1 PATCH patch 1 patch topical DAILY Patient Comments: pain patch- ON 12 HOURS, OFF 12 HOURS ipratropium-albuterol 3 ML solution for nebulization 3 ml inhalation Q6H PRN Qty: 1 0RF Patient Comments: for copd/shortness of breath albuterol sulfate 2.5 MG/3 ML solution for nebulization 2.5 mg inhalation Q2H PRN PRN (Reason: SHORTNESS OF BREATH ) Qty: 100 0RF Patient Comments: breathing hydrocodone-acetaminophen 1 EACH tablet 1 ea PO Q4H PRN (Reason: Pain) morphine 15 mg Tablet 15 mg PO BID Rx Instructions: Extended release tamsulosin 0.4 mg capsule 0.4 mg PO Q24H Rx Instructions: TAKE 1 CAPSULE BY MOUTH EVERY EVENING levofloxacin 500 mg tablet 500 mg PO DAILY ertapenem 1 gram recon soln 1 g IV DAILY potassium chloride [K-Tab] 20 mEq tablet extended release 20 meq PO DAILY pramipexole 0.125 mg tablet 0.125 mg PO QHS simethicone [Gas Relief (simethicone)] 80 mg tablet,chewable 80 mg PO .TIDPC Rx Instructions: after meals gabapentin 100 mg capsule 100 mg PO TIDCM lisinopril 40 mg tablet 40 mg PO DAILY ciprofloxacin HCl 0.3 % drops 2 drp EACH EYE Q4H Alin 7-7-1.5 gram powder in packet 1 ea PO BIDCM insulin regular hum U-500 conc 500 unit/mL (3 mL) insulin pen See Rx Instructions subcut BID Rx Instructions: subcutaneously twice a day; 20 units in am, 10 units in pm Mounjaro 7.5 mg/0.5 mL pen injector 7.5 mg subcut PRATHER furosemide 40 mg tablet 40 mg PO DAILY Patient Comments: TAKE 1 TABLET BY MOUTH EVERY DAY Anoro Ellipta 62.5-25 mcg/actuation blister with device 1 inh inhalation DAILY Qty: 3 3RF saxagliptin [Onglyza] 2.5 mg tablet 2.5 mg PO DAILY Qty: 90 0RF pen needle, diabetic [BD Ultra-Fine Ava Pen Needle] 32 gauge x 5/32 needle 1 ea miscellaneous .3 times daily Qty: 100 5RF rivaroxaban 15 mg tablet 15 mg PO DAILY Qty: 90 1RF Rx Instructions: must administer with evening meal benazepril 40 mg tablet 40 mg PO DAILY Qty: 90 1RF atorvastatin 40 mg tablet 80 mg PO QHS Qty: 90 0RF omeprazole 40 mg capsule,delayed release(DR/EC) 40 mg PO DAILY Qty: 90 0RF Primary Care Provider: Jesenia Andujar Referrals: Jesenia Andujar MD [Primary Care Provider] -
[2023-07-22] MEDS: 0.9% Normal Saline (1000mL) 1,000 ML 999 ML IV ×2 (03:36→05:40)
[2023-07-22] MEDS: Ipratropium/Albuterol Sulfate 3 ML AMPUL.NEB INHALATION (03:37)
[2023-07-22 03:38] LABS: Absolute Lymphocyte Count 3.99 X10^3/uL (0.83-4.51); Absolute Neutrophil Count 7.6 X10^3/uL (2.0-7.7); Basophil% 0.8 % (0-1); Eosinophil# 0.32 X10^3/uL; Eosinophils% 2.5 % (0-5); Hematocrit 34.7 % (40-54); Hemoglobin 10.4 g/dL (13.0-16.5); Lymphocyte # 3.99 X10^3/ul (0.83-4.51); Lymphocyte % 30.6 % (19-41); Mean Corpuscular Hgb 28.8 pg (27.0-32.0); Mean Corpuscular Volume 96.1 fL (80-94); Mean Platelet Vol. 9.8 fl (6.2-12.0); Monocyte# 0.93 X10^3/uL; Monocyte% 7.1 % (0-10); NRBC Flagged by Analyzer 0 % (0-5); Neutrophil # 7.63 X10^3/uL (2.7-7.7); Neutrophil % 58.3 % (47-70); Platelet Count 306 K/mm3 (150-450); RBC Distribution Width CV 13.5 % (11.6-14.6); RBC Distribution Width SD 47.8 fl (35.1-43.9); Red Blood Count 3.61 M/mm3 (4.6-6.2); White Blood Count 13.1 K/mm3 (4.4-11.0)
[2023-07-22 03:50] LABS: International Normalized Ratio 1.6; Prothrombin Time (Protime)PT. 19.2 SECONDS (11.7-14.9)
--- OUTSIDE RECORDS SUMMARY | 2023-07-22 03:54 | XMS RPT_ITS | CCD ---
Author Name Unknown Address [address] [facility] [address] [place] [address] Organization [facility] Care Team Providers Care Weight Caller Name Role Phone Andrews DONG, Bull Sinclair Unavailable [phone] URSZULA AARON MD Attending Unavailable URSZULA AARON MD Primary Care Unavailable URSZULA AARON MD Admitting Unavailable Allergies Allergy Classification Reported Allergen(s) Allergy Type Date of Onset Reaction(s) Facility (1 source) cilostazol Drug Allergy 06-12-[address] [facility] Work Phone: (1 source) diphenhydrAMINE Drug Allergy 07-08-[address] [facility] Work Phone: (1 source) Etodolac Drug Allergy 06-12-19 hives, difficulty breathing, low blood pressure [facility] Work Phone: (1 source) House dust mite; Translations: [DUST MITES] allergy to substance 06-12-19 19 [facility] Work Phone: (1 source) Naproxen Drug Allergy 05-29-19 hives, difficulty breathing [facility] Work Phone: (2 sources) Penicillin; Translations: [PENICILLIN] Drug Allergy 05-29-19 Difficulty Breathing, Hives [facility] Work Phone: (1 source) POISON SEBLE; Translations: [POISON SEBLE] allergy to substance 06-12-19 [facility] Work Phone: (1 source) MEL VIZCAINO GRAVY drug allergy 06-12-[address] [facility] Work Phone: (1 source) MAPLE TREES drug allergy 06-12-19 [facility] Work Phone: (1 source) CAJAN SPICE; Translations: [CAJAN SPICE] food allergy 06-12-19 19 Hives, breathing [facility] Work Phone: (1 source) CHEAP PANCAKE SYRUP; Translations: [CHEAP PANCAKE SYRUP] food allergy 06-12-[address] [facility] Work Phone: (1 source) HARDEES ANTON BEEF WITH HORSERADISH drug allergy 06-12-19 19 Hives , breathing [facility] Work Phone: (1 source) POTASIUM IV; Translations: [POTASIUM IV] allergy to substance 06-12-19 19 hives, itching, burning [facility] Work Phone: (1 source) GRASSES drug allergy 06-12-[address] [facility] Work Phone: (1 source) RELAFAN drug allergy 06-12-[address] [facility] Work Phone: (1 source) DANDILIONS drug allergy 06-12-[address] [facility] Work Phone: (1 source) GREEN HOUSE TOMATOES drug allergy 06-12-[address] [facility] Work Phone: (1 source) nabumetone Drug Allergy [facility] Medications Completed/Discontinued Medications Medication Drug Class(es) Dates Sig (Normalized) Sig (Original) acetaminophen 325 mg / HYDROcodone bitartrate 5 mg oral tablet (1 source) Opioid Agonist Start: 05-29-2018 NORCO 5-325 MG TABS 1-2 tablets per mouth every 6 hours as needed for pain HYDROCODONE-ACETAM INOPHEN [id number] Reyna Lopez LPN amitriptyline hydrochloride 50 mg oral tablet (1 source) Tricyclic Antidepressant Start: 05-29-2018 AMITRIPTYLINE HCL 50 MG TABS once at night AMITRIPTYLINE HCL [id number] Reyna Lopez LPN atorvastatin 80 mg oral tablet (1 source) HMG-CoA Reductase Inhibitor Start: 05-29-2018 LIPITOR 80 MG TABS once a day ATORVASTATIN CALCIUM [id number] Reyna Lopez LPN 120 actuat budesonide 0.16 mg/actuat / formoterol fumarate 0.0045 mg/actuat metered dose inhaler (1 source) Corticosteroid, beta2-Adrenergic Agonist Start: 05-29-2018 SYMBICORT 160-4.5 MCG/ACT AERO 2 puffs twice a day BUDESONIDE-FORMOTE ROL FUMARATE [id number] Reyna Lopez LPN empagliflozin 25 mg oral tablet (1 source) Sodium-Glucose Cotransporter 2 Inhibitor Start: 05-29-2018 JARDIANCE 25 MG TABS once a day EMPAGLIFLOZIN 31222755758 Reyna Lopez LPN furosemide 40 mg oral tablet (1 source) Loop Diuretic Start: 05-29-2018 FUROSEMIDE 40 MG TABS once a day FUROSEMIDE 67830950882 Reyna Lopez LPN linagliptin 5 mg oral tablet (1 source) Dipeptidyl Peptidase 4 Inhibitor Start: 05-29-2018 TRADJENTA 5 MG TABS once a day LINAGLIPTIN 24209992492 Reyna Lopez LPN 3 ml liraglutide 6 mg/ml pen injector (1 source) GLP-1 Receptor Agonist Start: 06-12-2018 VICTOZA 18 MG/3ML SOPN injection weekly LIRAGLUTIDE 33450023249 Daniela Padilla LPN morphine sulfate 15 mg oral tablet (1 source) Opioid Agonist Start: 05-29-2018 take 1 tablet by mouth every twelve hours MORPHINE SULFATE 15 MG TABS 1 tablet by mouth every 12 hours MORPHINE SULFATE 55947417292 Reyna Lopez LPN naloxegol 25 mg oral tablet (1 source) Opioid Antagonist Start: 05-29-2018 MOVANTIK 25 MG TABS once a day as needed NALOXEGOL OXALATE 24987114840 Reyna Lopez LPN omeprazole 40 mg delayed release oral capsule (1 source) Proton Pump Inhibitor Start: 05-29-2018 OMEPRAZOLE 40 MG CPDR once a day OMEPRAZOLE 46358324675 Reyna Lopez LPN potassium chloride 20 meq extended release oral tablet (1 source) Start: 05-29-2018 POTASSIUM CHLORIDE ER 20 MEQ CR-TABS once a day POTASSIUM CHLORIDE 10166269427 Reyna Lopez LPN quinapril 40 mg oral tablet (1 source) Angiotensin Converting Enzyme Inhibitor Start: 05-29-2018 ACCUPRIL 40 MG TABS once a day QUINAPRIL HCL 09396103876 Reyna Lopez LPN regular insulin, human 500 unt/ml injectable solution (1 source) Insulin Start: 06-12-2018 HUMULIN R U-500 (CONCENTRATED) 500 UNIT/ML SOLN 20 units twice daily INSULIN REGULAR HUMAN 42276845321 Daniela Padilla LPN rivaroxaban 15 mg oral tablet (1 source) Factor Xa Inhibitor Start: 05-29-2018 XARELTO 15 MG TABS one tablet daily RIVAROXABAN 44337558848 Reyna Lopez LPN traZODone hydrochloride 150 mg oral tablet (1 source) Serotonin Reuptake Inhibitor Start: 05-29-2018 TRAZODONE HCL 150 MG TABS 2 tabs in the evening TRAZODONE HCL 54785009879 Reyna Lopez LPN 30 actuat umeclidinium 0.0625 mg/actuat dry powder inhaler (1 source) Anticholinergic Start: 05-29-2018 take 62.5 ug by inhalation once daily INCRUSE ELLIPTA 62.5 MCG/INH AEPB once a day UMECLIDINIUM BROMIDE 42805214178 Reyna Lopez LPN zonisamide 100 mg oral capsule (1 source) Anti-epileptic Agent Start: 05-29-2018 ZONEGRAN 100 MG CAPS 1 capsule twice a day ZONISAMIDE 06984832311 Reyna Lopez LPN Problems Active Problems Problem Classification Problem Date Documented Da te Episodic/Chronic Diabetes mellitus with complications (1 source) Type 2 diabetes mellitus with other specified complication; Translations: [Type 2 diabetes mellitus with other specified complication] Onset: 07-01-2023 Chronic Diabetes mellitus without complication (1 source) Type 2 diabetes mellitus without complication; Translations: [Type 2 diabetes mellitus without complications] Onset: 06-12-2018 06-12-2018 Chronic Infective arthritis and osteomyelitis (except that caused by tuberculosis or sexually transmitted disease) (3 sources) Osteomyelitis, unspecified; Translations: [Other acute osteomyelitis, left ankle and foot] Onset: 07-01-2023 Chronic Other nervous system disorders (1 source) Lesion of ulnar nerve, right upper limb; Translations: [Lesion of ulnar nerve, right upper limb] Onset: 07-08-2018 07-08-2018 Chronic Other nervous system disorders (1 source) Carpal tunnel syndrome, right upper limb; Translations: [Carpal tunnel syndrome, right upper limb] Onset: 06-12-2018 06-12-2018 Chronic Skin and subcutaneous tissue infections (1 source) Cutaneous abscess of left foot; Translations: [Cutaneous abscess of left foot] Onset: 07-01-2023 Episodic Past or Other Problems Problem Classification Problem Date Documented Da te Episodic/Chronic Other connective tissue disease (1 source) Palmar fascial fibromatosis [Dupuytren]; Translations: [Palmar fascial fibromatosis [Dupuytren]] Onset: 06-12-2018 06-12-2018 Episodic Unclassified (1 source) Problem Results Test Name Value Interpretation Reference Range Facil ity Vital Signs Date Time Vital Sign Value Performing Clinician Facility NEGATED: Highlighted [id number] 12:50-0500 BMI (Body Mass Index) 39.13 kg/m2 Lauren Horan AT [facility] Work Phone: NEGATED: Highlighted [id number] 12:50-0500 Body weight 120 kg Lauren Horan AT [facility] Work Phone: NEGATED: Highlighted [id number] 12:50-0500 Body weight 119.75 kg Lauren Horan AT [facility] Work Phone: NEGATED: Highlighted [id number] 12:50-0500 BP Diastolic 74 mm[Hg] Lauren Horan AT [facility] Work Phone: NEGATED: Highlighted [id number] 12:50-0500 BP Systolic 119 mm[Hg] Lauren Horan AT [facility] Work Phone: NEGATED: Highlighted [id number] 12:50-0500 Height 175 cm Laurenellen Horan AT [facility] Work Phone: NEGATED: Highlighted [id number] 12:50-0500 Height 175.26 cm Laurenellen Horan AT [facility] Work Phone: NEGATED: Highlighted [id number] 12:50-0500 Pulse (Heart Rate) 92 /min Lauren Horan AT [facility] Work Phone: Encounters Encounter Date Encounter Type Care Provider Facility Start: 07-01-2023 End: 07-09-2023 Evaluation and management of inpatient URSZULA AARON [facility] Start: 07-08-2018 End: 07-08-2018 Patient encounter procedure Bull Sparrow MD Work Phone: [facility] Work Phone: Procedures Date Procedure Procedure Detail Performing Clinician Start: 07-01-2023 Detachment at Left 1 st Toe, Complete, Open Approach URSZULA AARON Start: 07-01-2023 Excision of Left Vale t Tendon, Open Approach URSZULA AARON Start: 07-08-2018 End: 07-08-2018 Blood pressure within normal parameters - no follow-up required Bull Sparrow MD Work Phone: Start: 07-08-2018 End: 07-08-2018 BMI documented as above normal parameters - follow-up documented Bull Sparrow MD Work Phone: Start: 07-08-2018 End: 07-08-2018 Documentation of current medications Bull Sparrow MD Work Phone: Start: 07-08-2018 End: 07-08-2018 Pain assessment documented as positive - follow-up documented Bull Sparrow MD Work Phone: Start: 07-08-2018 End: 07-08-2018 Tobacco non-user Bull Sparrow MD Work Phone: NEGATED: Highlighted rowStart: 07-08-2018 End: 07-08-2018 Documentation of current medications Lauren Horan AT Plan of Treatment Date Care Activity Detail Author Start: 07-08-2018 End: 07-08-2018 Appointment Appointment [facility] Work Phone: Payers Date Payer Category Payer Unknown [id number] Medicare [id number] Social History Date Type Detail Facility Start: 07-08-2018 End: 07-08-2018 Assertion Unknown if ever smoked [facility] Work Phone: Clinical Note 07-09-2023 Note Date & Type Note Facility 07-09-[address] [facility] PROGRESS NOTE NAME ACCOUNT SEX AGE ADMIT DISCHARGE PT MED. RECORD# NUMBER DATE DATE TYPE CHUCKY SUTHERLAND [id number] M 68 07/01/23 1 [id number] ROOM: 306 DATE OF : 1955 DICTATING PHYSICIAN: Mesfin Abraham DATE OF SERVICE: July 08, 2023 SUBJECTIVE: The patient was resting comfortably in bed. He states that his foot is much better than even yesterday, and he really does not have much pain. He still needs his morphine to help deal with the nerve pain. He states that he will be discharged from [facility] and admitted to [facility] for physical therapy tomorrow. OBJECTIVE: Dressing was clean, dry and intact. There was a mild amount of serosanguineous drainage on the inner and outer layers as well as middle of the dressing. Packing was removed. The cellulitis is significantly improved from the foot. There is still a little bit of redness at the more proximal aspect of the incision, and with squeezing there was just a small drop of thick yellow purulence that was noted along the track of the extensor tendon. The area was flushed with 10 mL of normal sterile saline, and no more purulence was noted. There was no necrotic tissue at the distal aspect, and bone is exposed at the first metatarsal head, which still remains intact and viable. ASSESSMENT: 1. Postop second I&D, day #1. 2. Diabetes mellitus with peripheral neuropathy. 3. Gangrene to left foot. PLAN: I discussed the findings with the patient. I will contact the wound nurse at [facility] and discuss Wound Vac placement. Still there is the possibility of delayed primary closure, and Podiatry will continue to follow. All questions were answered today, and the wound was packed with half-inch Nu-Gauze as well as a dry 4x4 and covered with an ABD pad and Kerlix. Dictated By: Mesfin Abraham DPM 07/08/23 18:07 JOB #: [id number] Transcribed By: sam 07/08/23 21:21 Electronically signed by: E-SIGN MESFIN ABRAHAM 07/09/23 21:17 Page 1 of 1 CHUCKY SUTHERLAND Progress Note [facility] Clinical Note 07-09-2023 Note Date & Type Note Facility 07-09-[address] [facility] PROGRESS NOTE NAME ACCOUNT SEX AGE ADMIT DISCHARGE PT MED. RECORD# NUMBER DATE DATE TYPE CHUCKY SUTHERLAND Andres [id number] M 68 07/01/23 1 [id number] ROOM: 306 DATE OF : 1955 DICTATING PHYSICIAN: Mesfin Abraham DATE OF SERVICE: July 07, 2023 SUBJECTIVE: The patient was resting comfortably on his left side in bed. He stated that he had absolutely no foot pain overnight, and he feels that his foot is doing much better. He does understand that at some point he will be discharged to a rehabilitation facility. OBJECTIVE: Dressing was clean and intact, but there was some drainage noted on the outer layers of the dressing. With removal of the dressing, there is still some cellulitis noted to the dorsal foot, and with squeezing of the dorsal foot there was a small amount of thick yellow purulence noted at the proximal aspect of the dorsal incision, and this was not present in the past. Plantarly, there is no sign of further deep space infection, and no purulence was expelled from that area once the packing was removed. DIAGNOSTIC DATA: White cell count has increased as it was trending downward over the last 2 days up to 20.4. This is likely secondary to a resurgence in the foot infection, and this was discussed with the patient. There was no malodor. ASSESSMENT: 1. Postoperative day #3 status post incision and drainage with left hallux amputation. 2. Gangrene left foot. 3. Diabetes mellitus with peripheral neuropathy. PLAN: I discussed the findings with the patient. Instead of closing the foot immediately or even applying a wound VAC, surgical intervention to further perform a second incision and drainage is necessary dorsally. The patient understands this, and podiatry will continue to follow. We are unsure yet if this will need to have a wound VAC or if we can in fact close him eventually with a delay primary fashion, but for right now, it was packed with half inch Nu Gauze and dry gauze dressing applied. Podiatry will continue to follow. Dictated By: Mesfin Abraham DPM 07/07/23 06:57 JOB #: [id number] Transcribed By: am 07/07/23 07:01 Page 1 of 2 CHUCKY SUTHERLAND Progress Note CHUCKY SUTHERLAND : 1955 Electronically signed by: E-SIGN MESFIN ABRAHAM 07/09/23 21:11 Page 2 of 2 CHUCKY SUTHERLAND Progress Note [facility] Clinical Note 07-09-2023 Note Date & Type Note Facility 07-09-[address] [facility] PROGRESS NOTE NAME ACCOUNT SEX AGE ADMIT DISCHARGE PT MED. RECORD# NUMBER DATE DATE TYPE CHUCKY SUTHERLAND [id number] M 68 07/01/23 1 [id number] [place] [facility] DATE OF : 1955 DICTATING PHYSICIAN: Mesfin Abraham DATE OF SERVICE: July 04, 2022 SUBJECTIVE: The patient was resting comfortably in bed with his left foot on a pillow. He states that he has been having quite a bit of pain today and having pain medication about every 4 hours. He also states that he has received approval to be transferred to [facility] Trans[facility] Unit. OBJECTIVE: Dressing is clean, dry, and intact. There is no sign of bloody streak or drainage on the outer layers of the dressing, and there is no malodor. The remaining toes have normal capillary refill, and the patient remains nonweightbearing. ASSESSMENT: 1. Postoperative day #2 status post left hallux amputation with incision and drainage. 2. Diabetes mellitus with peripheral neuropathy. 3. Gangrene. PLAN: I discussed the findings with the patient. We are pleased about the patient agreeing to be in an extended care facility. Treatment options are wound VAC for the foot with secondary healing or primary healing with taking the patient to surgery again for closure. We are not for sure if there is enough tissue for that, but that will be evaluated tomorrow during dressing changes. At this point, we will change dressings every other day and pack the wound at that time. The patient understands, and all questions were answered. Podiatry will continue to follow. Continue with strict nonweightbearing and elevation of the foot. Dictated By: Mesfin Abraham DPM 07/04/23 17:29 JOB #: [id number] Transcribed By: am 07/04/23 17:52 Electronically signed by: E-SIGN MESFIN ABRAHAM 07/09/23 21:08 Page 1 of 1 CHUCKY SUTHERLAND Progress Note [facility] Clinical Note 07-09-2023 Note Date & Type Note Facility 07-09-[address] [facility] PROGRESS NOTE NAME ACCOUNT SEX AGE ADMIT DISCHARGE PT MED. RECORD# NUMBER DATE DATE TYPE CHUCKY SUTHERLAND Andres [id number] M 68 07/01/23 1 [id number] ROOM: 306MA DATE OF : 1955 DICTATING PHYSICIAN: Mesfin Abraham DATE OF SERVICE: July 05, 2023 SUBJECTIVE: The patient was resting comfortably at his bedside. He did state that physical therapy had followed up with him recently, and he told them that he was not going to disobey doctor's orders and he was going to stay off of his foot. He also states that he is in pain almost all the time. OBJECTIVE: Dressing is clean, dry and intact. There is just a mild amount of serosanguineous drainage on the inner and middle layers of the dressing. Malodor remains gone. First metatarsal head is exposed and still healthy. With examination today, there was no baron purulence, and there was some fibrous tissue within the wound recurring, which indicates still infection. No active bleeding. No malodor. Sutures are intact. ASSESSMENT: 1. Postoperative day #2 status post I&D with left hallux amputation. 2. Diabetes mellitus with peripheral neuropathy. 3. Gangrene. PLAN: I discussed the findings with the patient. The area was packed again with half-inch Nu-Gauze, and a sterile compressive dressing was applied. White cell count has reduced to 18.3, and the patient's latest sed rate was 64 so those numbers are encouraging with a trend downward. Podiatry will continue to follow, and it does appear that there may be enough tissue for primary delayed closure, but given the amount of necrotic tissue in there we will hold off on that and see what we have after a couple more days of antibiotics. All questions were answered, and the patient understands that he still will be transferred to [facility]. Podiatry will continue to follow. Dictated By: Mesfin Abraham DPM 07/05/23 13:02 JOB #: [id number] Transcribed By: sam 07/05/23 14:55 Electronically signed by: E-SIGN MESFIN ABRAHAM 07/09/23 21:08 Page 1 of 1 CHUCKY SUTHERLAND Progress Note [facility] Clinical Note 07-09-2023 Note Date & Type Note Facility 07-09-[address] [facility] PROGRESS NOTE NAME ACCOUNT SEX AGE ADMIT DISCHARGE PT MED. RECORD# NUMBER DATE DATE TYPE CHUCKY SUTHERLAND Andres [id number] M 68 07/01/23 1 [id number] ROOM: 306MA DATE OF : 1955 DICTATING PHYSICIAN: Mesfin Abraham DATE OF SERVICE: July 03, 2023 SUBJECTIVE: The patient was resting comfortably in his bed with heels elevated on a pillow. He states that he is doing well and having much less pain than he had yesterday. His vfxlaxin-ca-kjl is with him today, and after they had spoken she encouraged him to seek postoperative care in a facility instead of going home. The patient is now agreeable to that. He states that he was able to sleep well without any pain in his foot, but he does have restless legs syndrome. OBJECTIVE: The dressing was clean, dry and intact on the outer layers, and there was no bloody strike-through on the Riki wrap. The inner and middle layers had dried blood and so did the ABD pads, but there was no active bleeding. The dorsal and plantar medial sutures are intact, which were retention sutures. The head of the first metatarsal is exposed, and cartilage is intact. There is no malodor and no baron purulence today. The wound had been packed, and that was removed. The patient did feel a mild amount of discomfort, but no sign of deep infection that would be remaining. The foot has decreased edema, and skin lines are returning. Cellulitis is also improving. ASSESSMENT: 1. Postoperative day #1 status post I&D with left hallux amputation. 2. Diabetes mellitus with peripheral neuropathy. 3. Gangrene. PLAN: I discussed the findings with the patient. We are agreeable to the patient being transferred to an extended care facility. The patient will undergo IV antibiotics as well as physical therapy and possible wound care. At this point, no further debridement is necessary for the foot, but possible secondary closure could be performed versus Wound Vac. There does appear to be enough tissue to close, but it would be tight. The wound was flushed with normal sterile saline today and was packed with Nu-Gauze. A sterile compressive dressing consisting of 4x4s, ABD, Kerlix and Riki wrap was applied. The patient was educated that he should remain nonweightbearing and perform range of motion exercises of the ankle. Podiatry will continue to follow, and we will await the culture results as well as blood culture results given his white cell count was just a little elevated today. Page 1 of 2 CHUCKY SUTHERLAND Progress Note CHUCKY SUTHERLAND : 1955 Dictated By: Mesfin Abraham DPM 07/03/23 12:36 JOB #: [id number] Transcribed By: sam 07/03/23 13:11 Electronically signed by: E-SIGN MESFIN ABRAHAM 07/09/23 21:07 Page 2 of 2 CHUCKY SUTHERLAND Progress Note [facility] Clinical Note 07-09-2023 Note Date & Type Note Facility 07-09-[address] [facility] CONSULTATION REPORT NAME ACCOUNT SEX AGE ADMIT DISCHARGE PT MED. RECORD# NUMBER DATE DATE TYPE CHUCKY SUTHERLAND [id number] M 68 07/01/2023 1 [id number] ROOM: 306MO DATE OF : 1955 DICTATING PHYSICIAN: Mesfin Abraham DATE OF CONSULTATION: July 01, 2023 HISTORY OF PRESENT ILLNESS: The patient was resting comfortably in the hospital bed. He states that he was brought to the hospital today. He states that his toe had been this way for quite sometime, but he is stubborn . The patient states that he allows his dog to bite his toenails off, and he felt he got a little too aggressive with this one. The patient states that he is diabetic, but he is working with his primary care practitioner to decrease his glucose levels. Recent hemoglobin A1c at the hospital was 5.1. The patient states the Mounjaro medication has also helped him lose some weight. PAST MEDICAL HISTORY: (1) Positive for diabetes mellitus with some peripheral neuropathy. (2) Lymphedema bilateral lower extremities. (3) Morbid obesity. (4) See chart. CURRENT MEDICATIONS: See chart. ALLERGIES: Penicillin and Relafen. PHYSICAL EXAMINATION: LOWER EXTREMITIES EXAMINATION: VASCULAR EXAMINATION: Pedal pulses are palpable despite having +2 to 3 pitting edema to bilateral lower extremities with left foot showing more edema. Skin is thickened with lipodermatosclerosis indicating longstanding edema. There are no blisters to the lower extremity with the exception of the left second toe. Capillary refill time is brisk. NEUROPATHIC EXAMINATION: The patient does feel pain during the examination, but there is obviously some diabetic neuropathy given the severity of the wound. DERMATOLOGIC EXAMINATION: Left distal hallux has necrotic tip of the toe with dark eschar, which is somewhat boggy, and malodor is present. The plantar aspect of the left hallux is dusky in appearance, and as mentioned before clear fluid filled blister at the proximal dorsal left second toe medial to the midline. Thickened discolored toenails are noted to left 2 and 4 and right 1, 3, and 5. MUSCULOSKELETAL EXAMINATION: Charcot foot is not present to bilateral lower extremities, and mildly adductovarus rotated 5th digits are present. Gait analysis was not performed secondary to the pathology. There appears to be some dog hair and debris within the left hallux. Page 1 of 2 CHUCKY SUTHERLAND Patient Care Associate Report CHUCKY SUTHERLAND : 1955 DIAGNOSTIC DATA: Nonweightbearing radiographs of the left foot from [facility] today show some sign of gas within the tissues at the plantar medial aspect of the distal left foot, which would be consistent with anaerobic infection. This is also consistent with clinical findings of wet gangrene. The distal phalanx has signs of osteomyelitis and some deforming of the toe with fractures and complete collapse of the distal tuft. ASSESSMENT: 1. Casiano grade 4 diabetic foot ulceration with gangrenous left hallux. 2. Osteomyelitis left hallux. 3. Diabetes mellitus with peripheral neuropathy. 4. Chronic lymphedema. 5. Cellulitis left foot. 6. Onychomycosis. RECOMMENDATIONS: I discussed the findings with the patient. I recommend removal of the hallux, and given the amount of gas within the tissues, this will need to be a staged procedure, which means the toe will be packed open. Risks, complications, and alternative treatments were reviewed in detail, and no guarantees were given. By tomorrow morning, the patient's white cell count should have decreased a little bit. The surgery will most likely happen tomorrow afternoon by the time we are able to get this scheduled. This at this point is not limb or life threatening, but the toe definitely does need to be removed to avoid that status. The patient had all of his questions answered, and he will have a light breakfast in the morning. Thank you for consultation, and podiatry will continue to follow. We will swab the area with Betadine to help reduce the malodor, as well as to help allow the area to stay dry. Dictated By: Mesfin Abraham DPM 07/01/2023 17:13 JOB #: [id number] Transcribed By: am 07/01/2023 17:46 Electronically signed by: E-SIGN MESFIN ABRAHAM 07/09/23 21:05 Page 2 of 2 CHUCKY SUTHERLAND Patient Care Associate Report [facility] Chief Complaint Chief Complaint Description Start Date right wrist Preliminary chief co mplaint data, not yet signed by the author as of Instructions Instruction Description Start Date CompletedPatient advised to follow-up with Primary Care Physician for BMI management. Advance Directives There may be information available, but it has not been provided by the sender. No Advanced Directives Records FoundNo Advanced Directives Records Found Assessments There may be information available, but it has not been provided by the sender. Review of System There may be information available, but it has not been provided by the sender. Family History There may be information available, but it has not been provided by the sender.No Family History Records FoundNo Family History Records Found History of Present Illness There may be information available, but it has not been provided by the sender. Summary Purpose Additional Source Comments Reason for Visit (unrecogniz ed section and content) (unrecognized sect ion and content) No Status Records FoundNo Status Records Found INFORMATION SOURCE (unrecogn ized section and content) DATE CREATED AUTHOR AUTHOR'S SAMEER ATION 07/11/2023 [facility] FOR RECORDS PERTAINING TO PATIENTS WHO ARE OR HAVE BEEN ENROLLED IN A CHEMICAL DEPENDENCY/SUBSTANCEABUSE PROGRAM, SOME INFORMATION MAY BE OMITTED. This clinical summary was aggregated from multiple sources. Caution should be exercised in using it in the provision of clinical care. This summary normalizes information from multiple sources, and as a consequence, information in this document may materially change the coding, format and clinical context of patient data. In addition, data may be omitted in some cases. CLINICAL DECISIONS SHOULD BE BASED ON THE PRIMARY CLINICAL RECORDS. [facility] [employer] provides no warranty or guarantee of the accuracy or completeness of information in this document.
[2023-07-22 04:13] LABS: Lactic Acid 0.7 mmol/L (0.4-1.9)
[2023-07-22 04:21] LABS: ALB/GLOB Ratio 0.7 RATIO (0.9-2.4); AST(SGOT) 17 U/L (15-37); Alanine Aminotransfer ALT/SGPT 17 U/L (16-61); Albumin, Serum 2.6 g/dL (3.2-5.0); Alkaline Phosphatase 94 U/L (45-117); Anion Gap 1 (5-15); BUN 23 mg/dL (7-18); BUN/Creat Ratio 14.1 RATIO (10-20); Calcium,Total 8.6 mg/dL (8.5-10.1); Chloride 101 mmol/L (98-107); Creatinine, Serum 1.63 mg/dL (0.70-1.30); EST Glomerular Filtration Rate 45 mL/min (>60); Est Glom Filt Rate - Afr Amer 55 mL/min (>60); Estimated Creatinine Clearance 57.56 ml/min; Globulin 3.7 g/dL (2.2-4.2); Glucose 129 mg/dL (74-106); Potassium 4.8 mmol/L (3.5-5.1); Protein, Total 6.3 g/dL (6.4-8.2); Sodium Level 139 mmol/L (136-145); Troponin-I HS 27 pg/mL (3.0-78.0)
--- NOTE | 2023-07-22 07:49 | NURSING ---
DR MAHMOOD FOR DR WHITAKER
[2023-07-22 08:30] LABS: Bacteria 0 SEEN /hpf (None Seen); Mucous, Urine 0 SEEN /hpf (<or=2+); Red Blood Cells-Urine 0 SEEN /hpf (0-5)
[2023-07-22 08:43] LABS: Color, Urine Yellow (Yellow); Glucose, Dipstick 1000 mg/dl (Normal); Ketone-Dipstick 5 mg/dl (Negative); Leukocyte Esterase-Dipstick 25 /ul (Negative); Nitrite-Dipstick Negative (Negative); Occult Blood-Urine 10 /ul (Negative); Protein-Dipstick 15 mg/dl (Negative); Urine Bilirubin Dipstick Negative (Negative); Urine Clarity Clear (Clear); Urine Urobilinogen Normal (Normal)
[2023-07-22 08:51] LABS: Squamous Epithelial Cells - UA 0-5 SEEN /hpf (0-5); White Blood Cells 0-5 SEEN /hpf (0-5)
--- NOTE | 2023-07-22 08:52 | EX.ED.DYSGE1 ---
HPI History of Present Illness Chief Complaint: Hypotension [facility] Medical History Allergies Arthritis Asthma Back problem Bilateral pulmonary embolism Bleeding disorder Bronchitis Carpal tunnel syndrome Cataracts, bilateral Chronic pain COPD (chronic obstructive pulmonary disease) Depression Diabetes Emphysema lung Essential hypertension Gastrointestinal problem GERD (gastroesophageal reflux disease) History of DVT of lower extremity Hx of blood clots Hyperlipidemia Hypoxia Leukocytosis Morbid obesity Neuropathy Pneumonia Skin cancer Sleep apnea Smokes with greater than 40 pack year history Stage 3a chronic kidney disease (CKD) Stiff-man syndrome Stroke Thoracic outlet syndrome UTI (urinary tract infection) Vascular disease Vision problems Home Medications lidocaine 5 % topical patch 1 patch topical DAILY Check with primary doctor 12/24/13 [History Last Taken 03/30/22 10:00] ipratropium 0.5 mg-albuterol 3 mg (2.5 mg base)/3 mL nebulization soln 3 ml inhalation Q6H PRN ##1 12/26/13 [Rx Last Taken Unknown] albuterol sulfate 2.5 mg/3 mL (0.083 %) solution for nebulization 2.5 mg (3 mL) inhalation Q2H PRN PRN SHORTNESS OF BREATH ##100 02/05/14 [Rx Last Taken Unknown] hydrocodone 7.5 mg-acetaminophen 325 mg tablet 1 ea PO Q4H PRN Pain 10/12/14 [History Last Taken Unknown] morphine 15 mg immediate release tablet 15 mg PO BID pain 03/30/22 [History Last Taken 03/30/22 22:00] amitriptyline 50 mg tablet 50 mg PO QHS 06/11/22 [History Last Taken Unknown] oxybutynin chloride 10 mg tablet,extended release 24 hr 10 mg PO DAILY 06/11/22 [History Last Taken Unknown] zonisamide 100 mg capsule 200 mg PO DAILY 06/11/22 [History Last Taken Unknown] triamcinolone acetonide 0.1 % topical cream 1 applic topical BID 07/26/22 [History Last Taken Unknown] furosemide 40 mg tablet 40 mg PO DAILY 08/08/22 [History Last Taken Unknown] umeclidinium 62.5 mcg-vilanterol 25 mcg/actuation powdr for inhalation (Anoro Ellipta) 1 inh inhalation DAILY #3 ea 08/12/22 [Rx Last Taken Unknown] trazodone 150 mg tablet 300 mg PO DAILY 09/12/22 [History Last Taken Unknown] empagliflozin 25 mg tablet (Jardiance) 25 mg PO DAILY Diabetes #90 tabs 02/06/23 [Rx Last Taken Unknown] saxagliptin 2.5 mg tablet (Onglyza) 2.5 mg PO DAILY #90 tabs 04/01/23 [Rx Last Taken Unknown] pen needle, diabetic 32 gauge x 5/32 (BD Ultra-Fine Ava Pen Needle) 1 ea miscellaneous .3 times daily #100 ea 04/02/23 [Rx Last Taken Unknown] rivaroxaban 15 mg tablet 15 mg PO DAILY Blood Thinner #90 tabs 05/12/23 [Rx Last Taken Unknown] benazepril 40 mg tablet 40 mg PO DAILY BP #90 tabs 06/16/23 [Rx Last Taken Unknown] atorvastatin 40 mg tablet 80 mg (2 x 40 mg) PO QHS Check with primary doctor #90 tabs 06/18/23 [Rx Last Taken Unknown] omeprazole 40 mg capsule,delayed release 40 mg PO DAILY GERD #90 caps 07/07/23 [Rx Last Taken Unknown] ertapenem 1 gram intravenous solution 1 g IV DAILY Antibiotic 07/09/23 [History Last Taken Unknown] levofloxacin 500 mg tablet 500 mg PO DAILY Antibiotic 07/09/23 [History Last Taken Unknown] tamsulosin 0.4 mg capsule 0.4 mg PO Q24H Urinary Retention 07/09/23 [History Last Taken Unknown] arginine 7 gram-glutamine 7 gram-calcium HMB 1.5 gram oral powder pack (Alin) 1 ea PO BIDCM 07/22/23 [History Last Taken Unknown] ciprofloxacin HCl 0.3 % eye drops 2 drp EACH EYE Q4H 07/22/23 [History Last Taken Unknown] gabapentin 100 mg capsule 100 mg PO TIDCM 07/22/23 [History Last Taken Unknown] insulin regular hum U-500 conc 500 unit/mL(3 mL) subcut pen See Rx Instructions subcut BID Diabetes 07/22/23 [History Last Taken Unknown] lisinopril 40 mg tablet 40 mg PO DAILY 07/22/23 [History Last Taken Unknown] potassium chloride 20 mEq tablet,extended release (K-Tab) 20 meq PO DAILY 07/22/23 [History Last Taken Unknown] pramipexole 0.125 mg tablet 0.125 mg PO QHS 07/22/23 [History Last Taken Unknown] simethicone 80 mg chewable tablet (Gas Relief (simethicone)) 80 mg PO .TIDPC 07/22/23 [History Last Taken Unknown] tirzepatide 7.5 mg/0.5 mL subcutaneous pen injector (Mounjaro) 7.5 mg subcut PRATHER Diabetes 07/22/23 [History Last Taken Unknown] Allergy/AdvReac Type Severity Reaction Status Date / Time cilostazol [From Pletal] Allergy Other Verified 02/06/23 10:24 etodolac [From Lodine] Allergy Hives Verified 02/06/23 10:24 nabumetone [From Relafen] Allergy Hives Verified 02/06/23 10:24 naproxen sodium [From Aleve] Allergy Hives Verified 02/06/23 10:24 Penicillins Allergy Hives Verified 02/06/23 10:24 Family History Brother Alcoholism Diabetes Father Alcoholism Hypertension Mother Arthritis Diabetes Hypertension Breast cancer Grandfather Colon cancer Grandfather Prostate cancer Other COPD (chronic obstructive pulmonary disease) Surgical History History of surgical procedure History of surgical procedure S/P TURP Status post surgical removal of malignant neoplasm of skin Social History household members: spouse housing: house current occupational status: retired 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 Smoking Status: Former smoker quit date: 07/25/15 pack-years: 80 Electronic Cigarette Use: not used how long ago did patient quit smoking: Quit 7 years ago alcohol intake: never substance use type: does not use do you feel safe at home: Yes EXAM Physical Exam Const Vital Signs: 07/22/23 03:21 07/22/23 03:24 07/22/23 03:22 Temperature 98.5 F Temperature Source Temporal Pulse Rate 93 Respiratory Rate 21 H Respiratory Effort Normal Respiratory Pattern Normal Blood Pressure 80/50 L Blood Pressure Mean 60 Pulse Ox 93 Oxygen Delivery Method Nasal Cannula Nasal Cannula Oxygen Flow Rate (L/min) 5 5 07/22/23 03:46 07/22/23 04:23 07/22/23 04:55 Temperature 98 F Temperature Source Temporal Pulse Rate 95 92 Respiratory Rate 16 Respiratory Effort Respiratory Pattern Blood Pressure 93/76 82/43 L 84/44 L Blood Pressure Mean 81 56 57 Pulse Ox 92 Oxygen Delivery Method Nasal Cannula Nasal Cannula Oxyhood Oxygen Flow Rate (L/min) 5 5 07/22/23 03:32 07/22/23 05:00 07/22/23 06:00 Temperature Temperature Source Pulse Rate 92 86 76 Respiratory Rate 20 H 18 18 Respiratory Effort Respiratory Pattern Blood Pressure 88/46 L 88/47 L Blood Pressure Mean 60 60 Pulse Ox 93 93 Oxygen Delivery Method Nasal Cannula Nasal Cannula Oxygen Flow Rate (L/min) 5 5 07/22/23 06:47 07/22/23 07:00 07/22/23 04:45 Temperature Temperature Source Pulse Rate 78 77 87 Respiratory Rate 19 H 16 19 H Respiratory Effort Respiratory Pattern Blood Pressure 96/45 L 112/60 90/43 L Blood Pressure Mean 62 77 58 Pulse Ox 92 91 Oxygen Delivery Method Nasal Cannula Nasal Cannula Oxygen Flow Rate (L/min) 5 3 07/22/23 04:50 07/22/23 04:55 07/22/23 05:00 Temperature Temperature Source Pulse Rate 87 86 87 Respiratory Rate 18 16 19 H Respiratory Effort Respiratory Pattern Blood Pressure 84/44 L 87/45 L 88/46 L Blood Pressure Mean 57 59 58 Pulse Ox 95 92 Oxygen Delivery Method Oxygen Flow Rate (L/min) 07/22/23 05:05 07/22/23 05:10 07/22/23 05:15 Temperature Temperature Source Pulse Rate 86 Respiratory Rate 16 Respiratory Effort Respiratory Pattern Blood Pressure 97/45 L 73/50 L 91/43 L Blood Pressure Mean 57 60 57 Pulse Ox Oxygen Delivery Method Oxygen Flow Rate (L/min) 07/22/23 05:20 07/22/23 05:25 07/22/23 05:30 Temperature Temperature Source Pulse Rate 83 85 82 Respiratory Rate 19 H 17 17 Respiratory Effort Respiratory Pattern Blood Pressure 69/46 L 100/43 L 80/43 L Blood Pressure Mean 54 61 56 Pulse Ox Oxygen Delivery Method Oxygen Flow Rate (L/min) 07/22/23 05:35 07/22/23 05:40 07/22/23 05:45 Temperature Temperature Source Pulse Rate 86 83 Respiratory Rate 16 18 Respiratory Effort Respiratory Pattern Blood Pressure 85/40 L 91/49 L 89/48 L Blood Pressure Mean 55 61 60 Pulse Ox Oxygen Delivery Method Oxygen Flow Rate (L/min) 07/22/23 05:50 07/22/23 05:53 07/22/23 05:55 Temperature Temperature Source Pulse Rate 87 83 82 Respiratory Rate 17 19 H 18 Respiratory Effort Respiratory Pattern Blood Pressure 74/46 L 91/47 L 88/49 L Blood Pressure Mean 57 60 62 Pulse Ox 95 94 Oxygen Delivery Method Oxygen Flow Rate (L/min) 07/22/23 06:00 07/22/23 06:05 07/22/23 06:10 Temperature Temperature Source Pulse Rate 84 81 77 Respiratory Rate 15 20 H 18 Respiratory Effort Respiratory Pattern Blood Pressure 88/47 L 92/51 L 94/50 L Blood Pressure Mean 61 62 64 Pulse Ox 93 100 Oxygen Delivery Method Oxygen Flow Rate (L/min) 07/22/23 06:15 07/22/23 06:20 07/22/23 06:25 Temperature Temperature Source Pulse Rate 76 79 79 Respiratory Rate 18 18 16 Respiratory Effort Respiratory Pattern Blood Pressure 103/52 L 96/52 L 102/56 L Blood Pressure Mean 66 66 69 Pulse Ox Oxygen Delivery Method Oxygen Flow Rate (L/min) 07/22/23 06:30 07/22/23 06:35 07/22/23 06:40 Temperature Temperature Source Pulse Rate 77 81 74 Respiratory Rate 15 19 H 18 Respiratory Effort Respiratory Pattern Blood Pressure 101/50 L 95/44 L 126/47 H Blood Pressure Mean 67 61 68 Pulse Ox Oxygen Delivery Method Oxygen Flow Rate (L/min) 07/22/23 06:45 07/22/23 06:50 07/22/23 06:51 Temperature Temperature Source Pulse Rate 84 80 74 Respiratory Rate 16 14 13 Respiratory Effort Respiratory Pattern Blood Pressure 96/45 L 134/112 H Blood Pressure Mean 61 121 Pulse Ox Oxygen Delivery Method Oxygen Flow Rate (L/min) 07/22/23 06:55 07/22/23 07:00 07/22/23 07:05 Temperature Temperature Source Pulse Rate 75 76 85 Respiratory Rate 13 18 16 Respiratory Effort Respiratory Pattern Blood Pressure 96/41 L 80/52 L 112/60 Blood Pressure Mean 57 60 73 Pulse Ox 97 97 Oxygen Delivery Method Oxygen Flow Rate (L/min) 07/22/23 07:10 07/22/23 07:15 07/22/23 07:20 Temperature Temperature Source Pulse Rate 77 76 77 Respiratory Rate 15 15 16 Respiratory Effort Respiratory Pattern Blood Pressure 96/34 L 107/62 101/53 L Blood Pressure Mean 52 69 64 Pulse Ox 91 94 Oxygen Delivery Method Oxygen Flow Rate (L/min) 07/22/23 07:25 07/22/23 07:30 07/22/23 07:35 Temperature Temperature Source Pulse Rate 76 76 76 Respiratory Rate 16 16 16 Respiratory Effort Respiratory Pattern Blood Pressure 105/55 L 107/53 L 95/57 L Blood Pressure Mean 69 69 67 Pulse Ox Oxygen Delivery Method Oxygen Flow Rate (L/min) 07/22/23 07:40 07/22/23 07:45 07/22/23 07:50 Temperature Temperature Source Pulse Rate 78 78 79 Respiratory Rate 16 17 16 Respiratory Effort Respiratory Pattern Blood Pressure 101/53 L 95/51 L 104/53 L Blood Pressure Mean 68 65 68 Pulse Ox Oxygen Delivery Method Oxygen Flow Rate (L/min) 07/22/23 07:55 07/22/23 08:00 07/22/23 08:05 Temperature Temperature Source Pulse Rate 75 78 80 Respiratory Rate 16 17 17 Respiratory Effort Respiratory Pattern Blood Pressure 89/54 L 106/73 93/65 Blood Pressure Mean 67 84 74 Pulse Ox 94 93 Oxygen Delivery Method Oxygen Flow Rate (L/min) 07/22/23 08:10 07/22/23 08:15 07/22/23 08:20 Temperature Temperature Source Pulse Rate 77 78 78 Respiratory Rate 16 17 17 Respiratory Effort Respiratory Pattern Blood Pressure 90/53 L 98/54 L 94/56 L Blood Pressure Mean 65 67 67 Pulse Ox 91 94 Oxygen Delivery Method Oxygen Flow Rate (L/min) 07/22/23 08:25 07/22/23 08:30 07/22/23 08:35 Temperature Temperature Source Pulse Rate 78 81 80 Respiratory Rate 17 16 16 Respiratory Effort Respiratory Pattern Blood Pressure 93/50 L 95/51 L 91/46 L Blood Pressure Mean 64 65 61 Pulse Ox Oxygen Delivery Method Oxygen Flow Rate (L/min) 07/22/23 08:40 Temperature Temperature Source Pulse Rate 82 Respiratory Rate 16 Respiratory Effort Respiratory Pattern Blood Pressure 106/48 L Blood Pressure Mean 65 Pulse Ox Oxygen Delivery Method Oxygen Flow Rate (L/min) [facility] Lab Data Labs: Laboratory Results - last 24 hr 07/22/23 07/22/23 03:28 07:05 WBC 13.1 H RBC 3.61 L Hgb 10.4 L Hct 34.7 L MCV 96.1 H MCH 28.8 MCHC 30.0 L RDW Std Deviation 47.8 H RDW Coeff of Vincent 13.5 Plt Count 306 MPV 9.8 Immature Gran % (Auto) 0.700 Neut % (Auto) 58.3 Lymph % (Auto) 30.6 [place] % (Auto) 7.1 Eos % (Auto) 2.5 Baso % (Auto) 0.8 Absolute Neuts (auto) 7.6 Absolute Lymphs (auto) 3.99 Nucleated RBC % 0 PT 19.2 H INR 1.6 APTT 38.0 H Sodium 139 Potassium 4.8 Chloride 101 Carbon Dioxide 37.0 H Anion Gap 1 L BUN 23 H Creatinine 1.63 H Estim Creat Clear Calc 57.56 Est GFR (MDRD) Af Amer 55 L Est GFR (MDRD) Non-Af 45 L BUN/Creatinine Ratio 14.1 Glucose 129 H Lactic Acid 0.7 Calcium 8.6 Total Bilirubin 0.50 AST 17 ALT 17 Alkaline Phosphatase 94 Troponin I High Sens 27 Total Protein 6.3 L Albumin 2.6 L Globulin 3.7 Albumin/Globulin Ratio 0.7 L Urine Color Yellow Urine Clarity Clear Urine pH 5.0 Ur Specific [place] 1.020 Urine Protein 15 H Urine Glucose (UA) 1000 H Urine Ketones 5 H Urine Occult Blood 10 H Urine Nitrite Negative Urine Bilirubin Negative Urine Urobilinogen Normal Ur Leukocyte Esterase 25 H Urine RBC 0 SEEN Urine WBC 0-5 SEEN Ur Squamous Epith Cells 0-5 SEEN Urine Bacteria 0 SEEN Urine Mucus 0 SEEN Radiography Diagnostic Testing: Clinical Impression(s) from Imaging Studies Chest X-Ray 07/22/23 03:23 IMPRESSION: No acute disease. Electronically Signed: Lukas Jordan MD at 4:51 EST , Rhythm Strip Rhythm Strip: Sinus Rhythm Rate: 91 Ectopy: None Discharge Plan Triage Chief Complaint: Hypotension ED Provider: Lisa Bañuelos Dx/Rx/DC Orders Clinical Impression: LOULOU (acute kidney injury), Acute hypotension, Acute dehydration Instructions: ED Dehydration (Adult) Prescriptions: No Action triamcinolone acetonide 0.1 % cream 1 applic topical BID amitriptyline 50 mg tablet 50 mg PO QHS zonisamide 100 mg capsule 200 mg PO DAILY Rx Instructions: x2 oxybutynin chloride 10 mg tablet extended release 24hr 10 mg PO DAILY trazodone 150 mg tablet 300 mg PO DAILY Jardiance 25 mg tablet 25 mg PO DAILY Qty: 90 1RF lidocaine 1 PATCH patch 1 patch topical DAILY Patient Comments: pain patch- ON 12 HOURS, OFF 12 HOURS ipratropium-albuterol 3 ML solution for nebulization 3 ml inhalation Q6H PRN Qty: 1 0RF Patient Comments: for copd/shortness of breath albuterol sulfate 2.5 MG/3 ML solution for nebulization 2.5 mg inhalation Q2H PRN PRN (Reason: SHORTNESS OF BREATH ) Qty: 100 0RF Patient Comments: breathing hydrocodone-acetaminophen 1 EACH tablet 1 ea PO Q4H PRN (Reason: Pain) morphine 15 mg Tablet 15 mg PO BID Rx Instructions: Extended release tamsulosin 0.4 mg capsule 0.4 mg PO Q24H Rx Instructions: TAKE 1 CAPSULE BY MOUTH EVERY EVENING levofloxacin 500 mg tablet 500 mg PO DAILY ertapenem 1 gram recon soln 1 g IV DAILY potassium chloride [K-Tab] 20 mEq tablet extended release 20 meq PO DAILY pramipexole 0.125 mg tablet 0.125 mg PO QHS simethicone [Gas Relief (simethicone)] 80 mg tablet,chewable 80 mg PO .TIDPC Rx Instructions: after meals gabapentin 100 mg capsule 100 mg PO TIDCM lisinopril 40 mg tablet 40 mg PO DAILY ciprofloxacin HCl 0.3 % drops 2 drp EACH EYE Q4H Alin 7-7-1.5 gram powder in packet 1 ea PO BIDCM insulin regular hum U-500 conc 500 unit/mL (3 mL) insulin pen See Rx Instructions subcut BID Rx Instructions: subcutaneously twice a day; 20 units in am, 10 units in pm Mounjaro 7.5 mg/0.5 mL pen injector 7.5 mg subcut PRATHER furosemide 40 mg tablet 40 mg PO DAILY Patient Comments: TAKE 1 TABLET BY MOUTH EVERY DAY Anoro Ellipta 62.5-25 mcg/actuation blister with device 1 inh inhalation DAILY Qty: 3 3RF saxagliptin [Onglyza] 2.5 mg tablet 2.5 mg PO DAILY Qty: 90 0RF pen needle, diabetic [BD Ultra-Fine Ava Pen Needle] 32 gauge x 5/32 needle 1 ea miscellaneous .3 times daily Qty: 100 5RF rivaroxaban 15 mg tablet 15 mg PO DAILY Qty: 90 1RF Rx Instructions: must administer with evening meal benazepril 40 mg tablet 40 mg PO DAILY Qty: 90 1RF atorvastatin 40 mg tablet 80 mg PO QHS Qty: 90 0RF omeprazole 40 mg capsule,delayed release(DR/EC) 40 mg PO DAILY Qty: 90 0RF Primary Care Provider: Jesenia Andujar Referrals: Jesenia Andujar MD [Primary Care Provider] -
--- NOTE | 2023-07-22 08:56 | EX.ED.DYSGE1 ---
HPI History of Present Illness Chief Complaint: Hypotension [facility] Medical History Allergies Arthritis Asthma Back problem Bilateral pulmonary embolism Bleeding disorder Bronchitis Carpal tunnel syndrome Cataracts, bilateral Chronic pain COPD (chronic obstructive pulmonary disease) Depression Diabetes Emphysema lung Essential hypertension Gastrointestinal problem GERD (gastroesophageal reflux disease) History of DVT of lower extremity Hx of blood clots Hyperlipidemia Hypoxia Leukocytosis Morbid obesity Neuropathy Pneumonia Skin cancer Sleep apnea Smokes with greater than 40 pack year history Stage 3a chronic kidney disease (CKD) Stiff-man syndrome Stroke Thoracic outlet syndrome UTI (urinary tract infection) Vascular disease Vision problems Home Medications lidocaine 5 % topical patch 1 patch topical DAILY Check with primary doctor 12/24/13 [History Last Taken 03/30/22 10:00] ipratropium 0.5 mg-albuterol 3 mg (2.5 mg base)/3 mL nebulization soln 3 ml inhalation Q6H PRN ##1 12/26/13 [Rx Last Taken Unknown] albuterol sulfate 2.5 mg/3 mL (0.083 %) solution for nebulization 2.5 mg (3 mL) inhalation Q2H PRN PRN SHORTNESS OF BREATH ##100 02/05/14 [Rx Last Taken Unknown] hydrocodone 7.5 mg-acetaminophen 325 mg tablet 1 ea PO Q4H PRN Pain 10/12/14 [History Last Taken Unknown] morphine 15 mg immediate release tablet 15 mg PO BID pain 03/30/22 [History Last Taken 03/30/22 22:00] amitriptyline 50 mg tablet 50 mg PO QHS 06/11/22 [History Last Taken Unknown] oxybutynin chloride 10 mg tablet,extended release 24 hr 10 mg PO DAILY 06/11/22 [History Last Taken Unknown] zonisamide 100 mg capsule 200 mg PO DAILY 06/11/22 [History Last Taken Unknown] triamcinolone acetonide 0.1 % topical cream 1 applic topical BID 07/26/22 [History Last Taken Unknown] furosemide 40 mg tablet 40 mg PO DAILY 08/08/22 [History Last Taken Unknown] umeclidinium 62.5 mcg-vilanterol 25 mcg/actuation powdr for inhalation (Anoro Ellipta) 1 inh inhalation DAILY #3 ea 08/12/22 [Rx Last Taken Unknown] trazodone 150 mg tablet 300 mg PO DAILY 09/12/22 [History Last Taken Unknown] empagliflozin 25 mg tablet (Jardiance) 25 mg PO DAILY Diabetes #90 tabs 02/06/23 [Rx Last Taken Unknown] saxagliptin 2.5 mg tablet (Onglyza) 2.5 mg PO DAILY #90 tabs 04/01/23 [Rx Last Taken Unknown] pen needle, diabetic 32 gauge x 5/32 (BD Ultra-Fine Ava Pen Needle) 1 ea miscellaneous .3 times daily #100 ea 04/02/23 [Rx Last Taken Unknown] rivaroxaban 15 mg tablet 15 mg PO DAILY Blood Thinner #90 tabs 05/12/23 [Rx Last Taken Unknown] benazepril 40 mg tablet 40 mg PO DAILY BP #90 tabs 06/16/23 [Rx Last Taken Unknown] atorvastatin 40 mg tablet 80 mg (2 x 40 mg) PO QHS Check with primary doctor #90 tabs 06/18/23 [Rx Last Taken Unknown] omeprazole 40 mg capsule,delayed release 40 mg PO DAILY GERD #90 caps 07/07/23 [Rx Last Taken Unknown] ertapenem 1 gram intravenous solution 1 g IV DAILY Antibiotic 07/09/23 [History Last Taken Unknown] levofloxacin 500 mg tablet 500 mg PO DAILY Antibiotic 07/09/23 [History Last Taken Unknown] tamsulosin 0.4 mg capsule 0.4 mg PO Q24H Urinary Retention 07/09/23 [History Last Taken Unknown] arginine 7 gram-glutamine 7 gram-calcium HMB 1.5 gram oral powder pack (Alin) 1 ea PO BIDCM 07/22/23 [History Last Taken Unknown] ciprofloxacin HCl 0.3 % eye drops 2 drp EACH EYE Q4H 07/22/23 [History Last Taken Unknown] gabapentin 100 mg capsule 100 mg PO TIDCM 07/22/23 [History Last Taken Unknown] insulin regular hum U-500 conc 500 unit/mL(3 mL) subcut pen See Rx Instructions subcut BID Diabetes 07/22/23 [History Last Taken Unknown] lisinopril 40 mg tablet 40 mg PO DAILY 07/22/23 [History Last Taken Unknown] potassium chloride 20 mEq tablet,extended release (K-Tab) 20 meq PO DAILY 07/22/23 [History Last Taken Unknown] pramipexole 0.125 mg tablet 0.125 mg PO QHS 07/22/23 [History Last Taken Unknown] simethicone 80 mg chewable tablet (Gas Relief (simethicone)) 80 mg PO .TIDPC 07/22/23 [History Last Taken Unknown] tirzepatide 7.5 mg/0.5 mL subcutaneous pen injector (Mounjaro) 7.5 mg subcut PRATHER Diabetes 07/22/23 [History Last Taken Unknown] Allergy/AdvReac Type Severity Reaction Status Date / Time cilostazol [From Pletal] Allergy Other Verified 02/06/23 10:24 etodolac [From Lodine] Allergy Hives Verified 02/06/23 10:24 nabumetone [From Relafen] Allergy Hives Verified 02/06/23 10:24 naproxen sodium [From Aleve] Allergy Hives Verified 02/06/23 10:24 Penicillins Allergy Hives Verified 02/06/23 10:24 Family History Brother Alcoholism Diabetes Father Alcoholism Hypertension Mother Arthritis Diabetes Hypertension Breast cancer Grandfather Colon cancer Grandfather Prostate cancer Other COPD (chronic obstructive pulmonary disease) Surgical History History of surgical procedure History of surgical procedure S/P TURP Status post surgical removal of malignant neoplasm of skin Social History household members: spouse housing: house 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 occupational status: 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 Smoking Status: Former smoker quit date: 07/25/15 pack-years: 80 Electronic Cigarette Use: not used how long ago did patient quit smoking: Quit 7 years ago alcohol intake: never substance use type: does not use do you feel safe at home: Yes EXAM Physical Exam Const Vital Signs: 07/22/23 08:30 07/22/23 08:35 07/22/23 08:40 Temperature Pulse Rate 81 80 82 Respiratory Rate 16 16 16 Blood Pressure 95/51 L 91/46 L 106/48 L Blood Pressure Mean 65 61 65 Pulse Ox 07/22/23 08:45 07/22/23 08:50 07/22/23 08:55 Temperature Pulse Rate 80 81 Respiratory Rate 16 17 Blood Pressure 102/45 L 99/55 L 97/52 L Blood Pressure Mean 62 68 66 Pulse Ox 07/22/23 09:00 07/22/23 09:05 07/22/23 09:10 Temperature Pulse Rate 76 80 Respiratory Rate 17 17 Blood Pressure 96/50 L 99/47 L 114/46 L Blood Pressure Mean 64 63 64 Pulse Ox 07/22/23 09:15 07/22/23 09:20 07/22/23 09:25 Temperature Pulse Rate 78 82 79 Respiratory Rate 15 15 17 Blood Pressure 92/51 L 97/67 100/39 L Blood Pressure Mean 65 78 49 Pulse Ox 07/22/23 09:30 07/22/23 09:35 07/22/23 09:40 Temperature Pulse Rate 84 77 73 Respiratory Rate 16 14 14 Blood Pressure 112/51 L 125/57 H 94/52 L Blood Pressure Mean 69 78 66 Pulse Ox 95 07/22/23 09:45 07/22/23 09:50 07/22/23 09:55 Temperature Pulse Rate 72 73 Respiratory Rate 14 13 Blood Pressure 112/54 L 93/69 93/56 L Blood Pressure Mean 72 78 65 Pulse Ox 95 96 07/22/23 10:00 07/22/23 10:05 07/22/23 10:10 Temperature Pulse Rate 72 72 Respiratory Rate 14 13 Blood Pressure 107/59 L 107/54 L 113/60 Blood Pressure Mean 74 72 76 Pulse Ox 07/22/23 10:15 07/22/23 10:38 Temperature 96.9 F L Pulse Rate 93 71 Respiratory Rate 13 13 Blood Pressure 108/55 L 104/51 L Blood Pressure Mean 73 68 Pulse Ox 94 MDM MDM Lab Data Labs: Laboratory Results - last 24 hr 07/22/23 07:05 Urine Color Yellow Urine Clarity Clear Urine pH 5.0 Ur Specific [place] 1.020 Urine Protein 15 H Urine Glucose (UA) 1000 H Urine Ketones 5 H Urine Occult Blood 10 H Urine Nitrite Negative Urine Bilirubin Negative Urine Urobilinogen Normal Ur Leukocyte Esterase 25 H Urine RBC 0 SEEN Urine WBC 0-5 SEEN Ur Squamous Epith Cells 0-5 SEEN Urine Bacteria 0 SEEN Urine Mucus 0 SEEN Radiography Diagnostic Testing: Clinical Impression(s) from Imaging Studies Chest X-Ray 07/22/23 03:23 IMPRESSION: No acute disease. Electronically Signed: Lukas Jordan MD at 4:51 EST , Rhythm Strip Rhythm Strip: Sinus Rhythm Rate: 91 Ectopy: None Treatment and Re-Evaluation :: This is an addendum to Dr. Bañuelos's note. Care of the patient was turned over to me pending urinalysis results. Urinalysis was reviewed. There is no evidence of urinary tract infection or hematuria. Repeat blood pressure was 97/52 with a MAP of 66. Patient was given another liter of IV fluids. Repeat blood pressure was 107/59 with a MAP of 75. Patient will be discharged back to the TCU. Discharge Plan Triage Chief Complaint: Hypotension ED Provider: Lisa Bañuelos Dx/Rx/DC Orders Clinical Impression: LOULOU (acute kidney injury), Acute hypotension, Acute dehydration Instructions: ED Dehydration (Adult) Prescriptions: No Action triamcinolone acetonide 0.1 % cream 1 applic topical BID amitriptyline 50 mg tablet 50 mg PO QHS zonisamide 100 mg capsule 200 mg PO DAILY Rx Instructions: x2 oxybutynin chloride 10 mg tablet extended release 24hr 10 mg PO DAILY trazodone 150 mg tablet 300 mg PO DAILY Jardiance 25 mg tablet 25 mg PO DAILY Qty: 90 1RF lidocaine 1 PATCH patch 1 patch topical DAILY Patient Comments: pain patch- ON 12 HOURS, OFF 12 HOURS ipratropium-albuterol 3 ML solution for nebulization 3 ml inhalation Q6H PRN Qty: 1 0RF Patient Comments: for copd/shortness of breath albuterol sulfate 2.5 MG/3 ML solution for nebulization 2.5 mg inhalation Q2H PRN PRN (Reason: SHORTNESS OF BREATH ) Qty: 100 0RF Patient Comments: breathing hydrocodone-acetaminophen 1 EACH tablet 1 ea PO Q4H PRN (Reason: Pain) morphine 15 mg Tablet 15 mg PO BID Rx Instructions: Extended release tamsulosin 0.4 mg capsule 0.4 mg PO Q24H Rx Instructions: TAKE 1 CAPSULE BY MOUTH EVERY EVENING levofloxacin 500 mg tablet 500 mg PO DAILY ertapenem 1 gram recon soln 1 g IV DAILY potassium chloride [K-Tab] 20 mEq tablet extended release 20 meq PO DAILY pramipexole 0.125 mg tablet 0.125 mg PO QHS simethicone [Gas Relief (simethicone)] 80 mg tablet,chewable 80 mg PO .TIDPC Rx Instructions: after meals gabapentin 100 mg capsule 100 mg PO TIDCM lisinopril 40 mg tablet 40 mg PO DAILY ciprofloxacin HCl 0.3 % drops 2 drp EACH EYE Q4H Alin 7-7-1.5 gram powder in packet 1 ea PO BIDCM insulin regular hum U-500 conc 500 unit/mL (3 mL) insulin pen See Rx Instructions subcut BID Rx Instructions: subcutaneously twice a day; 20 units in am, 10 units in pm Mounjaro 7.5 mg/0.5 mL pen injector 7.5 mg subcut PRATHER furosemide 40 mg tablet 40 mg PO DAILY Patient Comments: TAKE 1 TABLET BY MOUTH EVERY DAY Anoro Ellipta 62.5-25 mcg/actuation blister with device 1 inh inhalation DAILY Qty: 3 3RF saxagliptin [Onglyza] 2.5 mg tablet 2.5 mg PO DAILY Qty: 90 0RF pen needle, diabetic [BD Ultra-Fine Ava Pen Needle] 32 gauge x 5/32 needle 1 ea miscellaneous .3 times daily Qty: 100 5RF rivaroxaban 15 mg tablet 15 mg PO DAILY Qty: 90 1RF Rx Instructions: must administer with evening meal benazepril 40 mg tablet 40 mg PO DAILY Qty: 90 1RF atorvastatin 40 mg tablet 80 mg PO QHS Qty: 90 0RF omeprazole 40 mg capsule,delayed release(DR/EC) 40 mg PO DAILY Qty: 90 0RF Primary Care Provider: Jesenia Andujar Referrals: Jesenia Andujar MD [Primary Care Provider] - Disposition Disposition: Custodial Facility Discharge Location: [facility] Transitional Care Unit Discharge Date/Time: 07/22/23 11:11
[2023-07-22] MEDS: 0.9% Normal Saline (1000mL) 1,000 ML 1000 ML IV (09:38)
== END 2023-07-22 11:11 | disposition skilled nursing facility (03) ==
PROVIDERS: Emergency Provider Emergency Medicine; PCP Internal Medicine; Visit Provider Emergency Medicine
DX: I95.9 Hypotension, unspecified (principal); N17.9 Acute kidney failure, unspecified; J44.9 Chronic obstructive pulmonary disease, unspecified; E11.42 Type 2 diabetes mellitus with diabetic polyneuropathy; E11.22 Type 2 diabetes mellitus with diabetic chronic kidney disease; Z79.4 Long term (current) use of insulin; N18.31 Chronic kidney disease, stage 3a; Z87.891 Personal history of nicotine dependence; E86.0 Dehydration; Z86.711 Personal history of pulmonary embolism; Z79.01 Long term (current) use of anticoagulants; E78.5 Hyperlipidemia, unspecified; Z85.828 Personal history of other malignant neoplasm of skin; Z86.73 Personal history of transient ischemic attack (TIA), and cerebral infarction without residual deficits; I12.9 Hypertensive chronic kidney disease with stage 1 through stage 4 chronic kidney disease, or unspecified chronic kidney disease; F32.A Depression, unspecified; Z79.899 Other long term (current) drug therapy; K21.9 Gastro-esophageal reflux disease without esophagitis
CPT/HCPCS: 36592; 71045; 80053; 81001; 83605; 84484; 85025; 85610; 85730; 87040; 87086; 87631; 93005; 94640; 99283; J7030; A4216

== ENCOUNTER → 2023-08-04 | Outpatient (REF) | payer MEDICARE, SELFPAY ==
[2023-08-04 09:10] LABS: Absolute Lymphocyte Count 3.82 X10^3/uL (0.83-4.51); Basophil# 0.09 X10^3/uL; Basophil% 0.5 % (0-1); Eosinophil# 0.57 X10^3/uL; Eosinophils% 3.4 % (0-5); Hematocrit 33.4 % (40-54); Hemoglobin 9.9 g/dL (13.0-16.5); Lymphocyte # 3.82 X10^3/ul (0.83-4.51); Lymphocyte % 22.8 % (19-41); Mean Corp Hgb Conc 29.6 g/dL (32-36); Mean Corpuscular Hgb 28.7 pg (27.0-32.0); Mean Corpuscular Volume 96.8 fL (80-94); Mean Platelet Vol. 11.4 fl (6.2-12.0); Monocyte# 1.07 X10^3/uL; Monocyte% 6.4 % (0-10); NRBC Flagged by Analyzer 0 % (0-5); Neutrophil # 11.01 X10^3/uL (2.7-7.7); Neutrophil % 65.9 % (47-70); Platelet Count 238 K/mm3 (150-450); RBC Distribution Width SD 49.4 fl (35.1-43.9); Red Blood Count 3.45 M/mm3 (4.6-6.2); White Blood Count 16.7 K/mm3 (4.4-11.0)
[2023-08-04 09:18] LABS: Vitamin B12 252 pg/mL (211-911); Vitamin D,25 Hydroxy 31.6 ng/mL
[2023-08-04 09:49] LABS: Anion Gap 4 (5-15); BUN 24 mg/dL (7-18); BUN/Creat Ratio 16.9 RATIO (10-20); Calcium,Total 8.3 mg/dL (8.5-10.1); Chloride 100 mmol/L (98-107); Cholesterol 79 mg/dL (200); Creatinine, Serum 1.42 mg/dL (0.70-1.30); EST Glomerular Filtration Rate 53 mL/min (>60); Est Glom Filt Rate - Afr Amer 64 mL/min (>60); Glucose 178 mg/dL (74-106); High Density Lipoprotein 23 mg/dL; Magnesium 2.7 mg/dL (1.6-2.6); Potassium 4.5 mmol/L (3.5-5.1); Sodium Level 139 mmol/L (136-145); Thyroid Stim Hormone (TSH) 0.96 uIU/mL (0.358-3.74); Triglycerides 97 mg/dL; Very Low Density Lipoprotein 19 mg/dL (5-40)
[2023-08-04 13:47] LABS: Hemoglobin A1c 6.2 % (3.8-5.6)
== END ==
LOC: OLS.SW 05:00
PROVIDERS: PCP Internal Medicine; Visit Provider Internal Medicine
DX: J44.9 Chronic obstructive pulmonary disease, unspecified (principal); E11.9 Type 2 diabetes mellitus without complications; E55.9 Vitamin D deficiency, unspecified; I10 Essential (primary) hypertension; E78.5 Hyperlipidemia, unspecified; I82.409 Acute embolism and thrombosis of unspecified deep veins of unspecified lower extremity
CPT/HCPCS: 36415; 80048; 80061; 82306; 82607; 83036; 83735; 84443; 85025

== ENCOUNTER → 2023-08-11 | Outpatient (REF) | payer MEDICARE, SELFPAY ==
[2023-08-11 08:26] LABS: Absolute Lymphocyte Count 5.11 X10^3/uL (0.83-4.51); Basophil# 0.09 X10^3/uL; Basophil% 0.5 % (0-1); Eosinophil# 0.41 X10^3/uL; Eosinophils% 2.2 % (0-5); Hematocrit 35.8 % (40-54); Hemoglobin 11.3 g/dL (13.0-16.5); Lymphocyte # 5.11 X10^3/ul (0.83-4.51); Mean Corp Hgb Conc 31.6 g/dL (32-36); Mean Corpuscular Hgb 29.5 pg (27.0-32.0); Mean Corpuscular Volume 93.5 fL (80-94); Mean Platelet Vol. 11.1 fl (6.2-12.0); Monocyte% 5.8 % (0-10); NRBC Flagged by Analyzer 0 % (0-5); Neutrophil # 12.02 X10^3/uL (2.7-7.7); Neutrophil % 63.5 % (47-70); POSITIVE DIFFERENTIAL YES; Platelet Count 240 K/mm3 (150-450); RBC Distribution Width CV 14.3 % (11.6-14.6); Red Blood Count 3.83 M/mm3 (4.6-6.2); White Blood Count 18.9 K/mm3 (4.4-11.0)
[2023-08-11 08:30] LABS: Differential Indicated SCAN CRITERIA MET
[2023-08-11 09:23] LABS: Anion Gap 4 (5-15); BUN 22 mg/dL (7-18); BUN/Creat Ratio 17.6 RATIO (10-20); Calcium,Total 8.7 mg/dL (8.5-10.1); Chloride 101 mmol/L (98-107); Creatinine, Serum 1.25 mg/dL (0.70-1.30); EST Glomerular Filtration Rate 61 mL/min (>60); Est Glom Filt Rate - Afr Amer 74 mL/min (>60); Glucose 174 mg/dL (74-106); Magnesium 2.4 mg/dL (1.6-2.6); Potassium 4.5 mmol/L (3.5-5.1); Sodium Level 136 mmol/L (136-145)
[2023-08-11 11:35] LABS: Differential Comment SCANNED
== END ==
LOC: OLS.SW 05:00
PROVIDERS: PCP Internal Medicine; Visit Provider Internal Medicine
DX: N40.0 Benign prostatic hyperplasia without lower urinary tract symptoms (principal); E11.22 Type 2 diabetes mellitus with diabetic chronic kidney disease; I12.9 Hypertensive chronic kidney disease with stage 1 through stage 4 chronic kidney disease, or unspecified chronic kidney disease; E78.5 Hyperlipidemia, unspecified; N18.31 Chronic kidney disease, stage 3a
CPT/HCPCS: 36415; 80048; 83735; 85025

== ENCOUNTER → 2023-08-12 | Outpatient (REF) | payer MEDICARE, SELFPAY ==
[2023-08-12 09:35] LABS: Hematocrit 35.7 % (40-54); Hemoglobin 10.7 g/dL (13.0-16.5); Mean Corpuscular Hgb 28.2 pg (27.0-32.0); Mean Corpuscular Volume 94.2 fL (80-94); Mean Platelet Vol. 11.6 fl (6.2-12.0); Platelet Count 254 K/mm3 (150-450); RBC Distribution Width CV 14.6 % (11.6-14.6); RBC Distribution Width SD 49.3 fl (35.1-43.9); Red Blood Count 3.79 M/mm3 (4.6-6.2); White Blood Count 18.3 K/mm3 (4.4-11.0)
== END ==
LOC: OLS.SW 05:00
PROVIDERS: PCP Internal Medicine; Visit Provider Internal Medicine
DX: M86.172 Other acute osteomyelitis, left ankle and foot (principal)
CPT/HCPCS: 36415; 85027

== ENCOUNTER → 2023-08-14 | Outpatient (REF) | payer MEDICARE, SELFPAY ==
[2023-08-14 08:52] LABS: Absolute Lymphocyte Count 4.26 X10^3/uL (0.83-4.51); Absolute Neutrophil Count 10.1 X10^3/uL (2.0-7.7); Basophil# 0.07 X10^3/uL; Basophil% 0.4 % (0-1); Eosinophil# 0.53 X10^3/uL; Eosinophils% 3.2 % (0-5); Hematocrit 33.9 % (40-54); Hemoglobin 10.2 g/dL (13.0-16.5); Lymphocyte # 4.26 X10^3/ul (0.83-4.51); Lymphocyte % 26.1 % (19-41); Mean Corp Hgb Conc 30.1 g/dL (32-36); Mean Corpuscular Hgb 28.3 pg (27.0-32.0); Mean Corpuscular Volume 93.9 fL (80-94); Mean Platelet Vol. 11.5 fl (6.2-12.0); Monocyte# 1.21 X10^3/uL; Monocyte% 7.4 % (0-10); NRBC Flagged by Analyzer 0 % (0-5); Neutrophil # 10.12 X10^3/uL (2.7-7.7); Neutrophil % 62.2 % (47-70); Platelet Count 244 K/mm3 (150-450); RBC Distribution Width CV 14.6 % (11.6-14.6); RBC Distribution Width SD 49.8 fl (35.1-43.9); Red Blood Count 3.61 M/mm3 (4.6-6.2); White Blood Count 16.3 K/mm3 (4.4-11.0)
== END ==
LOC: OLS.SW 05:00
PROVIDERS: PCP Internal Medicine; Visit Provider Internal Medicine
DX: D72.829 Elevated white blood cell count, unspecified (principal)
CPT/HCPCS: 36415; 85025

== ENCOUNTER → 2023-08-18 | Outpatient (REF) | payer MEDICARE, SELFPAY ==
[2023-08-18 09:16] LABS: Absolute Lymphocyte Count 4.43 X10^3/uL (0.83-4.51); Absolute Neutrophil Count 10.4 X10^3/uL (2.0-7.7); Basophil# 0.07 X10^3/uL; Basophil% 0.4 % (0-1); Eosinophils% 3.6 % (0-5); Hematocrit 36.3 % (40-54); Lymphocyte # 4.43 X10^3/ul (0.83-4.51); Lymphocyte % 26.8 % (19-41); Mean Corp Hgb Conc 30.3 g/dL (32-36); Mean Corpuscular Hgb 28.1 pg (27.0-32.0); Mean Corpuscular Volume 92.8 fL (80-94); Mean Platelet Vol. 11.1 fl (6.2-12.0); Monocyte# 0.95 X10^3/uL; Monocyte% 5.8 % (0-10); NRBC Flagged by Analyzer 0 % (0-5); Neutrophil # 10.38 X10^3/uL (2.7-7.7); Neutrophil % 62.9 % (47-70); Platelet Count 281 K/mm3 (150-450); RBC Distribution Width CV 14.5 % (11.6-14.6); RBC Distribution Width SD 48.9 fl (35.1-43.9); Red Blood Count 3.91 M/mm3 (4.6-6.2); White Blood Count 16.5 K/mm3 (4.4-11.0)
[2023-08-18 09:35] LABS: Anion Gap 8 (5-15); BUN 21 mg/dL (7-18); BUN/Creat Ratio 17.1 RATIO (10-20); Calcium,Total 9.1 mg/dL (8.5-10.1); Chloride 99 mmol/L (98-107); Creatinine, Serum 1.23 mg/dL (0.70-1.30); EST Glomerular Filtration Rate 62 mL/min (>60); Est Glom Filt Rate - Afr Amer 75 mL/min (>60); Glucose 219 mg/dL (74-106); Potassium 4.2 mmol/L (3.5-5.1); Sodium Level 136 mmol/L (136-145)
== END ==
LOC: OLS.SW 05:00
PROVIDERS: PCP Internal Medicine; Visit Provider Internal Medicine
DX: E11.621 Type 2 diabetes mellitus with foot ulcer (principal)
CPT/HCPCS: 36415; 80048; 85025

== ENCOUNTER → 2023-08-20 | Outpatient (CLI) | payer MEDICARE, SELFPAY | END | disposition home or self-care (01) | LOC: LABSPEC 15:17 | PROVIDERS: PCP Internal Medicine; Referring Provider Podiatrist; Visit Provider Podiatrist | DX: L97.524 Non-pressure chronic ulcer of other part of left foot with necrosis of bone (principal) | CPT/HCPCS: 87070; 87077; 87186; 87205 ==

== ENCOUNTER → 2023-09-04 | Outpatient (REF) | payer MEDICARE, SELFPAY ==
[2023-09-04 09:11] LABS: Hematocrit 38.7 % (40-54); Mean Corpuscular Hgb 28.8 pg (27.0-32.0); Mean Platelet Vol. 10.9 fl (6.2-12.0); Platelet Count 301 K/mm3 (150-450); RBC Distribution Width CV 14.6 % (11.6-14.6); RBC Distribution Width SD 49.7 fl (35.1-43.9); Red Blood Count 4.16 M/mm3 (4.6-6.2); White Blood Count 18.2 K/mm3 (4.4-11.0)
== END ==
LOC: OLS.SW 08:15
PROVIDERS: PCP Internal Medicine; Visit Provider Internal Medicine
DX: M86.172 Other acute osteomyelitis, left ankle and foot (principal)
CPT/HCPCS: 36415; 85027

== ENCOUNTER → 2023-09-08 04:00 | Outpatient (REF) | payer MEDICARE, SELFPAY ==
[2023-09-08 09:12] LABS: Absolute Lymphocyte Count 4.64 X10^3/uL (0.83-4.51); Absolute Neutrophil Count 7.3 X10^3/uL (2.0-7.7); Basophil# 0.09 X10^3/uL; Basophil% 0.7 % (0-1); Eosinophil# 0.58 X10^3/uL; Eosinophils% 4.3 % (0-5); Hematocrit 35.2 % (40-54); Hemoglobin 10.9 g/dL (13.0-16.5); Lymphocyte # 4.64 X10^3/ul (0.83-4.51); Lymphocyte % 34.3 % (19-41); Mean Corpuscular Hgb 29.1 pg (27.0-32.0); Mean Corpuscular Volume 93.9 fL (80-94); Monocyte# 0.87 X10^3/uL; Monocyte% 6.4 % (0-10); NRBC Flagged by Analyzer 0 % (0-5); Neutrophil # 7.29 X10^3/uL (2.7-7.7); Neutrophil % 53.8 % (47-70); Platelet Count 232 K/mm3 (150-450); RBC Distribution Width CV 14.6 % (11.6-14.6); Red Blood Count 3.75 M/mm3 (4.6-6.2); White Blood Count 13.5 K/mm3 (4.4-11.0)
== END ==
LOC: OLS.SW 04:00
PROVIDERS: PCP Internal Medicine; Referring Provider Internal Medicine; Visit Provider Internal Medicine
DX: Z13.89 Encounter for screening for other disorder (principal)
CPT/HCPCS: 36415; 85025

== ENCOUNTER → 2023-09-10 | Outpatient (REF) | payer MEDICARE, SELFPAY ==
[2023-09-10 09:02] LABS: Hematocrit 36.3 % (40-54); Hemoglobin 10.9 g/dL (13.0-16.5); Mean Corpuscular Hgb 28.2 pg (27.0-32.0); Mean Platelet Vol. 11.3 fl (6.2-12.0); Platelet Count 238 K/mm3 (150-450); RBC Distribution Width CV 14.6 % (11.6-14.6); RBC Distribution Width SD 49.7 fl (35.1-43.9); Red Blood Count 3.86 M/mm3 (4.6-6.2); White Blood Count 14.8 K/mm3 (4.4-11.0)
== END ==
LOC: OLS.SW 05:00
PROVIDERS: PCP Internal Medicine; Visit Provider Internal Medicine
DX: T14.8XXA Other injury of unspecified body region, initial encounter (principal)
CPT/HCPCS: 36415; 85027

== ENCOUNTER → 2023-10-08 | Outpatient (CLI) | payer MEDICARE, SELFPAY | END | disposition home or self-care (01) | LOC: LABSPEC 15:04 | PROVIDERS: PCP Internal Medicine; Visit Provider Podiatrist | DX: L97.924 Non-pressure chronic ulcer of unspecified part of left lower leg with necrosis of bone (principal) | CPT/HCPCS: 87070; 87077; 87186; 87205 ==

== ENCOUNTER → 2023-10-22 | Outpatient (CLI) | payer MEDICARE, SELFPAY ==
--- NOTE | 2023-10-22 10:05 | RAD_ITS ---
STUDY: X-RAY - LEFT FOOT CLINICAL: Male, 68 years old. Osteomyelitis, unspecified. Great toe amputated in June of this year. Still does not healing properly. TECHNIQUE: 3 views of the left foot. COMPARISON: None. FINDINGS: There is amputation of the great toe through the first MTP joint. There are erosive/destructive changes of the medial aspect of the first metatarsal head, concerning for osteomyelitis. Intact talus, calcaneus, and tarsal bones. There is a small enthesopathic spur of the posterior calcaneus at the distal insertion of the Achilles tendon. Normal visualized subtalar, talonavicular, calcaneocuboid, tarsal and tarsometatarsal articulations. Normal second through fifth metatarsals. Normal second through fifth metatarsophalangeal joints. Normal interphalangeal joints and phalanges of the lesser toes. There are atherosclerotic calcifications. RAD/Foot min 3 Views IMPRESSION: Amputation of the great toe through the first MTP joint. Erosive/destructive changes of the medial aspect of the first metatarsal head, concerning for osteomyelitis. Electronically Signed: Dav Smith MD at 8:41 EDT ,
[2023-10-22 12:35] LABS: Hematocrit 41.1 % (40-54); Hemoglobin 12.5 g/dL (13.0-16.5); Mean Corp Hgb Conc 30.4 g/dL (32-36); Mean Corpuscular Volume 95.4 fL (80-94); Mean Platelet Vol. 10.9 fl (6.2-12.0); Platelet Count 296 K/mm3 (150-450); RBC Distribution Width CV 14.1 % (11.6-14.6); RBC Distribution Width SD 49.3 fl (35.1-43.9); Red Blood Count 4.31 M/mm3 (4.6-6.2); White Blood Count 14.7 K/mm3 (4.4-11.0)
[2023-10-22 12:45] LABS: ALB/GLOB Ratio 0.8 RATIO (0.9-2.4); AST(SGOT) 16 U/L (15-37); Alanine Aminotransfer ALT/SGPT 20 U/L (16-61); Albumin, Serum 3.4 g/dL (3.2-5.0); Alkaline Phosphatase 121 U/L (45-117); Anion Gap 9 (5-15); BUN 14 mg/dL (7-18); Calcium,Total 9.6 mg/dL (8.5-10.1); Chloride 103 mmol/L (98-107); Creatinine, Serum 1.55 mg/dL (0.70-1.30); EST Glomerular Filtration Rate 48 mL/min (>60); Est Glom Filt Rate - Afr Amer 58 mL/min (>60); Globulin 4.3 g/dL (2.2-4.2); Glucose 200 mg/dL (74-106); Potassium 4.1 mmol/L (3.5-5.1); Protein, Total 7.7 g/dL (6.4-8.2); Sodium Level 136 mmol/L (136-145)
== END | disposition home or self-care (01) ==
LOC: MTLAB 10:02
PROVIDERS: PCP Internal Medicine; Referring Provider Internal Medicine Infectious Disease; Visit Provider Internal Medicine Infectious Disease
DX: M86.9 Osteomyelitis, unspecified (principal)
CPT/HCPCS: 36415; 73630; 80053; 85027; 86140

== ENCOUNTER → 2024-01-14 | Outpatient (CLI) | payer MEDICARE, MEDICAID, SELFPAY ==
[2024-01-14 12:25] LABS: Absolute Lymphocyte Count 4.45 X10^3/uL (0.83-4.51); Absolute Neutrophil Count 6.4 X10^3/uL (2.0-7.7); Basophil# 0.08 X10^3/uL; Basophil% 0.7 % (0-1); Eosinophil# 0.38 X10^3/uL; Eosinophils% 3.1 % (0-5); Hematocrit 42.3 % (40-54); Hemoglobin 13.1 g/dL (13.0-16.5); Lymphocyte # 4.45 X10^3/ul (0.83-4.51); Lymphocyte % 36.7 % (19-41); Mean Corpuscular Hgb 29.3 pg (27.0-32.0); Mean Corpuscular Volume 94.6 fL (80-94); Mean Platelet Vol. 10.4 fl (6.2-12.0); Monocyte# 0.74 X10^3/uL; Monocyte% 6.1 % (0-10); NRBC Flagged by Analyzer 0 % (0-5); Neutrophil # 6.38 X10^3/uL (2.7-7.7); Neutrophil % 52.7 % (47-70); Platelet Count 287 K/mm3 (150-450); RBC Distribution Width CV 13.1 % (11.6-14.6); RBC Distribution Width SD 45.3 fl (35.1-43.9); Red Blood Count 4.47 M/mm3 (4.6-6.2); White Blood Count 12.1 K/mm3 (4.4-11.0)
[2024-01-14 12:51] LABS: ALB/GLOB Ratio 0.7 RATIO (0.9-2.4); AST(SGOT) 9 U/L (15-37); Alanine Aminotransfer ALT/SGPT 15 U/L (16-61); Albumin, Serum 3.2 g/dL (3.2-5.0); Alkaline Phosphatase 146 U/L (45-117); Anion Gap 7 (5-15); BUN 13 mg/dL (7-18); BUN/Creat Ratio 9.3 RATIO (10-20); Calcium,Total 9.2 mg/dL (8.5-10.1); Chloride 101 mmol/L (98-107); Cholesterol 116 mg/dL (200); EST Glomerular Filtration Rate 54 mL/min (>60); Est Glom Filt Rate - Afr Amer 65 mL/min (>60); Globulin 4.3 g/dL (2.2-4.2); Glucose 267 mg/dL (74-106); High Density Lipoprotein 24 mg/dL; PSA,Total - Annual Screen 0.51 ng/mL (0.00-4.00); Potassium 4.2 mmol/L (3.5-5.1); Protein, Total 7.5 g/dL (6.4-8.2); Sodium Level 136 mmol/L (136-145); Triglycerides 185 mg/dL; Very Low Density Lipoprotein 37 mg/dL (5-40)
== END | disposition home or self-care (01) ==
LOC: BIMLAB 11:13
PROVIDERS: PCP Internal Medicine; Referring Provider Physician Assistant; Visit Provider Physician Assistant
DX: I10 Essential (primary) hypertension (principal); E78.5 Hyperlipidemia, unspecified; N42.9 Disorder of prostate, unspecified
CPT/HCPCS: 36415; 80053; 80061; 84153; 85025; G0103

== ENCOUNTER → 2024-06-17 | Outpatient (CLI) | payer MEDICARE, MEDICAID, SELFPAY ==
--- NOTE | 2024-06-17 09:31 | RAD_ITS ---
EXAM: XR CERVICAL SPINE, 6 OR MORE VIEWS CLINICAL INDICATION: PAIN TECHNIQUE: Frontal, lateral, oblique and flexion/extension views of the cervical spine. COMPARISON: No relevant prior studies available. FINDINGS: VERTEBRAE: Multilevel facet arthrosis, endplate osteophytosis, mild uncovertebral joint arthrosis. No spondylolisthesis. Preservation of the normal cervical lordosis. No fracture or traumatic subluxation. DISC SPACES: Multilevel intervertebral disc height loss. There is osseous encroachment of multiple neuroforamina bilaterally. SOFT TISSUES: No significant abnormality. No prevertebral soft tissue widening. VASCULATURE: Vascular calcifications. LUNG APICES: Clear. RAD/Cerv Spine Obl/Flex/Ext Comp IMPRESSION: No fracture or traumatic subluxation. Multilevel degenerative changes. Electronically Signed: Raul Zarate DO at 20:24 EST ,
== END | disposition home or self-care (01) ==
LOC: MTRAD 09:29
PROVIDERS: PCP Internal Medicine; Referring Provider Anesthesiology Pain Medicine; Visit Provider Anesthesiology Pain Medicine
DX: M50.30 Other cervical disc degeneration, unspecified cervical region (principal)
CPT/HCPCS: 72052

== ENCOUNTER → 2024-07-21 | Outpatient (CLI) | payer MEDICARE, MEDICAID, SELFPAY ==
[2024-07-21 13:02] LABS: Anion Gap 11 (5-15); BUN 13 mg/dL (4-19); BUN/Creat Ratio 9.5 RATIO (10-20); Chloride 98 mmol/L (96-108); Creatinine, Serum 1.3 mg/dL (0.8-1.3); EST Glomerular Filtration Rate 59 (>60); Glucose 91 mg/dL (70-99); Sodium Level 136 mmol/L (133-145)
== END | disposition home or self-care (01) ==
LOC: BIMLAB 11:17
PROVIDERS: PCP Internal Medicine; Referring Provider Internal Medicine; Visit Provider Internal Medicine
DX: E11.9 Type 2 diabetes mellitus without complications (principal)
CPT/HCPCS: 36415; 80048

== ENCOUNTER 2024-09-27 12:00 | Day surgery (SDC) | payer MEDICARE, MEDICAID, SELFPAY ==
--- NOTE | 2024-09-15 12:40 | PAT.ANE_ITS ---
Pre-Assessment Diagnosis/Proposed Procedure Planned Operative Procedure(s): COLONOSCOPY Anesthesia History Anesthesia History - estimating engineer: Anesthesia History - estimating engineer Hx Hospitalization No 09/15/24 12:08 Any Problems With Anesthesia No 09/15/24 12:08 Cholinesterase deficiency No 09/15/24 12:08 You/Your Family Experience No 09/15/24 12:08 fever (hyperthermia) with Relationship Recent Exposure to Contagious No 10/10/22 10:23 Disease Does patient have nerve No 09/15/24 12:08 stimulator Patient instructed to have device shut off --Does patient have Pacemaker or ICD? When Was Last Pacemaker Check QUESTION #4 FULL TEXT: You/Your Family Experience fever (hyperthermia) with Anesthesia Last Oral Intake Last Oral intake: Last Oral Intake NPO since Meds taken in AM with sips of water? Meds patient instructed to take am of surgery PONV PONV - estimating engineer: PONV - estimating engineer Female No 09/15/24 12:08 HX of Motion Sickness No 09/15/24 12:08 HX of N/V After Surgery No 09/15/24 12:08 Non-Smoker Yes 09/15/24 12:08 Duration of Surgery greater No 09/15/24 12:08 than 60 minutes Number of Risk Factors 1 09/15/24 12:08 PONV Score Low Risk 09/15/24 12:08 Height & Weight Height & Weight: Anesthesia: Height & Weight Height 5 ft 9 in 07/21/24 10:27 Respiratory Assessment Respiratory Assessment - estimating engineer: Respiratory Tract Infection Hx - estimating engineer Hx Respiratory Tract Infection No 09/15/24 12:08 STOP Sleep Apnea STOP Sleep Apnea - estimating engineer: STOP Sleep Apnea - estimating engineer Hx Hypertension Yes 09/15/24 12:08 Hx Sleep Apnea Yes 09/15/24 12:08 CPAP No 09/15/24 12:08 BIPAP Yes: DOESNT WEAR 09/15/24 12:08 Do you snore loudly (louder than talking or can be heard Do you often feel tired/ fatigued/ sleepy during daytime? Has anyone observed you stop breathing during sleep? STOP Results Positive 09/15/24 12:08 QUESTION #5 FULL TEXT : Do you snore loudly (louder than talking or can be heard through closed doors)? Tobacco Use History Tobacco Use History - estimating engineer: Tobacco Use History - estimating engineer Tobacco Use Smoking Status Former smoker 09/15/24 12:08 Hx Tobacco Use Yes: tobacco pouches 09/15/24 12:08 Years Smoking Packs Smoked per Day Smoking Cessation Date was Yes - quit smoking within 15 09/15/24 12:08 within the last 15 years years Hx Smoking Cessation Date 05/26/15 09/15/24 12:08 Hx Smoking Cessation Yes 09/15/24 12:08 Counseling Hematologic Medial History Hematologic Hx - estimating engineer: Hematologic Medical Hx - mobility architect Hx of Blood Transfusion No 09/15/24 12:08 Hx of Transfusion in last 3 No 09/15/24 12:08 Months Date of Last Transfusion (if within last 3 months) Ever experience any problems No 09/15/24 12:08 with transfusion(s)? Specify any problems Hx of Preganancy in last 3 N/A 09/15/24 12:08 Months Nurse Filling Out Transfusion [facility] 09/15/24 12:08 & Questions: Date: 09/15/24 09/15/24 12:08 Time: 12:18 09/15/24 12:08 Patient unable to answer at this time (ie. confused, unrespo /Reproduction History /Reproductive History - estimating engineer: /Reproductive Hx- estimating engineer Hx Now No 09/15/24 12:08 Gestational Age (in weeks): EDC: Hx Hx Para [facility] History (Updated 09/15/24 @ 12:16 by Marisa Calderon) Wears hearing aid Wears dentures MRSA infection Insulin dependent diabetes mellitus Ambulates with cane High cholesterol Easy bruising Restless legs TIA (transient ischemic attack) Dietary restriction Gastric reflux On home oxygen therapy Leg cramps History of pain when walking History of edema Pulmonary embolism DVT (deep venous thrombosis) Hypertension History of stress test History of echocardiogram Cardiology follow-up encounter Essential hypertension Thoracic outlet syndrome Skin cancer Vision problems Vascular disease Stroke Pneumonia Neuropathy Gastrointestinal problem Emphysema lung Bronchitis Carpal tunnel syndrome Cataracts, bilateral Bleeding disorder Hx of blood clots UTI (urinary tract infection) Back problem Asthma Arthritis Allergies Smokes with greater than 40 pack year history Chronic pain GERD (gastroesophageal reflux disease) Hyperlipidemia Morbid obesity Leukocytosis Stage 3a chronic kidney disease (CKD) Hypoxia Sleep apnea Bilateral pulmonary embolism History of DVT of lower extremity 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 Depression COPD (chronic obstructive pulmonary disease) Home Medications ?Medication ?Instructions ?Recorded ?Last Taken ?Type clotrimazole-betamethasone 1 1 applic topical BID #0 g eleni 07/30/23 Unknown Rx %-0.05 % topical cream morphine 15 mg tablet,extended 15 mg PO 0800,1999 3 da ys #6 tabs 07/30/23 Unknown Rx release hydrocodone 7.5 mg-acetaminophen 1 tab PO TID PRN pain 10/08/23 Unknown History 325 mg tablet rollator walker with seat and #1 ea 12/15/23 Unknown R x brakes docusate sodium 100 mg capsule 100 mg PO BID #60 caps 03/01/24 Unknown Rx polyethylene glycol 3350 17 17 g PO QDAY #850 grams Unknown Rx gram/dose oral powder (Miralax) amitriptyline 50 mg tablet 50 mg PO QHS 07/21/24 Unkno wn History atorvastatin 80 mg tablet 80 mg PO QHS Check with prim noemy 07/21/24 Unknown Rx doctor #90 tabs empagliflozin 25 mg tablet 25 mg PO DAILY Diabetes #90 tabs 07/21/24 Unknown Rx (Jardiance) insulin regular hum U-500 conc 500 See Rx Instructions subcut 07/21/24 Unknown Rx unit/mL(3 mL) subcut pen (Humulin DAILY@0700 #6 mL R U-500 (Conc) Insulin Kwikpen) lisinopril 30 mg tablet 30 mg PO QDAY #90 tabs 07/21 Unknown Rx omeprazole 40 mg capsule,delayed 40 mg PO DAILY GERD # 90 caps 07/21/24 Unknown Rx release pen needle, diabetic 32 gauge x 1 ea miscellaneous .3 times daily 07/21/24 Unknown Rx /32 (BD Ultra-Fine Ava Pen #100 ea Needle) pramipexole 0.125 mg tablet 0.125 mg PO QHS #90 tabs 0 07/21/24 Unknown Rx rivaroxaban 20 mg tablet 20 mg PO DAILY Blood Thinner #90 07/21/24 Unknown Rx tabs tamsulosin 0.4 mg capsule 0.4 mg PO Q24H Urinary Reten tion 07/21/24 Unknown Rx #90 CAPSULES tirzepatide 12.5 mg/0.5 mL 12.5 mg (0.5 mL) subcut Nagy@ 1000 #6 07/21/24 Unknown Rx subcutaneous pen injector mL trazodone 150 mg tablet 150 - 300 mg (1 - 2 x 150 mg ) PO 07/21/24 Unknown Rx QHS PRN sleep #90 tabs miscellaneous medical supply #1 ea 07/22/24 Unknown Rx mometasone 50 mcg/actuation nasal 2 spray intranasal B ID PRN 09/15/24 Unknown History spray (Nasonex 24hr Allergy) ALLERGIES Allergy/AdvReac Type Severity Reaction Status Date / Time cilostazol (From Pletal) Allergy Other Verified 09/15/24 11:43 etodolac (From Lodine) Allergy Hives Verified 09/15/24 11:43 nabumetone (From Relafen) Allergy Hives Verified 09/15/24 11:43 naproxen sodium (From Aleve) Allergy Hives Verified 09/15/24 11:43 Penicillins Allergy Hives Verified 09/15/24 11:43 Family History Brother Alcoholism Diabetes Father Alcoholism Hypertension Mother Arthritis Diabetes Hypertension Breast cancer Grandfather Colon cancer Grandfather Prostate cancer Other COPD (chronic obstructive pulmonary disease) Surgical History (Updated 09/15/24 @ 12:16 by Marisa Calderon) History of cardiac catheterization Status post amputation of left great toe History of surgical procedure History of surgical procedure S/P TURP Status post surgical removal of malignant neoplasm of skin Social History (Updated 07/21/24 @ 10:[address] 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 Normal sinus rhythm 91 bpm. Incomplete right bundle branch block. Echo (EF%) pertinent findings: Normal size function EF 60%. Pulmonary artery pressure 39 mmHg. 09/27/2022. Heart catheterization pertinent findings: 09/27/2022. Normal coronary arteries. Normal size function of left ventricle. Consult pertinent findings: Cardiology 09/12/2022. Dyspnea. Acute. Recommend heart catheterization. Hypertension. Chronic. Fairly well-controlled. Recommendation Anesthesia Recommendation Anesthesia recommendation: OPTIMIZED for anesthesia
[2024-09-27] VITALS (8 sets, daily range): BP systolic 94–145; BP diastolic 44–55; PULSE 68–84; RESP 16–18; TEMP 36.3–36.6; O2SAT 94–98; BMI 40.1
[2024-09-27] MEDS: Lactated Ringers 1,000 ML 15 ML IV (12:44)
--- NOTE | 2024-09-27 12:50 | PCM.HP.STD ---
[facility] - General General Date of Admission: 09/27/24 Date of Service: 09/27/24 Chief Complaint: Screening colonoscopy HPI Narrative RUDDY SUTHERLAND, is a 69 M who presented to the office for establishment with [facility] for complaints of constipation, bloating, and gas. He has had prior colonoscopies done by , last one 5 years ago with benign polypectomy, and was told that he should get colonoscopies every 5 years due to his diabetes. He denies difficulty chewing and swallowing, heartburn, reflux, nausea, emesis, abdominal pain, diarrhea, hematochezia, and melena. He reports rare urgent BM episodes and admits that he's had to manual disimpact himself before due to increased caliber of stool and inability to pass. He has increased dietary fiber recently and is questioning use of stool softeners. He has PMH of DVTs and is on rivaroxaban; diabetes and is taking empagliflozin and tirzepatide; GERD controlled with omeprazole 40mg daily; all managed by PCP. He sees pain management for chronic back and leg pain; on morphine ER and hydrocodone-APAP. He sees pulmonology for COPD and STEPHANE, should be using BIPAP but does not due to feeling restricted. [facility] Medical History Wears hearing aid Wears dentures MRSA infection Insulin dependent diabetes mellitus Ambulates with cane High cholesterol Easy bruising Restless legs TIA (transient ischemic attack) Dietary restriction Gastric reflux On home oxygen therapy Leg cramps History of pain when walking History of edema Pulmonary embolism DVT (deep venous thrombosis) Hypertension History of stress test History of echocardiogram Cardiology follow-up encounter Essential hypertension Thoracic outlet syndrome Skin cancer Vision problems Vascular disease Stroke Pneumonia Neuropathy Gastrointestinal problem Emphysema lung Bronchitis Carpal tunnel syndrome Cataracts, bilateral Bleeding disorder Hx of blood clots UTI (urinary tract infection) Back problem Asthma Arthritis Allergies Smokes with greater than 40 pack year history Chronic pain GERD (gastroesophageal reflux disease) Hyperlipidemia Morbid obesity Leukocytosis Stage 3a chronic kidney disease (CKD) Hypoxia Sleep apnea Bilateral pulmonary embolism History of DVT of lower extremity 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 Depression COPD (chronic obstructive pulmonary disease) Home Medications ?Medication ?Instructions ?Recorded ?Last Taken ?Type clotrimazole-betamethasone 1 1 applic topical BID #0 grams 07/30/23 Unknown Rx %-0.05 % topical cream morphine 15 mg tablet,extended 15 mg PO 799,1999 3 days #6 tabs 07/30/23 09/27/24 05:00 Rx release hydrocodone 7.5 mg-acetaminophen 1 tab PO TID PRN pain 10/08/23 09/27/24 05:00 History 325 mg tablet rollator walker with seat and #1 ea 12/15/23 Unknown Rx brakes docusate sodium 100 mg capsule 100 mg PO BID #60 caps 03/01/24 Unknown Rx polyethylene glycol 3350 17 17 g PO QDAY #850 grams 07/16/24 Unknown Rx gram/dose oral powder (Miralax) amitriptyline 50 mg tablet 50 mg PO QHS 07/21/24 Unknown History atorvastatin 80 mg tablet 80 mg PO QHS Check with primary 07/21/24 Unknown Rx doctor #90 tabs empagliflozin 25 mg tablet 25 mg PO DAILY Diabetes #90 tabs 07/21/24 09/19/24 Rx (Jardiance) insulin regular hum U-500 conc 500 See Rx Instructions subcut 07/21/24 09/27/24 05:00 Rx unit/mL(3 mL) subcut pen (Humulin DAILY@0700 #6 mL R U-500 (Conc) Insulin Kwikpen) lisinopril 30 mg tablet 30 mg PO QDAY #90 tabs 07/21/24 Unknown Rx omeprazole 40 mg capsule,delayed 40 mg PO DAILY GERD #90 caps 07/21/24 09/27/24 05:00 Rx release pen needle, diabetic 32 gauge x 1 ea miscellaneous .3 times daily 07/21/24 Unknown Rx 32 (BD Ultra-Fine Ava Pen #100 ea Needle) pramipexole 0.125 mg tablet 0.125 mg PO QHS #90 tabs 07/21/24 Unknown Rx rivaroxaban 20 mg tablet 20 mg PO DAILY Blood Thinner #90 07/21/24 09/19/24 Rx tabs tamsulosin 0.4 mg capsule 0.4 mg PO Q24H Urinary Retention 07/21/24 Unknown Rx #90 CAPSULES tirzepatide 12.5 mg/0.5 mL 12.5 mg (0.5 mL) subcut Nagy@1000 #6 07/21/24 09/19/24 Rx subcutaneous pen injector mL trazodone 150 mg tablet 150 - 300 mg (1 - 2 x 150 mg) PO 07/21/24 Unknown Rx QHS PRN sleep #90 tabs miscellaneous medical supply #1 ea 07/22/24 Unknown Rx mometasone 50 mcg/actuation nasal 2 spray intranasal BID PRN 09/15/24 Unknown History spray (Nasonex 24hr Allergy) ALLERGIES albuterol sulfate 90 mcg/actuation 2 inh inhalation Q4H PRN shortness 09/21/24 Unknown Rx aerosol inhaler (Ventolin HFA) of breath or wheezing #18 grams umeclidinium 62.5 mcg-vilanterol 1 inh inhalation QDAY #60 ea 09/21/24 Unknown Rx 25 mcg/actuation powdr for inhalation (Anoro Ellipta) Allergy/AdvReac Type Severity Reaction Status Date / Time cilostazol (From Pletal) Allergy Other Verified 09/27/24 12:35 etodolac (From Lodine) Allergy Hives Verified 09/27/24 12:35 nabumetone (From Relafen) Allergy Hives Verified 09/27/24 12:35 naproxen sodium (From Aleve) Allergy Hives Verified 09/27/24 12:35 Penicillins Allergy Hives Verified 09/27/24 12:35 Family History Brother Alcoholism Diabetes Father Alcoholism Hypertension Mother Arthritis Diabetes Hypertension Breast cancer Grandfather Colon cancer Grandfather Prostate cancer Other COPD (chronic obstructive pulmonary disease) Surgical History History of cardiac catheterization Status post amputation of left great toe History of surgical procedure History of surgical procedure S/P TURP Status post surgical removal of malignant neoplasm of skin Social History household members: children housing: house current occupational status: retired 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 Smoking Status: Former smoker quit date: 07/25/15 pack-years: 80 Electronic Cigarette Use: not used how long ago did patient quit smoking: Quit 7 years ago alcohol intake: never substance use type: does not use do you feel safe at home: Yes additional social history: passed ROS Constitutional Constitutional: Denies fatigue, fever(s), poor appetite, weight gain or weight loss Gastrointestinal Gastrointestinal: Denies belching, bloating, change in bowel habits, change in stool character, chewing difficulty, coffee ground emesis, constipation, cramping, diarrhea, dyspepsia, dysphagia, early satiety, excessive flatus, fecal incontinence, heartburn, hematemesis, hematochezia, hemorrhoids, loose stools, melena, nausea, odynophagia, rectal bleeding, tenesmus, vomiting or weight changes Vital Signs Vital Signs Vital Signs: 09/27/24 12:41 09/27/24 12:41 Temperature 97.7 F L Temperature Source Temporal Pulse Rate 84 Respiratory Rate 18 Respiratory Pattern Normal Blood Pressure 145/55 H Blood Pressure Mean 85 Blood Pressure Source Monitor Blood Pressure Position Sitting Blood Pressure Location Right Arm Pulse Ox 98 Oxygen Delivery Method Room Air Weight Weight: 271 lb 6.224 oz Body Mass Index (BMI) 40.1 Physical Exam Const alert, oriented x3, no apparent distress and healthy appearing General Appearance: cooperative GI normal to inspection, nondistended, normoactive bowel sounds, soft to palpation, non-tender and non-distended Percussion: normal to percussion Rectal Exam: deferred Assessment & Plan Assessment/Plan (1) Screening for malignant neoplasm of colon: PLAN: Assessment and Plan Assessment and Plan (1) GERD (gastroesophageal reflux disease): Status: Chronic Qualifiers: Esophagitis presence: without esophagitis Qualified Code(s): K21.9 - Gastro-esophageal reflux disease without esophagitis (2) Drug-induced constipation: Status: Acute Medications: New polyethylene glycol 3350 (Miralax) 17 grams PO QDAY 850 grams 2RF Plan RUDDY SUTHERLAND, is a 69 M who presents to the office today for establishment with [facility] for complaints of constipation, bloating, and gas. Differential diagnoses include: drug-induced constipation, slow transit, CIC. Discussed care plan with him. Goal is to have daily BM in order to reset colon size for ease of BMs. PEG 17gm PO daily consider substituting daily stool softener for Miralax after 2months of daily BMs without straining schedule screening colonoscopy, last c-scope [address] Jesenia Andujar due to rivaroxaban for DVTs office FU 1wk after scope
[2024-09-27 13:04] LABS: Bedside Glucose 115 mg/dL (74-106)
--- NOTE | 2024-09-27 13:11 | PCM.PRE.AN2 ---
ASA Classification* ASA Classification ASA Classification: 3 (STEPHANE, COPD) Assessment & Plan Anesthesia* Anesthesia Assessment Anesthesia Assessment: Discussed sedation and/or anesthesia options, risks, benefits, and alternatives with patient/parents/legal guardian/POA. Questions invited. The patient/parents/legal guardian/POA seems to understand and agrees to proceed with anesthesia plan. Reviewed the physical assessment, medical history, allergy history and patient home medications list prior to surgery/procedure/anesthetic and documented any changes. Performed airway and anesthesia risk assessments. Anesthesia Type Anesthesia Type: General History Source History Obtained from:: Patient and Chart Anesthesia Focused Assessment* Temperature: 97.7 F Pulse Rate: 84 Blood Pressure: 145/55 Respiratory Rate: 18 Pulse Ox: 98 Oxygen Delivery Method: Room Air Airway Assessment Mouth opens: >3 cm Mallampati Score: II Teeth Condition: Intact Neck Range of motion (ROM): Full ROM Focused Labs Anesthesia Preop lab: CBC WBC 12.1 K/mm3 (4.4-11.0) H 01/14/24 11:13 01/14/24 RBC 4.47 M/mm3 (4.6-6.2) L 01/14/24 11:13 01/14/24 Hgb 13.1 g/dL (13.0-16.5) 01/14/24 11:13 01/14/24 Hct 42.3 % (40-54) 01/14/24 11:13 01/14/24 Plt Count 287 K/mm3 (150-450) 01/14/24 11:13 01/14/24 CHEMISTRY Potassium 5.0 mmol/L (3.3-5.1) 07/21/24 11:17 07/21/24 Sodium 136 mmol/L (133-145) 07/21/24 11:17 07/21/24 Magnesium 2.4 mg/dL (1.6-2.6) 08/11/23 06:00 08/11/23 Phosphorus 4.9 mg/dL (2.5-4.9) 03/31/22 03:10 03/31/22 BUN 13 mg/dL (4-19) 07/21/24 11:17 07/21/24 Creatinine 1.3 mg/dL (0.8-1.3) 07/21/24 11:17 07/21/24 Glucose 91 mg/dL (70-99) 07/21/24 11:17 07/21/24 POC Glucose 115 mg/dL (74-106) H 09/27/24 12:19 09/27/24 TSH 0.96 uIU/mL (0.358-3.74) 08/04/23 05:25 08/04/23 COAG PT 19.2 SECONDS (11.7-14.9) H 07/22/23 03:28 07/22/23 Pre-Assessment Diagnosis/Proposed Procedure Planned Operative Procedure(s): COLONOSCOPY Anesthesia History Anesthesia History - truss assembler: Anesthesia History - truss assembler Hx Hospitalization No 09/15/24 12:08 Any Problems With Anesthesia No 09/15/24 12:08 Cholinesterase deficiency No 09/15/24 12:08 You/Your Family Experience No 09/15/24 12:08 fever (hyperthermia) with Relationship Recent Exposure to Contagious No 09/27/24 12:41 Disease Does patient have nerve No 09/15/24 12:08 stimulator Patient instructed to have device shut off --Does patient have Pacemaker No 09/27/24 12:41 or ICD? When Was Last Pacemaker Check QUESTION #4 FULL TEXT: You/Your Family Experience fever (hyperthermia) with Anesthesia Last Oral Intake Last Oral intake: Last Oral Intake NPO since 05:00 09/27/24 12:41 Meds taken in AM with sips of Yes 09/27/24 12:41 water? Meds patient instructed to see med rec 09/27/24 12:41 take am of surgery PONV PONV - truss assembler: PONV - truss assembler Female No 09/15/24 12:08 HX of Motion Sickness No 09/15/24 12:08 HX of N/V After Surgery No 09/15/24 12:08 Non-Smoker Yes 09/15/24 12:08 Duration of Surgery greater No 09/15/24 12:08 than 60 minutes Number of Risk Factors 1 09/15/24 12:08 PONV Score Low Risk 09/15/24 12:08 Height & Weight Height & Weight: Anesthesia: Height & Weight Height 5 ft 9 in 09/27/24 12:41 Weight: 123.1 kg 09/27/24 12:41 Body Mass Index (BMI) 40.1 09/27/24 12:41 Respiratory Assessment Respiratory Assessment - truss assembler: Respiratory Tract Infection Hx - truss assembler Hx Respiratory Tract Infection No 09/15/24 12:08 STOP Sleep Apnea STOP Sleep Apnea - truss assembler: STOP Sleep Apnea - truss assembler Hx Hypertension Yes 09/15/24 12:08 Hx Sleep Apnea Yes 09/15/24 12:08 CPAP No 09/15/24 12:08 BIPAP Yes: DOESNT WEAR 09/15/24 12:08 Do you snore loudly (louder than talking or can be heard Do you often feel tired/ fatigued/ sleepy during daytime? Has anyone observed you stop breathing during sleep? STOP Results Positive 09/15/24 12:08 QUESTION #5 FULL TEXT : Do you snore loudly (louder than talking or can be heard through closed doors)? 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 Specify any problems Hx of Preganancy in last 3 N/A 09/15/24 12:08 Months Nurse Filling Out Transfusion EHUMBARGER 09/15/24 12:08 & Questions: Date: 09/15/24 09/15/24 12:08 Time: 12:18 09/15/24 12:08 Patient unable to answer at this time (ie. confused, unrespo /Reproduction History /Reproductive History - truss assembler: /Reproductive Hx- truss assembler Hx Now No 09/15/24 12:08 Gestational Age (in weeks): EDC: Hx Hx Para Hx Section SAB Active Medications Active Medications: Current Medications Generic Name Dose Route Start Last Admin Trade Name Freq PRN Reason Stop Dose Admin Lactated Ringer's 1,000 mls @ 15 mls/hr 09/27/24 12:15 09/27/24 12:44 IV 15 mls/hr .Q48H BUFFY Administration PFSH Medical History Wears hearing aid Wears dentures MRSA infection Insulin dependent diabetes mellitus Ambulates with cane High cholesterol Easy bruising Restless legs TIA (transient ischemic attack) Dietary restriction Gastric reflux On home oxygen therapy Leg cramps History of pain when walking History of edema Pulmonary embolism DVT (deep venous thrombosis) Hypertension History of stress test History of echocardiogram Cardiology follow-up encounter Essential hypertension Thoracic outlet syndrome Skin cancer Vision problems Vascular disease Stroke Pneumonia Neuropathy Gastrointestinal problem Emphysema lung Bronchitis Carpal tunnel syndrome Cataracts, bilateral Bleeding disorder Hx of blood clots UTI (urinary tract infection) Back problem Asthma Arthritis Allergies Smokes with greater than 40 pack year history Chronic pain GERD (gastroesophageal reflux disease) Hyperlipidemia Morbid obesity Leukocytosis Stage 3a chronic kidney disease (CKD) Hypoxia Sleep apnea Bilateral pulmonary embolism History of DVT of lower extremity 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 Depression COPD (chronic obstructive pulmonary disease) Home Medications ?Medication ?Instructions ?Recorded ?Last Taken ?Type clotrimazole-betamethasone 1 1 applic topical BID #0 grams 07/30/23 Unknown Rx %-0.05 % topical cream morphine 15 mg tablet,extended 15 mg PO 0800,1999 3 days #6 tabs 07/30/23 09/27/24 05:00 Rx release hydrocodone 7.5 mg-acetaminophen 1 tab PO TID PRN pain 10/08/23 09/27/24 05:00 History 325 mg tablet rollator walker with seat and #1 ea 12/15/23 Unknown Rx brakes docusate sodium 100 mg capsule 100 mg PO BID #60 caps 03/01/24 Unknown Rx polyethylene glycol 3350 17 17 g PO QDAY #850 grams 07/16/24 Unknown Rx gram/dose oral powder (Miralax) amitriptyline 50 mg tablet 50 mg PO QHS 07/21/24 Unknown History atorvastatin 80 mg tablet 80 mg PO QHS Check with primary 07/21/24 Unknown Rx doctor #90 tabs empagliflozin 25 mg tablet 25 mg PO DAILY Diabetes #90 tabs 07/21/24 09/19/24 Rx (Jardiance) insulin regular hum U-500 conc 500 See Rx Instructions subcut 07/21/24 09/27/24 05:00 Rx unit/mL(3 mL) subcut pen (Humulin DAILY@0700 #6 mL R U-500 (Conc) Insulin Kwikpen) lisinopril 30 mg tablet 30 mg PO QDAY #90 tabs 07/21/24 Unknown Rx omeprazole 40 mg capsule,delayed 40 mg PO DAILY GERD #90 caps 07/21/24 09/27/24 05:00 Rx release pen needle, diabetic 32 gauge x 1 ea miscellaneous .3 times daily 07/21/24 Unknown Rx (BD Ultra-Fine Ava Pen #100 ea Needle) pramipexole 0.125 mg tablet 0.125 mg PO QHS #90 tabs 07/21/24 Unknown Rx rivaroxaban 20 mg tablet 20 mg PO DAILY Blood Thinner #90 07/21/24 09/19/24 Rx tabs tamsulosin 0.4 mg capsule 0.4 mg PO Q24H Urinary Retention 07/21/24 Unknown Rx #90 CAPSULES tirzepatide 12.5 mg/0.5 mL 12.5 mg (0.5 mL) subcut Nagy@1000 #6 07/21/24 09/19/24 Rx subcutaneous pen injector mL trazodone 150 mg tablet 150 - 300 mg (1 - 2 x 150 mg) PO 07/21/24 Unknown Rx QHS PRN sleep #90 tabs miscellaneous medical supply #1 ea 07/22/24 Unknown Rx mometasone 50 mcg/actuation nasal 2 spray intranasal BID PRN 09/15/24 Unknown History spray (Nasonex 24hr Allergy) ALLERGIES albuterol sulfate 90 mcg/actuation 2 inh inhalation Q4H PRN shortness 09/21/24 Unknown Rx aerosol inhaler (Ventolin HFA) of breath or wheezing #18 grams umeclidinium 62.5 mcg-vilanterol 1 inh inhalation QDAY #60 ea 09/21/24 Unknown Rx 25 mcg/actuation powdr for inhalation (Anoro Ellipta) Allergy/AdvReac Type Severity Reaction Status Date / Time cilostazol (From Pletal) Allergy Other Verified 09/27/24 12:35 etodolac (From Lodine) Allergy Hives Verified 09/27/24 12:35 nabumetone (From Relafen) Allergy Hives Verified 09/27/24 12:35 naproxen sodium (From Aleve) Allergy Hives Verified 09/27/24 12:35 Penicillins Allergy Hives Verified 09/27/24 12:35 Family History Brother Alcoholism Diabetes Father Alcoholism Hypertension Mother Arthritis Diabetes Hypertension Breast cancer Grandfather Colon cancer Grandfather Prostate cancer Other COPD (chronic obstructive pulmonary disease) Surgical History History of cardiac catheterization Status post amputation of left great toe History of surgical procedure History of surgical procedure S/P TURP Status post surgical removal of malignant neoplasm of skin Social History household members: children housing: house current occupational status: retired 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
--- NOTE | 2024-09-27 13:49 | OP.CCLET_ITS ---
09/27/2024 Jesenia Andujar Md Re : Colonoscopy procedure for Toi Milian Dear Pratima This procedure was performed on Friday, September 27, 2024. My impressions and recommendations are as follows: Impressions : - Preparation of the colon was inadequate. - Diverticulosis in the recto-sigmoid colon, in the sigmoid colon, in the descending colon and in the transverse colon. - Stool in the entire examined colon. - No specimens collected. Recommendations : - Discharge patient to home. - Resume previous diet. - Continue present medications. - Repeat colonoscopy because the bowel preparation was poor. My findings are described in the full procedure note, which is enclosed. If I can be of further assistance, please feel free to contact me at . Sincerely, Sang Spann, 09/27/2024 1:48:59 PM This report has been signed electronically.
--- NOTE | 2024-09-27 13:49 | OP.COLON_ITS ---
Patient Name: Toi Milian Procedure Date: 09/27/2024 1:04 PM Date of : 1955 Age: 69 Procedure: Colonoscopy Indications: Screening for colorectal malignant neoplasm Providers: Sang Spann DO Referring MD: Jesenia Andujar Md Medicines: Monitored Anesthesia Care Patient Profile: This is a 69 year old male. Refer to note in patient chart for documentation of history and physical. Last Colonoscopy: several years ago. Complications: No immediate complications. Procedure: Pre-Anesthesia Assessment: - Prior to the procedure, a History and Physical was performed, and patient medications and allergies were reviewed. The patient is competent. The risks and benefits of the procedure and the sedation options and risks were discussed with the patient. All questions were answered and informed consent was obtained. Patient identification and proposed procedure were verified by the physician in the pre-procedure area. Mental Status Examination: alert and oriented. Airway Examination: normal oropharyngeal airway and neck mobility. Respiratory Examination: clear to auscultation. CV Examination: normal. Prophylactic Antibiotics: The patient does not require prophylactic antibiotics. Prior Anticoagulants: The patient has taken no anticoagulant or antiplatelet agents except for NSAID medication. ASA Grade Assessment: II - A patient with mild systemic disease. After reviewing the risks and benefits, the patient was deemed in satisfactory condition to undergo the procedure. The anesthesia plan was to use monitored anesthesia care (MAC). Immediately prior to administration of medications, the patient was re-assessed for adequacy to receive sedatives. The heart rate, respiratory rate, oxygen saturations, blood pressure, adequacy of pulmonary ventilation, and response to care were monitored throughout the procedure. The physical status of the patient was re-assessed after the procedure. After I obtained informed consent, the scope was passed under direct vision. Throughout the procedure, the patient's blood pressure, pulse, and oxygen saturations were monitored continuously. The colonoscope was introduced through the anus and advanced to the cecum, identified by appendiceal orifice and ileocecal valve. The colonoscopy was performed without difficulty. The patient tolerated the procedure well. The quality of the bowel preparation was inadequate. The ileocecal valve, appendiceal orifice, and rectum were photographed. Scope In: 1:28:02 PM Scope Withdrawal Time 0 hours 3 minutes 25 seconds Scope Out: 1:38:25 PM Total Procedure Duration Time 0 hours 10 minutes 23 seconds Findings: The perianal and digital rectal examinations were normal. Multiple small and large-mouthed diverticula were found in the recto-sigmoid colon, sigmoid colon, descending colon and transverse colon. Copious quantities of stool was found in the entire colon, precluding visualization. Impression: - Preparation of the colon was inadequate. - Diverticulosis in the recto-sigmoid colon, in the sigmoid colon, in the descending colon and in the transverse colon. - Stool in the entire examined colon. - No specimens collected. Recommendation: - Discharge patient to home. - Resume previous diet. - Continue present medications. - Repeat colonoscopy because the bowel preparation was poor. Procedure Code(s): --- Professional --- 23619, Colonoscopy, flexible; diagnostic, including collection of specimen(s) by brushing or washing, when performed (separate procedure) CPT copyright 2021 [employer]. All rights reserved. The codes documented in this report are preliminary and upon options advisor review may be revised to meet current compliance requirements. Sagn Spann DO 09/27/2024 1:48:59 PM This report has been signed electronically. Number of Addenda: 0 Note Initiated On: 09/27/2024 1:04 PM
--- NOTE | 2024-09-27 13:50 | PCM.POST.ANE ---
Anesthesia: Postop Eval I Current Vital Signs Temperature: 97.3 F Pulse Rate: 68 Blood Pressure: 106/44 Respiratory Rate: 16 Pulse Ox: 97 Oxygen Delivery Method: Room Air Assessment Airway patent: Yes Spontaneous unlabored respirations: Yes Mental status: Awake and Calm nausea: No Vomiting: No Anesthesia Complication: No Fluid Hydration Crystalloid volume administer (ml): 200 Total IV fluid infused: 200 Progress Note Anesthesia document: Postop Eval 1 completed: Yes
--- NOTE | 2024-09-27 13:53 | PCM.POSTANE2 ---
Anesthesia Postop Eval I Sum Postop Eval Completion status Anesthesia document: Postop Eval 1 completed: Yes Anesthesia Postop Eval I Summary Anesthesia Postop Eval I Summary: Anesthesia Postop Eval I: Assessment Summary Airway patent Yes 09/27/24 13:51 [email or web address] Spontaneous unlabored Yes 09/27/24 13:51 [email or web address] respirations Mental status Awake,Calm 09/27/24 13:51 [email or web address] nausea No 09/27/24 13:51 [email or web address] Vomiting No 09/27/24 13:51 [email or web address] Anesthesia Postop Eval I: Fluid Summary Crystalloid volume administer 200 09/27/24 13:51 [email or web address] (ml) Colloids volume administered ( ml) Blood Product volume administered (ml) Total IV fluid infused 200 09/27/24 13:51 [email or web address] Anesthesia Postop Eval I: Summary Notes Anesthesia Complication No 09/27/24 13:51 [email or web address] Anesthesia Complication Comment: Post-operative progress note Anesthesia: Postop Eval II Evaluation Mental status: Awake Pain Level: 0 nausea: No Vomiting: No Complications Anesthesia Complication: No
== END 2024-09-27 14:44 | disposition home or self-care (01) ==
LOC: EN 12:00 → AC 12:01
PROVIDERS: PCP Internal Medicine; Referring Provider Internal Medicine; Visit Provider Internal Medicine Gastroenterology
PROC: 0DJD8ZZ Inspection of Lower Intestinal Tract, Via Natural or Artificial Opening Endoscopic (ICD-10-PCS; CPT 45378; principal; 2024-09-27 13:10)
DX: Z12.11 Encounter for screening for malignant neoplasm of colon (principal); Z79.4 Long term (current) use of insulin; E11.40 Type 2 diabetes mellitus with diabetic neuropathy, unspecified; K21.9 Gastro-esophageal reflux disease without esophagitis; G47.33 Obstructive sleep apnea (adult) (pediatric); E78.00 Pure hypercholesterolemia, unspecified; K57.30 Diverticulosis of large intestine without perforation or abscess without bleeding; I10 Essential (primary) hypertension; Z87.891 Personal history of nicotine dependence; Z86.718 Personal history of other venous thrombosis and embolism; Z79.51 Long term (current) use of inhaled steroids; Z79.899 Other long term (current) drug therapy; Z79.84 Long term (current) use of oral hypoglycemic drugs; Z79.85 Long-term (current) use of injectable non-insulin antidiabetic drugs; Z86.711 Personal history of pulmonary embolism
CPT/HCPCS: 45378; 82962; J2405

== ENCOUNTER → 2024-10-09 | Outpatient (CLI) | payer MEDICARE, MEDICAID, SELFPAY ==
--- NOTE | 2024-10-09 09:29 | CT_ITS ---
EXAM: CT Chest, Lung Cancer Screening Without Intravenous Contrast CLINICAL INDICATION: SMOKER QUIT 2016 TECHNIQUE: Axial computed tomography images of the chest without intravenous contrast using low dose (LDCT) lung cancer screening protocol. This CT exam was performed using one or more of the following dose reduction techniques: automated exposure control, adjustment of the mA and/or kV according to patient size, and/or use of iterative reconstruction technique. COMPARISON: CT Lung Cancer Screening dated 05/2022 FINDINGS: LUNGS AND PLEURAL SPACES: Lung emphysema/COPD. No consolidation. No pneumothorax. No significant effusion. No new suspicious pulmonary nodules. HEART: Unremarkable. No cardiomegaly. No significant pericardial effusion. No significant coronary artery calcifications. BONES/JOINTS: Unremarkable. No acute fracture. No dislocation. SOFT TISSUES: Unremarkable. VASCULATURE: Unremarkable. No thoracic aortic aneurysm. LYMPH NODES: Unremarkable. No enlarged lymph nodes. CT/Low Dose CT Lung Screening IMPRESSION: 1. No new suspicious pulmonary nodules. 2. LUNG-RADS 1: Continue low-dose CT screening of the chest in 12 months is re commended. Reading Location: [id number]
== END | disposition home or self-care (01) ==
LOC: CT 09:28
PROVIDERS: PCP Internal Medicine; Referring Provider Nurse Practitioner Acute Care; Visit Provider Nurse Practitioner Acute Care
DX: Z12.2 Encounter for screening for malignant neoplasm of respiratory organs (principal); Z87.891 Personal history of nicotine dependence
CPT/HCPCS: 71271

== ENCOUNTER → 2024-11-02 | Outpatient (CLI) | payer MEDICARE, MEDICAID, SELFPAY ==
[2024-11-02 09:55] LABS: Bacteria 0 SEEN /hpf (None Seen); Mucous, Urine 0 SEEN /hpf (<or=2+); Red Blood Cells-Urine 0 SEEN /hpf (0-5)
[2024-11-02 12:15] LABS: Color, Urine Yellow (Yellow); Glucose, Dipstick 1000 mg/dl (Normal); Ketone-Dipstick Negative (Negative); Leukocyte Esterase-Dipstick 25 /ul (Negative); Nitrite-Dipstick Negative (Negative); Occult Blood-Urine Negative /ul (Negative); Protein-Dipstick 30 mg/dl (Negative); Specific Gravity, Urine 1.015 (1.002-1.030); Urine Bilirubin Dipstick Negative (Negative); Urine Clarity Clear (Clear); Urine Urobilinogen Normal (Normal)
[2024-11-02 12:23] LABS: Squamous Epithelial Cells - UA 0-5 SEEN /hpf (0-5)
[2024-11-02 12:24] LABS: White Blood Cells 0-5 SEEN /hpf (0-5)
[2024-11-02 12:25] LABS: Absolute Lymphocyte Count 4.68 X10^3/uL (0.83-4.51); Absolute Neutrophil Count 6.5 X10^3/uL (2.0-7.7); Basophil% 0.8 % (0-1); Eosinophils% 3.1 % (0-5); Hematocrit 43.3 % (40-54); Hemoglobin 13.9 g/dL (13.0-16.5); Lymphocyte # 4.68 X10^3/ul (0.83-4.51); Lymphocyte % 36.6 % (19-41); Mean Corp Hgb Conc 32.1 g/dL (32-36); Mean Corpuscular Hgb 31.2 pg (27.0-32.0); Mean Corpuscular Volume 97.3 fL (80-94); Mean Platelet Vol. 10.2 fl (6.2-12.0); Monocyte% 7.8 % (0-10); NRBC Flagged by Analyzer 0 % (0-5); Neutrophil # 6.47 X10^3/uL (2.7-7.7); Neutrophil % 50.8 % (47-70); Platelet Count 225 K/mm3 (150-450); RBC Distribution Width SD 46.1 fl (35.1-43.9); Red Blood Count 4.45 M/mm3 (4.6-6.2); White Blood Count 12.8 K/mm3 (4.4-11.0)
[2024-11-02 12:43] LABS: Microalbumin,Random Urine < 12.0 mg/L (NO RANGE EST.); Microalbumin:Creatinine Ratio UNABLE TO CALCULATE mg/g CRE
[2024-11-02 13:04] LABS: ALB/GLOB Ratio 1.3 RATIO (0.9-2.4); AST(SGOT) 13 U/L (<=37); Alanine Aminotransfer ALT/SGPT 8 U/L (<=46); Alkaline Phosphatase 116 U/L (40-129); Anion Gap 13 (5-15); BUN 8 mg/dL (4-19); BUN/Creat Ratio 6.2 RATIO (10-20); Carbon Dioxide 26.8 mmol/L (21.0-32.0); Chloride 102 mmol/L (98-108); Cholesterol 101 mg/dL (<=200); Creatinine, Serum 1.25 mg/dL (0.70-1.20); EST Glomerular Filtration Rate 63 (>60); Globulin 3.1 g/dL (2.2-4.2); Glucose 71 mg/dL (70-99); High Density Lipoprotein 28 mg/dL; Low Density Lipoprotein Calc. 53 mg/dL; Potassium 3.3 mmol/L (3.3-5.1); Protein, Total 7.1 g/dL (5.9-8.4); Sodium Level 142 mmol/L (133-145); Total Bilirubin 0.38 mg/dL (0.00-1.30); Triglycerides 99 mg/dL; Very Low Density Lipoprotein 20 mg/dL (5-40); Vitamin B12 326 pg/mL (180-914); Vitamin D,25 Hydroxy 23.7 ng/mL (30-100); cholesterol:hdl ratio screen 3.61
== END | disposition home or self-care (01) ==
PROVIDERS: PCP Internal Medicine; Visit Provider Internal Medicine
DX: I10 Essential (primary) hypertension (principal); E11.9 Type 2 diabetes mellitus without complications; R39.9 Unspecified symptoms and signs involving the genitourinary system; E53.8 Deficiency of other specified B group vitamins; E55.9 Vitamin D deficiency, unspecified
CPT/HCPCS: 36415; 80053; 80061; 81001; 82043; 82306; 82570; 82607; 85025; 87086; 87088